=== PATIENT | female | born 1950 | race Caucasian/White ===

== ENCOUNTER 2018-07-05 04:50 | Observation (INO) | payer BC ==
--- NOTE | 2018-07-05 05:12 | ERPHSYRPT ---
- History of Present Illness Time Seen by Provider: 07/05/18 05:05 Source: patient Exam Limitations: no limitations Physician History: 67-year-old white female with history of CVA, cataracts, hypercholesterolemia, COPD, high blood pressure, myocardial infarction, diabetes type 2. Arrives with complaint of irregular heartbeat and feeling of weakness associated with shortness of breath which began approximately one hour ago woke patient up from sleep Patient states that the pain lasted undetermined amount of time, it went away shortly after she contacted her son she did not take any aspirin. She is on Effient. Currently she does not have any pain she does state that she feels weak. Past medical history includes CVA, cataracts, hypercholesterolemia, COPD, high blood pressure, myocardial infarction, diabetes type 2, ulcers. Past surgical history includes cardiac catheter cardiac stents cholecystectomy, hysterectomy. Social history patient is a former smoker. Timing/Duration: today (one hour prior to arrival) Severity: moderate Modifying Factors: Improves With: nothing Associated Symptoms: shortness of breath, malaise, weakness (patient states she feels generally weak), No nausea, No vomiting, No abdominal pain, No heartburn, No diaphoresis, No cough, No chills, No chest pain, No fever, No headaches, No loss of appetite, No rash, No syncope, No seizure Allergies/Adverse Reactions: Penicillins Allergy (Severe, Verified 07/05/18 05:08) Vomiting iodine Adverse Reaction (Verified 07/05/18 05:08) Rash Home Medications: Amlodipine Besylate 10 mg [Norvasc 10 MG] 5 mg PO DAILY 06/02/16 [History] Atorvastatin Calcium 40 mg PO DAILY 06/02/16 [History] Gemfibrozil 600 mg [Lopid 600 mg] 600 mg PO BID 06/02/16 [History] Metoprolol Tartrate 75 mg PO BID 06/02/16 [History] Oxybutynin Chloride 10 mg Xl [Ditropan Xl 10 MG] 10 mg PO DAILY 06/02/16 [ History] Lisinopril 20 mg [Zestril 20 MG] 20 mg PO BID 07/30/16 [History] Valsartan [Diovan] 160 mg PO DAILY 07/30/16 [History] Allopurinol 100 mg [Zyloprim 100 mg] 100 mg PO BID 07/05/18 [History] Bumetanide [Bumex] 2 mg PO DAILY 07/05/18 [History] Potassium Chloride 10 Meq Tab* [Klor Con 10 MEQ] 10 meq PO DAILY 07/05/18 [ History] Prasugrel HCL 10 MG [Effient 10 MG TABLET] 10 mg PO DAILY 07/05/18 [ History] Sitagliptin Phos/Metformin HCl [Janumet 50-1,000 mg Tablet] 1 each PO BID [History] glipiZIDE [Glipizide] 10 mg PO BID 07/05/18 [History] Hx Tetanus, Diphtheria Vaccination/Date Given: Yes Hx Influenza Vaccination/Date Given: (fall 2015) Hx Pneumococcal Vaccination/Date Given: Yes (fall 2014) - Review of Systems Constitutional: Weakness (Patient feels generally weak), No Fever, No Chills Eyes: No Symptoms Ears, Nose, & Throat: No Symptoms Respiratory: Dyspnea, No Cough Cardiac: Palpitations, Other (Patient felt like her heart was racing) Abdominal/Gastrointestinal: No Abdominal Pain, No Nausea, No Vomiting, No Diarrhea Genitourinary Symptoms: No Dysuria Musculoskeletal: No Back Pain, No Neck Pain Skin: No Rash Neurological: Dizziness, Other (light headed), No Focal Weakness, No Sensory Changes Psychological: No Symptoms Endocrine: No Symptoms All Other Systems: Reviewed and Negative - Past Medical History Pertinent Past Medical History: Yes Neurological History: Migraines, TIA ENT History: No Pertinent History Cardiac History: Coronary Artery Disease, High Cholesterol, Hypertension, Myocardial Infarction ([place]) Respiratory History: No Pertinent History Endocrine Medical History: Diabetes Type II Musculoskeletal History: No Pertinent History GI Medical History: Gallbladder Disease, Ulcer History: Other Psycho-Social History: No Pertinent History Female Reproductive Disorders: Other Other Medical History: hx of migraines that causea TIA's 15yrs ago, had prolapsed uterus and had uterus removed, had [place] in May, has high cholesterol , has HTN - Past Surgical History Past Surgical History: Yes Neuro Surgical History: No Pertinent History Cardiac: Cardiac Catheterization, Cardiac Stent Respiratory: No Pertinent History Gastrointestinal: Cholecystectomy Genitourinary: No Pertinent History Musculoskeletal: No Pertinent History Female Surgical History: Hysterectomy Other Surgical History: had 5 heart stents 5 or 6 yrs ago, had partial hysterectomy (uterus removed) years ago, had cholecystectomy in , - Social History Smoking Status: Never smoker Exposure to second hand smoke: Yes Drug Use: none Patient Lives Alone: No - Nursing Vital Signs Nursing Vital Signs: Initial Vital Signs Temperature 97.1 F 07/05/18 04:51 Pulse Rate 60 07/05/18 04:51 Respiratory Rate 22 07/05/18 04:51 Blood Pressure 159/75 07/05/18 04:51 O2 Sat by Pulse Oximetry 100 07/05/18 04:51 Pain Scale Pain Intensity 0 - Physical Exam General Appearance: no apparent distress, alert Eye Exam: PERRL/EOMI, eyes nml inspection Ears, Nose, Throat Exam: normal ENT inspection, TMs normal, pharynx normal, moist mucous membranes Neck Exam: normal inspection, non-tender, supple, full range of motion Respiratory Exam: normal breath sounds, lungs clear, No respiratory distress Cardiovascular Exam: regular rate/rhythm, normal heart sounds, normal peripheral pulses, capillary refill <2 sec Gastrointestinal/Abdomen Exam: soft, normal bowel sounds, No tenderness, No mass Back Exam: normal inspection, normal range of motion, No CVA tenderness, No vertebral tenderness Extremity Exam: normal inspection, normal range of motion, pelvis stable Neurologic Exam: alert, oriented x 3, cooperative, business liaison manager II-XII nml as tested, normal mood/affect, nml cerebellar function, nml station & gait, sensation nml, No motor deficits Skin Exam: normal color, warm, dry, No rash Lymphatic Exam: No adenopathy SpO2 Interpretation: normal (100%) Oxygen Delivery: Room Air - Course Nursing assessment & vital signs reviewed: Yes EKG Interpreted by Me: RATE (55 bpm), Sinus Be, NORMAL AXIS, Other (EKG: Sinus Bradycardia, 55 bpm, normal axis, nonspecific T wave changes) - Radiology Exams Chest X-ray Interpretation: Interpreted by me (no acute disease process) Ordered Tests: Active Orders 24 hr Category Date Time Status Accucheck STAT Care 07/05/18 05:12 Active Cycle Manager STAT Care 07/05/18 04:59 Active EKG-ER Only STAT Care 07/05/18 04:59 Active IV Insertion STAT Care 07/05/18 04:59 Active Pulse Oximetry (ED) STAT Care 07/05/18 04:59 Active CHEST 1 VIEW (PORTABLE) Stat Exams 07/05/18 04:59 Ordered AMYLASE Stat Lab 07/05/18 05:00 Completed CBC W DIFF Stat Lab 07/05/18 05:00 Completed CMP Stat Lab 07/05/18 05:00 Completed D-DIMER QUANTITATION Stat Lab 07/05/18 05:00 Completed LIPASE Stat Lab 07/05/18 05:00 Completed PROTIME WITH INR Stat Lab 07/05/18 05:00 Completed PTT Stat Lab 07/05/18 05:00 Completed TROPONIN Q3H Lab 07/05/18 05:00 Completed TROPONIN Q3H Lab 07/05/18 08:00 Ordered TROPONIN Q3H Lab 07/05/18 11:00 Ordered TROPONIN Q3H Lab 07/05/18 14:00 Ordered TROPONIN Q3H Lab 07/05/18 17:00 Ordered Medication Summary Discontinued Medications Generic Name Dose Route Start Last Admin Trade Name Freq PRN Reason Stop Dose Admin Aspirin 81 mg 07/05/18 05:18 07/05/18 05:22 Baby Aspirin 81 Mg Chew PO 07/05/18 05:19 81 mg STAT ONE Administration Lab/Rad Data: Laboratory Result Diagrams 07/05/18 05:00 07/05/18 05:00 Laboratory Results 07/05/18 07/05/18 07/05/18 Range/Units 05:00 05:00 05:00 WBC (4.0-10.5) K/mm3 RBC (4.1-5.4) M/mm3 Hgb (12.0-16.0) gm/dl Hct (35-47) % MCV (78-100) fl MCH (26-32) pg MCHC (32-36) g/dl RDW (11.5-14.0) % Plt Count (150-450) K/mm3 MPV (6-9.5) fl Gran % (36.0-66.0) % Eos # (Auto) (0-0.5) Absolute Lymphs (auto) (1.0-4.6) Absolute Monos (auto) (0.0-1.3) Lymphocytes % (24.0-44.0) % Monocytes % (0.0-12.0) % Eosinophils % (0.00-5.0) % Basophils % (0.0-0.4) % Absolute Granulocytes (1.4-6.9) Basophils # (0-0.4) PT 10.6 (9.95-12.35) SECONDS INR 0.91 (0.8-3.0) APTT 30.8 (25.3-37.0) SECONDS D-Dimer 483 (215-500) ng/mL Sodium 141 (137-145) mmol/L Potassium 3.8 (3.5-5.1) mmol/L Chloride 98 (98-107) mmol/L Carbon Dioxide 29 (22-30) mmol/L Anion Gap 16.9 H (5-15) MEQ/L BUN 54 H (7-17) mg/dL Creatinine 1.50 H (0.52-1.04) mg/dL Estimated GFR 36.8 ML/MIN Glucose 187 H (74-106) mg/dL Calcium 10.0 (8.4-10.2) mg/dL Total Bilirubin 0.40 (0.2-1.3) mg/dL AST 27 (14-36) U/L ALT 24 (0-35) U/L Alkaline Phosphatase 168 H (38-126) U/L Troponin I < 0.012 (0.000-0.034) ng/mL Serum Total Protein 8.1 (6.3-8.2) g/dL Albumin 4.7 (3.5-5.0) g/dL Amylase 77 (30-110) U/L Lipase 161 (23-300) U/L 07/05/18 Range/Units 05:00 WBC 6.6 (4.0-10.5) K/mm3 RBC 3.68 L (4.1-5.4) M/mm3 Hgb 11.3 L (12.0-16.0) gm/dl Hct 33.9 L (35-47) % MCV 92.1 (78-100) fl MCH 30.7 (26-32) pg MCHC 33.3 (32-36) g/dl RDW 14.1 H (11.5-14.0) % Plt Count 295 (150-450) K/mm3 MPV 10.4 H (6-9.5) fl Gran % 46.0 (36.0-66.0) % Eos # (Auto) 0.23 (0-0.5) Absolute Lymphs (auto) 2.66 (1.0-4.6) Absolute Monos (auto) 0.65 (0.0-1.3) Lymphocytes % 40.2 (24.0-44.0) % Monocytes % 9.8 (0.0-12.0) % Eosinophils % 3.5 (0.00-5.0) % Basophils % 0.5 (0.0-0.4) % Absolute Granulocytes 3.05 (1.4-6.9) Basophils # 0.03 (0-0.4) PT (9.95-12.35) SECONDS INR (0.8-3.0) APTT (25.3-37.0) SECONDS D-Dimer (215-500) ng/mL Sodium (137-145) mmol/L Potassium (3.5-5.1) mmol/L Chloride (98-107) mmol/L Carbon Dioxide (22-30) mmol/L Anion Gap (5-15) MEQ/L BUN (7-17) mg/dL Creatinine (0.52-1.04) mg/dL Estimated GFR ML/MIN Glucose (74-106) mg/dL Calcium (8.4-10.2) mg/dL Total Bilirubin (0.2-1.3) mg/dL AST (14-36) U/L ALT (0-35) U/L Alkaline Phosphatase (38-126) U/L Troponin I (0.000-0.034) ng/mL Serum Total Protein (6.3-8.2) g/dL Albumin (3.5-5.0) g/dL Amylase (30-110) U/L Lipase (23-300) U/L - Progress Progress: improved Progress Note: 07/05/18 05:10 67-year-old white female who is registered with complaint of chest pain however patient states she did not have pain she states that approximately one hour ago she began to feel like her heart was racing she felt generally weak she had some shortness of breath she has no nausea no vomiting. She states that her symptoms lasted an unknown period time but have resolved now she does state that she feels generally weak. Patient does have a history of cardiac problems she apparently has a history of diabetes high blood pressure hypercholesterolemia myocardial infarction she does have cardiac stents. Patient is on Effient, she did not take any aspirin at home Currently the patient appears to be stable she does have a rather forced deep breath when I ask her to take a deep breath lungs however sound clear. Heart is regular at this time EKG no acute changes are noted there are some nonspecific changes. Will obtain chest x-ray EKG CBC CMP troponin. 07/05/18 06:04 Patient without complaints at this time. Patient has been stable on the monitor with regular sinus bradycardia EKG nonspecific changes. D-dimer is normal at 483. Troponin is less than 0.012. CBC white blood cell 6.6 hemoglobin 11.3 hematocrit 33.9 Chemistry sodium 141 potassium 3.8 chloride 98 bicarbonate 29 BUN 54 creatinine 1.50 glucose 187 Chest x-ray no acute disease process noted. I've contacted Dr. Morteza Larkin who is paraprofessional education assistant for Dr. Sebastian patient's family physician. Will place patient on observation continue serial cardiac enzymes. - Departure Time of Disposition: 06:05 Departure Disposition: Observation Clinical Impression: Palpitations, Shortness of breath, Weakness Condition: Fair Critical Care Time: No Referrals: EVE GONZALEZ [Primary Care Provider] -
[2018-07-05 05:15] LABS: BASOPHIL % 0.5 % (0.0-0.4); Basophil (Absolute #) 0.03 (0-0.4); Eosinophil % 3.5 % (0.00-5.0); Eosinophil (Absolute #) 0.23 (0-0.5); Granulocyte Absolute (ANC) 3.05 (1.4-6.9); Hematocrit 33.9 % (35-47); Hemoglobin 11.3 gm/dl (12.0-16.0); Lymphocyte (Absolute #) 2.66 (1.0-4.6); Lymphocytes % 40.2 % (24.0-44.0); Mean Cell Volume 92.1 fl (78-100); Mean Corpuscular Hemoglobin 30.7 pg (26-32); Mean Corpuscular Hgb Concent. 33.3 g/dl (32-36); Mean Platelet Volume 10.4 fl (6-9.5); Monocyte (Absolute #) 0.65 (0.0-1.3); Monocytes % 9.8 % (0.0-12.0); Platelet Count 295 K/mm3 (150-450); Red Blood Count 3.68 M/mm3 (4.1-5.4); Red Cell Distribution Width 14.1 % (11.5-14.0); White Blood Count 6.6 K/mm3 (4.0-10.5)
[2018-07-05] MEDS ORDERED: BABY ASPIRIN 81 MG CHEW PO ONE (05:18)
[2018-07-05 05:33] LABS: INR 0.91 (0.8-3.0)
[2018-07-05 05:35] LABS: PTT 30.8 SECONDS (25.3-37.0)
[2018-07-05 05:37] LABS: ALBUMIN 4.7 g/dL (3.5-5.0); ANION GAP 16.9 MEQ/L (5-15); BILIRUBIN,TOTAL 0.4 mg/dL (0.2-1.3); Creatinine 1 1.5 mg/dL (0.52-1.04); Potassium 3.8 mmol/L (3.5-5.1); Total Protein 8.1 g/dL (6.3-8.2)
[2018-07-05] MEDS ORDERED: DUONEB 0.5-3 MG/3 ml Neb IH PRN (06:23)
[2018-07-05] MEDS ORDERED: Sodium Chloride 0.9% 1000 ML 1,000 ML IV SCH (06:23)
[2018-07-05] MEDS ORDERED: NovoLOG Insulin SQ PRN (06:23)
--- NOTE | 2018-07-05 08:49 | XRAY ---
Indication: Chest pain. Comparison: June 02, 2016. Portable chest again demonstrates normal heart and lungs. Bony thorax intact again with mild osteopenia and degenerative changes. No new/acute findings.
[2018-07-05 08:50] LABS: Cholesterol 254 mg/dL (50-200); HDL CHOLESTEROL 33 mg/dL (40-60); LDL, DIRECT 131 mg/dL (30-100); Risk Ratio 7.7; TRIGLYCERIDE 260 mg/dL (30-150)
[2018-07-05 08:51] LABS: TROPONIN < 0.012 ng/mL (0.000-0.034)
--- NOTE | 2018-07-05 08:59 | PCM.HP ---
History of Present Illness - Chief Complaint Chief Complaint: PALPITATIONS, WEAKNESS, SHORTNESS OF BREATH History of Present Illness: is a 67 year old female pt of mine from [facility] with COPD, CAD, chronic renal failure, HTN, DM, and gout who woke in the night wiht heart pounding. She denies CP but did have SOB. No nausea. no arm/back/neck pain. The palpitations lasted a few minutes; by the time her son, next door, got to her they were resolving. She came to the ER due to her heart history. She had a little SOB this morning but is not having any now. She was admitted for palpitations and r/o HI. Troponins neg x 2. EKG sinus bradycardia, no ST changes. - Review of Systems Constitutional: Weakness Ears, Nose, & Throat: Nose Congestion, Sinus Drainage, Throat Pain (mild - all x 2 weeks) Respiratory: Cough, Short Of Breath Abdominal/Gastrointestinal: Nausea Psychological: No Anxiety, No Depression, No Suicidal Ideations Endocrine: Polyuria (x 6 mo) All Other Systems: Reviewed and Negative Medications & Allergies Home Medications: Home Medication List Amlodipine Besylate 10 mg [Norvasc 10 MG] 5 mg PO DAILY 06/02/16 [History Confirmed 07/05/18] Atorvastatin Calcium 40 mg PO DAILY 06/02/16 [History Confirmed 07/05/18] Gemfibrozil 600 mg [Lopid 600 mg] 600 mg PO BID 06/02/16 [History Confirmed 07/05/18] Metoprolol Tartrate 0 mg PO BID 06/02/16 [History Confirmed 07/05/18] Oxybutynin Chloride 10 mg Xl [Ditropan Xl 10 MG] 10 mg PO DAILY 06/02/16 [ History Confirmed 07/05/18] Lisinopril 20 mg [Zestril 20 MG] 20 mg PO BID 07/30/16 [History Confirmed 07/05/18] Valsartan [Diovan] 160 mg PO DAILY 07/30/16 [History Confirmed 07/05/18] Allopurinol 100 mg [Zyloprim 100 mg] 100 mg PO BID 07/05/18 [History Confirmed 07/05/18] Bumetanide [Bumex] 2 mg PO DAILY 07/05/18 [History Confirmed 07/05/18] Ipratropium/Albuterol Sulfate [Combivent Inhaler] 2 puff IH QID 07/05/18 [ History Confirmed 07/05/18] Potassium Chloride 10 Meq Tab* [Klor Con 10 MEQ] 10 meq PO DAILY 07/05/18 [ History Confirmed 07/05/18] Prasugrel HCL 10 MG [Effient 10 MG TABLET] 10 mg PO DAILY 07/05/18 [ History Confirmed 07/05/18] Sitagliptin Phos/Metformin HCl [Janumet 50-1,000 mg Tablet] 1 each PO BID [History Confirmed 07/05/18] glipiZIDE [Glipizide] 10 mg PO BID 07/05/18 [History Confirmed 07/05/18] Allergies/Adverse Reactions: Allergies Allergy/AdvReac Type Severity Reaction Status Date / Time Penicillins Allergy Severe Vomiting Verified 07/05/18 05:08 iodine AdvReac Rash Verified 07/05/18 05:08 - Past Medical History Past Medical History: Yes Neurological History: Migraines, TIA ENT History: No Pertinent History Cardiac History: Coronary Artery Disease, High Cholesterol, Hypertension, Myocardial Infarction ([place]) Respiratory History: COPD Endocrine Medical History: Diabetes Type II Musculoskelatal History: No Pertinent History GI Medical History: Gallbladder Disease, Ulcer History: Other Pyscho-Social History: No Pertinent History Reproductive Disorders: Other Comment: hx of migraines that causea TIA's 15yrs ago, had prolapsed uterus and had uterus removed, had [place] in May, has high cholesterol, has HTN - Past Surgical History Past Surgical History: Yes Neuro Surgical History: No Pertinent History Cardiac History: Cardiac Catheterization, Cardiac Stent Respiratory Surgery: No Pertinent History GI Surgical History: Cholecystectomy Genitourinary Surgical Hx: No Pertinent History Musculskeletal Surgical Hx: No Pertinent History Female Surgical History: Hysterectomy Other Surgical History: 7 HEART STENTS TOTAL - Social History Smoking Status: Never smoker Exposure to second hand smoke: No Alcohol: None Drug Use: none - Physical Exam Vital Signs: Vital Signs - 24 hr Temp Pulse Pulse Resp BP Pulse Ox 07/05/18 08:00 98.4 F 54 L 18 142/67 99 07/05/18 06:50 98.4 F 54 L 18 142/67 99 07/05/18 06:23 98.4 F 54 L 18 142/67 99 07/05/18 05:50 55 L 16 99 07/05/18 05:40 58 L 16 149/71 100 07/05/18 04:59 100 07/05/18 04:51 97.1 F 60 60 22 159/75 100 Oxygen-Last 24 hours O2 Percentage 2 Liters = 28% O2 Percentage 2 Liters = 28% O2 Percentage 2 Liters = 28% O2 Percentage 2 Liters = 28% O2 Percentage 2 Liters = 28% General Appearance: no apparent distress, alert, obese Neurologic Exam: oriented x 3, cooperative Eye Exam: eyes nml inspection Ears, Nose, Throat Exam: moist mucous membranes Neck Exam: normal inspection, non-tender, No lymphadenopathy Respiratory Exam: lungs clear, diminished breath sounds (good air exchange), prolonged expirations, No crackles/rales, No rhonchi, No wheezing Cardiovascular Exam: regular rate/rhythm, normal heart sounds, No murmur Gastrointestinal/Abdomen Exam: soft, normal bowel sounds, No tenderness, No distention, No mass, No guarding, No rebound Back Exam: normal inspection, No rash Extremity Exam: No pedal edema, No swelling Skin Exam: normal color, warm, dry, No rash Results - Labs Lab/Micro Results: Accuchecks Accucheck Value: 174 Lab Results-Last 24 Hours 07/05/18 07/05/18 07/05/18 Range/Units 05:00 05:00 05:00 WBC 6.6 (4.0-10.5) K/mm3 RBC 3.68 L (4.1-5.4) M/mm3 Hgb 11.3 L (12.0-16.0) gm/dl Hct 33.9 L (35-47) % MCV 92.1 (78-100) fl MCH 30.7 (26-32) pg MCHC 33.3 (32-36) g/dl RDW 14.1 H (11.5-14.0) % Plt Count 295 (150-450) K/mm3 MPV 10.4 H (6-9.5) fl Gran % 46.0 (36.0-66.0) % Eos # (Auto) 0.23 (0-0.5) Absolute Lymphs (auto) 2.66 (1.0-4.6) Absolute Monos (auto) 0.65 (0.0-1.3) Lymphocytes % 40.2 (24.0-44.0) % Monocytes % 9.8 (0.0-12.0) % Eosinophils % 3.5 (0.00-5.0) % Basophils % 0.5 (0.0-0.4) % Absolute Granulocytes 3.05 (1.4-6.9) Basophils # 0.03 (0-0.4) PT 10.6 (9.95-12.35) SECONDS INR 0.91 (0.8-3.0) APTT 30.8 (25.3-37.0) SECONDS D-Dimer 483 (215-500) ng/mL Sodium 141 (137-145) mmol/L Potassium 3.8 (3.5-5.1) mmol/L Chloride 98 (98-107) mmol/L Carbon Dioxide 29 (22-30) mmol/L Anion Gap 16.9 H (5-15) MEQ/L BUN 54 H (7-17) mg/dL Creatinine 1.50 H (0.52-1.04) mg/dL Estimated GFR 36.8 ML/MIN Glucose 187 H (74-106) mg/dL Calcium 10.0 (8.4-10.2) mg/dL Total Bilirubin 0.40 (0.2-1.3) mg/dL AST 27 (14-36) U/L ALT 24 (0-35) U/L Alkaline Phosphatase 168 H (38-126) U/L Troponin I (0.000-0.034) ng/mL Serum Total Protein 8.1 (6.3-8.2) g/dL Albumin 4.7 (3.5-5.0) g/dL Triglycerides (30-150) mg/dL Cholesterol (50-200) mg/dL LDL Cholesterol (30-100) mg/dL HDL Cholesterol (40-60) mg/dL Heart Disease Risk Ratio Amylase 77 (30-110) U/L Lipase 161 (23-300) U/L 07/05/18 07/05/18 Range/Units 05:00 08:00 WBC (4.0-10.5) K/mm3 RBC (4.1-5.4) M/mm3 Hgb (12.0-16.0) gm/dl Hct (35-47) % MCV (78-100) fl MCH (26-32) pg MCHC (32-36) g/dl RDW (11.5-14.0) % Plt Count (150-450) K/mm3 MPV (6-9.5) fl Gran % (36.0-66.0) % Eos # (Auto) (0-0.5) Absolute Lymphs (auto) (1.0-4.6) Absolute Monos (auto) (0.0-1.3) Lymphocytes % (24.0-44.0) % Monocytes % (0.0-12.0) % Eosinophils % (0.00-5.0) % Basophils % (0.0-0.4) % Absolute Granulocytes (1.4-6.9) Basophils # (0-0.4) PT (9.95-12.35) SECONDS INR (0.8-3.0) APTT (25.3-37.0) SECONDS D-Dimer (215-500) ng/mL Sodium (137-145) mmol/L Potassium (3.5-5.1) mmol/L Chloride (98-107) mmol/L Carbon Dioxide (22-30) mmol/L Anion Gap (5-15) MEQ/L BUN (7-17) mg/dL Creatinine (0.52-1.04) mg/dL Estimated GFR ML/MIN Glucose (74-106) mg/dL Calcium (8.4-10.2) mg/dL Total Bilirubin (0.2-1.3) mg/dL AST (14-36) U/L ALT (0-35) U/L Alkaline Phosphatase (38-126) U/L Troponin I < 0.012 < 0.012 (0.000-0.034) ng/mL Serum Total Protein (6.3-8.2) g/dL Albumin (3.5-5.0) g/dL Triglycerides 260 H (30-150) mg/dL Cholesterol 254 H (50-200) mg/dL LDL Cholesterol 131 H (30-100) mg/dL HDL Cholesterol 33 L (40-60) mg/dL Heart Disease Risk Ratio 7.7 Amylase (30-110) U/L Lipase (23-300) U/L Accuchecks Accucheck Value: 174 - Radiology Impressions Radiology Exams & Impressions: Radiology Procedures Category Date Time Status CHEST 1 VIEW (PORTABLE) Stat Exams 07/05/18 04:59 Completed - Other Procedures and Tests Respiratory Therapy 07/05/18 06:23 Oxygen NASAL CANNULA 2 lpm Respiratory Therapy Consult ROUTINE Assessment/Plan (1) Chest pain, rule out acute myocardial infarction Current Visit: Yes Status: Acute Assessment & Plan: actually SOB, rule out HI Code(s): R07.9 - CHEST PAIN, UNSPECIFIED (2) Palpitations Current Visit: Yes Status: Acute Assessment & Plan: last echo likely 2 yrs ago per pt. repeat today. Code(s): R00.2 - PALPITATIONS (3) COPD (chronic obstructive pulmonary disease) Current Visit: Yes Status: Chronic Qualifiers: Emphysema type: unspecified (4) Chronic renal insufficiency Current Visit: Yes Status: Chronic Qualifiers: Chronic kidney disease stage: unspecified stage Qualified Code(s): N18.9 - Chronic kidney disease, unspecified Code(s): N18.9 - CHRONIC KIDNEY DISEASE, UNSPECIFIED (5) CAD (coronary artery disease) Current Visit: Yes Status: Acute Qualifiers: Coronary Disease-Associated Artery/Lesion type: [place] artery [place] vs. transplanted heart: [place] heart Associated angina: without angina Qualified Code(s): I25.10 - Atherosclerotic heart disease of [place] coronary artery without angina pectoris Assessment & Plan: Last stress test this spring. Sees Dr. Farnaz Massey in Jul or this year. Last heart cath she thinks 2 yrs ago. Code(s): I25.10 - ATHSCL HEART DISEASE OF [place] CORONARY ARTERY W/O ANG PCTRS (6) Shortness of breath Current Visit: Yes Status: Resolved Code(s): R06.02 - SHORTNESS OF BREATH (7) Weakness Current Visit: Yes Status: Acute Code(s): R53.1 - WEAKNESS
[2018-07-05] MEDS ORDERED: AFRIN NASAL SPRAY NS ONE (09:02)
[2018-07-05] MEDS ORDERED: NON-FORMULARY ITEM (Glipizide [Glipizide] 10 MG) PO SCH (10:00)
[2018-07-05] MEDS ORDERED: ALBUTEROL SULFATE IH SCH (10:00)
[2018-07-05] MEDS ORDERED: IPRATROPIUM IH SCH (10:00)
[2018-07-05] MEDS ORDERED: Klor Con 10 MEQ PO SCH (10:00)
[2018-07-05] MEDS ORDERED: Lasix 40 MG PO SCH (10:00)
[2018-07-05] MEDS ORDERED: NORVASC 5 MG PO SCH (10:00)
[2018-07-05] MEDS ORDERED: SITAGLIPTIN PHOS PO SCH (10:00)
[2018-07-05] MEDS ORDERED: ZYLOPRIM 100 MG PO SCH (10:00)
[2018-07-05] MEDS ORDERED: METFORMIN HCL PO SCH (10:00)
[2018-07-05] MEDS ORDERED: Zocor 10MG PO SCH (10:00)
[2018-07-05] MEDS ORDERED: Zestril 20 MG PO SCH (10:00)
[2018-07-05] MEDS ORDERED: BUMEX 1 MG PO SCH (10:00)
[2018-07-05] MEDS ORDERED: Ditropan XL 5 MG PO SCH (10:00)
[2018-07-05] MEDS ORDERED: Effient 10 MG TABLET PO SCH (10:00)
[2018-07-05] MEDS ORDERED: NON-FORMULARY ITEM (Bumetanide [Bumex] 2 MG) PO SCH (10:00)
[2018-07-05] MEDS ORDERED: LOPID 600 MG PO SCH (10:00)
[2018-07-05] MEDS: DUONEB 0.5-3 MG/3 ml Neb IH SCH ×2 (10:51→14:49)
[2018-07-05] MEDS ORDERED: Lopressor 50 MG PO SCH (11:00)
[2018-07-05] MEDS ORDERED: DIOVAN 80 MG PO SCH (11:00)
[2018-07-05] MEDS: Januvia 50 MG PO SCH ×2 (11:04→17:01)
[2018-07-05] MEDS: Glucophage 500 MG PO SCH ×2 (11:04→17:01)
[2018-07-05] MEDS: Glucotrol 5 MG PO SCH ×2 (11:05→17:01)
[2018-07-05 16:40] LABS: Appearance CLEAR (CLEAR)
[2018-07-05 16:41] LABS: Bilirubin NEGATIVE (NEGATIVE); Blood NEGATIVE Ery/ul (0-5); Glucose >=500 mg/dL (NEGATIVE); Ketones NEGATIVE (NEGATIVE); Leukocyte Esterase NEGATIVE (NEGATIVE); Nitrite NEGATIVE (NEGATIVE); Protein,Urine Dip NEGATIVE (Negative); Specific Gravity 1.013 (1.005-1.025); Urobilinogen NORMAL mg/dL (0-1)
[2018-07-05 22:43] VITALS: BP 110/58; PULSE 68; O2SAT 99
--- NOTE | 2018-07-07 11:15 | ECHO ---
Transthoracic echocardiographic examination and color Doppler was done on 07/05/2018. INDICATION: Palpitations, history of myocardial infarction, coronary artery bypass surgery. IMPRESSION: 1) NO REGIONAL WALL MOTION ABNORMALITY. ESTIMATED GLOBAL LEFT VENTRICULAR EJECTION FRACTION OF AROUND 60%. 2) MILD AORTIC REGURGITATION. 3) TRACE MITRAL REGURGITATION. 4) TRACE TRICUSPID REGURGITATION. RIGHT VENTRICULAR SYSTOLIC PRESSURE OF 25 MM OF MERCURY. 5) LEFT VENTRICULAR HYPERTROPHY. 6) LEFT VENTRICULAR DIASTOLIC DYSFUNCTION. The left ventricle is visualized and demonstrated adequate motion of all the segments. Estimated global left ventricular ejection fraction around 60%. There is mild left ventricular hypertrophy. The mitral valve is seen and this opens adequately. There is trace mitral regurgitation. Left atrium is normal. Tissue Doppler study of the lateral mitral annulus suggestive of left ventricular diastolic dysfunction. The aortic valve opens adequately. There is no significant gradient across the left ventricular outflow tract. There is mild aortic regurgitation. The right side chambers are normal. There is trace tricuspid regurgitation. The right ventricular systolic pressure of 25 mm of Mercury.
== END 2018-07-05 19:45 | disposition home or self-care (01) ==
LOC: ED 04:50 → MED SURG 06:21
PROVIDERS: ADMIT Family Medicine; ATTEND Family Medicine
DX: R07.9 Chest pain, unspecified (principal); R00.2 Palpitations; J44.9 Chronic obstructive pulmonary disease, unspecified; I12.9 Hypertensive chronic kidney disease with stage 1 through stage 4 chronic kidney disease, or unspecified chronic kidney disease; N18.9 Chronic kidney disease, unspecified; I25.10 Atherosclerotic heart disease of native coronary artery without angina pectoris; R06.02 Shortness of breath; R53.1 Weakness; Z79.899 Other long term (current) drug therapy; E11.9 Type 2 diabetes mellitus without complications; E78.00 Pure hypercholesterolemia, unspecified; I25.2 Old myocardial infarction
CPT/HCPCS: 36000; 36415; 71045; 80053; 80061; 81001; 82150; 82962; 83036; 83690; 83721; 84484; 85025; 85379; 85610; 85730; 93005; 93041; 93268; 93306; 94150; 94640; 94762; 99285; A9270-GY; G0378

== ENCOUNTER 2019-02-11 05:59 | Day surgery (SDC) | payer BC ==
[2019-02-11] MEDS ORDERED: DIPRIVAN 200 MG/20 ML IV ONE ×2 (06:00)
[2019-02-11] MEDS ORDERED: Ketamine HCl 50 MG/ML IJ ONE (06:00)
[2019-02-11] MEDS ORDERED: Lactated Ringers 1,000 ML IV SCH (06:30)
[2019-02-11] MEDS ORDERED: Lactated Ringers 1,000 ML IV ONE (07:36)
--- NOTE | 2019-02-11 08:46 | OP ---
SURGERY DATE: 02/11/2019 SURGERY TIME: 729 PREOPERATIVE DIAGNOSIS: 1. ANEMIA. 2. HISTORY OF COLON POLYPS. POSTOPERATIVE DIAGNOSIS: 1. NONSTEROIDAL ANTI-INFLAMMATORY DRUG TYPE GASTROPATHY. 2. ASCENDING COLON POLYP. PROCEDURE: 1. Esophagogastroduodenoscopy. 2. Colonoscopy with cold forceps biopsy. SURGEON: Dr. Brooks. ANESTHESIA: MAC, given by the Anesthesia Department. BRIEF HISTORY: The patient is a 68 y/o WF presenting now for endoscopic evaluation. She has anemia and previous colon polyps. She was felt to need to have endoscopic evaluation. She was appraised of the risks of the procedure including the risk of perforation, phlebitis, untoward reaction to medication, bleeding, and missed lesions. The patient verbalized her understanding and desired to have the procedure performed. DESCRIPTION OF PROCEDURE: The patient was given the medications by the Anesthesia Department. She had continuous pulse oximetry, ECG monitoring, intermittent BP monitoring, and end tidal CO2 monitoring during the examination. She was placed in the left lateral decubitus position. A bite block was placed and the flexible Olympus gastroscope was used to intubate the oropharynx. The esophagus appeared to be normal throughout its length. The stomach was entered. The gastric serrato was suctioned dry of bilious material. The gastric rugal folds distended nicely with the insufflation of air. The scope was passed along the greater curvature of the stomach to the antrum to the pylorus which was then intubated. The duodenum was inspected and found to be normal. The scope was withdrawn towards the stomach. Again, retroflex view was obtained of the lesser curvature, fundus, and cardia regions of the stomach. There appeared to be a generalized erythema and punctate areas of bleeding consistent with nonsteroidal anti-inflammatory drug type gastropathy. The scope was then removed from the patient. Next, a digital rectal examination was performed and revealed external hemorrhoids. No bleeding. No masses. The flexible Olympus pediatric colonoscope was used to intubate the rectum. A view of the colon was developed sequentially to the cecum. Upon insertion and withdrawal, was noted a small polyp in the ascending colon. This was biopsied using cold biopsy technique to rule out adenomatous change. With careful withdrawal and inspection and no other mucosal lesions being encountered, the scope was removed from the patient who tolerated the procedure well and was sent back to OP recovery in good condition. The prep was noted to be fair to poor.
[2019-02-11 08:54] VITALS: O2SAT 98
[2019-02-11 10:12] VITALS: BP 118/68; PULSE 72
== END 2019-02-11 09:25 | disposition home or self-care (01) ==
LOC: SDC 05:59
PROVIDERS: ATTEND Family Medicine
DX: K31.9 Disease of stomach and duodenum, unspecified (principal); K63.5 Polyp of colon; D64.9 Anemia, unspecified; Z86.010 Personal history of colon polyps; E11.9 Type 2 diabetes mellitus without complications
CPT/HCPCS: 82962; 88305; J2704

== ENCOUNTER 2019-07-04 15:35 | Emergency (ER) | payer BC, OTHER ==
--- NOTE | 2019-07-04 16:49 | ERPHSYRPT ---
- History of Present Illness Source: patient, EMS Exam Limitations: no limitations Patient Subjective Stated Complaint: "Was walking outside and didn't step up high enough on curb and fell. I caught myself with my hands but hit face on concrete causing injury to my nose. I am on blood thinners, not sure what the name is". Triage Nursing Assessment: Pt presents to ER from short fall, states fell from standing on concrete. Catching self with hands but hitting face on concrete. Chin and nose are swollen, nose is bleeding. Rosalio wrist abrasions and swelling. States right wrist hurts more than left. Right wrist limited ROM. Resp easy and unlabored at this time. Lungs clear. Pt denies LOC. Pt is alert and oriented x 3. Communicates regularly. Ambulates with unsteady weak gait with assistance of nursing staff. Occurred: just prior to arrival Reason for Fall: fell from standing pos (did not step high enough to clear the curb) Injuries/Pain Location: head, face, upper extremity (right hand) Loss of Consciousness: no loss of consciousness Quality: aching Severity of Pain-Max: mild Severity of Pain-Current: mild Associated Symptoms (Fall): extremity injury, headache Hx Tetanus, Diphtheria Vaccination/Date Given: Yes Hx Influenza Vaccination/Date Given: No Hx Pneumococcal Vaccination/Date Given: No Immunizations Up to Date: Yes <XIN HUTTON - Last Filed: 07/04/19 16:52> <ABDULLAHI ROBERT - Last Filed: 07/04/19 17:53> - History of Present Illness Time Seen by Provider: 07/04/19 15:40 Physician History: 68 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 no loc. pt denies neck pain. pt brouht into ed by ems. (XIN HUTTON) Allergies/Adverse Reactions: Penicillins Allergy (Severe, Verified 07/04/19 15:49) Vomiting iodine Adverse Reaction (Verified 07/04/19 15:49) Rash Home Medications: Amlodipine Besylate 10 mg [Norvasc 10 MG] 5 mg PO DAILY 06/02/16 [History] Atorvastatin Calcium 40 mg PO DAILY 06/02/16 [History] Gemfibrozil 600 mg [Lopid 600 mg] 600 mg PO BID 06/02/16 [History] Metoprolol Tartrate 50 mg PO BID 06/02/16 [History] Oxybutynin Chloride 10 mg Xl [Ditropan Xl 10 MG] 10 mg PO DAILY 06/02/16 [ History] Lisinopril 20 mg [Zestril 20 MG] 20 mg PO BID 07/30/16 [History] Valsartan [Diovan] 160 mg PO DAILY 07/30/16 [History] Allopurinol 100 mg [Zyloprim 100 mg] 100 mg PO BID 07/05/18 [History] Bumetanide [Bumex] 2 mg PO DAILY 07/05/18 [History] Furosemide 40 mg [Lasix 40 MG] 40 mg PO DAILY 07/05/18 [History] Ipratropium/Albuterol Sulfate [Combivent Inhaler] 2 puff IH QID 07/05/18 [ History] Potassium Chloride 10 Meq Tab* [Klor Con 10 MEQ] 10 meq PO DAILY 07/05/18 [ History] Prasugrel HCL 10 MG [Effient 10 MG TABLET] 10 mg PO DAILY 07/05/18 [ History] Sitagliptin Phos/Metformin HCl [Janumet 50-1,000 mg Tablet] 1 each PO BID [History] glipiZIDE [Glipizide] 10 mg PO BID 07/05/18 [History] raNITIdine HCl [Zantac] 150 mg PO BID 02/01/19 [History] - Review of Systems Constitutional: No Symptoms Eyes: No Symptoms Ears, Nose, & Throat: Other (abrasion chin and nasal bridge) Respiratory: No Symptoms Cardiac: No Symptoms Abdominal/Gastrointestinal: No Symptoms Genitourinary Symptoms: No Symptoms Musculoskeletal: Injury (right hand with abrasion) Skin: Other (abrasion as above) Neurological: Dizziness, Headache Psychological: No Symptoms Endocrine: No Symptoms Hematologic/Lymphatic: No Symptoms Immunological/Allergic: No Symptoms All Other Systems: Reviewed and Negative <XIN HUTTON - Last Filed: 07/04/19 16:52> - Past Medical History Pertinent Past Medical History: Yes Neurological History: Migraines, TIA ENT History: No Pertinent History Cardiac History: Coronary Artery Disease, High Cholesterol, Hypertension, Myocardial Infarction (CT) Respiratory History: COPD Endocrine Medical History: Diabetes Type II Musculoskeletal History: No Pertinent History GI Medical History: Gallbladder Disease, Polyps, Ulcer History: Other Psycho-Social History: No Pertinent History Female Reproductive Disorders: Other Other Medical History: hx of migraines that cause TIA's 15yrs ago, had prolapsed uterus and had uterus removed, had CT , has high cholesterol, has HTN , possible parkinson's (had workup awaiting results), possible renal disease.anemia - Past Surgical History Past Surgical History: Yes Neuro Surgical History: No Pertinent History Cardiac: Cardiac Catheterization, Cardiac Stent Respiratory: No Pertinent History Gastrointestinal: Cholecystectomy Genitourinary: No Pertinent History Musculoskeletal: No Pertinent History Female Surgical History: Hysterectomy Other Surgical History: 7 HEART STENTS TOTAL ,colonoscopy and egd in past - Social History Smoking Status: Never smoker Exposure to second hand smoke: No Drug Use: none Patient Lives Alone: Yes <XIN HUTTON - Last Filed: 07/04/19 16:52> - [place] Coma Score Best Eye Response ([place]): (4) open spontaneously Best Verbal Response ([place]): (5) oriented Best Motor Response ([place]): (6) obeys commands [place] Total: 15 - Physical Exam General Appearance: mild distress, alert, anxiety Head Injury: contusions (and abrasion chin and nasal bridge) Eye Exam: PERRL/EOMI, eyes nml inspection ENT Exam: airway nml Neck Exam: supple, trachea midline, full range of motion, normal alignment, normal inspection Respiratory/Chest Exam: normal breath sounds, No chest tenderness, No respiratory distress, No ecchymosis, No crepitus, No wheezing Cardiovascular Exam: normal heart sounds, regular rate/rhythm Gastrointestinal Exam: soft, normal bowel sounds, No tenderness Back Exam: normal inspection, normal range of motion, No CVA tenderness, No vertebral tenderness Extremity Exam: normal range of motion, tenderness (right hand abrasion) Neurologic Exam: alert, oriented x 3, cooperative, economic development director II-XII nml as tested Skin Exam: abrasion (as above) SpO2 Interpretation: normal SpO2: 99 O2 Delivery: Room Air <XIN HUTTON - Last Filed: 07/04/19 16:52> - Nursing Vital Signs Nursing Vital Signs: Initial Vital Signs Temperature 97 F 07/04/19 15:36 Pulse Rate 76 07/04/19 15:36 Respiratory Rate 20 07/04/19 15:36 Blood Pressure 171/97 07/04/19 15:36 O2 Sat by Pulse Oximetry 99 07/04/19 15:36 Pain Scale Pain Intensity 6 - Radiology Exams Right Hand X-ray Interpretation: Other (pper radiologist interpretation: 3 views of the right hand demonstrates a mild osteopenia, minimal third/fourth MCP degenerative changes, minimal second DIP joint changes, mild/moderate first metacarpal not multangular scaphoid degenerative changes, old fifth metacarpal shaft fracture, radial carpal joint space narrowing, and faint distal forearm as a consultations. No other bony, articular, or soft tissue abnormalities. Overall impression: None acute right hand with chronic features.) - CT Exams Head CT Interpretation: Negative (per radiologist interpretation: Mild periventricular degenerative migraines ischemia bilaterally. No acute intracranial hemorrhage, abnormal extra-axial fluid question, or mass effect. Fourth ventricle is midline without hydrocephalus. White matter differentiation preserved. The bony calvarium intact. Visualized paranasal sinuses and mastoid air cells are clear. Impression: Nonacute senile brain.) Maxillofacial Bones CT Interpretation: Negative, Other (per radiologist interpretation: Demonstrates mild soft tissue swelling. No acute fracture, suspicious bony lesions, or radiopaque foreign body. Concluding roof, ordonez, and floors are intact. For the left and right maxilla signs temperature is minimal mucosal thickening. Remaining paranasal sinuses and nasal passageways are clear. Minimal nasal septal deviation to the left. Visualized cervical spine intact with mild multilevel degenerative changes. Moderate scattered carotid calcifications bilaterally. Remaining visualized noncontrast is soft tissues are unremarkable. Overall impression: Chin soft tissue swelling. Negative for acute fracture. Incidental minimal paranasal sinus disease, minimal nasal septal deviation, and scattered carotid calcifications.) <ABDULLAHI ROBERT DAVID - Last Filed: 07/04/19 17:53> Ordered Tests: Active Orders 24 hr Category Date Time Status FACIAL BONES WO CONTRAST [CT] Stat Exams 07/04/19 15:59 Completed HAND (MINIMUM 3 VIEWS) Stat Exams 07/04/19 15:59 Completed HEAD WITHOUT CONTRAST [CT] Stat Exams 07/04/19 15:59 Completed <XIN HUTTON - Last Filed: 07/04/19 16:52> - Progress Progress: improved Counseled pt/family regarding: diagnosis, need for follow-up, rad results <MARLOABDULLAHI WADDELL - Last Filed: 07/04/19 17:53> - Progress Progress Note: 07/04/19 16:57 transfer of care to dr. robert. i have reviewed pending tests. he accepts pt in transfer in ed (XIN HUTTON) 07/04/19 17:42 GCS: 15. Patient is neurovascularly intact without any focal neurologic deficits, CTA throughout all lung alonzo, and no tenderness to the cervical, thoracic or lumbar spines on repeat evaluation. patient has mild epistaxis to the right anterior nares, stopped easily with direct pressure. Patient has gauze placed to that right nares to prevent any further bleeding. Patient is up to date on tetanus status. (HUMBERTOMAXIMILIANOZHANE DAVID) - Departure Departure Disposition: Home <XIN HUTTON - Last Filed: 07/04/19 16:52> - Departure Departure Disposition: Home Critical Care Time: No <MAXIMILIANO ROBERTDIPIKAWILBERTO DAVID - Last Filed: 07/04/19 17:53> - Departure Clinical Impression: Abrasions of multiple sites, Anterior epistaxis, Essential hypertension, Hand arthritis, Arthritis of right wrist Fall Qualifiers: Encounter type: initial encounter Qualified Code(s): W19.XXXA - Unspecified fall, initial encounter Chin contusion Qualifiers: Encounter type: initial encounter Qualified Code(s): S00.83XA - Contusion of other part of head, initial encounter Condition: Good Referrals: BRANDON GROSSMAN [Primary Care Provider] - 07/05/19 Instructions: Contusion (DC), Preventing Falls, Skin Abrasions (DC), Nosebleeds (DC), Osteoarthritis (DC) Additional Instructions: Your CT scan of your head and CT scan of your face were negative for any acute findings. Your x-rays are read and did not show any fractures or dislocations but has arthritis in multiple areas of the hand and wrist. Follow-up with your physician to continue evaluation of your pain. Return immediately back to the emergency Department if you have any new change in mental status, overwhelming headache, new pain in your neck her back, new vomiting, new chest pain, new shortness of breath, or any other concerning signs or symptoms that were not present at today's emergency room visit for immediate reevaluation in the emergency department.
--- NOTE | 2019-07-04 17:05 | XRAY ---
Indication: Nose/villatoro contusion following fall. Dizziness. History of Parkinson's. Multiple contiguous axial images obtained through the head without contrast. Comparison: September 13, 2009. There is again age-appropriate global atrophy with now mild periventricular degenerative micro-ischemia bilaterally. No acute intracranial hemorrhage, abnormal extra-axial fluid collection, or mass effect. Fourth ventricle is midline without hydrocephalus. Lopez-white matter differentiation preserved. Bony calvarium intact. Visualized paranasal sinuses and mastoid air cells are clear. Impression: Nonacute senile brain. CTDI 44.06
--- NOTE | 2019-07-04 17:09 | XRAY ---
Indication: Nose/villatoro contusion following fall. Dizziness. History of Parkinson's. Multiple contiguous axial images obtained through the facial bones. Sagittal and coronal reformatted images obtained. Comparison: None. Patient is edentulous. Chin demonstrates mild soft tissue swelling. No acute fracture, suspicious bony lesions, or radiopaque foreign body. Orbits including roof, ordonez, and floors are intact. Floor of the left and right maxillary sinus demonstrates minimal mucosal thickening. Remaining paranasal sinuses and nasal passages are clear. Minimal nasal septal deviation to the left. Visualized cervical spine intact with mild multilevel degenerative changes. Moderate scattered carotid calcifications bilaterally. Remaining visualized noncontrasted soft tissues unremarkable. CT head reported separately. Impression: 1. Chin soft tissue swelling. Negative acute fracture. 2. Incidental minimal paranasal sinus disease, minimal nasal septal deviation, and scattered carotid calcifications. CTDI 43.14
--- NOTE | 2019-07-04 17:11 | XRAY ---
Pain following fall. Comparison: None 3 views of the right hand demonstrates mild osteopenia, minimal 3rd/4th MCP degenerative changes, minimal 2nd DIP degenerative changes, mild/moderate 1st metacarpal multangular scaphoid degenerative changes, old 5th metacarpal shaft fracture, radial carpal joint space narrowing, and faint distal forearm vascular calcifications. No other bony, articular, or soft tissue abnormalities. Impression: Nonacute right hand with chronic features.
[2019-07-04 18:03] VITALS: BP 170/90; PULSE 70; O2SAT 98
== END 2019-07-04 18:42 | disposition home or self-care (01) ==
LOC: ED 15:35
DX: S60.812A Abrasion of left wrist, initial encounter (principal); S60.811A Abrasion of right wrist, initial encounter; S00.81XA Abrasion of other part of head, initial encounter; S00.31XA Abrasion of nose, initial encounter; S00.83XA Contusion of other part of head, initial encounter; R51 Headache; W01.198A Fall on same level from slipping, tripping and stumbling with subsequent striking against other object, initial encounter; Y93.01 Activity, walking, marching and hiking; Y92.89 Other specified places as the place of occurrence of the external cause; Z79.899 Other long term (current) drug therapy; E78.00 Pure hypercholesterolemia, unspecified; I10 Essential (primary) hypertension; I25.2 Old myocardial infarction; J44.9 Chronic obstructive pulmonary disease, unspecified; E11.9 Type 2 diabetes mellitus without complications; R04.0 Epistaxis
CPT/HCPCS: 30901; 70450; 70486; 73130; 99284

== ENCOUNTER 2019-07-08 11:17 | Emergency (ER) | payer BC, OTHER ==
--- NOTE | 2019-07-08 11:32 | ERPHSYRPT ---
- History of Present Illness Time Seen by Provider: 07/08/19 11:21 Source: patient Exam Limitations: no limitations Physician History: 66-year-old female history of COPD/CAD presents for shortness of breath. patient states she called 911 yesterday for shortness of breath, she got a breathing treatment at her home and had normal vital signs and was told she did not need to come to the emergency department. Today she went to urgent care feeling short of breath or up-to-date today, worse with exertion, and he sent her here for evaluation. She states she has had shortness of breath constantly today that is worse with walking or using the restroom. She has had no syncope. No focal numbness or weakness. She denies any chest pain recently or today. No recent leg swelling. No PND orthopnea. Patient denies cough or fevers today. She endorses intermittent nausea but she states she has chronic nausea and vomiting and follows with gastroenterology so this is not new. PMH: Patient worse a history of CAD, SC, COPD Social:patient denies tobacco Allergies/Adverse Reactions: Penicillins Allergy (Severe, Verified 07/08/19 11:45) Vomiting iodine Adverse Reaction (Verified 07/08/19 11:45) Rash Home Medications: Amlodipine Besylate 10 mg [Norvasc 10 MG] 5 mg PO DAILY 06/02/16 [History] Atorvastatin Calcium 40 mg PO DAILY 06/02/16 [History] Gemfibrozil 600 mg [Lopid 600 mg] 600 mg PO BID 06/02/16 [History] Metoprolol Tartrate 50 mg PO BID 06/02/16 [History] Oxybutynin Chloride 10 mg Xl [Ditropan Xl 10 MG] 10 mg PO DAILY 06/02/16 [ History] Lisinopril 20 mg [Zestril 20 MG] 20 mg PO BID 07/30/16 [History] Valsartan [Diovan] 160 mg PO DAILY 07/30/16 [History] Allopurinol 100 mg [Zyloprim 100 mg] 100 mg PO BID 07/05/18 [History] Bumetanide [Bumex] 2 mg PO DAILY 07/05/18 [History] Furosemide 40 mg [Lasix 40 MG] 40 mg PO DAILY 07/05/18 [History] Ipratropium/Albuterol Sulfate [Combivent Inhaler] 2 puff IH QID 07/05/18 [ History] Potassium Chloride 10 Meq Tab* [Klor Con 10 MEQ] 10 meq PO DAILY 07/05/18 [ History] Prasugrel HCL 10 MG [Effient 10 MG TABLET] 10 mg PO DAILY 07/05/18 [ History] Sitagliptin Phos/Metformin HCl [Janumet 50-1,000 mg Tablet] 1 each PO BID [History] glipiZIDE [Glipizide] 10 mg PO BID 07/05/18 [History] raNITIdine HCl [Zantac] 150 mg PO BID 02/01/19 [History] Hx Tetanus, Diphtheria Vaccination/Date Given: Yes Hx Influenza Vaccination/Date Given: No Hx Pneumococcal Vaccination/Date Given: No - Review of Systems Constitutional: No Fever, No Chills Eyes: No Symptoms Ears, Nose, & Throat: No Symptoms Respiratory: Dyspnea, Dyspnea on Exertion ([place]), No Cough Cardiac: No Chest Pain, No Edema, No Syncope Abdominal/Gastrointestinal: No Abdominal Pain, No Nausea, No Vomiting, No Diarrhea Genitourinary Symptoms: No Dysuria Musculoskeletal: No Back Pain, No Neck Pain Skin: No Rash Neurological: No Dizziness, No Focal Weakness, No Sensory Changes Psychological: No Symptoms Endocrine: No Symptoms All Other Systems: Reviewed and Negative - Past Medical History Pertinent Past Medical History: Yes Neurological History: Migraines, TIA ENT History: No Pertinent History Cardiac History: Coronary Artery Disease, High Cholesterol, Hypertension, Myocardial Infarction (SC) Respiratory History: COPD Endocrine Medical History: Diabetes Type II Musculoskeletal History: No Pertinent History GI Medical History: Gallbladder Disease, Polyps, Ulcer History: Other Psycho-Social History: No Pertinent History Female Reproductive Disorders: Other Other Medical History: hx of migraines that cause TIA's 15yrs ago, had prolapsed uterus and had uterus removed, had SC , has high cholesterol, has HTN , possible parkinson's (had workup awaiting results), possible renal disease.anemia - Past Surgical History Past Surgical History: Yes Neuro Surgical History: No Pertinent History Cardiac: Cardiac Catheterization, Cardiac Stent Respiratory: No Pertinent History Gastrointestinal: Cholecystectomy Genitourinary: No Pertinent History Musculoskeletal: No Pertinent History Female Surgical History: Hysterectomy Other Surgical History: 7 HEART STENTS TOTAL ,colonoscopy and egd in past - Social History Smoking Status: Never smoker Exposure to second hand smoke: No Drug Use: none Patient Lives Alone: Yes - Nursing Vital Signs Nursing Vital Signs: Initial Vital Signs Temperature 97.9 F 07/08/19 11:24 Pulse Rate 77 07/08/19 11:24 Respiratory Rate 16 07/08/19 11:24 O2 Sat by Pulse Oximetry 100 07/08/19 11:24 Pain Scale Pain Intensity 0 - Physical Exam General Appearance: no apparent distress, alert Eye Exam: PERRL/EOMI Neck Exam: normal inspection, supple Respiratory Exam: normal breath sounds, lungs clear, No respiratory distress, No prolonged expirations, No crackles/rales, No wheezing Cardiovascular/Chest Exam: normal heart sounds, regular rate/rhythm Abdominal/Gastrointestinal Exam: soft, No tenderness, No distention, No mass Extremity Exam: non-tender, normal range of motion, normal inspection, no calf tenderness, no pedal edema Neurologic Exam: alert, oriented x 3, cooperative, strategic debriefing specialist II-XII nml as tested, sensation nml, No motor deficits Skin Exam: normal color, warm, No dry SpO2 Interpretation: normal O2 Delivery: Room Air - Course EKG Interpreted by Me: RATE (77), Sinus Rhythm, NORMAL AXIS, NORMAL INTERVALS, prolonged QT interval (slightly prolonged QTC 457), NORMAL QRS, Other (no ST-T wave changes consistent with acute ischemia) Ordered Tests: Active Orders 24 hr Category Date Time Status EKG-ER Only STAT Care 07/08/19 11:33 Active CHEST 2 VIEWS (PA AND LAT) Stat Exams 07/08/19 11:34 Completed BMP Stat Lab 07/08/19 11:35 Completed CBC W DIFF Stat Lab 07/08/19 11:33 Completed TROPONIN Q3H Lab 07/08/19 11:45 Completed TROPONIN Q3H Lab 07/08/19 14:45 Ordered TROPONIN Q3H Lab 07/08/19 17:45 Ordered TROPONIN Q3H Lab 07/08/19 20:45 Ordered TROPONIN Q3H Lab 07/08/19 23:45 Ordered Medication Summary Discontinued Medications Generic Name Dose Route Start Last Admin Trade Name Freq PRN Reason Stop Dose Admin Albuterol/Ipratropium 3 ml 07/08/19 11:34 07/08/19 12:13 Duoneb 0.5-3 Mg/3 Ml Neb IH 07/08/19 11:35 3 ml STAT ONE Administration Albuterol/Ipratropium Confirm 07/08/19 12:07 Duoneb 0.5-3 Mg/3 Ml Neb Administered 07/08/19 12:08 Dose 3 ml IH .STK-MED ONE Sodium Chloride 1,000 mls @ 999 mls/hr 07/08/19 12:06 07/08/19 12:14 Sodium Chloride 0.9% 1000 Ml IV 07/08/19 13:06 999 mls/hr .Q1H1M STA Administration Sodium Chloride Confirm 07/08/19 12:13 Sodium Chloride 0.9% 1000 Ml Administered 07/08/19 12:14 Dose 1,000 mls @ ud .ROUTE .STK-MED ONE Ondansetron HCl 4 mg 07/08/19 11:51 07/08/19 12:00 Zofran 4 Mg/2 Ml Vial IV 07/08/19 11:52 4 mg STAT ONE Administration Ondansetron HCl Confirm 07/08/19 11:58 Zofran 4 Mg/2 Ml Vial Administered 07/08/19 11:59 Dose 4 mg .ROUTE .STK-MED ONE Lab/Rad Data: Laboratory Result Diagrams 07/08/19 11:33 07/08/19 11:35 Laboratory Results 07/08/19 07/08/19 07/08/19 Range/Units 11:45 11:35 11:33 WBC 9.7 (4.0-10.5) K/mm3 RBC 2.88 L (4.1-5.4) M/mm3 Hgb 9.1 L (12.0-16.0) gm/dl Hct 27.7 L (35-47) % MCV 96.2 (78-100) fl MCH 31.5 (26-32) pg MCHC 32.9 (32-36) g/dl RDW 14.3 H (11.5-14.0) % Plt Count 299 (150-450) K/mm3 MPV 10.9 H (6-9.5) fl Gran % 76.2 H (36.0-66.0) % Eos # (Auto) 0.16 (0-0.5) Absolute Lymphs (auto) 1.46 (1.0-4.6) Absolute Monos (auto) 0.65 (0.0-1.3) Lymphocytes % 15.1 L (24.0-44.0) % Monocytes % 6.7 (0.0-12.0) % Eosinophils % 1.7 (0.00-5.0) % Basophils % 0.3 (0.0-0.4) % Absolute Granulocytes 7.38 H (1.4-6.9) Basophils # 0.03 (0-0.4) Sodium 144 (137-145) mmol/L Potassium 4.3 (3.5-5.1) mmol/L Chloride 103 (98-107) mmol/L Carbon Dioxide 23 (22-30) mmol/L Anion Gap 21.9 H (5-15) MEQ/L BUN 82 H (7-17) mg/dL Creatinine 1.67 H (0.52-1.04) mg/dL Estimated GFR 32.4 ML/MIN Glucose 220 H (74-106) mg/dL Calcium 10.6 H (8.4-10.2) mg/dL Troponin I < 0.012 (0.000-0.034) ng/mL - Progress Progress: improved Air Movement: good Progress Note: patient states she feels better after the nebulizer treatment which was administered for symptomatic relief. She still has normal vital signs and has oxygen saturations of 100%. This does not seem to be cardiac in nature as her troponin is negative and her EKG is nonischemic. She is afebrile and not tachypneic, there's no evidence of pneumonia or imaging. It is unclear why she feels this way and I have recommended her to use her home nebulizer treatments every 4 hours for the next 24 hours for somatic relief which she states she will do. Furthermore I had mentioned her hemoglobin level of 9.1 and she states she has been worked up in the past for anemia of unclear etiology. At this point there is nothing new has been discovered and she is stable and appropriate for discharge with return precautions discussed in voice back. Primary care followup recommended. 07/08/19 12:46 Blood Culture(s) Obtained: No Antibiotics given: No Counseled pt/family regarding: rad results - Departure Departure Disposition: Home Clinical Impression: Shortness of breath Condition: Good Critical Care Time: No Referrals: BRANDON GROSSMAN [Primary Care Provider] - Instructions: Shortness of Breath (Dyspnea) (DC) Prescriptions: Ondansetron ODT 4 MG [Zofran Odt 4 mg] 4 mg PO Q6H PRN PRN #10 tab.rapdis PRN Reason: Nausea Albuterol 2.5 mg/3 ml Neb [Proventil 2.5 mg/3 ml Neb] 2.5 mg IH Q4-6HPRN PRN #10 neb PRN Reason: Shortness Of Breath/Wheezing
[2019-07-08] MEDS ORDERED: DUONEB 0.5-3 MG/3 ml Neb IH ONE ×2 (11:34→12:07)
[2019-07-08 11:44] LABS: Absolute Neutrophil Ct (ANC) 7.38 (1.4-6.9); BASOPHIL % 0.3 % (0.0-0.4); Basophil (Absolute #) 0.03 (0-0.4); Eosinophil % 1.7 % (0.00-5.0); Eosinophil (Absolute #) 0.16 (0-0.5); Hematocrit 27.7 % (35-47); Hemoglobin 9.1 gm/dl (12.0-16.0); Lymphocyte (Absolute #) 1.46 (1.0-4.6); Lymphocytes % 15.1 % (24.0-44.0); Mean Cell Volume 96.2 fl (78-100); Mean Corpuscular Hgb Concent. 32.9 g/dl (32-36); Mean Platelet Volume 10.9 fl (6-9.5); Monocyte (Absolute #) 0.65 (0.0-1.3); Monocytes % 6.7 % (0.0-12.0); Neutrophil % 76.2 % (36.0-66.0); Platelet Count 299 K/mm3 (150-450); Red Blood Count 2.88 M/mm3 (4.1-5.4); Red Cell Distribution Width 14.3 % (11.5-14.0); White Blood Count 9.7 K/mm3 (4.0-10.5)
[2019-07-08 11:45] LABS: Mean Corpuscular Hemoglobin 31.5 pg (26-32)
[2019-07-08] MEDS ORDERED: Zofran 4 MG/2 ML VIAL IV ONE (11:51)
[2019-07-08] MEDS ORDERED: Zofran 4 MG/2 ML VIAL ONE (11:58)
[2019-07-08 12:03] LABS: ANION GAP 21.9 MEQ/L (5-15); Calcium 10.6 mg/dL (8.4-10.2); Creatinine 1 1.67 mg/dL (0.52-1.04); Potassium 4.3 mmol/L (3.5-5.1)
[2019-07-08] MEDS ORDERED: Sodium Chloride 0.9% 1000 ML 1,000 ML IV STA (12:06)
[2019-07-08] MEDS ORDERED: Sodium Chloride 0.9% 1000 ML 1,000 ML ONE (12:13)
--- NOTE | 2019-07-08 12:28 | XRAY ---
Indication: Short of breath and dizziness. Comparison: July 05, 2018. PA/lateral chest remains clear. Heart is not enlarged again with coronary stent. Bony thorax intact again with mild degenerative changes. Impression: Stable nonacute chest with chronic features.
[2019-07-08 13:28] VITALS: BP 132/78; PULSE 70; O2SAT 98
== END 2019-07-08 13:25 | disposition home or self-care (01) ==
LOC: ED 11:17
DX: R06.02 Shortness of breath (principal); J44.9 Chronic obstructive pulmonary disease, unspecified; I25.10 Atherosclerotic heart disease of native coronary artery without angina pectoris; I10 Essential (primary) hypertension; E11.9 Type 2 diabetes mellitus without complications; E78.00 Pure hypercholesterolemia, unspecified; I25.2 Old myocardial infarction; Z79.899 Other long term (current) drug therapy; Z86.73 Personal history of transient ischemic attack (TIA), and cerebral infarction without residual deficits
CPT/HCPCS: 36415; 71046; 80048; 84484; 85025; 93005; 94640; 96360; 96374; 99284; J2405; A9270-GY

== ENCOUNTER 2019-11-08 08:55 | Inpatient (IN) | payer BC ==
[2019-11-08] MEDS ORDERED: Sodium Chloride 0.9% 1000 ML 1,000 ML IV STA (18:00)
[2019-11-08 19:12] LABS: Absolute Neutrophil Ct (ANC) 10.05 (1.4-6.9); BASOPHIL % 0.2 % (0.0-0.4); Basophil (Absolute #) 0.03 (0-0.4); Eosinophil % 0.4 % (0.00-5.0); Eosinophil (Absolute #) 0.05 (0-0.5); Hematocrit 30.9 % (35-47); Hemoglobin 9.7 gm/dl (12.0-16.0); Lymphocyte (Absolute #) 2.38 (1.0-4.6); Mean Cell Volume 92.5 fl (78-100); Mean Corpuscular Hgb Concent. 31.4 g/dl (32-36); Mean Platelet Volume 9.6 fl (7.5-11.0); Monocyte (Absolute #) 0.74 (0.0-1.3); Monocytes % 5.6 % (0.0-12.0); Neutrophil % 75.8 % (36.0-66.0); Platelet Count 461 K/mm3 (150-450); Red Blood Count 3.34 M/mm3 (4.1-5.4); Red Cell Distribution Width 15.1 % (11.5-14.0); White Blood Count 13.3 K/mm3 (4.0-10.5)
[2019-11-08 19:43] LABS: ALBUMIN 4.5 g/dL (3.5-5.0); ANION GAP 21.5 MEQ/L (5-15); BILIRUBIN,TOTAL 1.2 mg/dL (0.2-1.3); Calcium 10.5 mg/dL (8.4-10.2); Creatinine 1 3.91 mg/dL (0.52-1.04); FREE TRIODOTHYRONINE 2.65 pg/mL (2.77-5.27); Potassium 4.3 mmol/L (3.5-5.1); Total Protein 9.1 g/dL (6.3-8.2)
[2019-11-08 19:51] LABS: Erythrocyte Sedimentation Rate 82 mm/hr (0-20)
--- NOTE | 2019-11-08 20:43 | PCM.HP ---
History of Present Illness - Chief Complaint Chief Complaint: RENAL FAILURE,UTI,WEAKNESS History of Present Illness: is a 68 year old female of mine from [facility] with chronic renal failure, DM, Parkinson's dz, HTN, gout, CAD, and COPD who was admitted directly for acute on chronic renal failure, UTI, and weakness. She came to the office on 11/04/19 c/o several weeks of worsening fatigue and 20 lb weight loss over 1 mo. She had to sit down while staff went to get a hat for her to urinate in (due to fatigue). She says it's hard to swallow food and she has no appetite. Labs were done; pt was found to have UTI (10-20,000 CFU, e. coli) and she was started presumtively on Keflex, but she never got to go pick it up. I also stopped her bydureon as I thought it may be causing appetite changes and weight loss. I was out yesterday and see her results today; her renal function is somewhat worse than baseline (eGFR was in the 30s, then was 26 last week) and she had a mild anemia (which she states is chronic). I asked her to come to the hospital and she said she was too weak to drive, so her son brought her. - Review of Systems Constitutional: Weakness, Weight Loss Ears, Nose, & Throat: Other (trouble swallowing) Abdominal/Gastrointestinal: Appetite Changes Neurological: Dizziness All Other Systems: Reviewed and Negative Medications & Allergies Home Medications: Home Medication List Amlodipine Besylate 10 mg [Norvasc 10 MG] 5 mg PO DAILY 06/02/16 [History Confirmed 07/08/19] Atorvastatin Calcium 40 mg PO DAILY 06/02/16 [History Confirmed 07/08/19] Gemfibrozil 600 mg [Lopid 600 mg] 600 mg PO BID 06/02/16 [History Confirmed 07/08/19] Metoprolol Tartrate 50 mg PO BID 06/02/16 [History Confirmed 07/08/19] Oxybutynin Chloride 10 mg Xl [Ditropan Xl 10 MG] 10 mg PO DAILY 06/02/16 [ History Confirmed 07/08/19] Lisinopril 20 mg [Zestril 20 MG] 20 mg PO BID 07/30/16 [History Confirmed 07/08/19] Valsartan [Diovan] 160 mg PO DAILY 07/30/16 [History Confirmed 07/08/19] Allopurinol 100 mg [Zyloprim 100 mg] 100 mg PO BID 07/05/18 [History Confirmed 07/08/19] Bumetanide [Bumex] 2 mg PO DAILY 07/05/18 [History Confirmed 07/08/19] Furosemide 40 mg [Lasix 40 MG] 40 mg PO DAILY 07/05/18 [History Confirmed 07/08/19] Ipratropium/Albuterol Sulfate [Combivent Inhaler] 2 puff IH QID 07/05/18 [ History Confirmed 07/08/19] Potassium Chloride 10 Meq Tab* [Klor Con 10 MEQ] 10 meq PO DAILY 07/05/18 [ History Confirmed 07/08/19] Prasugrel HCL 10 MG [Effient 10 MG TABLET] 10 mg PO DAILY 07/05/18 [ History Confirmed 07/08/19] Sitagliptin Phos/Metformin HCl [Janumet 50-1,000 mg Tablet] 1 each PO BID [History Confirmed 07/08/19] glipiZIDE [Glipizide] 10 mg PO BID 07/05/18 [History Confirmed 07/08/19] raNITIdine HCl [Zantac] 150 mg PO BID 02/01/19 [History Confirmed 07/08/19] Ciprofloxacin HCl [Cipro] 250 mg PO BID 3 Days #6 tablet 07/04/19 [Rx Confirmed 07/08/19] Albuterol 2.5 mg/3 ml Neb [Proventil 2.5 mg/3 ml Neb] 2.5 mg IH Q4-6HPRN PRN #10 neb 07/08/19 [Rx] Ondansetron ODT 4 MG [Zofran Odt 4 mg] 4 mg PO Q6H PRN PRN #10 tab.rapdis 07/08/19 [Rx] Allergies/Adverse Reactions: Allergies Allergy/AdvReac Type Severity Reaction Status Date / Time Penicillins Allergy Severe Vomiting Verified 11/08/19 18:48 iodine AdvReac Rash Verified 03/10/20 18:48 - Past Medical History Past Medical History: Yes Neurological History: Migraines, TIA ENT History: No Pertinent History Cardiac History: Coronary Artery Disease, High Cholesterol, Hypertension, Myocardial Infarction ([place]) Respiratory History: COPD Endocrine Medical History: Diabetes Type II Musculoskelatal History: No Pertinent History GI Medical History: Gallbladder Disease, Polyps, Ulcer History: Renal Disease, Other Pyscho-Social History: No Pertinent History Reproductive Disorders: Other Comment: had prolapsed uterus, parkinson's, possible renal disease.anemia - Past Surgical History Past Surgical History: Yes Neuro Surgical History: No Pertinent History Cardiac History: Cardiac Catheterization, Cardiac Stent Respiratory Surgery: No Pertinent History GI Surgical History: Cholecystectomy Genitourinary Surgical Hx: No Pertinent History Musculskeletal Surgical Hx: No Pertinent History Female Surgical History: Hysterectomy Other Surgical History: 7 HEART STENTS TOTAL ,colonoscopy and egd in past - Social History Smoking Status: Never smoker Exposure to second hand smoke: No Alcohol: None Drug Use: none - Physical Exam General Appearance: no apparent distress, alert Neurologic Exam: oriented x 3, cooperative Eye Exam: eyes nml inspection Ears, Nose, Throat Exam: moist mucous membranes Neck Exam: normal inspection, non-tender, No lymphadenopathy Respiratory Exam: lungs clear, diminished breath sounds, No crackles/rales, No rhonchi, No wheezing Cardiovascular Exam: regular rate/rhythm, normal heart sounds, No murmur Gastrointestinal/Abdomen Exam: soft, normal bowel sounds, tenderness (mild, suprapubic), No distention, No mass, No guarding, No rebound Extremity Exam: normal inspection, No pedal edema, No swelling Skin Exam: normal color, warm, dry, No rash Results - Labs Lab/Micro Results: Lab Results-Last 24 Hours 11/08/19 11/08/19 11/08/19 Range/Units 19:09 19:09 19:09 WBC 13.3 H (4.0-10.5) K/mm3 RBC 3.34 L (4.1-5.4) M/mm3 Hgb 9.7 L (12.0-16.0) gm/dl Hct 30.9 L (35-47) % MCV 92.5 (78-100) fl MCH 29.0 (26-32) pg MCHC 31.4 L (32-36) g/dl RDW 15.1 H (11.5-14.0) % Plt Count 461 H (150-450) K/mm3 MPV 9.6 (7.5-11.0) fl Gran % 75.8 H (36.0-66.0) % Eos # (Auto) 0.05 (0-0.5) Absolute Lymphs (auto) 2.38 (1.0-4.6) Absolute Monos (auto) 0.74 (0.0-1.3) Lymphocytes % 18.0 L (24.0-44.0) % Monocytes % 5.6 (0.0-12.0) % Eosinophils % 0.4 (0.00-5.0) % Basophils % 0.2 (0.0-0.4) % Absolute Granulocytes 10.05 H (1.4-6.9) Basophils # 0.03 (0-0.4) ESR 82 H (0-20) mm/hr Sodium 141 (137-145) mmol/L Potassium 4.3 (3.5-5.1) mmol/L Chloride 94 L (98-107) mmol/L Carbon Dioxide 29 (22-30) mmol/L Anion Gap 21.5 H (5-15) MEQ/L BUN 83 H (7-17) mg/dL Creatinine 3.91 H (0.52-1.04) mg/dL Estimated GFR 12.1 ML/MIN Glucose 169 H (74-106) mg/dL Calcium 10.5 H (8.4-10.2) mg/dL Total Bilirubin 1.20 (0.2-1.3) mg/dL AST 16 (14-36) U/L ALT 6 (0-35) U/L Alkaline Phosphatase 193 H (38-126) U/L Serum Total Protein 9.1 H (6.3-8.2) g/dL Albumin 4.5 (3.5-5.0) g/dL Free T4 1.49 H (0.76-1.46) ng/dL Free T3 pg/mL 2.65 L (2.77-5.27) pg/mL Assessment/Plan (1) Acute on chronic renal failure Current Visit: Yes Status: Acute Qualifiers: Chronic kidney disease stage: stage 4 (severe) Assessment & Plan: IV fluids, recheck in a.m. Code(s): N17.9 - ACUTE KIDNEY FAILURE, UNSPECIFIED; N18.9 - CHRONIC KIDNEY DISEASE, UNSPECIFIED (2) Weakness Current Visit: No Status: Acute Code(s): R53.1 - WEAKNESS (3) Weight loss Current Visit: Yes Status: Acute (4) Dysphagia Current Visit: Yes Status: Acute Qualifiers: Dysphagia type: unspecified Qualified Code(s): R13.10 - Dysphagia, unspecified Assessment & Plan: Plan to do EGD as soon as possible. Code(s): R13.10 - DYSPHAGIA, UNSPECIFIED (5) UTI (urinary tract infection) Current Visit: Yes Status: Acute Qualifiers: Urinary tract infection type: acute cystitis Hematuria presence: with hematuria Qualified Code(s): N30.01 - Acute cystitis with hematuria Assessment & Plan: on rocephin IV 1g daily, day #1. Code(s): N39.0 - URINARY TRACT INFECTION, SITE NOT SPECIFIED (6) CAD (coronary artery disease) Current Visit: No Status: Acute Qualifiers: Coronary Disease-Associated Artery/Lesion type: [place] artery [place] vs. transplanted heart: [place] heart Associated angina: without angina Qualified Code(s): I25.10 - Atherosclerotic heart disease of [place] coronary artery without angina pectoris Assessment & Plan: Will check echo to check EF. Code(s): I25.10 - ATHSCL HEART DISEASE OF [place] CORONARY ARTERY W/O ANG PCTRS (7) Essential hypertension Current Visit: No Status: Chronic Code(s): I10 - ESSENTIAL (PRIMARY) HYPERTENSION (8) COPD (chronic obstructive pulmonary disease) Current Visit: No Status: Chronic Qualifiers: Emphysema type: unspecified
[2019-11-08] MEDS: ROCEPHIN 1 Gm-D5w 50 ml Bag** 1 G/50 ML IVPB IV SCH (20:59)
[2019-11-08] MEDS: Lopressor 50 MG PO SCH (22:40)
[2019-11-08] MEDS: Pepcid 20 MG PO SCH (22:41)
[2019-11-08] MEDS: ZYLOPRIM 100 MG PO SCH (22:41)
[2019-11-09] MEDS: Sodium Chloride 0.9% 1000 ML 1,000 ML IV SCH (00:36)
[2019-11-09] MEDS ORDERED: MEDICATION INTERVENTION MC SCH (07:45)
[2019-11-09] MEDS ORDERED: DIPRIVAN 200 MG/20 ML IV ONE (07:48)
[2019-11-09] MEDS ORDERED: Lactated Ringers 1,000 ML IV SCH ×2 (08:00→11:00)
[2019-11-09] MEDS ORDERED: Sodium Chloride 0.9% 1000 ML 1,000 ML ONE (08:31)
[2019-11-09 09:08] LABS: Hematocrit 29.7 % (35-47); Hemoglobin 9.3 gm/dl (12.0-16.0); Mean Cell Volume 92.8 fl (78-100); Mean Corpuscular Hemoglobin 29.1 pg (26-32); Mean Corpuscular Hgb Concent. 31.3 g/dl (32-36); Mean Platelet Volume 9.9 fl (7.5-11.0); Platelet Count 407 K/mm3 (150-450); White Blood Count 12.5 K/mm3 (4.0-10.5)
--- NOTE | 2019-11-09 09:25 | PCM.NOTE ---
Date and Time: 11/09/19921 Subjective Assessment: Pt just had her EGD, which found gastritis but no mass, no reason for swallowing difficulty. Labs are pending. Pt has no complaints currently. - Review of Systems Constitutional: No Fever Abdominal/Gastrointestinal: No Vomiting Objective Exam General Appearance: no apparent distress, alert (somewhat sleepy from EGD) Neurologic Exam: oriented x 3, cooperative Skin Exam: normal color, warm, dry, No rash Ears, Nose, Throat Exam: moist mucous membranes Neck Exam: normal inspection Respiratory Exam: normal breath sounds, lungs clear, No crackles/rales, No rhonchi, No wheezing Cardiovascular Exam: regular rate/rhythm, normal heart sounds, No murmur Gastrointestinal/Abdomen Exam: soft, normal bowel sounds, No tenderness, No distention, No mass, No guarding, No rebound Extremity Exam: normal inspection, No pedal edema, No swelling Back Exam: normal inspection, No rash OBJECTIVE DATA Vital Signs: Vital Signs - 24 hr Temp Pulse Resp BP Pulse Ox 11/09/19 07:51 98.3 F 83 18 175/79 94 L 11/09/19 04:00 97.6 F 85 20 143/70 95 11/09/19 02:59 97.7 F 66 17 153/72 97 11/09/19 00:00 97.7 F 66 17 153/72 97 11/08/19 20:29 97.9 F 80 16 114/65 100 11/08/19 20:00 97.9 F 80 16 114/65 100 Pain Assessment - Last Documented Pain Scale Used 0-10 Pain Scale Intake and Output: Intake & Output 11/06/19 11/07/19 11/08/19 11/09/19 11:59 11:59 11:59 11:59 Intake Total 1559 Output Total 350 Balance 1209 Weight 60.3 kg Lab Results: Accuchecks Date 11/09/19 Time 07:00 Accucheck Value: 75 Accucheck Value: 183 Lab Results-Last 24 Hours 11/08/19 11/08/19 11/08/19 Range/Units 19:09 19:09 19:09 WBC 13.3 H (4.0-10.5) K/mm3 RBC 3.34 L (4.1-5.4) M/mm3 Hgb 9.7 L (12.0-16.0) gm/dl Hct 30.9 L (35-47) % MCV 92.5 (78-100) fl MCH 29.0 (26-32) pg MCHC 31.4 L (32-36) g/dl RDW 15.1 H (11.5-14.0) % Plt Count 461 H (150-450) K/mm3 MPV 9.6 (7.5-11.0) fl Gran % 75.8 H (36.0-66.0) % Eos # (Auto) 0.05 (0-0.5) Absolute Lymphs (auto) 2.38 (1.0-4.6) Absolute Monos (auto) 0.74 (0.0-1.3) Lymphocytes % 18.0 L (24.0-44.0) % Monocytes % 5.6 (0.0-12.0) % Eosinophils % 0.4 (0.00-5.0) % Basophils % 0.2 (0.0-0.4) % Absolute Granulocytes 10.05 H (1.4-6.9) Basophils # 0.03 (0-0.4) ESR 82 H (0-20) mm/hr Sodium 141 (137-145) mmol/L Potassium 4.3 (3.5-5.1) mmol/L Chloride 94 L (98-107) mmol/L Carbon Dioxide 29 (22-30) mmol/L Anion Gap 21.5 H (5-15) MEQ/L BUN 83 H (7-17) mg/dL Creatinine 3.91 H (0.52-1.04) mg/dL Estimated GFR 12.1 ML/MIN Glucose 169 H (74-106) mg/dL Calcium 10.5 H (8.4-10.2) mg/dL Total Bilirubin 1.20 (0.2-1.3) mg/dL AST 16 (14-36) U/L ALT 6 (0-35) U/L Alkaline Phosphatase 193 H (38-126) U/L Serum Total Protein 9.1 H (6.3-8.2) g/dL Albumin 4.5 (3.5-5.0) g/dL Free T4 1.49 H (0.76-1.46) ng/dL Free T3 pg/mL 2.65 L (2.77-5.27) pg/mL 11/09/19 Range/Units 08:50 WBC 12.5 H (4.0-10.5) K/mm3 RBC 3.20 L (4.1-5.4) M/mm3 Hgb 9.3 L (12.0-16.0) gm/dl Hct 29.7 L (35-47) % MCV 92.8 (78-100) fl MCH 29.1 (26-32) pg MCHC 31.3 L (32-36) g/dl RDW 15.0 H (11.5-14.0) % Plt Count 407 (150-450) K/mm3 MPV 9.9 (7.5-11.0) fl Gran % (36.0-66.0) % Eos # (Auto) (0-0.5) Absolute Lymphs (auto) (1.0-4.6) Absolute Monos (auto) (0.0-1.3) Lymphocytes % (24.0-44.0) % Monocytes % (0.0-12.0) % Eosinophils % (0.00-5.0) % Basophils % (0.0-0.4) % Absolute Granulocytes (1.4-6.9) Basophils # (0-0.4) ESR (0-20) mm/hr Sodium (137-145) mmol/L Potassium (3.5-5.1) mmol/L Chloride (98-107) mmol/L Carbon Dioxide (22-30) mmol/L Anion Gap (5-15) MEQ/L BUN (7-17) mg/dL Creatinine (0.52-1.04) mg/dL Estimated GFR ML/MIN Glucose (74-106) mg/dL Calcium (8.4-10.2) mg/dL Total Bilirubin (0.2-1.3) mg/dL AST (14-36) U/L ALT (0-35) U/L Alkaline Phosphatase (38-126) U/L Serum Total Protein (6.3-8.2) g/dL Albumin (3.5-5.0) g/dL Free T4 (0.76-1.46) ng/dL Free T3 pg/mL (2.77-5.27) pg/mL Radiology Exams: Radiology Procedures Category Date Time Status ECHO W/2D AND DOPPLER [US] Routine Exams 11/09/19 Ordered Assessment/Plan (1) Acute on chronic renal failure Current Visit: Yes Status: Acute Qualifiers: Chronic kidney disease stage: stage 4 (severe) Assessment & Plan: Lab still pending; if not improved will consult nephrology. Code(s): N17.9 - ACUTE KIDNEY FAILURE, UNSPECIFIED; N18.9 - CHRONIC KIDNEY DISEASE, UNSPECIFIED (2) Weakness Current Visit: No Status: Acute Assessment & Plan: ?due to renal failure, or due to swallowing difficulty/low po intake? Code(s): R53.1 - WEAKNESS (3) Weight loss Current Visit: Yes Status: Acute (4) Dysphagia Current Visit: Yes Status: Acute Qualifiers: Dysphagia type: unspecified Qualified Code(s): R13.10 - Dysphagia, unspecified Assessment & Plan: consult ST Code(s): R13.10 - DYSPHAGIA, UNSPECIFIED (5) UTI (urinary tract infection) Current Visit: Yes Status: Acute Qualifiers: Urinary tract infection type: acute cystitis Hematuria presence: with hematuria Qualified Code(s): N30.01 - Acute cystitis with hematuria Assessment & Plan: on rocephin IV day #2. Code(s): N39.0 - URINARY TRACT INFECTION, SITE NOT SPECIFIED (6) CAD (coronary artery disease) Current Visit: No Status: Acute Qualifiers: Coronary Disease-Associated Artery/Lesion type: [place] artery [place] vs. transplanted heart: [place] heart Associated angina: without angina Qualified Code(s): I25.10 - Atherosclerotic heart disease of [place] coronary artery without angina pectoris Assessment & Plan: echo today. Code(s): I25.10 - ATHSCL HEART DISEASE OF [place] CORONARY ARTERY W/O ANG PCTRS (7) Essential hypertension Current Visit: No Status: Chronic Code(s): I10 - ESSENTIAL (PRIMARY) HYPERTENSION (8) COPD (chronic obstructive pulmonary disease) Current Visit: No Status: Chronic Qualifiers: Emphysema type: unspecified (9) Gastritis Current Visit: Yes Status: Acute Qualifiers: Gastritis type: unspecified gastritis Chronicity: acute Gastritis bleeding: without bleeding Qualified Code(s): K29.00 - Acute gastritis without bleeding Assessment & Plan: PPI Code(s): K29.70 - GASTRITIS, UNSPECIFIED, WITHOUT BLEEDING
[2019-11-09 09:50] LABS: ANION GAP 17.8 MEQ/L (5-15); Calcium 9.8 mg/dL (8.4-10.2); Creatinine 1 2.96 mg/dL (0.52-1.04); Potassium 3.7 mmol/L (3.5-5.1)
[2019-11-09] MEDS ORDERED: Sinemet 25/250 MG PO SCH ×2 (10:00)
[2019-11-09] MEDS ORDERED: Toprol Xl 100 MG PO SCH (10:00)
--- NOTE | 2019-11-09 10:08 | OP ---
SURGERY DATE/TIME: 11/09/2019 0800 PREOPERATIVE DIAGNOSIS: Dysphagia. POSTOPERATIVE DIAGNOSIS: Moderate gastritis. PROCEDURE: EGD. SURGEON: Semaj Arceo M.D. ANESTHESIA: MAC by Joe Arcos CRNA. ESTIMATED BLOOD LOSS: Minimal. SPECIMENS: Two cold forceps biopsies were taken from the gastric antrum and sent for Helicobacter pylori testing. DESCRIPTION OF PROCEDURE: After informed written consent was obtained, the patient was taken to the endoscopy suite. She was placed in left lateral decubitus position and a bite block was inserted. The endoscope was inserted in the posterior oropharynx and under direct visualization the esophagus was traversed. The esophageal mucosa appeared within normal limits. No obvious defects were noted. Upon entering the stomach there was normal rugated gastric mucosa present. The gastric antrum had moderate gastritis-type changes with no active bleeding or significant ulceration. The pylorus was traversed. The duodenum had no obvious ulcerations. Two small cold forceps biopsies were taken from the gastric antrum and sent for Helicobacter pylori testing. The scope was removed and the patient was transferred back to the floor in good condition.
[2019-11-09] MEDS: Protonix 40MG Tablet PO SCH (10:26)
[2019-11-09] MEDS: ZYLOPRIM 100 MG PO SCH ×2 (10:26→21:15)
[2019-11-09] MEDS: Pepcid 20 MG PO SCH ×2 (10:26→21:15)
[2019-11-09] MEDS: Lopressor 50 MG PO SCH ×3 (10:26→21:16)
[2019-11-09] MEDS: ROCEPHIN 1 Gm-D5w 50 ml Bag** 1 G/50 ML IVPB IV SCH (10:26)
[2019-11-09] MEDS: HUMALOG SQ PRN ×2 (16:30→21:18)
[2019-11-09] MEDS: Zestril 20 MG PO SCH (21:15)
[2019-11-10] MEDS: Sodium Chloride 0.9% 1000 ML 1,000 ML IV SCH ×3 (01:19→22:33)
[2019-11-10] MEDS ORDERED: PROVENTIL 2.5 MG/3 ML NEB IH PRN (06:46)
[2019-11-10] MEDS ORDERED: DUONEB 0.5-3 MG/3 ml Neb IH SCH (07:00)
[2019-11-10 08:20] LABS: Hematocrit 29.1 % (35-47); Hemoglobin 9.3 gm/dl (12.0-16.0); Mean Corpuscular Hemoglobin 29.7 pg (26-32); Mean Platelet Volume 9.6 fl (7.5-11.0); Platelet Count 382 K/mm3 (150-450); Red Blood Count 3.13 M/mm3 (4.1-5.4); Red Cell Distribution Width 14.9 % (11.5-14.0); White Blood Count 7.2 K/mm3 (4.0-10.5)
[2019-11-10 08:31] LABS: ANION GAP 14.6 MEQ/L (5-15); Creatinine 1 2.06 mg/dL (0.52-1.04); Potassium 3.1 mmol/L (3.5-5.1)
--- NOTE | 2019-11-10 08:49 | PCM.NOTE ---
Date and Time: 11/10/19 0844 Subjective Assessment: Pt is still feeling weak and sleeping a lot. Chris po. - Review of Systems Constitutional: Weakness, No Fever Abdominal/Gastrointestinal: No Vomiting Objective Exam General Appearance: no apparent distress, alert Neurologic Exam: oriented x 3, cooperative Skin Exam: normal color, warm, dry, No rash Eye Exam: eyes nml inspection Ears, Nose, Throat Exam: moist mucous membranes Respiratory Exam: normal breath sounds, lungs clear, No crackles/rales, No rhonchi, No wheezing Cardiovascular Exam: regular rate/rhythm, normal heart sounds, No murmur Gastrointestinal/Abdomen Exam: soft, normal bowel sounds, tenderness (diffuse, mild), No distention, No mass, No guarding, No rebound Extremity Exam: No pedal edema, No swelling Back Exam: normal inspection, No rash OBJECTIVE DATA Vital Signs: Vital Signs - 24 hr Temp Pulse Resp BP Pulse Ox 11/10/19 07:41 96 11/10/19 07:26 97.6 F 77 18 117/58 96 11/10/19 04:00 97.7 F 67 19 141/67 97 11/09/19 23:36 98.5 F 68 17 112/56 95 11/09/19 21:14 72 127/62 11/09/19 20:00 97.9 F 72 17 98/50 96 11/09/19 15:56 98.0 F 75 18 142/66 97 11/09/19 11:37 97.8 F 75 18 121/58 94 L 11/09/19 08:45 97.9 F 80 16 154/72 95 Pain Assessment - Last Documented Pain Scale Used 0-10 Pain Scale Intake and Output: Intake & Output 11/07/19 11/08/19 11/09/19 11/10/19 11:59 11:59 11:59 11:59 Intake Total 1799 4039 Output Total 750 2200 Balance 1049 1839 Weight 60.3 kg Lab Results: Accuchecks Date 11/10/19 Date 11/09/19 Date 11/09/19 Time 07:30 Time 16:30 Time 11:30 Accucheck Value: 102 Accucheck Value: 245 Accucheck Value: 245 Accucheck Value: 157 Lab Results-Last 24 Hours 11/09/19 11/09/19 11/10/19 Range/Units 08:50 08:50 08:12 WBC 12.5 H 7.2 (4.0-10.5) K/mm3 RBC 3.20 L 3.13 L (4.1-5.4) M/mm3 Hgb 9.3 L 9.3 L (12.0-16.0) gm/dl Hct 29.7 L 29.1 L (35-47) % MCV 92.8 93.0 (78-100) fl MCH 29.1 29.7 (26-32) pg MCHC 31.3 L 32.0 (32-36) g/dl RDW 15.0 H 14.9 H (11.5-14.0) % Plt Count 407 382 (150-450) K/mm3 MPV 9.9 9.6 (7.5-11.0) fl Sodium 141 (137-145) mmol/L Potassium 3.7 (3.5-5.1) mmol/L Chloride 101 (98-107) mmol/L Carbon Dioxide 26 (22-30) mmol/L Anion Gap 17.8 H (5-15) MEQ/L BUN 81 H (7-17) mg/dL Creatinine 2.96 H (0.52-1.04) mg/dL Estimated GFR 16.8 ML/MIN Glucose 70 L (74-106) mg/dL Calcium 9.8 (8.4-10.2) mg/dL 11/10/19 Range/Units 08:12 WBC (4.0-10.5) K/mm3 RBC (4.1-5.4) M/mm3 Hgb (12.0-16.0) gm/dl Hct (35-47) % MCV (78-100) fl MCH (26-32) pg MCHC (32-36) g/dl RDW (11.5-14.0) % Plt Count (150-450) K/mm3 MPV (7.5-11.0) fl Sodium 142 (137-145) mmol/L Potassium 3.1 L (3.5-5.1) mmol/L Chloride 104 (98-107) mmol/L Carbon Dioxide 27 (22-30) mmol/L Anion Gap 14.6 (5-15) MEQ/L BUN 56 H (7-17) mg/dL Creatinine 2.06 H (0.52-1.04) mg/dL Estimated GFR 25.5 ML/MIN Glucose 105 (74-106) mg/dL Calcium 10.0 (8.4-10.2) mg/dL Radiology Exams: Radiology Procedures Category Date Time Status ECHO W/2D AND DOPPLER [US] Routine Exams 11/09/19 10:35 Taken Assessment/Plan (1) Acute on chronic renal failure Current Visit: Yes Status: Acute Qualifiers: Chronic kidney disease stage: stage 4 (severe) Assessment & Plan: Improved again today; eGFR up to 25.5, the BUN is down to 56 from 81, and the Cr is down to 2.06 from 2.96. Will continue to rehydrate and recheck in the morning. Code(s): N17.9 - ACUTE KIDNEY FAILURE, UNSPECIFIED; N18.9 - CHRONIC KIDNEY DISEASE, UNSPECIFIED (2) Weakness Current Visit: No Status: Acute Assessment & Plan: Still unsure if related to cardiac (echo is pending), vs renal, vs Parkinsons, vs. poor po intake, vs acute illness. Code(s): R53.1 - WEAKNESS (3) Weight loss Current Visit: Yes Status: Acute Assessment & Plan: ST evaluated pt yesterday and I await their report. (4) Dysphagia Current Visit: Yes Status: Acute Qualifiers: Dysphagia type: unspecified Qualified Code(s): R13.10 - Dysphagia, unspecified Assessment & Plan: gastritis - now on PPI. Code(s): R13.10 - DYSPHAGIA, UNSPECIFIED (5) UTI (urinary tract infection) Current Visit: Yes Status: Acute Qualifiers: Urinary tract infection type: acute cystitis Hematuria presence: with hematuria Qualified Code(s): N30.01 - Acute cystitis with hematuria Assessment & Plan: on IV rocephin, day #3. Code(s): N39.0 - URINARY TRACT INFECTION, SITE NOT SPECIFIED (6) CAD (coronary artery disease) Current Visit: No Status: Chronic Qualifiers: Coronary Disease-Associated Artery/Lesion type: [place] artery [place] vs. transplanted heart: [place] heart Associated angina: without angina Qualified Code(s): I25.10 - Atherosclerotic heart disease of [place] coronary artery without angina pectoris Code(s): I25.10 - ATHSCL HEART DISEASE OF [place] CORONARY ARTERY W/O ANG PCTRS (7) Essential hypertension Current Visit: No Status: Chronic Code(s): I10 - ESSENTIAL (PRIMARY) HYPERTENSION (8) COPD (chronic obstructive pulmonary disease) Current Visit: No Status: Chronic Qualifiers: Emphysema type: unspecified (9) Gastritis Current Visit: Yes Status: Acute Qualifiers: Gastritis type: unspecified gastritis Chronicity: acute Gastritis bleeding: without bleeding Qualified Code(s): K29.00 - Acute gastritis without bleeding Code(s): K29.70 - GASTRITIS, UNSPECIFIED, WITHOUT BLEEDING
[2019-11-10] MEDS: Lopressor 50 MG PO SCH ×3 (09:37→22:34)
[2019-11-10] MEDS: Pepcid 20 MG PO SCH ×2 (09:37→22:35)
[2019-11-10] MEDS: Ditropan XL 5 MG PO SCH (09:38)
[2019-11-10] MEDS: Effient 10 MG TABLET PO SCH (09:38)
[2019-11-10] MEDS: Zestril 20 MG PO SCH ×2 (09:38→22:35)
[2019-11-10] MEDS: ENOXAPARIN SODIUM SQ SCH (09:38)
[2019-11-10] MEDS: ZYLOPRIM 100 MG PO SCH ×2 (09:38→22:35)
[2019-11-10] MEDS: DIOVAN 80 MG PO SCH (09:38)
[2019-11-10] MEDS: Protonix 40MG Tablet PO SCH (09:38)
[2019-11-10] MEDS: ROCEPHIN 1 Gm-D5w 50 ml Bag** 1 G/50 ML IVPB IV SCH (09:39)
[2019-11-10] MEDS ORDERED: ENOXAPARIN SODIUM SQ SCH (10:00)
[2019-11-10] MEDS ORDERED: IPRATROPIUM IH SCH (10:00)
[2019-11-10] MEDS ORDERED: ALBUTEROL SULFATE IH SCH (10:00)
[2019-11-10] MEDS: Klor Con 10 MEQ PO SCH ×2 (11:51→17:41)
--- NOTE | 2019-11-10 14:02 | ECHO ---
DATE OF PROCEDURE: 11/09/2019 CLINICAL INFORMATION: Weakness. The M-mode 2D, and Doppler echocardiogram including color flow Doppler shows the left ventricle is normal in size at 4.5 cm. There is no thrombus present. The septal wall thickness is normal at 0.9 cm. The left ventricular posterior wall thickness is normal at 1.0 cm. The left ventricular systolic function is at the lower limits of normal with an ejection fraction calculated at 54%. The mitral valve E to A inflow velocity ratio is decreased at 0.67 suggestive of impaired left ventricular relaxation. The right ventricle is grossly normal. The left atrium is normal at 3.2 cm. The interatrial septum is intact. The right atrium is normal. The aortic valve opens well. There is mild aortic regurgitation. There is mild tricuspid regurgitation. The right ventricular systolic pressure is normal at 29 mm of [place]. The pulmonic valve is not well visualized. The aortic root is normal at 2.8 cm. There is no pericardial effusion present. IMPRESSION: 1) MILD AORTIC REGURGITATION. 2) MILD TRICUSPID REGURGITATION. 3) NORMAL RIGHT VENTRICULAR SYSTOLIC PRESSURE. 4) LOW NORMAL LEFT VENTRICULAR SYSTOLIC FUNCTION. 5) POSSIBLE IMPAIRED LEFT VENTRICULAR RELAXATION.
[2019-11-10] MEDS: HUMALOG SQ PRN (17:41)
[2019-11-10] MEDS: Sinemet 10/100 MG PO SCH ×2 (18:29→22:53)
[2019-11-11] MEDS: HUMALOG SQ PRN (00:28)
[2019-11-11 05:15] LABS: Hematocrit 26.4 % (35-47); Hemoglobin 8.3 gm/dl (12.0-16.0); Mean Corpuscular Hemoglobin 29.2 pg (26-32); Mean Corpuscular Hgb Concent. 31.4 g/dl (32-36); Platelet Count 350 K/mm3 (150-450); Red Blood Count 2.84 M/mm3 (4.1-5.4); Red Cell Distribution Width 14.7 % (11.5-14.0)
[2019-11-11 05:48] LABS: ANION GAP 11.6 MEQ/L (5-15); Calcium 9.3 mg/dL (8.4-10.2); Creatinine 1 1.48 mg/dL (0.52-1.04)
[2019-11-11] MEDS: POTASSIUM CHLORIDE 20 mEq IN WATER 100ML 20 MEQ/100 ML BAG IV SCH (06:55)
[2019-11-11] MEDS: Sodium Chloride 0.9% 1000 ML 1,000 ML IV SCH ×2 (08:35→18:30)
--- NOTE | 2019-11-11 08:47 | PCM.NOTE ---
Date and Time: 11/11/19 0843 Subjective Assessment: Pt is feeling better. She still gets very tired if she gets up, even in her room. Chris po. Objective Exam General Appearance: no apparent distress, alert Neurologic Exam: oriented x 3, cooperative Skin Exam: normal color, warm, dry, No rash Eye Exam: eyes nml inspection Respiratory Exam: normal breath sounds, lungs clear, No crackles/rales, No rhonchi, No wheezing Cardiovascular Exam: regular rate/rhythm, normal heart sounds, No murmur Extremity Exam: normal inspection, No pedal edema, No swelling Back Exam: normal inspection, No rash OBJECTIVE DATA Vital Signs: Vital Signs - 24 hr Temp Pulse Resp BP Pulse Ox 11/11/19 07:26 72 14 96 11/11/19 07:25 98 F 72 14 134/71 96 11/11/19 04:00 97.8 F 59 L 17 155/74 95 11/10/19 23:45 97.9 F 70 18 153/91 94 L 11/10/19 20:00 98.5 F 65 19 155/69 97 11/10/19 18:58 99 11/10/19 16:00 97.6 F 75 21 145/68 97 11/10/19 11:30 98 F 78 20 126/62 97 Pain Assessment - Last Documented Pain Intensity 0 Pain Scale Used 0-10 Pain Scale Intake and Output: Intake & Output 11/08/19 11/09/19 11/10/19 11/11/19 11:59 11:59 11:59 11:59 Intake Total 1799 4039 4475 Output Total 750 2800 2600 Balance 1049 1239 1875 Weight 60.3 kg Lab Results: Accuchecks Date 11/10/19 Date 11/10/19 Date 11/10/19 Time 22:00 Time 16:30 Time 11:30 Accucheck Value: 259 Accucheck Value: 293 Accucheck Value: 181 Lab Results-Last 24 Hours 11/11/19 11/11/19 Range/Units 04:35 04:35 WBC 6.0 (4.0-10.5) K/mm3 RBC 2.84 L (4.1-5.4) M/mm3 Hgb 8.3 L (12.0-16.0) gm/dl Hct 26.4 L (35-47) % MCV 93.0 (78-100) fl MCH 29.2 (26-32) pg MCHC 31.4 L (32-36) g/dl RDW 14.7 H (11.5-14.0) % Plt Count 350 (150-450) K/mm3 MPV 10.0 (7.5-11.0) fl Sodium 142 (137-145) mmol/L Potassium 3.0 L (3.5-5.1) mmol/L Chloride 106 (98-107) mmol/L Carbon Dioxide 27 (22-30) mmol/L Anion Gap 11.6 (5-15) MEQ/L BUN 36 H (7-17) mg/dL Creatinine 1.48 H (0.52-1.04) mg/dL Estimated GFR 37.3 ML/MIN Glucose 90 (74-106) mg/dL Calcium 9.3 (8.4-10.2) mg/dL Radiology Exams: Radiology Procedures Category Date Time Status ECHO W/2D AND DOPPLER [US] Routine Exams 11/09/19 10:35 Draft Multi-Disciplinary Progress Notes: Multi-Disciplinary Progress Notes 11/10/19 11:51 Physical Therapy Note by Lilia Castillo PT. REPORTS SHE IS FEELING MORE AWAKE TODAY. BUSINESS PERFORMANCE ADVISOR REPORTED SHE GOT UP FOR BATH AND WALKED TO BATHROOM. PERFORMED LE EX'S IN BED QUAD/GLUT SETS, HEEL SLIDES. PERFORMED SUPINE TO SIT W/ MIN ASSIST. SIT TO STAND CGA. PT. AMBULATED TO BR W / CGA AND PERFORMED COMMODE TRANSFER W/ CGA. ABLE TO PERFORM HYGIENE INDEPENDENTLY. WALKED ~ 70' W/ ROLLER WALKER SHE FELT "DIZZY" AFTER GOING TO BATHROOM. NOTED SHUFFLING GAIT W/ SHORT STRIDE LENGTH. FLAT AFFECT NOTED WELL. PT. HAS REPORTED SHE DID NOT USE AN A.D. REGULARLY AT HOME BUT DOES HAVE A SBQC IN HER ROOM. WILL CONTINUE P.T. DURING STAY. FEEL NEURO CONSULT MAY BE WARRANTED TO ASSESS FOR PARKINSON'S-LIKE SX. LILIA CASTILLO PT Initialized on 11/10/19 11:51 - END OF NOTE 11/10/19 09:49 Case Management Note by Kristina Gaspar S/W PATIENT- NO NEW NEEDS REGARDING DC. WILL CONTINUE TO FOLLOW Initialized on 11/10/19 09:49 - END OF NOTE Assessment/Plan (1) Acute on chronic renal failure Current Visit: Yes Status: Acute Qualifiers: Chronic kidney disease stage: stage 4 (severe) Assessment & Plan: Much improved, eGFR up to 37.3 today. Will need recheck BMP in 1 week. Code(s): N17.9 - ACUTE KIDNEY FAILURE, UNSPECIFIED; N18.9 - CHRONIC KIDNEY DISEASE, UNSPECIFIED (2) Weakness Current Visit: No Status: Acute Assessment & Plan: Pt is definitely not back to baseline but is feeling better. Code(s): R53.1 - WEAKNESS (3) Weight loss Current Visit: Yes Status: Acute Assessment & Plan: I think she is starting to eat better. (4) Dysphagia Current Visit: Yes Status: Acute Qualifiers: Dysphagia type: unspecified Qualified Code(s): R13.10 - Dysphagia, unspecified Code(s): R13.10 - DYSPHAGIA, UNSPECIFIED (5) UTI (urinary tract infection) Current Visit: Yes Status: Acute Qualifiers: Urinary tract infection type: acute cystitis Hematuria presence: with hematuria Qualified Code(s): N30.01 - Acute cystitis with hematuria Assessment & Plan: Culture + E. coli, ESBL neg, susceptible to rocephin. Code(s): N39.0 - URINARY TRACT INFECTION, SITE NOT SPECIFIED (6) CAD (coronary artery disease) Current Visit: No Status: Chronic Qualifiers: Coronary Disease-Associated Artery/Lesion type: [place] artery [place] vs. transplanted heart: [place] heart Associated angina: without angina Qualified Code(s): I25.10 - Atherosclerotic heart disease of [place] coronary artery without angina pectoris Code(s): I25.10 - ATHSCL HEART DISEASE OF [place] CORONARY ARTERY W/O ANG PCTRS (7) Essential hypertension Current Visit: No Status: Chronic Code(s): I10 - ESSENTIAL (PRIMARY) HYPERTENSION (8) COPD (chronic obstructive pulmonary disease) Current Visit: No Status: Chronic Qualifiers: Emphysema type: unspecified (9) Gastritis Current Visit: Yes Status: Acute Qualifiers: Gastritis type: unspecified gastritis Chronicity: acute Gastritis bleeding: without bleeding Qualified Code(s): K29.00 - Acute gastritis without bleeding Code(s): K29.70 - GASTRITIS, UNSPECIFIED, WITHOUT BLEEDING
[2019-11-11] MEDS: Sinemet 10/100 MG PO SCH ×3 (09:01→20:33)
[2019-11-11] MEDS: Lopressor 50 MG PO SCH ×3 (09:01→20:33)
[2019-11-11] MEDS: DIOVAN 80 MG PO SCH (09:02)
[2019-11-11] MEDS: Protonix 40MG Tablet PO SCH (09:03)
[2019-11-11] MEDS: Ditropan XL 5 MG PO SCH (09:03)
[2019-11-11] MEDS: ZYLOPRIM 100 MG PO SCH ×2 (09:04→20:34)
[2019-11-11] MEDS: Zestril 20 MG PO SCH ×2 (09:04→20:33)
[2019-11-11] MEDS: Pepcid 20 MG PO SCH ×2 (09:04→20:33)
[2019-11-11] MEDS: ENOXAPARIN SODIUM SQ SCH (09:05)
[2019-11-11] MEDS: Effient 10 MG TABLET PO SCH (09:05)
[2019-11-11] MEDS: Klor Con 10 MEQ PO SCH (09:05)
[2019-11-11] MEDS: ROCEPHIN 1 Gm-D5w 50 ml Bag** 1 G/50 ML IVPB IV SCH (09:15)
[2019-11-11] MEDS ORDERED: Potassium Chloride 20 MEQ INJECTION 20 MEQ, XYLOCAINE 1% HCL 20 ML MDV*** 2 ML in Sodiu... IV ONE (09:30)
[2019-11-11 16:49] LABS: MAGNESIUM 1.6 mg/dL (1.6-2.3); Potassium 4.4 mmol/L (3.5-5.1)
[2019-11-12] MEDS: Sodium Chloride 0.9% 1000 ML 1,000 ML IV SCH ×2 (03:55→20:41)
[2019-11-12 05:03] LABS: ANION GAP 10.1 MEQ/L (5-15); Calcium 9.3 mg/dL (8.4-10.2); Creatinine 1 1.3 mg/dL (0.52-1.04)
[2019-11-12 05:09] LABS: Hematocrit 26.9 % (35-47); Hemoglobin 8.4 gm/dl (12.0-16.0); Mean Cell Volume 93.1 fl (78-100); Mean Corpuscular Hemoglobin 29.1 pg (26-32); Mean Corpuscular Hgb Concent. 31.2 g/dl (32-36); Mean Platelet Volume 10.4 fl (7.5-11.0); Platelet Count 347 K/mm3 (150-450); Red Blood Count 2.89 M/mm3 (4.1-5.4); Red Cell Distribution Width 14.7 % (11.5-14.0); White Blood Count 5.8 K/mm3 (4.0-10.5)
[2019-11-12 05:17] LABS: Potassium 3.5 mmol/L (3.5-5.1)
--- NOTE | 2019-11-12 07:35 | PCM.NOTE ---
Date and Time: [birth year]/12/1934 Subjective Assessment: doing ok - Review of Systems Constitutional: No Fever, No Chills Eyes: No Symptoms Ears, Nose, & Throat: No Symptoms Respiratory: No Cough, No Short Of Breath Cardiac: No Chest Pain, No Edema, No Syncope Abdominal/Gastrointestinal: No Abdominal Pain, No Nausea, No Vomiting, No Diarrhea Genitourinary Symptoms: No Dysuria Musculoskeletal: No Back Pain, No Neck Pain Skin: No Rash Neurological: No Dizziness, No Focal Weakness, No Sensory Changes Psychological: No Symptoms Endocrine: No Symptoms Hematologic/Lymphatic: No Symptoms Immunological/Allergic: No Symptoms Objective Exam General Appearance: no apparent distress, alert Neurologic Exam: alert, oriented x 3, cooperative, normal mood/affect, nml cerebellar function, sensation nml, No motor deficits Skin Exam: normal color, warm, dry Eye Exam: PERRL, EOMI, eyes nml inspection Ears, Nose, Throat Exam: normal ENT inspection, pharynx normal, moist mucous membranes Neck Exam: normal inspection, non-tender, supple, full range of motion Respiratory Exam: normal breath sounds, lungs clear, No respiratory distress Cardiovascular Exam: regular rate/rhythm, normal heart sounds Gastrointestinal/Abdomen Exam: soft, No tenderness, No mass Extremity Exam: normal inspection, normal range of motion Back Exam: normal inspection, normal range of motion, No CVA tenderness, No vertebral tenderness Pelvic Exam: deferred Rectal Exam: deferred OBJECTIVE DATA Vital Signs: Vital Signs - 24 hr Temp Pulse Resp BP Pulse Ox 11/12/19 06:47 74 18 98 11/12/19 04:05 98.5 F 69 18 193/80 96 11/11/19 23:46 98.7 F 62 18 184/74 97 11/11/19 20:40 94 H 18 96 11/11/19 20:00 98.5 F 59 L 18 180/80 98 11/11/19 16:00 98.1 F 112 H 18 202/90 93 L 11/11/19 12:00 97.6 F 65 16 145/67 99 Pain Assessment - Last Documented Pain Intensity 0 Pain Scale Used 0-10 Pain Scale Intake and Output: Intake & Output 11/09/19 11/10/19 11/11/19 11/12/19 11:59 11:59 11:59 11:59 Intake Total 1799 4039 4835 5606 Output Total 750 2800 2600 2350 Balance 1049 1239 4775 3256 Weight 60.3 kg 60.3 kg Lab Results: Accuchecks Date 11/11/19 Date 11/11/19 Date 11/11/19 Time 22:00 Time 16:30 Time 11:30 Accucheck Value: 184 Accucheck Value: 146 Accucheck Value: 183 Lab Results-Last 24 Hours 11/11/19 11/12/19 11/12/19 Range/Units 16:15 04:45 04:45 WBC 5.8 (4.0-10.5) K/mm3 RBC 2.89 L (4.1-5.4) M/mm3 Hgb 8.4 L (12.0-16.0) gm/dl Hct 26.9 L (35-47) % MCV 93.1 (78-100) fl MCH 29.1 (26-32) pg MCHC 31.2 L (32-36) g/dl RDW 14.7 H (11.5-14.0) % Plt Count 347 (150-450) K/mm3 MPV 10.4 (7.5-11.0) fl Sodium 141 (137-145) mmol/L Potassium 4.4 D 3.5 D (3.5-5.1) mmol/L Chloride 107 (98-107) mmol/L Carbon Dioxide 28 (22-30) mmol/L Anion Gap 10.1 (5-15) MEQ/L BUN 23 H (7-17) mg/dL Creatinine 1.30 H (0.52-1.04) mg/dL Estimated GFR 43.3 ML/MIN Glucose 139 H (74-106) mg/dL Calcium 9.3 (8.4-10.2) mg/dL Magnesium 1.6 (1.6-2.3) mg/dL Multi-Disciplinary Progress Notes: Multi-Disciplinary Progress Notes 11/11/19 10:57 Case Management Note by Kristina Gaspar ENCOURAGED PATIENT TO ACCEPT HOME HEALTHCARE FOR ADDITIONAL ASSISTANCE AND PHYSICAL THERAPY AT HOME. SHE STATED SHE WOULD THINK ABOUT IT, DC PLANNING WILL CHECK BACK LATER TODAY Initialized on 11/11/19 10:57 - END OF NOTE 11/11/19 09:35 Physical Therapy Note by Rachel Riley Pt was seen this AM by PT. She was sitting up in the chair in her room with an IV in her L arm. She denied feeling dizzy, chief complaint is weakness. She was agreeable to do some therapy. She was able to transfer out of chair independently. She ambulated approximately 100 feet with SBA of 1 and with RW. Due to persisting B LE weakness she is safer to use a walker at this time. Pt does have her own quad cane in the room. After walking she completed some leg exercises. She noted she was too weak to do heel lifts in standing, so in sitting she performed marches, kicks, ankle pumps and B UE AROM. She noted fatigue at the end of exercises. Pt notes she lives alone and stated she thought she may be in the hospital until Thursday. Rachel Riley, PT Initialized on 11/11/19 09:35 - END OF NOTE Assessment/Plan (1) Acute on chronic renal failure Current Visit: Yes Status: Acute Qualifiers: Chronic kidney disease stage: stage 4 (severe) Code(s): N17.9 - ACUTE KIDNEY FAILURE, UNSPECIFIED; N18.9 - CHRONIC KIDNEY DISEASE, UNSPECIFIED (2) Weight loss Current Visit: Yes Status: Acute (3) CAD (coronary artery disease) Current Visit: No Status: Chronic Qualifiers: Coronary Disease-Associated Artery/Lesion type: [place] artery [place] vs. transplanted heart: [place] heart Associated angina: without angina Qualified Code(s): I25.10 - Atherosclerotic heart disease of [place] coronary artery without angina pectoris Code(s): I25.10 - ATHSCL HEART DISEASE OF [place] CORONARY ARTERY W/O ANG PCTRS (4) COPD (chronic obstructive pulmonary disease) Current Visit: No Status: Chronic Qualifiers: Emphysema type: unspecified (5) Chronic renal insufficiency Current Visit: No Status: Chronic Qualifiers: Chronic kidney disease stage: unspecified stage Qualified Code(s): N18.9 - Chronic kidney disease, unspecified Code(s): N18.9 - CHRONIC KIDNEY DISEASE, UNSPECIFIED (6) Essential hypertension Current Visit: No Status: Chronic Code(s): I10 - ESSENTIAL (PRIMARY) HYPERTENSION
[2019-11-12] MEDS: DIOVAN 80 MG PO SCH (07:59)
[2019-11-12] MEDS: Zestril 20 MG PO SCH ×2 (07:59→20:42)
[2019-11-12] MEDS: Lopressor 50 MG PO SCH ×3 (07:59→20:42)
[2019-11-12] MEDS: Pepcid 20 MG PO SCH ×2 (09:35→20:42)
[2019-11-12] MEDS: ZYLOPRIM 100 MG PO SCH ×2 (09:35→20:42)
[2019-11-12] MEDS: ENOXAPARIN SODIUM SQ SCH (09:35)
[2019-11-12] MEDS: Protonix 40MG Tablet PO SCH (09:35)
[2019-11-12] MEDS: Klor Con 10 MEQ PO SCH (09:35)
[2019-11-12] MEDS: Ditropan XL 5 MG PO SCH (09:35)
[2019-11-12] MEDS: ROCEPHIN 1 Gm-D5w 50 ml Bag** 1 G/50 ML IVPB IV SCH (09:36)
[2019-11-12] MEDS: Effient 10 MG TABLET PO SCH (09:36)
[2019-11-12] MEDS: Sinemet 10/100 MG PO SCH ×3 (09:37→20:42)
[2019-11-12] MEDS: POTASSIUM CHLORIDE 20 mEq IN WATER 100ML 20 MEQ/100 ML BAG IV SCH (09:37)
[2019-11-12] MEDS: APRESOLINE 20 MG/ML INJ IV PRN (17:47)
[2019-11-13] MEDS: APRESOLINE 20 MG/ML INJ IV PRN (04:44)
--- NOTE | 2019-11-13 08:26 | PCM.NOTE ---
Date and Time: 11/13/19824 Subjective Assessment: doing ok - Review of Systems Constitutional: No Fever, No Chills Eyes: No Symptoms Ears, Nose, & Throat: No Symptoms Respiratory: No Cough, No Short Of Breath Cardiac: No Chest Pain, No Edema, No Syncope Abdominal/Gastrointestinal: No Abdominal Pain, No Nausea, No Vomiting, No Diarrhea Genitourinary Symptoms: No Dysuria Musculoskeletal: No Back Pain, No Neck Pain Skin: No Rash Neurological: No Dizziness, No Focal Weakness, No Sensory Changes Psychological: No Symptoms Endocrine: No Symptoms Hematologic/Lymphatic: No Symptoms Immunological/Allergic: No Symptoms Objective Exam General Appearance: no apparent distress, alert Neurologic Exam: alert, oriented x 3, cooperative, normal mood/affect, nml cerebellar function, sensation nml, No motor deficits Skin Exam: normal color, warm, dry Eye Exam: PERRL, EOMI, eyes nml inspection Ears, Nose, Throat Exam: normal ENT inspection, pharynx normal, moist mucous membranes Neck Exam: normal inspection, non-tender, supple, full range of motion Respiratory Exam: normal breath sounds, lungs clear, No respiratory distress Cardiovascular Exam: regular rate/rhythm, normal heart sounds Gastrointestinal/Abdomen Exam: soft, No tenderness, No mass Extremity Exam: normal inspection, normal range of motion Back Exam: normal inspection, normal range of motion, No CVA tenderness, No vertebral tenderness Pelvic Exam: deferred Rectal Exam: deferred OBJECTIVE DATA Vital Signs: Vital Signs - 24 hr Temp Pulse Resp BP Pulse Ox 11/13/19 07:32 98.4 F 90 17 141/66 96 11/13/19 06:37 74 16 95 11/13/19 04:00 98.5 F 73 16 179/79 96 11/12/19 23:42 97.8 F 74 17 140/69 99 11/12/19 20:10 97.3 F 76 18 126/59 100 11/12/19 19:36 63 18 99 11/12/19 16:00 98.0 F 63 18 187/79 100 11/12/19 12:00 97.5 F 64 17 156/70 99 Pain Assessment - Last Documented Pain Intensity 0 Pain Scale Used 0-10 Pain Scale Intake and Output: Intake & Output 11/10/19 11/11/19 11/12/19 11/13/19 11:59 11:59 11:59 11:59 Intake Total 4039 4835 5846 2555 Output Total 2800 2600 2350 2800 Balance 2557 3547 5081 -285 Weight 60.3 kg Lab Results: Accuchecks Date 11/12/19 Time 22:00 Accucheck Value: 181 Accucheck Value: 184 Accucheck Value: 179 Assessment/Plan (1) Acute on chronic renal failure Current Visit: Yes Status: Acute Qualifiers: Chronic kidney disease stage: stage 4 (severe) Assessment & Plan: Last Vital Signs Temp 98.4 F 11/13/19 07:32 Pulse 90 11/13/19 07:32 Resp 17 11/13/19 07:32 BP 141/66 11/13/19 07:32 Pulse Ox 96 11/13/19 07:32 Allergies Penicillins Allergy (Severe, Verified 11/08/19 18:48) Vomiting iodine Adverse Reaction (Verified 11/08/19 18:48) Rash Active Medications Albuterol Sulfate (Proventil 2.5 Mg/3 Ml Neb) 2.5 mg IH Q4H PRN PRN PRN Reason: SHORTNESS OF BREATH/WHEEZING Stop: 12/10/19 06:45 Allopurinol (Zyloprim 100 Mg) 100 mg PO BID [facility] Stop: 12/09/19 09:59 Last Admin: 11/12/19 20:42 Dose: 100 mg Carbidopa/Levodopa (Sinemet 10/100 Mg) 2.5 udtab PO TID [facility] Stop: 12/10/19 16:29 Last Admin: 11/12/19 20:42 Dose: 2.5 udtab Enoxaparin Sodium (Enoxaparin Sodium) 30 mg SQ DAILY [facility] Stop: 12/10/19 09:59 Last Admin: 11/12/19 09:35 Dose: 30 mg Famotidine (Pepcid 20 Mg) 20 mg PO BID [facility] Stop: 12/09/19 09:59 Last Admin: 11/12/19 20:42 Dose: 20 mg Hydralazine HCl (Apresoline 20 Mg/Ml Inj) 10 mg IV Q6HPRN PRN PRN Reason: HYPERTENSION Stop: 12/12/19 17:43 Last Admin: 11/13/19 04:44 Dose: 10 mg Sodium Chloride (Sodium Chloride 0.9% 1000 Ml) 1,000 mls @ 50 mls/hr IV .Q20H [facility] Stop: 12/08/19 18:59 Last Admin: 11/12/19 20:41 Dose: 100 mls/hr Ceftriaxone Sodium/Dextrose (Rocephin 1 Gm-D5w 50 Ml Bag) 1 g in 50 mls @ 100 mls/hr IV Q24H10 [facility] Stop: 12/08/19 21:59 Last Admin: 11/12/19 09:36 Dose: 100 mls/hr Insulin Human Lispro (Humalog) 0 unit SQ UD PRN PRN Reason: HYPERGLYCEMIA Stop: 12/08/19 18:28 Last Admin: 11/11/19 00:28 Dose: 4 unit Lisinopril (Zestril 20 Mg) 20 mg PO BID [facility] Stop: 12/09/19 21:59 Last Admin: 11/12/19 20:42 Dose: 20 mg Metoprolol Tartrate (Lopressor 50 Mg) 100 mg PO TID [facility] Stop: 12/08/19 22:37 Last Admin: 11/12/19 20:42 Dose: 100 mg Oxybutynin Chloride (Ditropan Xl 5 Mg) 10 mg PO DAILY [facility] Stop: 12/10/19 09:59 Last Admin: 11/12/19 09:35 Dose: 10 mg Pantoprazole Sodium (Protonix 40mg Tablet) 40 mg PO DAILY [facility] Stop: 12/09/19 09:59 Last Admin: 11/12/19 09:35 Dose: 40 mg Potassium Chloride (Klor Con 10 Meq) 20 meq PO DAILY [facility] Stop: 12/11/19 09:59 Last Admin: 11/12/19 09:35 Dose: 20 meq Prasugrel (Effient 10 Mg Tablet) 10 mg PO DAILY [facility] Stop: 12/10/19 09:59 Last Admin: 11/12/19 09:36 Dose: 10 mg Valsartan (Diovan 80 Mg) 160 mg PO DAILY [facility] Stop: 12/10/19 09:59 Last Admin: 11/12/19 07:59 Dose: 160 mg Intake & Output 11/12/19 11/13/19 11:59 11:59 Intake Total 5846 2555 Output Total 2350 2800 Balance 3496 -245 Orders 03/14/20 17:44 HydrALAzine HCL 20 MG INJ [Apresoline 20 mg/ml Inj] 10 mg IV Q6HPRN PRN Code(s): N17.9 - ACUTE KIDNEY FAILURE, UNSPECIFIED; N18.9 - CHRONIC KIDNEY DISEASE, UNSPECIFIED (2) Weight loss Current Visit: Yes Status: Acute (3) CAD (coronary artery disease) Current Visit: No Status: Chronic Qualifiers: Coronary Disease-Associated Artery/Lesion type: [place] artery [place] vs. transplanted heart: [place] heart Associated angina: without angina Qualified Code(s): I25.10 - Atherosclerotic heart disease of [place] coronary artery without angina pectoris Code(s): I25.10 - ATHSCL HEART DISEASE OF [place] CORONARY ARTERY W/O ANG PCTRS (4) COPD (chronic obstructive pulmonary disease) Current Visit: No Status: Chronic Qualifiers: Emphysema type: unspecified (5) Chronic renal insufficiency Current Visit: No Status: Chronic Qualifiers: Chronic kidney disease stage: unspecified stage Qualified Code(s): N18.9 - Chronic kidney disease, unspecified Code(s): N18.9 - CHRONIC KIDNEY DISEASE, UNSPECIFIED (6) Essential hypertension Current Visit: No Status: Chronic Code(s): I10 - ESSENTIAL (PRIMARY) HYPERTENSION
[2019-11-13] MEDS: DIOVAN 80 MG PO SCH (09:06)
[2019-11-13] MEDS: Ditropan XL 5 MG PO SCH (09:07)
[2019-11-13] MEDS: ENOXAPARIN SODIUM SQ SCH (09:07)
[2019-11-13] MEDS: Effient 10 MG TABLET PO SCH (09:07)
[2019-11-13] MEDS: Pepcid 20 MG PO SCH ×2 (09:08→21:51)
[2019-11-13] MEDS: Protonix 40MG Tablet PO SCH (09:08)
[2019-11-13] MEDS: Klor Con 10 MEQ PO SCH (09:08)
[2019-11-13] MEDS: Lopressor 50 MG PO SCH ×3 (09:08→21:51)
[2019-11-13] MEDS: ZYLOPRIM 100 MG PO SCH ×2 (09:09→21:51)
[2019-11-13] MEDS: ROCEPHIN 1 Gm-D5w 50 ml Bag** 1 G/50 ML IVPB IV SCH (09:09)
[2019-11-13] MEDS: Sinemet 10/100 MG PO SCH ×3 (09:09→21:51)
[2019-11-13] MEDS: Zestril 20 MG PO SCH ×2 (09:09→21:51)
[2019-11-13] MEDS: HUMALOG SQ PRN (12:11)
[2019-11-13] MEDS: Sodium Chloride 0.9% 1000 ML 1,000 ML IV SCH (18:18)
[2019-11-14 08:41] LABS: Hematocrit 29.6 % (35-47); Hemoglobin 9.4 gm/dl (12.0-16.0); Mean Cell Volume 92.5 fl (78-100); Mean Corpuscular Hemoglobin 29.4 pg (26-32); Mean Corpuscular Hgb Concent. 31.8 g/dl (32-36); Mean Platelet Volume 9.9 fl (7.5-11.0); Platelet Count 325 K/mm3 (150-450); Red Cell Distribution Width 14.8 % (11.5-14.0); White Blood Count 5.7 K/mm3 (4.0-10.5)
[2019-11-14 09:05] LABS: ANION GAP 10.9 MEQ/L (5-15); Calcium 9.7 mg/dL (8.4-10.2); Creatinine 1 1.2 mg/dL (0.52-1.04); Potassium 3.6 mmol/L (3.5-5.1)
--- NOTE | 2019-11-14 09:20 | PCM.NOTE ---
Date and Time: 11/14/19915 Subjective Assessment: Pt is feeling better, however still very exhausted with any activity. Chris po. - Review of Systems Constitutional: No Fever Abdominal/Gastrointestinal: No Vomiting Objective Exam General Appearance: no apparent distress, alert Neurologic Exam: oriented x 3, cooperative Skin Exam: normal color, warm, dry, No rash Eye Exam: eyes nml inspection Ears, Nose, Throat Exam: moist mucous membranes Neck Exam: normal inspection Respiratory Exam: normal breath sounds, lungs clear, No crackles/rales, No rhonchi, No wheezing Cardiovascular Exam: regular rate/rhythm, normal heart sounds, No murmur Gastrointestinal/Abdomen Exam: soft, normal bowel sounds, No tenderness Extremity Exam: No pedal edema, No swelling OBJECTIVE DATA Vital Signs: Vital Signs - 24 hr Temp Pulse Resp BP Pulse Ox 11/14/19 07:52 98.7 F 77 17 145/67 96 11/14/19 06:56 96 11/14/19 04:13 98.6 F 73 18 165/71 96 11/13/19 23:18 98.2 F 68 20 162/75 97 11/13/19 20:00 97.6 F 66 18 156/69 98 11/13/19 19:35 63 18 97 11/13/19 16:00 97.5 F 85 18 129/63 98 11/13/19 11:55 98.4 F 86 18 136/64 97 Pain Assessment - Last Documented Pain Intensity 0 Pain Scale Used [facility] Intake and Output: Intake & Output 11/11/19 11/12/19 11/13/19 11/14/19 11:59 11:59 11:59 11:59 Intake Total 4835 5846 2915 1976 Output Total 2600 2350 2800 2400 Balance 2235 3496 115 -424 Weight 60.3 kg Lab Results: Accuchecks Accucheck Value: 183 Accucheck Value: 164 Accucheck Value: 225 Lab Results-Last 24 Hours 11/14/19 11/14/19 Range/Units 08:20 08:20 WBC 5.7 (4.0-10.5) K/mm3 RBC 3.20 L (4.1-5.4) M/mm3 Hgb 9.4 L (12.0-16.0) gm/dl Hct 29.6 L (35-47) % MCV 92.5 (78-100) fl MCH 29.4 (26-32) pg MCHC 31.8 L (32-36) g/dl RDW 14.8 H (11.5-14.0) % Plt Count 325 (150-450) K/mm3 MPV 9.9 (7.5-11.0) fl Sodium 141 (137-145) mmol/L Potassium 3.6 (3.5-5.1) mmol/L Chloride 106 (98-107) mmol/L Carbon Dioxide 28 (22-30) mmol/L Anion Gap 10.9 (5-15) MEQ/L BUN 19 H (7-17) mg/dL Creatinine 1.20 H (0.52-1.04) mg/dL Estimated GFR 47.5 ML/MIN Glucose 139 H (74-106) mg/dL Calcium 9.7 (8.4-10.2) mg/dL Assessment/Plan (1) Acute on chronic renal failure Current Visit: Yes Status: Acute Qualifiers: Chronic kidney disease stage: stage 4 (severe) Assessment & Plan: much improved Code(s): N17.9 - ACUTE KIDNEY FAILURE, UNSPECIFIED; N18.9 - CHRONIC KIDNEY DISEASE, UNSPECIFIED (2) Weakness Current Visit: No Status: Acute Assessment & Plan: improved. WIll discuss with PT when they think pt can go home. Code(s): R53.1 - WEAKNESS (3) Weight loss Current Visit: Yes Status: Acute (4) Dysphagia Current Visit: Yes Status: Acute Qualifiers: Dysphagia type: unspecified Qualified Code(s): R13.10 - Dysphagia, unspecified Code(s): R13.10 - DYSPHAGIA, UNSPECIFIED (5) UTI (urinary tract infection) Current Visit: Yes Status: Acute Qualifiers: Urinary tract infection type: acute cystitis Hematuria presence: with hematuria Qualified Code(s): N30.01 - Acute cystitis with hematuria Assessment & Plan: on day #7 IV rocephin, so will stop after today. Code(s): N39.0 - URINARY TRACT INFECTION, SITE NOT SPECIFIED (6) CAD (coronary artery disease) Current Visit: No Status: Chronic Qualifiers: Coronary Disease-Associated Artery/Lesion type: [place] artery [place] vs. transplanted heart: [place] heart Associated angina: without angina Qualified Code(s): I25.10 - Atherosclerotic heart disease of [place] coronary artery without angina pectoris Code(s): I25.10 - ATHSCL HEART DISEASE OF [place] CORONARY ARTERY W/O ANG PCTRS (7) Essential hypertension Current Visit: No Status: Chronic Code(s): I10 - ESSENTIAL (PRIMARY) HYPERTENSION (8) COPD (chronic obstructive pulmonary disease) Current Visit: No Status: Chronic Qualifiers: Emphysema type: unspecified (9) Gastritis Current Visit: Yes Status: Acute Qualifiers: Gastritis type: unspecified gastritis Chronicity: acute Gastritis bleeding: without bleeding Qualified Code(s): K29.00 - Acute gastritis without bleeding Code(s): K29.70 - GASTRITIS, UNSPECIFIED, WITHOUT BLEEDING
[2019-11-14] MEDS: Sodium Chloride 0.9% 1000 ML 1,000 ML IV SCH ×2 (09:27→18:50)
[2019-11-14] MEDS: ROCEPHIN 1 Gm-D5w 50 ml Bag** 1 G/50 ML IVPB IV SCH (12:07)
[2019-11-14] MEDS: ENOXAPARIN SODIUM SQ SCH (12:09)
[2019-11-14] MEDS: DIOVAN 80 MG PO SCH (12:10)
[2019-11-14] MEDS: Lopressor 50 MG PO SCH ×3 (12:11→21:19)
[2019-11-14] MEDS: Ditropan XL 5 MG PO SCH (12:12)
[2019-11-14] MEDS: Klor Con 10 MEQ PO SCH (12:13)
[2019-11-14] MEDS: Pepcid 20 MG PO SCH ×2 (12:14→21:20)
[2019-11-14] MEDS: Zestril 20 MG PO SCH ×2 (12:14→21:19)
[2019-11-14] MEDS: Protonix 40MG Tablet PO SCH (12:14)
[2019-11-14] MEDS: ZYLOPRIM 100 MG PO SCH ×2 (12:15→21:19)
[2019-11-14] MEDS: Sinemet 10/100 MG PO SCH ×3 (12:15→21:20)
[2019-11-14] MEDS: Effient 10 MG TABLET PO SCH (12:17)
[2019-11-14] MEDS: HUMALOG SQ PRN (21:19)
--- NOTE | 2019-11-15 08:38 | PCM.DS ---
Discharge Summary Date of Admission: 11/09/19 08:55 Admitting Physician: BRANDON GROSSMAN Primary Care Provider: BRANDON GROSSMAN Allergies Allergies Penicillins Allergy (Severe, Verified 11/08/19 18:48) Vomiting iodine Adverse Reaction (Verified 11/08/19 18:48) Rash Hospital Summary - Hospital Course Hospital Course: is a 68 year old female of mine from [facility] with chronic renal failure, DM, Parkinson's dz, HTN, gout, CAD, and COPD who was admitted directly for acute on chronic renal failure, UTI, and weakness. She came to the office on 11/04/19 c/o several weeks of worsening fatigue and 20 lb weight loss over 1 mo. Pt was started on IV rocephin for her UTI (had been dx outpatient but she had never picked up her medication). Her renal function improved from an initial eGFR of 16 to 47. She is feeling better and has been doing physical therapy; when PT feels she is safe for d/c she will be sent home. She had an EGD for some subjective trouble swallowing; revealed gastritis, no mass. She also had a speech therapy consult without any new orders. Her BP has been elevated intermittently; she had hydralazine for prn BP > 180 systolic. Today I noted that she is on an ACEi and an ARB so I have discontinued her lisinopril and added amlodipine 10mg instead. - Vitals & Intake/Output Vital Signs: Vital Signs Temperature 98.1 F 11/15/19 07:43 Pulse Rate 76 11/15/19 07:43 Respiratory Rate 18 11/15/19 07:43 Blood Pressure 162/77 11/15/19 07:43 O2 Sat by Pulse Oximetry 96 11/15/19 08:31 Intake & Output: Intake & Output 11/12/19 11/13/19 11/14/19 11/15/19 11:59 11:59 11:59 11:59 Intake Total 5846 2915 2216 1832 Output Total 2350 2800 2400 700 Balance 3496 115 -184 1132 - Lab Result Diagrams: 11/14/19 08:20 11/14/19 08:20 Lab Results-Last 24 Hrs: Accuchecks Accucheck Value: 151 Accucheck Value: 212 Accucheck Value: 227 Accucheck Value: 264 Lab Results-Last 24 Hours 11/09/19 11/14/19 11/14/19 Range/Units 08:07 08:20 08:20 WBC 5.7 (4.0-10.5) K/mm3 RBC 3.20 L (4.1-5.4) M/mm3 Hgb 9.4 L (12.0-16.0) gm/dl Hct 29.6 L (35-47) % MCV 92.5 (78-100) fl MCH 29.4 (26-32) pg MCHC 31.8 L (32-36) g/dl RDW 14.8 H (11.5-14.0) % Plt Count 325 (150-450) K/mm3 MPV 9.9 (7.5-11.0) fl Sodium 141 (137-145) mmol/L Potassium 3.6 (3.5-5.1) mmol/L Chloride 106 (98-107) mmol/L Carbon Dioxide 28 (22-30) mmol/L Anion Gap 10.9 (5-15) MEQ/L BUN 19 H (7-17) mg/dL Creatinine 1.20 H (0.52-1.04) mg/dL Estimated GFR 47.5 ML/MIN Glucose 139 H (74-106) mg/dL Calcium 9.7 (8.4-10.2) mg/dL Surg PTH Diagnosis See Note H Micro Results-Entire Visit: Microbiology 11/08/19 21:45 Urine Culture - Final Urine, Void Escherichia Coli Accuchecks Accucheck Value: 151 Accucheck Value: 212 Accucheck Value: 227 Accucheck Value: 264 - Procedures and Test Procedures and Tests throughout Hospitalization: Therapy Orders & Screens 11/08/19 18:25 PT Eval & Treat ( Order) Reason for Eval:: WEAKNESS, CAN DO IN AM Diagnosis: RENAL FAILURE,UTI,WEAKNESS 11/09/19 09:25 Speech Therapy Eval & Treat [[facility] ( Order)] .as ordered Comment: Physician Instructions: Reason For Exam: Evaluate: trouble eating Treat: Yes Reason for Eval: pt vague about trouble swallowing; nothing on EGD Diagnosis: RENAL FAILURE,UTI,WEAKNESS 11/10/19 07:41 Respiratory Therapy Assessment DAILY Comment: Diagnosis: RENAL FAILURE,UTI,WEAKNESS 11/11/19 08:48 PT Eval & Treat (MD Order) ROUTINE Reason for Eval:: weakness Diagnosis: RENAL FAILURE,UTI,WEAKNESS Discharge Exam General Appearance: no apparent distress, alert Neurologic Exam: oriented x 3, cooperative Eye Exam: eyes nml inspection Ears, Nose, Throat Exam: moist mucous membranes Neck Exam: normal inspection Respiratory Exam: normal breath sounds, lungs clear, No crackles/rales, No rhonchi, No wheezing Cardiovascular Exam: regular rate/rhythm, normal heart sounds, No murmur Back Exam: normal inspection, No rash Extremity Exam: normal inspection, No pedal edema, No swelling Skin Exam: normal color, warm, dry, No rash Final Diagnosis/Problem List - Final Discharge Diagnosis/Problem (1) Acute on chronic renal failure Current Visit: Yes Status: Acute Assessment & Plan: Much improved. Would like her to see nephrology outpatient. Code(s): N17.9 - ACUTE KIDNEY FAILURE, UNSPECIFIED; N18.9 - CHRONIC KIDNEY DISEASE, UNSPECIFIED (2) Weakness Current Visit: No Status: Acute Assessment & Plan: much improved. Will discharge the pt to home today or tomorrow if ok with PT. Code(s): R53.1 - WEAKNESS (3) Weight loss Current Visit: Yes Status: Acute (4) Dysphagia Current Visit: Yes Status: Acute Code(s): R13.10 - DYSPHAGIA, UNSPECIFIED (5) UTI (urinary tract infection) Current Visit: Yes Status: Resolved Assessment & Plan: stopped rocephin after 7d. Code(s): N39.0 - URINARY TRACT INFECTION, SITE NOT SPECIFIED (6) CAD (coronary artery disease) Current Visit: No Status: Chronic Code(s): I25.10 - ATHSCL HEART DISEASE OF [place] CORONARY ARTERY W/O ANG PCTRS (7) Essential hypertension Current Visit: No Status: Chronic Assessment & Plan: stopped lisinopril 20mg po BID and added amlodipine 10mg daily today. Code(s): I10 - ESSENTIAL (PRIMARY) HYPERTENSION (8) COPD (chronic obstructive pulmonary disease) Current Visit: No Status: Chronic (9) Gastritis Current Visit: Yes Status: Chronic Assessment & Plan: on PPI. Code(s): K29.70 - GASTRITIS, UNSPECIFIED, WITHOUT BLEEDING - Discharge Disposition: Home, Self-Care Condition: Stable Prescriptions: New Amlodipine Besylate 5 mg [Norvasc 5 mg] 10 mg PO QAM #30 tablet Continue Gemfibrozil 600 mg [Lopid 600 mg] 600 mg PO BID Oxybutynin Chloride 10 mg Xl [Ditropan Xl 10 MG] 10 mg PO DAILY Metoprolol Tartrate 100 mg PO TID Valsartan [Diovan] 160 mg PO DAILY glipiZIDE [Glipizide] 10 mg PO BID Allopurinol 100 mg [Zyloprim 100 mg] 100 mg PO BID Prasugrel HCL 10 MG [Effient 10 MG TABLET] 10 mg PO DAILY Ipratropium/Albuterol Sulfate [Combivent Inhaler] 2 puff IH QID raNITIdine HCl [Zantac] 150 mg PO BID Albuterol 2.5 mg/3 ml Neb [Proventil 2.5 mg/3 ml Neb] 2.5 mg IH Q4- 6HPRN PRN #10 neb PRN Reason: Shortness Of Breath/Wheezing Carbidopa/Levodopa [Carbidopa-Levodopa 25-250 Tab] 1 tablet PO TID Famotidine 20 mg [Pepcid 20 MG] 20 mg PO DAILY Discontinued Lisinopril 20 mg [Zestril 20 MG] 20 mg PO BID Furosemide 40 mg [Lasix 40 MG] 40 mg PO DAILY Follow up with: BRANDON GROSSMAN [Primary Care Provider] - 1 Week
[2019-11-15] MEDS: DIOVAN 80 MG PO SCH (09:31)
[2019-11-15] MEDS: Effient 10 MG TABLET PO SCH (09:32)
[2019-11-15] MEDS: Ditropan XL 5 MG PO SCH (09:32)
[2019-11-15] MEDS: Klor Con 10 MEQ PO SCH (09:32)
[2019-11-15] MEDS: Pepcid 20 MG PO SCH (09:33)
[2019-11-15] MEDS: Protonix 40MG Tablet PO SCH (09:33)
[2019-11-15] MEDS: Sinemet 10/100 MG PO SCH ×2 (09:33→15:42)
[2019-11-15] MEDS: Lopressor 50 MG PO SCH ×2 (09:33→15:42)
[2019-11-15] MEDS: ZYLOPRIM 100 MG PO SCH (09:34)
[2019-11-15] MEDS ORDERED: NORVASC 5 MG PO SCH (10:00)
[2019-11-15] MEDS: ENOXAPARIN SODIUM SQ SCH (10:46)
[2019-11-15] MEDS: HUMALOG SQ PRN (12:20)
[2019-11-15 15:03] VITALS: BP 128/63; PULSE 76; O2SAT 98
--- NOTE | 2019-11-15 15:10 | PCM.DCORD ---
- Discharge Disposition: Home, Self-Care Condition: Stable Prescriptions: New Amlodipine Besylate 5 mg [Norvasc 5 mg] 10 mg PO QAM #30 tablet Continue Gemfibrozil 600 mg [Lopid 600 mg] 600 mg PO BID Oxybutynin Chloride 10 mg Xl [Ditropan Xl 10 MG] 10 mg PO DAILY Metoprolol Tartrate 100 mg PO TID Valsartan [Diovan] 160 mg PO DAILY glipiZIDE [Glipizide] 10 mg PO BID Allopurinol 100 mg [Zyloprim 100 mg] 100 mg PO BID Prasugrel HCL 10 MG [Effient 10 MG TABLET] 10 mg PO DAILY Ipratropium/Albuterol Sulfate [Combivent Inhaler] 2 puff IH QID raNITIdine HCl [Zantac] 150 mg PO BID Albuterol 2.5 mg/3 ml Neb [Proventil 2.5 mg/3 ml Neb] 2.5 mg IH Q4- 6HPRN PRN #10 neb PRN Reason: Shortness Of Breath/Wheezing Carbidopa/Levodopa [Carbidopa-Levodopa 25-250 Tab] 1 tablet PO TID Famotidine 20 mg [Pepcid 20 MG] 20 mg PO DAILY Discontinued Lisinopril 20 mg [Zestril 20 MG] 20 mg PO BID Furosemide 40 mg [Lasix 40 MG] 40 mg PO DAILY Additional Instructions: MONITOR YOUR BLOOD PRESSURE AT HOME Follow up with: BRANDON GROSSMAN [Primary Care Provider] - 11/22/19 10:00 am
== END 2019-11-15 17:00 | disposition home or self-care (01) | DRG 683 ==
LOC: MED SURG 08:55 → OBSVTOIN 11-09 08:55
PROVIDERS: ADMIT Family Medicine; ATTEND Family Medicine
PROC: 0DD68ZX Extraction of Stomach, Via Natural or Artificial Opening Endoscopic, Diagnostic (ICD-10-PCS; principal; 2019-11-09)
DX: N17.9 Acute kidney failure, unspecified (principal); N39.0 Urinary tract infection, site not specified; E11.22 Type 2 diabetes mellitus with diabetic chronic kidney disease; I12.9 Hypertensive chronic kidney disease with stage 1 through stage 4 chronic kidney disease, or unspecified chronic kidney disease; N18.9 Chronic kidney disease, unspecified; R53.1 Weakness; R63.4 Abnormal weight loss; R13.10 Dysphagia, unspecified; I25.10 Atherosclerotic heart disease of native coronary artery without angina pectoris; J44.9 Chronic obstructive pulmonary disease, unspecified; K29.70 Gastritis, unspecified, without bleeding; Z79.899 Other long term (current) drug therapy; G20 Parkinson's disease; M10.9 Gout, unspecified; R42 Dizziness and giddiness
CPT/HCPCS: 36415; 80048; 80053; 82962; 83735; 84132; 84439; 84481; 85025; 85027; 85652; 87077; 87086; 87186; 88305; 88312; 93268; 93306; 94250; 94760; J0360; J0696; J1650; J1817; J2704; J3480; 97110-GP; A9270-GY; G0378

== ENCOUNTER 2020-05-14 22:24 | Observation (INO) | payer BC ==
[2020-05-14 22:42] LABS: Absolute Neutrophil Ct (ANC) 3.06 (1.4-6.9); BASOPHIL % 0.4 % (0.0-0.4); Basophil (Absolute #) 0.03 (0-0.4); Eosinophil % 8.3 % (0.00-5.0); Eosinophil (Absolute #) 0.59 (0-0.5); Hematocrit 33.1 % (35-47); Hemoglobin 10.9 gm/dl (12.0-16.0); Lymphocyte (Absolute #) 2.87 (1.0-4.6); Lymphocytes % 40.2 % (24.0-44.0); Mean Cell Volume 93.2 fl (78-100); Mean Corpuscular Hemoglobin 30.7 pg (26-32); Mean Corpuscular Hgb Concent. 32.9 g/dl (32-36); Mean Platelet Volume 10.8 fl (7.5-11.0); Monocyte (Absolute #) 0.59 (0.0-1.3); Monocytes % 8.3 % (0.0-12.0); Neutrophil % 42.8 % (36.0-66.0); Platelet Count 309 K/mm3 (150-450); Red Blood Count 3.55 M/mm3 (4.1-5.4); Red Cell Distribution Width 14.7 % (11.5-14.0); White Blood Count 7.1 K/mm3 (4.0-10.5)
[2020-05-14 22:54] LABS: ALBUMIN 4.4 g/dL (3.5-5.0); ANION GAP 17.4 MEQ/L (5-15); BILIRUBIN,TOTAL 0.5 mg/dL (0.2-1.3); Calcium 9.6 mg/dL (8.4-10.2); Creatinine 1 1.28 mg/dL (0.52-1.04); EST GLOMERULAR FILTRATION RATE 43.9 ML/MIN; Potassium 3.4 mmol/L (3.5-5.1)
--- NOTE | 2020-05-14 23:22 | ERPHSYRPT ---
- History of Present Illness Source: patient, EMS Exam Limitations: no limitations Patient Subjective Stated Complaint: The patient states that she has having dizziness and feeling weak off and on for about a week now, but it goes away after a couple minutes. Tonight, around 1999, the patient states that she got up to let the dogs out, had a dizzy spell that didn't get better, started feeling faint and fell into a large flower pot. The patient states that she was able to scoot over to her phone to call her son for help. The son called EMS, and patient was brought to [facility] ER. Triage Nursing Assessment: The patient is alert and oriented, able to stand and ambulate with assistance; is feeling dizzy and weak. Hand rn pain management are equal, lower extremities are equal in strength, no facial drooping, no noticable speech impediment; heart sounds regular and lungs are clear and diminished. Physician History: 69 yo wf w dizziness and near syncopal episode after getting up to let her dogs out. Pt states that she has been getting dizzy x1 month and is currently being worked up by her PCP. Pt denies focal weakness/chest pain/dyspnea/fever/PRECIADO/N /V/D/melena/hematochezia/injury. Timing/Duration: other (Before arrival) Severity: moderate Character of Deficits: none Deficits: no difficulties Baseline/Normal Cognition: alert oriented x 3 Current Cognition: alert oriented x 3 Baseline Gait: uses cane Associated Symptoms: weakness (General), trouble walking, No confusion, No fatigue, No fever, No chills, No loss of consciousness, No nausea, No vomiting, No muscle spasms, No numbness/tingling in legs/feet, No paresthesia, No ringing in ears, No seizures, No slurred speech, No vision changes, No chest pain, No headache Allergies/Adverse Reactions: Penicillins Allergy (Severe, Verified 05/14/20 22:55) Vomiting iodine Adverse Reaction (Verified 05/14/20 22:55) Rash Home Medications: Gemfibrozil 600 mg [Lopid 600 mg] 600 mg PO BID 06/02/16 [History] Oxybutynin Chloride 10 mg Xl [Ditropan Xl 10 MG] 10 mg PO DAILY 06/02/16 [History] Valsartan [Diovan] 160 mg PO DAILY 07/30/16 [History] Allopurinol 100 mg [Zyloprim 100 mg] 100 mg PO BID 07/05/18 [History] Prasugrel HCL 10 MG [Effient 10 MG TABLET] 10 mg PO DAILY 07/05/18 [History] glipiZIDE [Glipizide] 10 mg PO BID 07/05/18 [History] raNITIdine HCl [Zantac] 150 mg PO BID 02/01/19 [History] Carbidopa/Levodopa [Carbidopa-Levodopa 25-250 Tab] 1 tablet PO BID 11/08/19 [History] Famotidine 20 mg [Pepcid 20 MG] 20 mg PO DAILY 11/08/19 [History] Amlodipine Besylate 1 tab PO DAILY 05/14/20 [History] Cyclobenzaprine HCl 1 tab PO HS PRN PRN 05/14/20 [History] Ergocalciferol (Vitamin D2) [Vitamin D] 1 cap PO WEEKLY 05/14/20 [History] Furosemide 1 tab PO CLARIFY 05/14/20 [History] Glipizide [Glipizide Xl] 2 tab PO DAILY 05/14/20 [History] Metoprolol Tartrate 50 mg [Lopressor 50 MG] 1 tab PO BID 05/14/20 [History] Ondansetron ODT 4 MG [Zofran Odt 4 mg] 1 tab SL Q6HPRN PRN 05/14/20 [History] Hx Tetanus, Diphtheria Vaccination/Date Given: No Hx Influenza Vaccination/Date Given: Yes (fall 2018) Hx Pneumococcal Vaccination/Date Given: Yes (unknown) Immunizations Up to Date: Yes Travel Risk - International Travel Have you traveled outside of the country in past 3 weeks: No - Coronavirus Screening Are you exhibiting any of the following symptoms?: No Close contact with a COVID-19 positive Pt in past 14-21 Days: No - Review of Systems Constitutional: No Symptoms Eyes: No Symptoms Ears, Nose, & Throat: No Symptoms Respiratory: No Symptoms Cardiac: No Symptoms Abdominal/Gastrointestinal: No Symptoms Genitourinary Symptoms: No Symptoms Musculoskeletal: No Symptoms Skin: No Symptoms Neurological: Dizziness, No Focal Weakness, No Gait Changes, No Headache, No Irritability, No Lethargy, No Paralysis, No Parasthesia, No Seizure, No Sensory Changes, No Speech Changes, No Tics, No Tremors, No Vertigo Psychological: No Symptoms Endocrine: No Symptoms Hematologic/Lymphatic: No Symptoms Immunological/Allergic: No Symptoms - Past Medical History Pertinent Past Medical History: Yes Neurological History: Migraines, TIA ENT History: No Pertinent History Cardiac History: Coronary Artery Disease, High Cholesterol, Hypertension, Myocardial Infarction (MT) Respiratory History: COPD Endocrine Medical History: Diabetes Type II Musculoskeletal History: No Pertinent History GI Medical History: Gallbladder Disease, Polyps, Ulcer History: Renal Disease, Other Psycho-Social History: No Pertinent History Female Reproductive Disorders: Other Other Medical History: had prolapsed uterus, parkinson's, possible renal disease, anemia - Past Surgical History Past Surgical History: Yes Neuro Surgical History: No Pertinent History Cardiac: Cardiac Catheterization, Cardiac Stent Respiratory: No Pertinent History Gastrointestinal: Cholecystectomy Genitourinary: No Pertinent History Musculoskeletal: No Pertinent History Female Surgical History: Hysterectomy Other Surgical History: 7 HEART STENTS TOTAL ,colonoscopy and egd in past - Social History Smoking Status: Never smoker Exposure to second hand smoke: No Drug Use: none Patient Lives Alone: Yes Significant Family History: no pertinent family hx - Nursing Vital Signs Nursing Vital Signs: Initial Vital Signs Temperature 96.7 F 05/14/20 22:53 Pulse Rate 67 05/14/20 22:53 Respiratory Rate 17 05/14/20 22:53 Blood Pressure 175/94 05/14/20 22:53 O2 Sat by Pulse Oximetry 99 05/14/20 22:53 Pain Scale Pain Intensity 0 - Logan Coma Scale Best Eye Response (Logan): (4) open spontaneously Best Verbal Response (Logan): (5) oriented Best Motor Response (Logan): (6) obeys commands [place] Total: 15 - Physical Exam General Appearance: no apparent distress Eye Exam: bilateral eye: normal inspection, PERRL, EOMI Ears, Nose, Throat Exam: normal ENT inspection, TMs normal, pharynx normal, moist mucous membranes Neck Exam: normal inspection, non-tender, supple, full range of motion, No meningismus, No mass, No Brudzinski, No Kernig's, No carotid bruit Respiratory: normal breath sounds (Faint rales at bases B) Cardiovascular: regular rate/rhythm (2/6 ALBINO) Gastrointestinal: soft, normal bowel sounds, No tenderness Pelvic Exam: not done Extremity Exam: normal inspection, normal range of motion, pelvis stable, No paralysis Peripheral Pulses: carotid (R): 2+, carotid (L): 2+ Mental Status: alert, oriented x 3, cooperative, No agitated, No uncooperative, 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 Exam: normal hearing, normal speech, PERRL, No abnormal eye position, No abnormal gag reflex, No facial asymmetry, No facial droop Motor/Sensory: no motor deficit, no sensory deficit, no pronator drift, negative Babinski's sign DTR: bicep (R): 2+, bicep (L): 2+, knee (R): 2+, knee (L): 2+ Skin Exam: normal color, warm, dry, No rash SpO2 Interpretation: normal SpO2: 99 O2 Delivery: Room Air - Course Nursing assessment & vital signs reviewed: Yes EKG Interpreted by Me: RATE (NSR/Rate 69/Prolonged QT-QTc/Anterior T wave abnormality) Ordered Tests: Active Orders 24 hr Category Date Time Status Bedrest ROUTINE Activity 05/15/20 00:43 Active Code Status Order ROUTINE Care 05/15/20 00:41 Active Code Status Order ROUTINE Care 05/15/20 00:43 Active EKG-ER Only STAT Care 05/14/20 22:36 Active IV Care Q6H Care 05/15/20 00:41 Active IV Care Q6H Care 05/15/20 00:43 Active Neuro Checks Q4H Care 05/15/20 00:[address] in Observation ROUTINE Care 05/15/20 00:41 Active Vital Signs Q4H Care 05/15/20 00:42 Active Consistent Carbohydrate Diet 1800 Calorie Diet 05/15/20 Breakfast Active CHEST 1 VIEW (PORTABLE) Stat Exams 05/14/20 22:30 Taken HEAD WITHOUT CONTRAST [CT] Stat Exams 05/14/20 22:30 Taken MRA BRAIN WITHOUT CONTRAST [MRI] Stat Exams 05/15/20 00:46 Ordered MRI BRAIN W/O CONTRAST [MRI] Stat Exams 05/15/20 00:46 Ordered CBC W DIFF AM.LAB Lab 05/15/20 04:00 Ordered CBC W DIFF Stat Lab 05/14/20 22:41 Completed CMP AM.LAB Lab 05/15/20 04:00 Ordered CMP Stat Lab 05/14/20 22:41 Completed TROPONIN Q3H Lab 05/14/20 22:41 Completed TROPONIN Q3H Lab 05/15/20 01:30 Ordered TROPONIN Q3H Lab 05/15/20 04:30 Ordered TROPONIN Q3H Lab 05/15/20 07:30 Ordered TROPONIN Q3H Lab 05/15/20 10:30 Ordered UA W/RFX UR CULTURE Stat Lab 05/14/20 23:40 Completed Transfer Order Routine Transfer 05/15/20 Ordered Medication Summary Generic Name Dose Route Start Last Admin Trade Name Freq PRN Reason Stop Dose Admin Albuterol/Ipratropium 3 ml 05/15/20 00:42 Duoneb 0.5-3 Mg/3 Ml Neb IH 06/14/20 00:41 Q4HPRN PRN SHORTNESS OF BREATH/WHEEZING Sodium Chloride 1,000 mls @ 70 mls/hr 05/15/20 00:45 Sodium Chloride 0.9% 1000 Ml IV 06/14/20 00:44 .[id number] NAZARIO Insulin Human Lispro 0 unit 05/15/20 00:42 Humalog SQ 06/14/20 00:41 UD PRN HYPERGLYCEMIA Ondansetron HCl 4 mg 05/15/20 00:42 Zofran 4 Mg/2 Ml Vial IV 06/14/20 00:41 Q6H PRN PRN NAUSEA/VOMITING Lab/Rad Data: Laboratory Result Diagrams 05/14/20 22:41 05/14/20 22:41 Laboratory Results 05/14/20 05/14/20 05/14/20 Range/Units 23:40 22:41 22:41 WBC (4.0-10.5) K/mm3 RBC (4.1-5.4) M/mm3 Hgb (12.0-16.0) gm/dl Hct (35-47) % MCV (78-100) fl MCH (26-32) pg MCHC (32-36) g/dl RDW (11.5-14.0) % Plt Count (150-450) K/mm3 MPV (7.5-11.0) fl Gran % (36.0-66.0) % Eos # (Auto) (0-0.5) Absolute Lymphs (auto) (1.0-4.6) Absolute Monos (auto) (0.0-1.3) Lymphocytes % (24.0-44.0) % Monocytes % (0.0-12.0) % Eosinophils % (0.00-5.0) % Basophils % (0.0-0.4) % Absolute Granulocytes (1.4-6.9) Basophils # (0-0.4) Sodium 136 L (137-145) mmol/L Potassium 3.4 L (3.5-5.1) mmol/L Chloride 97 L (98-107) mmol/L Carbon Dioxide 25 (22-30) mmol/L Anion Gap 17.4 H (5-15) MEQ/L BUN 38 H (7-17) mg/dL Creatinine 1.28 H (0.52-1.04) mg/dL Estimated GFR 43.9 ML/MIN Glucose 331 H (74-106) mg/dL Calcium 9.6 (8.4-10.2) mg/dL Total Bilirubin 0.50 (0.2-1.3) mg/dL AST 30 (14-36) U/L ALT 13 (0-35) U/L Alkaline Phosphatase 144 H (38-126) U/L Troponin I < 0.012 (0.000-0.034) ng/mL Serum Total Protein 8.0 (6.3-8.2) g/dL Albumin 4.4 (3.5-5.0) g/dL Urine Color STRAW (YELLOW) Urine Appearance CLEAR (CLEAR) Urine pH 5.0 (5-6) Ur Specific [place] 1.008 (1.005-1.025) Urine Protein NEGATIVE (Negative) Urine Ketones NEGATIVE (NEGATIVE) Urine Blood SMALL (0-5) [place]/ul Urine Nitrite NEGATIVE (NEGATIVE) Urine Bilirubin NEGATIVE (NEGATIVE) Urine Urobilinogen NEGATIVE (0-1) mg/dL Ur Leukocyte Esterase TRACE (NEGATIVE) Urine WBC (Auto) 3-5 (0-5) /HPF Urine RBC (Auto) NONE (0-2) /HPF U Epithel Cells (Auto) RARE (FEW) /HPF Urine Bacteria (Auto) NONE (NEGATIVE) /HPF Urine Mucus (Auto) SLIGHT (NEGATIVE) /HPF Urine Culture Reflexed NO (NO) Urine Glucose 150 (NEGATIVE) mg/dL 05/14/20 Range/Units 22:41 WBC 7.1 (4.0-10.5) K/mm3 RBC 3.55 L (4.1-5.4) M/mm3 Hgb 10.9 L (12.0-16.0) gm/dl Hct 33.1 L (35-47) % MCV 93.2 (78-100) fl MCH 30.7 (26-32) pg MCHC 32.9 (32-36) g/dl RDW 14.7 H (11.5-14.0) % Plt Count 309 (150-450) K/mm3 MPV 10.8 (7.5-11.0) fl Gran % 42.8 (36.0-66.0) % Eos # (Auto) 0.59 H (0-0.5) Absolute Lymphs (auto) 2.87 (1.0-4.6) Absolute Monos (auto) 0.59 (0.0-1.3) Lymphocytes % 40.2 (24.0-44.0) % Monocytes % 8.3 (0.0-12.0) % Eosinophils % 8.3 H (0.00-5.0) % Basophils % 0.4 (0.0-0.4) % Absolute Granulocytes 3.06 (1.4-6.9) Basophils # 0.03 (0-0.4) Sodium (137-145) mmol/L Potassium (3.5-5.1) mmol/L Chloride (98-107) mmol/L Carbon Dioxide (22-30) mmol/L Anion Gap (5-15) MEQ/L BUN (7-17) mg/dL Creatinine (0.52-1.04) mg/dL Estimated GFR ML/MIN Glucose (74-106) mg/dL Calcium (8.4-10.2) mg/dL Total Bilirubin (0.2-1.3) mg/dL AST (14-36) U/L ALT (0-35) U/L Alkaline Phosphatase (38-126) U/L Troponin I (0.000-0.034) ng/mL Serum Total Protein (6.3-8.2) g/dL Albumin (3.5-5.0) g/dL Urine Color (YELLOW) Urine Appearance (CLEAR) Urine pH (5-6) Ur Specific [place] (1.005-1.025) Urine Protein (Negative) Urine Ketones (NEGATIVE) Urine Blood (0-5) [place]/ul Urine Nitrite (NEGATIVE) Urine Bilirubin (NEGATIVE) Urine Urobilinogen (0-1) mg/dL Ur Leukocyte Esterase (NEGATIVE) Urine WBC (Auto) (0-5) /HPF Urine RBC (Auto) (0-2) /HPF U Epithel Cells (Auto) (FEW) /HPF Urine Bacteria (Auto) (NEGATIVE) /HPF Urine Mucus (Auto) (NEGATIVE) /HPF Urine Culture Reflexed (NO) Urine Glucose (NEGATIVE) mg/dL - Progress Progress: unchanged Progress Note: 05/15/20 00:22 When talking to pt about admit, she refuses to be transferred to larger facility due to Covid risks. 05/15/20 00:[address] Rashid x3, so Dr. Arceo called. OK to admit Pt. - Departure Departure Disposition: Observation Clinical Impression: Dizziness, Near syncope Condition: Stable Critical Care Time: No Referrals: BRANDON RASHID [Primary Care Provider] -
[2020-05-14 23:51] LABS: Appearance CLEAR (CLEAR); Bilirubin NEGATIVE (NEGATIVE); Blood SMALL Ery/ul (0-5); Epithelial Cells RARE /HPF (FEW); Glucose 150 mg/dL (NEGATIVE); Ketones NEGATIVE (NEGATIVE); Leukocyte Esterase TRACE (NEGATIVE); Mucus SLIGHT /HPF (NEGATIVE); Nitrite NEGATIVE (NEGATIVE); Protein,Urine Dip NEGATIVE (Negative); Specific Gravity 1.008 (1.005-1.025); Urobilinogen NEGATIVE mg/dL (0-1)
[2020-05-15] MEDS ORDERED: Zofran 4 MG/2 ML VIAL IV PRN (00:42)
[2020-05-15] MEDS ORDERED: DUONEB 0.5-3 MG/3 ml Neb IH PRN (00:42)
[2020-05-15] MEDS: Sodium Chloride 0.9% 1000 ML 1,000 ML IV SCH ×2 (02:49→20:14)
[2020-05-15 05:12] LABS: Absolute Neutrophil Ct (ANC) 2.85 (1.4-6.9); BASOPHIL % 0.3 % (0.0-0.4); Basophil (Absolute #) 0.02 (0-0.4); Eosinophil % 8.3 % (0.00-5.0); Eosinophil (Absolute #) 0.54 (0-0.5); Hematocrit 31.2 % (35-47); Lymphocyte (Absolute #) 2.48 (1.0-4.6); Lymphocytes % 38.3 % (24.0-44.0); Mean Cell Volume 93.4 fl (78-100); Mean Corpuscular Hemoglobin 29.9 pg (26-32); Mean Corpuscular Hgb Concent. 32.1 g/dl (32-36); Mean Platelet Volume 10.2 fl (7.5-11.0); Monocyte (Absolute #) 0.58 (0.0-1.3); Neutrophil % 44.1 % (36.0-66.0); Platelet Count 278 K/mm3 (150-450); Red Blood Count 3.34 M/mm3 (4.1-5.4); Red Cell Distribution Width 14.5 % (11.5-14.0); White Blood Count 6.5 K/mm3 (4.0-10.5)
[2020-05-15 05:26] LABS: ANION GAP 12.9 MEQ/L (5-15); BILIRUBIN,TOTAL 0.3 mg/dL (0.2-1.3); Creatinine 1 1.19 mg/dL (0.52-1.04); EST GLOMERULAR FILTRATION RATE 47.8 ML/MIN; PREALBUMIN 21.04 mg/dL (17.6-36.0); Potassium 3.1 mmol/L (3.5-5.1); Total Protein 7.2 g/dL (6.3-8.2)
[2020-05-15] MEDS: PATIENT OWN MEDICATION IH SCH ×5 (07:00→18:59)
[2020-05-15] MEDS ORDERED: ZOFRAN ODT 4 MG PO PRN (08:12)
--- NOTE | 2020-05-15 08:47 | PCM.SSS ---
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 tab PO DAILY Cyclobenzaprine HCl 1 tab PO HS PRN PRN PRN Reason: Muscle Spasms Ergocalciferol (Vitamin D2) [Vitamin D] 1 cap PO WEEKLY Amlodipine Besylate 1 tab PO DAILY Insulin Glargine,Hum.rec.anlog [Lantus] 15 units SQ DAILY Ipratropium/Albuterol Sulfate [Combivent Inhaler] 1 puff IH QID Follow up with: BRANDON CASH [Primary Care Provider] - 1 Week
[2020-05-15] MEDS: Klor Con 10 MEQ PO SCH (09:44)
[2020-05-15] MEDS: NORVASC 5 MG PO SCH (09:44)
[2020-05-15] MEDS: Lopressor 50 MG PO SCH ×2 (09:44→21:22)
[2020-05-15] MEDS: ZYLOPRIM 100 MG PO SCH ×2 (09:44→21:22)
[2020-05-15] MEDS: Pepcid 20 MG PO SCH (09:44)
[2020-05-15] MEDS: LOPID 600 MG PO SCH ×2 (09:45→21:22)
[2020-05-15] MEDS: Effient 10 MG TABLET PO SCH (09:45)
[2020-05-15] MEDS: Sinemet 25/250 MG PO SCH ×2 (09:45→21:22)
[2020-05-15] MEDS: Lantus Insulin SQ SCH (09:47)
[2020-05-15] MEDS ORDERED: AMLODIPINE BESYLATE PO SCH (10:00)
[2020-05-15] MEDS ORDERED: Lantus Insulin SQ SCH (10:00)
[2020-05-15] MEDS: DIOVAN 80 MG PO SCH (11:14)
--- NOTE | 2020-05-15 11:19 | XRAY ---
Exam: Bilateral duplex Doppler carotid ultrasound from 05/15/2020. Comparison: Bilateral duplex Doppler carotid ultrasound from 09/14/2009. Indication: 69-year-old female with syncope. Findings: Lopez scale images, color blood flow images, and Doppler tracings were obtained of both carotid arteries. Peak systolic flow velocities were measured in centimeters per second. On the right side, there is a mild fibrous plaque along the anterior medial aspect of the common carotid artery. At least moderate fibrocalcific plaque is seen along both the anterior and posterior margins of the carotid bulb extending into the proximal portion of both the internal and external carotid arteries. Peak systolic flow velocities in centimeters per second measure 45 within the common carotid artery, 87 and 78 within the proximal and distal internal carotid artery, and 226 within the external carotid artery. Peak systolic flow velocity ratio between the ICA and CCA is mildly elevated at 1.9, previously 1.4. Sagittal color blood flow image of the right external carotid artery suggest greater than 50% diameter reduction within the proximal to mid aspect of the external carotid artery.. The right vertebral artery reveals antegrade flow with a peak systolic flow velocity of 49 cm/s. On the left side, minimal intimal thickening is seen along both the anterior and posterior margins of a mildly tortuous common carotid artery. Moderate to marked fibrocalcific plaque is seen along both the anterior and posterior aspects of the carotid bulb. There is also moderate sized focal calcified plaque within the posterior aspect of the proximal left external carotid artery. Less pronounced calcified plaque extends into the origin of the internal carotid artery. Peak systolic flow velocities in centimeters per second measure 65 within the common carotid artery, 58 and 54 within the proximal and distal internal carotid artery, and 142 within the external carotid artery. Peak systolic flow velocity ratio between the ICA and CCA is 0.9, previously 1.2. This is not elevated. The left vertebral artery reveals antegrade flow with a peak systolic flow velocity of 40 cm/s. Impression: 1. There is prominent fibrocalcific plaque within both carotid bulbs with a lesser amount extending into the proximal internal and external carotid arteries. Peak systolic flow velocity ratio between the ICA and CCA on the right is mildly elevated at 1.9, previously 1.4. However, the peak systolic flow velocities within the common carotid arteries and internal carotid arteries do not suggest a hemodynamically significant stenosis of 50% or greater diameter reduction. 2. Both vertebral arteries reveal antegrade flow.
[2020-05-15] MEDS ORDERED: FLUZONE HIGH-DOSE QUAD 2020-21 IM ONE ×2 (13:00→16:30)
--- NOTE | 2020-05-15 13:34 | XRAY ---
Exam: AP upright portable chest film from 05/14/2020. Comparison: Two-view chest films series from 07/08/2019. Indication: 69-year-old female with cough and weakness. Findings: The patient is slightly rotated toward the left. The transverse heart size appears within normal limits for this AP portable technique. The ann[place] and mediastinal structures appear unremarkable. A tiny calcified granuloma is again seen at the right lung base. Inflation of the lungs is within normal limits. No air space infiltrates, vascular congestion, pneumothorax, or pleural fluid is seen. There is a questionable small calcified granuloma near the superior margin of the left lung apex as well. Minimal convexity of the mid thoracic spine toward the right is seen. Mild degenerative changes are seen within the thoracic spine and both shoulders. Impression: 1. No acute cardiopulmonary disease is seen.
--- NOTE | 2020-05-15 14:01 | XRAY ---
Exam: CT of the head without IV contrast from 05/14/2020. CTDI: 53.92 mGy Comparison: CT of the head without IV contrast from 07/04/2019. Indication: 69-year-old female with dizziness and weakness, history of migraines, TIAs, hypertension, coronary artery disease, and Parkinson's disease. Technique: Non-IV contrast axial images were obtained through the brain. Reconstructed coronal and sagittal images were created and reviewed. Findings: The ventricles appear of normal size. No focal mass effect or midline shift is seen. No acute intracranial bleed or abnormal extra-axial fluid collection is seen. Mild to moderate chronic bilateral periventricular and subcortical white matter changes are seen within the upper cerebral convexities bilaterally, likely revealing chronic small vessel ischemic disease. I also again see a couple small lacunar infarcts within the right lentiform nucleus representing no change. A definite new cortical infarct is not seen. The cortical sulci are age-appropriate. The fourth ventricle is of normal size without hydrocephalus. There is mild prominence of the cerebellar cisterns suggesting some atrophy and representing no change. Moderate vascular calcification is seen within the distal vertebral arteries bilaterally. I also see moderate vascular calcification within the carotid siphons. The calvarium of the skull appears intact. The visualized paranasal sinuses appear clear. The mastoid air cells are clear without effusion. The middle ear cavities appear grossly unremarkable. The orbits reveal no gross abnormality. Impression: 1. No acute intracranial bleed or new cortical infarct within a major cerebral or cerebellar artery distribution is seen. The findings appear unchanged from 07/04/2019. 2. I again see mild generalized atrophy, moderate chronic small vessel white matter ischemic changes, and a couple old lacunar infarcts within the right basal ganglia. There is also significant arteriosclerosis noted.
--- NOTE | 2020-05-15 16:00 | XRAY ---
Exam: MRI of the brain without IV contrast from 05/15/2020. Comparison: CT of the head without IV contrast from 05/14/2020. Indication: 69-year-old female with dizziness, near syncope. History of Parkinson's disease. Technique: Multiplanar, multisequence MR imaging of the brain without IV contrast was performed, per protocol. The ventricles appear of unremarkable size and configuration. The T2-weighted FLAIR images reveal fairly extensive bilateral periventricular and subcortical increased signal intensities which are consistent with the previously suspected chronic small vessel ischemic white matter disease seen on the earlier CT study. The diffusion weighted images reveal no focal areas of restricted diffusion to suggest an acute or subacute infarct. I see no evidence of acute intracranial bleed or abnormal extra-axial fluid collection. The sella and craniocervical junction appears unremarkable on the sagittal T2 FLAIR images. Some prominence of the cerebellar cisterns is again seen. In addition to the 2 previously noted remote lacunar infarcts within the lateral right basal ganglia, there appear to be some other tiny low signal intensities within both basal ganglia on the axial T1 FLAIR images which may reflect prominent perivascular spaces or other tiny remote lacunar infarcts. Mild prominence of the cortical sulci is seen. The visualized paranasal sinuses are essentially clear without air-fluid levels. The orbits appear grossly unremarkable. The seventh/eighth cranial nerve complexes appear unremarkable. Flow-voids about the [place] appear essentially unremarkable. Impression: 1. I see no focal areas of restricted diffusion on the diffusion weighted images to suggest an acute or subacute infarct. 2. The remainder of the findings are unchanged consisting of mild global atrophy, fairly extensive chronic bilateral periventricular and subcortical chronic small vessel ischemic white matter changes, and a couple remote lacunar infarcts within the lateral right basal ganglia. In fact, there may be other tiny remote lacunar infarcts versus prominent perivascular spaces within both basal ganglia.
--- NOTE | 2020-05-15 16:24 | XRAY ---
Exam: MRA of the brain without IV contrast from 05/15/2020. Comparison: MRI of the brain without IV contrast from 05/15/2020 and bilateral duplex Doppler carotid ultrasound exam from 05/15/2020. Indication: Dizziness, near syncope, history of Parkinson's disease. Technique: 3-D [id number] MRA images were obtained of the distal vertebrobasilar system, distal internal carotid arteries, and [place], per routine. Findings: The distal vertebral arteries appear grossly unremarkable. I believe there is mild atherosclerotic narrowing of the proximal basilar artery. The distal basilar artery appears unremarkable. Both posterior cerebral arteries appear unremarkable. The distal right internal carotid artery appears unremarkable. I see a moderate atherosclerotic stenosis of the right middle cerebral artery on image #3 of series 301. Distal branches of the right middle cerebral artery fill appropriately. The A1 segment of the anterior cerebral artery on the right appears unremarkable. There appears to be cross filling through the anterior communicating artery which fills both anterior cerebral arteries (A2 segments). Within the cavernous portion of the distal left internal carotid artery, there appears to be a focal marked narrowing of the artery. This is well seen on image #10 of series 3, as well as images #4 and #5 of series 301. The A1 segment of the left anterior cerebral artery does not fill. In addition, there is mild atherosclerotic irregularity seen within the left middle cerebral artery. The distal branches of the middle cervical artery appear unremarkable. Impression: 1. Within the distal cavernous portion of the left internal carotid artery, there appears to be a significant focal stenosis, as described above. This appears be a greater than 50% diameter reduction. Atherosclerotic irregularity of the left middle cerebral artery and nonfilling of the A1 left anterior cerebral artery segment are seen. 2. The left anterior cerebral artery appears to fill through the anterior communicating artery from the right side. The cavernous portion of the distal right internal carotid artery appears unremarkable. There is a focal moderate stenosis within the right middle cerebral artery, as discussed above. 3. I also note mild focal narrowing/stenosis within the proximal portion of the basilar artery.
[2020-05-16 05:21] LABS: Hematocrit 31.9 % (35-47); Hemoglobin 10.3 gm/dl (12.0-16.0); Mean Cell Volume 94.1 fl (78-100); Mean Corpuscular Hemoglobin 30.4 pg (26-32); Mean Corpuscular Hgb Concent. 32.3 g/dl (32-36); Mean Platelet Volume 10.4 fl (7.5-11.0); Platelet Count 302 K/mm3 (150-450); Red Blood Count 3.39 M/mm3 (4.1-5.4); Red Cell Distribution Width 14.6 % (11.5-14.0); White Blood Count 8.4 K/mm3 (4.0-10.5)
[2020-05-16 05:38] LABS: ANION GAP 10.5 MEQ/L (5-15); Calcium 9.5 mg/dL (8.4-10.2); Creatinine 1 1.21 mg/dL (0.52-1.04); EST GLOMERULAR FILTRATION RATE 46.9 ML/MIN; Potassium 4.1 mmol/L (3.5-5.1)
[2020-05-16] MEDS: PATIENT OWN MEDICATION IH SCH ×4 (07:08→20:08)
[2020-05-16] MEDS ORDERED: ANTIVERT 25 MG PO PRN (09:17)
--- NOTE | 2020-05-16 09:19 | PCM.NOTE ---
Date and Time: 05/16/20916 Subjective Assessment: patient admitted with dizziness, stroke workup negative. no slurred speech, no numbness/tingling weakness in extremities acutely, has chronic numbness in her feet. she has true vertigo, worse with quick movement. Objective Exam General Appearance: no apparent distress, alert Skin Exam: normal color, warm, dry Wound Assessment: Skin/Wound Assessment Wound/Incision Assessment Start: 05/15/20 02:10 Text: Status: Active Freq: Q6H Protocol: Document 05/16/20 03:00 EG (Rec: 05/16/20 03:20 EG [id number]) Wound/Incision Assessment Right Buttock Wound Assessment Shift Assessment Wound Type nearly healed. wound bed even with surrounding tissue. remains true Drainage Amount None General Appearance Open to air Wound Bed Greatest Portion Pale [place] Wound Bed Lesser Portion Pale [place] Surrounding Tissue [place] Primary Dressing open to air Left Buttock Wound Assessment Shift Assessment Wound Type healing ulcer, nearly healed. wound bed white and even with surrounding tis Drainage Amount None Wound Bed Greatest Portion Pale [place] Wound Bed Lesser Portion Pale [place] Surrounding Tissue [place] Primary Dressing open to air Wound Photo Photo Taken No Respiratory Exam: normal breath sounds, lungs clear, No respiratory distress Cardiovascular Exam: regular rate/rhythm, normal heart sounds Gastrointestinal/Abdomen Exam: soft, No tenderness, No mass OBJECTIVE DATA Vital Signs: Vital Signs - 24 hr Temp Pulse Resp BP Pulse Ox 05/16/20 08:00 98.2 F 63 12 161/63 96 05/16/20 07:10 61 16 94 L 05/16/20 04:00 98.2 F 63 17 135/60 95 05/15/20 23:55 18 05/15/20 23:29 98.3 F 56 L 18 127/58 99 05/15/20 19:55 98.4 F 71 16 100/55 98 05/15/20 19:52 18 05/15/20 19:30 66 18 94 L 05/15/20 16:00 97.8 F 69 18 128/60 97 05/15/20 12:00 98.0 F 69 19 160/72 94 L 05/15/20 11:23 76 18 94 L Pain Assessment - Last Documented Pain Intensity 0 Pain Scale Used 0-10 Pain Scale Intake and Output: Intake & Output 05/13/20 05/14/20 05/15/20 05/16/20 11:59 11:59 11:59 11:59 Intake Total 360 2865 Output Total 600 1550 Balance -240 1315 Weight 66.7 kg Lab Results: Lab Results-Last 24 Hours 05/15/20 05/15/20 05/15/20 Range/Units 11:00 12:05 16:42 WBC (4.0-10.5) K/mm3 RBC (4.1-5.4) M/mm3 Hgb (12.0-16.0) gm/dl Hct (35-47) % MCV (78-100) fl MCH (26-32) pg MCHC (32-36) g/dl RDW (11.5-14.0) % Plt Count (150-450) K/mm3 MPV (7.5-11.0) fl Sodium (137-145) mmol/L Potassium (3.5-5.1) mmol/L Chloride (98-107) mmol/L Carbon Dioxide (22-30) mmol/L Anion Gap (5-15) MEQ/L BUN (7-17) mg/dL Creatinine (0.52-1.04) mg/dL Estimated GFR ML/MIN Glucose (74-106) mg/dL POC Glucometer 171 H 153 H (74 to 106) mg/dL Calcium (8.4-10.2) mg/dL Magnesium (1.6-2.3) mg/dL Troponin I < 0.012 (0.000-0.034) ng/mL 05/15/20 05/16/20 05/16/20 Range/Units 20:57 04:43 04:43 WBC 8.4 (4.0-10.5) K/mm3 RBC 3.39 L (4.1-5.4) M/mm3 Hgb 10.3 L (12.0-16.0) gm/dl Hct 31.9 L (35-47) % MCV 94.1 (78-100) fl MCH 30.4 (26-32) pg MCHC 32.3 (32-36) g/dl RDW 14.6 H (11.5-14.0) % Plt Count 302 (150-450) K/mm3 MPV 10.4 (7.5-11.0) fl Sodium 138 (137-145) mmol/L Potassium 4.1 D (3.5-5.1) mmol/L Chloride 106 (98-107) mmol/L Carbon Dioxide 26 (22-30) mmol/L Anion Gap 10.5 (5-15) MEQ/L BUN 30 H (7-17) mg/dL Creatinine 1.21 H (0.52-1.04) mg/dL Estimated GFR 46.9 ML/MIN Glucose 114 H (74-106) mg/dL POC Glucometer 240 H (74 to 106) mg/dL Calcium 9.5 (8.4-10.2) mg/dL Magnesium (1.6-2.3) mg/dL Troponin I (0.000-0.034) ng/mL 05/16/20 05/16/20 Range/Units 04:43 07:27 WBC (4.0-10.5) K/mm3 RBC (4.1-5.4) M/mm3 Hgb (12.0-16.0) gm/dl Hct (35-47) % MCV (78-100) fl MCH (26-32) pg MCHC (32-36) g/dl RDW (11.5-14.0) % Plt Count (150-450) K/mm3 MPV (7.5-11.0) fl Sodium (137-145) mmol/L Potassium (3.5-5.1) mmol/L Chloride (98-107) mmol/L Carbon Dioxide (22-30) mmol/L Anion Gap (5-15) MEQ/L BUN (7-17) mg/dL Creatinine (0.52-1.04) mg/dL Estimated GFR ML/MIN Glucose (74-106) mg/dL POC Glucometer 116 H (74 to 106) mg/dL Calcium (8.4-10.2) mg/dL Magnesium 1.8 (1.6-2.3) mg/dL Troponin I (0.000-0.034) ng/mL Radiology Exams: Radiology Procedures Category Date Time Status CAROTID BILATERAL [US] Routine Exams 05/15/20 10:40 Completed CHEST 1 VIEW (PORTABLE) Stat Exams 05/14/20 22:30 Completed HEAD WITHOUT CONTRAST [CT] Stat Exams 05/14/20 22:30 Completed MRA BRAIN WITHOUT CONTRAST [MRI] Stat Exams 05/15/20 01:29 Completed MRI BRAIN W/O CONTRAST [MRI] Stat Exams 05/15/20 01:29 Completed Assessment/Plan (1) Dizziness Current Visit: Yes Status: Acute Assessment & Plan: add antivert, lives alone. PT to see today Code(s): R42 - DIZZINESS AND GIDDINESS (2) Parkinson disease Current Visit: Yes Status: Chronic Code(s): G20 - PARKINSON'S DISEASE (3) COPD (chronic obstructive pulmonary disease) Current Visit: No Status: Chronic Qualifiers: Emphysema type: unspecified (4) Chronic renal insufficiency Current Visit: No Status: Chronic Qualifiers: Chronic kidney disease stage: unspecified stage Qualified Code(s): N18.9 - Chronic kidney disease, unspecified Code(s): N18.9 - CHRONIC KIDNEY DISEASE, UNSPECIFIED
[2020-05-16] MEDS: Sodium Chloride 0.9% 1000 ML 1,000 ML IV SCH (09:56)
[2020-05-16] MEDS: ZYLOPRIM 100 MG PO SCH ×2 (09:57→21:36)
[2020-05-16] MEDS: Klor Con 10 MEQ PO SCH (09:57)
[2020-05-16] MEDS: LOPID 600 MG PO SCH ×2 (09:57→21:36)
[2020-05-16] MEDS: Lopressor 50 MG PO SCH ×2 (09:57→21:36)
[2020-05-16] MEDS: Pepcid 20 MG PO SCH (09:57)
[2020-05-16] MEDS: DIOVAN 80 MG PO SCH (09:57)
[2020-05-16] MEDS: Effient 10 MG TABLET PO SCH (09:57)
[2020-05-16] MEDS: NORVASC 5 MG PO SCH (09:57)
[2020-05-16] MEDS: Lantus Insulin SQ SCH (09:58)
[2020-05-16] MEDS: Sinemet 25/250 MG PO SCH ×2 (09:58→21:37)
[2020-05-16] MEDS: HUMALOG SQ PRN ×3 (12:37→21:45)
[2020-05-17] MEDS: Sodium Chloride 0.9% 1000 ML 1,000 ML IV SCH (00:37)
[2020-05-17 05:28] LABS: Absolute Neutrophil Ct (ANC) 2.88 (1.4-6.9); BASOPHIL % 0.5 % (0.0-0.4); Basophil (Absolute #) 0.03 (0-0.4); Eosinophil % 14.3 % (0.00-5.0); Eosinophil (Absolute #) 0.91 (0-0.5); Hematocrit 30.2 % (35-47); Hemoglobin 9.7 gm/dl (12.0-16.0); Lymphocyte (Absolute #) 2.01 (1.0-4.6); Lymphocytes % 31.5 % (24.0-44.0); Mean Cell Volume 94.1 fl (78-100); Mean Corpuscular Hemoglobin 30.2 pg (26-32); Mean Corpuscular Hgb Concent. 32.1 g/dl (32-36); Mean Platelet Volume 10.5 fl (7.5-11.0); Monocyte (Absolute #) 0.55 (0.0-1.3); Monocytes % 8.6 % (0.0-12.0); Neutrophil % 45.1 % (36.0-66.0); Platelet Count 282 K/mm3 (150-450); Red Blood Count 3.21 M/mm3 (4.1-5.4); Red Cell Distribution Width 14.6 % (11.5-14.0); White Blood Count 6.4 K/mm3 (4.0-10.5)
[2020-05-17 05:48] LABS: Calcium 9.2 mg/dL (8.4-10.2); Creatinine 1 1.03 mg/dL (0.52-1.04); EST GLOMERULAR FILTRATION RATE 56.5 ML/MIN; Potassium 4.2 mmol/L (3.5-5.1)
[2020-05-17] MEDS: PATIENT OWN MEDICATION IH SCH ×3 (07:04→14:30)
--- NOTE | 2020-05-17 08:56 | PCM.DS ---
Discharge Summary Date of Admission: 05/15/20 01:27 Admitting Physician: BRANDON CASH Primary Care Provider: BRANDON CASH Allergies Allergies Penicillins Allergy (Severe, Verified 05/15/20 02:13) Vomiting iodine Adverse Reaction (Verified 05/15/20 02:13) Rash Hospital Summary - Hospital Course Hospital Course: Pt is 69 yo female with Parkinson's, DM, COPD, HTN, and chronic renal insufficiency who was admitted with dizziness, possible syncope, and fall. Stroke workup neg. Had MRA brain with some stenosis, nothing critical, will f/u outpatient with neurology. She is feeling much better today and in fact didn't have any dizziness yesterday. Doesn't think she's taken any meclizine. If PT clears the pt, she will return home today. - Vitals & Intake/Output Vital Signs: Vital Signs Temperature 97.8 F 05/17/20 07:02 Pulse Rate 64 05/17/20 07:05 Respiratory Rate 18 05/17/20 08:00 Blood Pressure 145/66 05/17/20 07:02 O2 Sat by Pulse Oximetry 96 05/17/20 07:05 Intake & Output: Intake & Output 05/14/20 05/15/20 05/16/20 05/17/20 11:59 11:59 11:59 11:59 Intake Total 360 2865 2205 Output Total 600 1750 3000 Balance -240 1115 -795 Weight 66.7 kg - Lab Result Diagrams: 05/17/20 04:53 05/17/20 04:00 Lab Results-Last 24 Hrs: Lab Results-Last 24 Hours 05/16/20 05/16/20 05/16/20 Range/Units 11:22 16:15 16:19 WBC (4.0-10.5) K/mm3 RBC (4.1-5.4) M/mm3 Hgb (12.0-16.0) gm/dl Hct (35-47) % MCV (78-100) fl MCH (26-32) pg MCHC (32-36) g/dl RDW (11.5-14.0) % Plt Count (150-450) K/mm3 MPV (7.5-11.0) fl Gran % (36.0-66.0) % Eos # (Auto) (0-0.5) Absolute Lymphs (auto) (1.0-4.6) Absolute Monos (auto) (0.0-1.3) Lymphocytes % (24.0-44.0) % Monocytes % (0.0-12.0) % Eosinophils % (0.00-5.0) % Basophils % (0.0-0.4) % Absolute Granulocytes (1.4-6.9) Basophils # (0-0.4) Sodium (137-145) mmol/L Potassium (3.5-5.1) mmol/L Chloride (98-107) mmol/L Carbon Dioxide (22-30) mmol/L Anion Gap (5-15) MEQ/L BUN (7-17) mg/dL Creatinine (0.52-1.04) mg/dL Estimated GFR ML/MIN Glucose (74-106) mg/dL POC Glucometer 245 H 312 H (74 to 106) mg/dL Hemoglobin A1c 8.50 H (4.5-6.0) % Calcium (8.4-10.2) mg/dL 05/16/20 05/17/20 05/17/20 Range/Units 21:40 04:00 04:53 WBC 6.4 (4.0-10.5) K/mm3 RBC 3.21 L (4.1-5.4) M/mm3 Hgb 9.7 L (12.0-16.0) gm/dl Hct 30.2 L (35-47) % MCV 94.1 (78-100) fl MCH 30.2 (26-32) pg MCHC 32.1 (32-36) g/dl RDW 14.6 H (11.5-14.0) % Plt Count 282 (150-450) K/mm3 MPV 10.5 (7.5-11.0) fl Gran % 45.1 (36.0-66.0) % Eos # (Auto) 0.91 H (0-0.5) Absolute Lymphs (auto) 2.01 (1.0-4.6) Absolute Monos (auto) 0.55 (0.0-1.3) Lymphocytes % 31.5 (24.0-44.0) % Monocytes % 8.6 (0.0-12.0) % Eosinophils % 14.3 H (0.00-5.0) % Basophils % 0.5 (0.0-0.4) % Absolute Granulocytes 2.88 (1.4-6.9) Basophils # 0.03 (0-0.4) Sodium 137 (137-145) mmol/L Potassium 4.2 (3.5-5.1) mmol/L Chloride 106 (98-107) mmol/L Carbon Dioxide 25 (22-30) mmol/L Anion Gap 10.0 (5-15) MEQ/L BUN 22 H (7-17) mg/dL Creatinine 1.03 (0.52-1.04) mg/dL Estimated GFR 56.5 ML/MIN Glucose 212 H (74-106) mg/dL POC Glucometer 204 H (74 to 106) mg/dL Hemoglobin A1c (4.5-6.0) % Calcium 9.2 (8.4-10.2) mg/dL 05/17/20 Range/Units 06:54 WBC (4.0-10.5) K/mm3 RBC (4.1-5.4) M/mm3 Hgb (12.0-16.0) gm/dl Hct (35-47) % MCV (78-100) fl MCH (26-32) pg MCHC (32-36) g/dl RDW (11.5-14.0) % Plt Count (150-450) K/mm3 MPV (7.5-11.0) fl Gran % (36.0-66.0) % Eos # (Auto) (0-0.5) Absolute Lymphs (auto) (1.0-4.6) Absolute Monos (auto) (0.0-1.3) Lymphocytes % (24.0-44.0) % Monocytes % (0.0-12.0) % Eosinophils % (0.00-5.0) % Basophils % (0.0-0.4) % Absolute Granulocytes (1.4-6.9) Basophils # (0-0.4) Sodium (137-145) mmol/L Potassium (3.5-5.1) mmol/L Chloride (98-107) mmol/L Carbon Dioxide (22-30) mmol/L Anion Gap (5-15) MEQ/L BUN (7-17) mg/dL Creatinine (0.52-1.04) mg/dL Estimated GFR ML/MIN Glucose (74-106) mg/dL POC Glucometer 160 H (74 to 106) mg/dL Hemoglobin A1c (4.5-6.0) % Calcium (8.4-10.2) mg/dL Micro Results-Entire Visit: Accuchecks Date 05/17/20 Date 05/16/20 Time 07:02 - Radiology Exams Ordered Rad Exams-Entire Visit: Radiology Procedures Category Date Time Status CAROTID BILATERAL [US] Routine Exams 05/15/20 10:40 Completed - Procedures and Test Procedures and Tests throughout Hospitalization: Therapy Orders & Screens 05/15/20 02:21 Respiratory Therapy Assessment DAILY Comment: Diagnosis: dizziness, near syncope, rule out CVA 05/15/20 06:14 Respiratory MDI QID Comment: Diagnosis: dizziness, near syncope, rule out CVA 05/15/20 08:42 PT Eval & Treat (MD Order) ROUTINE Reason for Eval:: dizziness, parkinsons Diagnosis: dizziness, near syncope, rule out CVA 05/15/20 18:08 PT Eval & Treat (MD Order) ONCE Reason for Eval:: dizziness, near syncope, rule out CVA Diagnosis: dizziness, near syncope, rule out CVA Discharge Exam General Appearance: no apparent distress, alert, other (sitting up in chair, finishing breakfast) Neurologic Exam: oriented x 3, cooperative Eye Exam: eyes nml inspection Ears, Nose, Throat Exam: moist mucous membranes Neck Exam: normal inspection Respiratory Exam: normal breath sounds, lungs clear, No crackles/rales, No rhonchi, No wheezing Cardiovascular Exam: regular rate/rhythm, normal heart sounds, No murmur Back Exam: normal inspection, No rash Extremity Exam: normal inspection, No pedal edema, No swelling Skin Exam: normal color, warm, dry, No rash Wound Assessment: Skin/Wound Assessment Wound/Incision Assessment Start: 05/15/20 02:10 Text: Status: Active Freq: Q6H Protocol: Document 05/17/20 03:00 EG (Rec: 05/17/20 03:24 EG [id number]) Wound/Incision Assessment Right Buttock Wound Assessment Shift Assessment Wound Type nearly healed. wound bed even with surrounding tissue. remains true Drainage Amount None General Appearance Open to air Wound Bed Greatest Portion Pale [place] Wound Bed Lesser Portion Pale [place] Surrounding Tissue [place] Primary Dressing open to air Left Buttock Wound Assessment Shift Assessment Wound Type healing ulcer, nearly healed. wound bed white and even with surrounding tis Drainage Amount None Wound Bed Greatest Portion Pale [place] Wound Bed Lesser Portion Pale [place] Surrounding Tissue [place] Primary Dressing open to air Wound Photo Photo Taken No Final Diagnosis/Problem List - Final Discharge Diagnosis/Problem (1) Syncope Current Visit: Yes Status: Acute Assessment & Plan: Workup basically neg; some findings on MRA head to be followed up with neurology. She is on anti-platelet medication. Code(s): R55 - SYNCOPE AND COLLAPSE (2) Dizziness Current Visit: Yes Status: Resolved Assessment & Plan: Send pt home on prn meclizine. Code(s): R42 - DIZZINESS AND GIDDINESS (3) Parkinson disease Current Visit: Yes Status: Chronic Code(s): G20 - PARKINSON'S DISEASE (4) Fall Current Visit: No Status: Resolved Code(s): W19.XXXA - UNSPECIFIED FALL, INITIAL ENCOUNTER (5) COPD (chronic obstructive pulmonary disease) Current Visit: No Status: Chronic (6) Chronic renal insufficiency Current Visit: No Status: Chronic Assessment & Plan: Doing great currently. Code(s): N18.9 - CHRONIC KIDNEY DISEASE, UNSPECIFIED (7) Essential hypertension Current Visit: No Status: Chronic Assessment & Plan: Stable here. Code(s): I10 - ESSENTIAL (PRIMARY) HYPERTENSION - Discharge Disposition: Home, Self-Care Condition: Good Prescriptions: New Meclizine HCl 25 mg [Antivert 25 mg] 12.5 mg PO QID PRN PRN #30 tablet PRN Reason: Dizziness Potassium Chloride 10 Meq Tab* [Klor Con 10 MEQ] 20 meq PO DAILY #30 tab Continue Gemfibrozil 600 mg [Lopid 600 mg] 600 mg PO BID Oxybutynin Chloride 10 mg Xl [Ditropan Xl 10 MG] 10 mg PO DAILY Valsartan [Diovan] 160 mg PO DAILY Allopurinol 100 mg [Zyloprim 100 mg] 100 mg PO BID Prasugrel HCL 10 MG [Effient 10 MG TABLET] 10 mg PO DAILY Carbidopa/Levodopa [Carbidopa-Levodopa 25-250 Tab] 1 tablet PO BID Famotidine 20 mg [Pepcid 20 MG] 20 mg PO DAILY Metoprolol Tartrate 50 mg [Lopressor 50 MG] 1 tab PO BID Ondansetron ODT 4 MG [Zofran Odt 4 mg] 1 tab SL Q6HPRN PRN PRN Reason: Nausea Furosemide 1 tab PO CLARIFY Glipizide [Glipizide Xl] 2 tab PO DAILY Cyclobenzaprine HCl 1 tab PO HS PRN PRN PRN Reason: Muscle Spasms Ergocalciferol (Vitamin D2) [Vitamin D] 1 cap PO WEEKLY Amlodipine Besylate 1 tab PO DAILY Insulin Glargine,Hum.rec.anlog [Lantus] 15 units SQ DAILY Ipratropium/Albuterol Sulfate [Combivent Inhaler] 1 puff IH QID Discontinued glipiZIDE [Glipizide] 10 mg PO BID Follow up with: BRANDON CASH [Primary Care Provider] - 1 Week PRATIBHA LONDON [NON-STAFF PHY W/O PRIVILEGES] - 05/25/20 2:45 pm
[2020-05-17] MEDS: ZYLOPRIM 100 MG PO SCH (09:25)
[2020-05-17] MEDS: NORVASC 5 MG PO SCH (09:26)
[2020-05-17] MEDS: DIOVAN 80 MG PO SCH (09:26)
[2020-05-17] MEDS: Lopressor 50 MG PO SCH (09:26)
[2020-05-17] MEDS: Klor Con 10 MEQ PO SCH (09:26)
[2020-05-17] MEDS: Pepcid 20 MG PO SCH (09:26)
[2020-05-17] MEDS: Effient 10 MG TABLET PO SCH (09:27)
[2020-05-17] MEDS: Sinemet 25/250 MG PO SCH (09:27)
[2020-05-17] MEDS: LOPID 600 MG PO SCH (09:27)
[2020-05-17] MEDS: Lantus Insulin SQ SCH (09:28)
[2020-05-17 11:02] VITALS: BP 149/67
[2020-05-17] MEDS: HUMALOG SQ PRN (12:15)
[2020-05-17 14:36] VITALS: PULSE 58; O2SAT 97
--- NOTE | 2020-05-17 15:41 | PCM.DCORD ---
- Discharge Disposition: Home, Self-Care Condition: Good Prescriptions: New Meclizine HCl 25 mg [Antivert 25 mg] 12.5 mg PO QID PRN PRN #30 tablet PRN Reason: Dizziness Potassium Chloride 10 Meq Tab* [Klor Con 10 MEQ] 20 meq PO DAILY #30 tab Continue Gemfibrozil 600 mg [Lopid 600 mg] 600 mg PO BID Oxybutynin Chloride 10 mg Xl [Ditropan Xl 10 MG] 10 mg PO DAILY Valsartan [Diovan] 160 mg PO DAILY Allopurinol 100 mg [Zyloprim 100 mg] 100 mg PO BID Prasugrel HCL 10 MG [Effient 10 MG TABLET] 10 mg PO DAILY Carbidopa/Levodopa [Carbidopa-Levodopa 25-250 Tab] 1 tablet PO BID Famotidine 20 mg [Pepcid 20 MG] 20 mg PO DAILY Metoprolol Tartrate 50 mg [Lopressor 50 MG] 1 tab PO BID Ondansetron ODT 4 MG [Zofran Odt 4 mg] 1 tab SL Q6HPRN PRN PRN Reason: Nausea Furosemide 1 tab PO CLARIFY Glipizide [Glipizide Xl] 2 tab PO DAILY Cyclobenzaprine HCl 1 tab PO HS PRN PRN PRN Reason: Muscle Spasms Ergocalciferol (Vitamin D2) [Vitamin D] 1 cap PO WEEKLY Amlodipine Besylate 1 tab PO DAILY Insulin Glargine,Hum.rec.anlog [Lantus] 15 units SQ DAILY Ipratropium/Albuterol Sulfate [Combivent Inhaler] 1 puff IH QID Discontinued glipiZIDE [Glipizide] 10 mg PO BID Instructions: Insulin Injection, Vertigo (a Type of Dizziness) (DC) Additional Instructions: YOU HAVE AN APPOINTMENT WITH PHYSICAL THERAPY WED 05/23/20 AT 1:30 PM Follow up with: BRANDON CASH [Primary Care Provider] - 05/22/20 9:00 am PRATIBHA LONDON [NON-STAFF PHY W/O PRIVILEGES] - 05/25/20 2:45 pm
== END 2020-05-17 16:20 | disposition home or self-care (01) ==
LOC: ED 22:24 → MED SURG 05-15 01:27
PROVIDERS: ADMIT Family Medicine; ATTEND Family Medicine
DX: R55 Syncope and collapse (principal); R42 Dizziness and giddiness; J44.9 Chronic obstructive pulmonary disease, unspecified; E11.22 Type 2 diabetes mellitus with diabetic chronic kidney disease; I12.9 Hypertensive chronic kidney disease with stage 1 through stage 4 chronic kidney disease, or unspecified chronic kidney disease; N18.9 Chronic kidney disease, unspecified; G20 Parkinson's disease; Z79.899 Other long term (current) drug therapy
CPT/HCPCS: 36000; 36415; 70450; 70544; 70551; 71045; 80048; 80053; 81001; 82962; 83036; 83735; 84134; 84484; 85025; 85027; 93005; 93268; 93880; 94640; 94760; 97110; 97161; 97530; 99284; G0008; G0378; 90662; J1817; A9270-GY

== ENCOUNTER 2020-06-19 06:05 | Emergency (ER) | payer MEDICARE ==
[2020-06-19] MEDS ORDERED: BABY ASPIRIN 81 MG CHEW PO ONE (06:33)
--- NOTE | 2020-06-19 06:33 | ERPHSYRPT ---
- History of Present Illness Source: patient Exam Limitations: no limitations Hx Tetanus, Diphtheria Vaccination/Date Given: No Hx Influenza Vaccination/Date Given: Yes (fall 2018) Hx Pneumococcal Vaccination/Date Given: Yes (unknown) <FENG SOW - Last Filed: 06/19/20 07:12> - History of Present Illness Aspirin Treatment Today: 81 mg x 4 <FAVIOADRIANOJAYSON - Last Filed: 06/19/20 08:48> - History of Present Illness Time Seen by Provider: 06/19/20 06:27 Physician History: Pt states about 90 minutes ago she awoke with a fast heart rate, chest pain, epigastric pain, tingling in hands, shortness of air and nausea. Last BM was yesterday & wnl. Pt also reports a stuffy nose since yesterday. Currently pt has no chest pain. (FENG SOW) Allergies/Adverse Reactions: Penicillins Allergy (Severe, Verified 05/15/20 02:13) Vomiting iodine Adverse Reaction (Verified 05/15/20 02:13) Rash Home Medications: Gemfibrozil 600 mg [Lopid 600 mg] 600 mg PO BID 06/02/16 [History] Oxybutynin Chloride 10 mg Xl [Ditropan Xl 10 MG] 10 mg PO DAILY 06/02/16 [History] Valsartan [Diovan] 160 mg PO DAILY 07/30/16 [History] Allopurinol 100 mg [Zyloprim 100 mg] 100 mg PO BID 07/05/18 [History] Prasugrel HCL 10 MG [Effient 10 MG TABLET] 10 mg PO DAILY 07/05/18 [History] Carbidopa/Levodopa [Carbidopa-Levodopa 25-250 Tab] 1 tablet PO BID 11/08/19 [History] Famotidine 20 mg [Pepcid 20 MG] 20 mg PO DAILY 11/08/19 [History] Amlodipine Besylate 1 tab PO DAILY 05/14/20 [History] Cyclobenzaprine HCl 1 tab PO HS PRN PRN 05/14/20 [History] Ergocalciferol (Vitamin D2) [Vitamin D] 1 cap PO WEEKLY 05/14/20 [History] Furosemide 1 tab PO CLARIFY 05/14/20 [History] Glipizide [Glipizide Xl] 2 tab PO DAILY 05/14/20 [History] Ondansetron ODT 4 MG [Zofran Odt 4 mg] 1 tab SL Q6HPRN PRN 05/14/20 [History] Insulin Glargine,Hum.rec.anlog [Lantus] 15 units SQ DAILY 05/15/20 [History] Ipratropium/Albuterol Sulfate [Combivent Inhaler] 1 puff IH QID 05/15/20 [History] Rasagiline Mesylate 0.5 mg PO DAILY 06/19/20 [History] - Review of Systems Constitutional: No Fever, No Chills Ears, Nose, & Throat: Nose Congestion Respiratory: Dyspnea, No Cough Cardiac: Chest Pain, Other (tachycardia) Abdominal/Gastrointestinal: Abdominal Pain, Nausea, No Vomiting, No Diarrhea Skin: No Rash Neurological: Sensory Changes (tingling in hands) All Other Systems: Reviewed and Negative <FENG SOW - Last Filed: 06/19/20 07:12> - Past Medical History Pertinent Past Medical History: Yes Neurological History: Migraines, Stroke, TIA ENT History: No Pertinent History Cardiac History: Coronary Artery Disease, High Cholesterol, Hypertension, Myocardial Infarction ([place]) Respiratory History: COPD, Sleep Apnea Endocrine Medical History: Diabetes Type II Musculoskeletal History: No Pertinent History GI Medical History: Gallbladder Disease, Polyps, Ulcer History: Renal Disease, Other Psycho-Social History: No Pertinent History Female Reproductive Disorders: Other Other Medical History: Parkinson's Disease - Past Surgical History Past Surgical History: Yes Neuro Surgical History: No Pertinent History Cardiac: Cardiac Catheterization, Cardiac Stent Respiratory: No Pertinent History Gastrointestinal: Cholecystectomy Genitourinary: No Pertinent History Musculoskeletal: No Pertinent History Female Surgical History: Hysterectomy Other Surgical History: 7 HEART STENTS TOTAL ,colonoscopy and egd in past - Social History Smoking Status: Never smoker Exposure to second hand smoke: No Drug Use: none Patient Lives Alone: Yes Significant Family History: no pertinent family hx <FENG SOW - Last Filed: 06/19/20 07:12> - Physical Exam General Appearance: alert Eye Exam: eyes nml inspection Ears, Nose, Throat Exam: pharynx normal Neck Exam: normal inspection Respiratory Exam: normal breath sounds Cardiovascular Exam: normal heart sounds Gastrointestinal/Abdomen Exam: soft, normal bowel sounds Back Exam: normal inspection Extremity Exam: No pedal edema Neurologic Exam: alert, cooperative SpO2 Interpretation: normal SpO2: 100 O2 Delivery: Room Air <FENG SOW - Last Filed: 06/19/20 07:12> - Nursing Vital Signs Nursing Vital Signs: Initial Vital Signs Temperature 98.4 F 06/19/20 06:14 Pulse Rate 83 06/19/20 06:14 Respiratory Rate 17 06/19/20 06:14 Blood Pressure 146/74 06/19/20 06:14 O2 Sat by Pulse Oximetry 100 06/19/20 06:14 Pain Scale Pain Intensity 0 - Course Nursing assessment & vital signs reviewed: Yes EKG Interpreted by Me: RATE (83), Sinus Rhythm, Left Celestine Deviation, NORMAL INTERVALS <FENG SOW - Last Filed: 06/19/20 07:12> - Course Nursing assessment & vital signs reviewed: Yes - Radiology Exams Chest X-ray Interpretation: Interpreted by me (No infiltrate no consolidation no pleural effusion no pneumothorax normal cardiac silhouette. Normal bony thorax. Nonacute chest x-ray.) <FAVIOJAYSON - Last Filed: 06/19/20 08:48> Ordered Tests: Active Orders 24 hr Category Date Time Status Projector Booth Operator STAT Care 06/19/20 06:35 Active EKG-ER Only STAT Care 06/19/20 06:33 Active IV Insertion STAT Care 06/19/20 06:33 Active Pulse Oximetry (ED) STAT Care 06/19/20 06:33 Active CHEST 1 VIEW (PORTABLE) Stat Exams 06/19/20 06:34 Taken AMYLASE Stat Lab 06/19/20 06:57 Completed CBC W DIFF Stat Lab 06/19/20 06:57 Completed CMP Stat Lab 06/19/20 06:57 Completed D-DIMER QUANTITATIVE Stat Lab 06/19/20 06:57 Completed LIPASE Stat Lab 06/19/20 06:57 Completed MAGNESIUM Stat Lab 06/19/20 06:57 Completed NT PRO BNP Stat Lab 06/19/20 06:57 Completed PROTIME WITH INR Stat Lab 06/19/20 06:57 Completed PTT Stat Lab 06/19/20 06:57 Completed TROPONIN Q3H Lab 06/19/20 06:57 Completed TROPONIN Q3H Lab 06/19/20 09:45 Ordered TROPONIN Q3H Lab 06/19/20 12:45 Ordered TROPONIN Q3H Lab 06/19/20 15:45 Ordered TROPONIN Q3H Lab 06/19/20 18:45 Ordered Medication Summary Generic Name Dose Route Start Last Admin Trade Name Mitchel PRN Reason Stop Dose Admin Sodium Chloride 1,000 mls @ 100 mls/hr 06/19/20 06:45 06/19/20 06:40 Sodium Chloride 0.9% 1000 Ml IV 07/19/20 06:44 100 mls/hr .Q10H NAZARIO Administration Discontinued Medications Generic Name Dose Route Start Last Admin Trade Name Mitchel PRN Reason Stop Dose Admin Aspirin 324 mg 06/19/20 06:33 06/19/20 06:41 Baby Aspirin 81 Mg Chew PO 06/19/20 06:34 324 mg STAT ONE Administration Aspirin Confirm 06/19/20 06:39 Baby Aspirin 81 Mg Chew Administered 06/19/20 06:40 Dose 324 mg .ROUTE .STLingvist-MED ONE Lab/Rad Data: Laboratory Result Diagrams 06/19/20 06:57 06/19/20 06:57 Laboratory Results 06/19/20 06/19/20 06/19/20 Range/Units 06:57 06:57 06:57 WBC (4.0-10.5) K/mm3 RBC (4.1-5.4) M/mm3 Hgb (12.0-16.0) gm/dl Hct (35-47) % MCV (78-100) fl MCH (26-32) pg MCHC (32-36) g/dl RDW (11.5-14.0) % Plt Count (150-450) K/mm3 MPV (7.5-11.0) fl Gran % (36.0-66.0) % Eos # (Auto) (0-0.5) Absolute Lymphs (auto) (1.0-4.6) Absolute Monos (auto) (0.0-1.3) Lymphocytes % (24.0-44.0) % Monocytes % (0.0-12.0) % Eosinophils % (0.00-5.0) % Basophils % (0.0-0.4) % Absolute Granulocytes (1.4-6.9) Basophils # (0-0.4) PT 11.5 (9.95-12.35) SECONDS INR 1.02 (0.8-3.0) APTT 35.1 (25.3-37.0) SECONDS D-Dimer 1206 H* (215-500) ng/mL Sodium 139 (137-145) mmol/L Potassium 4.1 (3.5-5.1) mmol/L Chloride 99 (98-107) mmol/L Carbon Dioxide 31 H (22-30) mmol/L Anion Gap 13.0 (5-15) MEQ/L BUN 41 H (7-17) mg/dL Creatinine 1.21 H (0.52-1.04) mg/dL Estimated GFR 46.9 ML/MIN Glucose 237 H (74-106) mg/dL Calcium 10.2 (8.4-10.2) mg/dL Magnesium 2.0 (1.6-2.3) mg/dL Total Bilirubin 0.60 (0.2-1.3) mg/dL AST 27 (14-36) U/L ALT 15 (0-35) U/L Alkaline Phosphatase 140 H (38-126) U/L Troponin I < 0.012 (0.000-0.034) ng/mL NT-Pro-B Natriuret Pep 231 (0-900) pg/mL Serum Total Protein 7.9 (6.3-8.2) g/dL Albumin 4.5 (3.5-5.0) g/dL Amylase 78 (30-110) U/L Lipase 75 (23-300) U/L 10/20/20 Range/Units 06:57 WBC 7.3 (4.0-10.5) K/mm3 RBC 3.32 L (4.1-5.4) M/mm3 Hgb 10.3 L (12.0-16.0) gm/dl Hct 31.9 L (35-47) % MCV 96.1 (78-100) fl MCH 31.0 (26-32) pg MCHC 32.3 (32-36) g/dl RDW 13.8 (11.5-14.0) % Plt Count 309 (150-450) K/mm3 MPV 11.0 (7.5-11.0) fl Gran % 52.3 (36.0-66.0) % Eos # (Auto) 0.39 (0-0.5) Absolute Lymphs (auto) 2.54 (1.0-4.6) Absolute Monos (auto) 0.52 (0.0-1.3) Lymphocytes % 34.9 (24.0-44.0) % Monocytes % 7.1 (0.0-12.0) % Eosinophils % 5.4 H (0.00-5.0) % Basophils % 0.3 (0.0-0.4) % Absolute Granulocytes 3.81 (1.4-6.9) Basophils # 0.02 (0-0.4) PT (9.95-12.35) SECONDS INR (0.8-3.0) APTT (25.3-37.0) SECONDS D-Dimer (215-500) ng/mL Sodium (137-145) mmol/L Potassium (3.5-5.1) mmol/L Chloride (98-107) mmol/L Carbon Dioxide (22-30) mmol/L Anion Gap (5-15) MEQ/L BUN (7-17) mg/dL Creatinine (0.52-1.04) mg/dL Estimated GFR ML/MIN Glucose (74-106) mg/dL Calcium (8.4-10.2) mg/dL Magnesium (1.6-2.3) mg/dL Total Bilirubin (0.2-1.3) mg/dL AST (14-36) U/L ALT (0-35) U/L Alkaline Phosphatase (38-126) U/L Troponin I (0.000-0.034) ng/mL NT-Pro-B Natriuret Pep (0-900) pg/mL Serum Total Protein (6.3-8.2) g/dL Albumin (3.5-5.0) g/dL Amylase (30-110) U/L Lipase (23-300) U/L - Progress Progress: improved Air Movement: good Blood Culture(s) Obtained: No Antibiotics given: No Counseled pt/family regarding: lab results, diagnosis, rad results <JAYSON MCCULLOUGH - Last Filed: 06/19/20 08:48> - Progress Progress Note: 06/19/20 07:[address] Mccullough at approximately 7 AM. Patient is a 69-year-old female history of diabetes [place] about 10 years ago has 7 cardiac stents presents to our ED with acute onset chest pain shortness of breath and nausea. Symptoms improved after arriving to our ED. D-dimer was ordered. D-dimer elevated. Patient is not a candidate for CTA chest due to to depressed renal function. P atient will require a VQ scan. We do not offer V/Q scans in our ED until 2 days from now. Patient's cash register repairer is Dr. Ureña who practices at [facility]. Findings discussed with patient. Plan of care discussed. Patient agrees to transfer to [facility] for cardiac rule out as well as a VQ scan. Initial troponin negative. Chest x-ray negative acute pathology. Patient voices no other complaints at this time. We will transfer to [facility] for further evaluation and treatment. Dr. Monique ED physician at [facility] accepts transfer. He advised against Lovenox at this time. They will do a VQ scan upon arrival. 06/19/20 07:47 (JAYSON MCCULLOUGH) <FENG SOW - Last Filed: 06/19/20 07:12> - Departure Departure Disposition: Transfer Critical Care Time: No <JAYSON MCCULLOUGH - Last Filed: 06/19/20 08:48> - Departure Clinical Impression: ACS (acute coronary syndrome), Abnormal electrocardiogram [ECG] [EKG], Normocytic anemia, Renal insufficiency Condition: Stable Referrals: BRANDON CASH [Primary Care Provider] -
[2020-06-19] MEDS ORDERED: BABY ASPIRIN 81 MG CHEW ONE (06:39)
[2020-06-19] MEDS ORDERED: Sodium Chloride 0.9% 1000 ML 1,000 ML ONE (06:39)
[2020-06-19] MEDS ORDERED: Sodium Chloride 0.9% 1000 ML 1,000 ML IV SCH (06:45)
[2020-06-19 06:46] VITALS: O2SAT 100
[2020-06-19 06:58] LABS: Absolute Neutrophil Ct (ANC) 3.81 (1.4-6.9); BASOPHIL % 0.3 % (0.0-0.4); Basophil (Absolute #) 0.02 (0-0.4); Eosinophil % 5.4 % (0.00-5.0); Eosinophil (Absolute #) 0.39 (0-0.5); Hematocrit 31.9 % (35-47); Hemoglobin 10.3 gm/dl (12.0-16.0); Lymphocyte (Absolute #) 2.54 (1.0-4.6); Lymphocytes % 34.9 % (24.0-44.0); Mean Cell Volume 96.1 fl (78-100); Mean Corpuscular Hgb Concent. 32.3 g/dl (32-36); Monocyte (Absolute #) 0.52 (0.0-1.3); Monocytes % 7.1 % (0.0-12.0); Neutrophil % 52.3 % (36.0-66.0); Platelet Count 309 K/mm3 (150-450); Red Blood Count 3.32 M/mm3 (4.1-5.4); Red Cell Distribution Width 13.8 % (11.5-14.0); White Blood Count 7.3 K/mm3 (4.0-10.5)
[2020-06-19 07:05] LABS: INR 1.02 (0.8-3.0); PROTIME 11.5 SECONDS (9.95-12.35)
[2020-06-19 07:08] LABS: PTT 35.1 SECONDS (25.3-37.0)
[2020-06-19 07:20] LABS: ALBUMIN 4.5 g/dL (3.5-5.0); BILIRUBIN,TOTAL 0.6 mg/dL (0.2-1.3); Calcium 10.2 mg/dL (8.4-10.2); Creatinine 1 1.21 mg/dL (0.52-1.04); EST GLOMERULAR FILTRATION RATE 46.9 ML/MIN; Potassium 4.1 mmol/L (3.5-5.1); Total Protein 7.9 g/dL (6.3-8.2)
[2020-06-19 07:23] VITALS: BP 155/70; PULSE 79
--- NOTE | 2020-06-19 08:57 | XRAY ---
Indication: Chest pain. Comparison: May 14, 2020. Portable chest again demonstrates normal heart and lungs with a few incidental calcified granulomas. Bony thorax intact again with mild degenerative changes. No new/acute findings.
== END 2020-06-19 08:00 | disposition short-term general hospital (02) ==
LOC: ED 06:05
DX: I24.9 Acute ischemic heart disease, unspecified (principal); R94.31 Abnormal electrocardiogram [ECG] [EKG]; D64.9 Anemia, unspecified; N28.9 Disorder of kidney and ureter, unspecified; Z79.899 Other long term (current) drug therapy; I25.10 Atherosclerotic heart disease of native coronary artery without angina pectoris; I10 Essential (primary) hypertension; I25.2 Old myocardial infarction; J44.9 Chronic obstructive pulmonary disease, unspecified; G47.30 Sleep apnea, unspecified; G20 Parkinson's disease; R07.9 Chest pain, unspecified
CPT/HCPCS: 36000; 36415; 71045; 80053; 82150; 83690; 83735; 83880; 84484; 85025; 85379; 85610; 85730; 93005; 93041; 94760; 96360; 99285; A9270-GY

== ENCOUNTER 2020-11-11 08:13 | Observation (INO) | payer MEDICARE, OTHER ==
[2020-11-11] MEDS ORDERED: DUONEB 0.5-3 MG/3 ml Neb IH ONE ×3 (08:16→18:39)
[2020-11-11 08:36] LABS: Absolute Neutrophil Ct (ANC) 3.29 (1.4-6.9); BASOPHIL % 0.5 % (0.0-0.4); Basophil (Absolute #) 0.03 (0-0.4); Eosinophil % 6.5 % (0.00-5.0); Eosinophil (Absolute #) 0.37 (0-0.5); Hematocrit 33.6 % (35-47); Hemoglobin 10.8 gm/dl (12.0-16.0); Lymphocyte (Absolute #) 1.61 (1.0-4.6); Lymphocytes % 28.1 % (24.0-44.0); Mean Cell Volume 93.3 fl (78-100); Mean Corpuscular Hgb Concent. 32.1 g/dl (32-36); Mean Platelet Volume 10.2 fl (7.5-11.0); Monocyte (Absolute #) 0.42 (0.0-1.3); Monocytes % 7.3 % (0.0-12.0); Neutrophil % 57.6 % (36.0-66.0); Platelet Count 234 K/mm3 (150-450); Red Cell Distribution Width 13.3 % (11.5-14.0); White Blood Count 5.7 K/mm3 (4.0-10.5)
[2020-11-11 09:03] LABS: ALBUMIN 4.1 g/dL (3.5-5.0); ANION GAP 10.9 MEQ/L (5-15); BILIRUBIN,TOTAL 0.2 mg/dL (0.2-1.3); Calcium 9.5 mg/dL (8.4-10.2); Creatinine 1 1.22 mg/dL (0.52-1.04); EST GLOMERULAR FILTRATION RATE 46.4 ML/MIN; MAGNESIUM 1.8 mg/dL (1.6-2.3); Potassium 3.8 mmol/L (3.5-5.1); Total Protein 7.4 g/dL (6.3-8.2)
--- NOTE | 2020-11-11 09:10 | ERPHSYRPT ---
- History of Present Illness Time Seen by Provider: 11/11/20 08:17 Historian: patient, EMS Exam Limitations: no limitations Patient Subjective Stated Complaint: no complaints at this time Triage Nursing Assessment: Pt. states that she had cereal 5ish am becaus she doesn't sleep well during the night. At 6am she started to have chest pain in the center of her chest, heavy in pain and radiated outward. Did have shortness of breath. pt. took 5 baby aspirin and one of her puffs from inhaler. Pt. has copd and wasn't sure if it was from chest pain or COPD. Pt. waited an hour before calling her son, due to him not being able to leave his kids at home pt. called for an ambulance. Upon EMS arrival chest pressure had subsided but was still slightly short of breath. While en route to hospital shortness of breath went away. IV established by EMS en route. Physician History: 69 years old female with history of hypertension, hyperlipidemia, diabetes mellitus, Parkinson's disease, COPD presented in the ER with sudden onset central chest pain almost an hour prior to arrival without any significant aggravating factors and took 5 baby aspirin and started to improve after an hour. She also had some shortness of breath and had inhaler which helped and on presentation in the ER her chest pain and shortness of breath is completely resolved. Patient denies any orthopnea or PND. No lower extremity swellings. No fever or chills reported. Reports poorly controlled diabetes mellitus and her blood sugar was in 400s on Accu-Chek. Timing/Duration: hour(s) (2), resolved prior to arrival, sudden, improved Activities at Onset: rest Quality: aching, dullness Location: central Chest Pain Radiation: no radiation Severity of Pain-Max: moderate Severity of Pain-Current: none Modifying Factors: Improves With: aspirin Associated Symptoms: shortness of breath Nitro Today/Relief: no nitro taken today Aspirin Treatment Today: 81 mg x 1, 81 mg x 4 Allergies/Adverse Reactions: Penicillins Allergy (Severe, Verified 11/11/20 08:45) Vomiting iodine Adverse Reaction (Verified 11/11/20 08:45) Rash Home Medications: Oxybutynin Chloride 10 mg Xl [Ditropan Xl 10 MG] 10 mg PO DAILY 06/02/16 [Histo ry] Valsartan [Diovan] 160 mg PO DAILY 07/30/16 [History] Allopurinol 100 mg [Zyloprim 100 mg] 100 mg PO BID 07/05/18 [History] Carbidopa/Levodopa [Carbidopa-Levodopa 25-250 Tab] 1 tablet PO BID 11/08/19 [History] Amlodipine Besylate 1 tab PO DAILY 05/14/20 [History] Ergocalciferol (Vitamin D2) [Vitamin D] 1.25 mg PO UD 05/14/20 [History] Furosemide 1 tab PO UD 05/14/20 [History] Ipratropium/Albuterol Sulfate [Combivent Inhaler] 2 puff IH BID 05/15/20 [History] Acarbose [Precose] 25 mg PO TID 11/11/20 [History] Clopidogrel Bisulfate 75 mg [PLAVIX 75 MG Tablet] 75 mg PO DAILY 11/11/20 [History] Glimepiride 4 mg [Amaryl 4 mg] 4 mg PO BID 11/11/20 [History] Metoprolol Tartrate [Lopressor] 50 mg PO BID 11/11/20 [History] Potassium Chloride 10 Meq Tab* [Klor Con 10 MEQ] 10 meq PO DAILY 11/11/20 [History] Pravastatin Sodium [Pravachol] 40 mg PO DAILY 11/11/20 [History] Hx Tetanus, Diphtheria Vaccination/Date Given: No Hx Influenza Vaccination/Date Given: No Hx Pneumococcal Vaccination/Date Given: No Travel Risk - International Travel Have you traveled outside of the country in past 3 weeks: No - Coronavirus Screening Are you exhibiting any of the following symptoms?: No Close contact with a COVID-19 positive Pt in past 14-21 Days: No - Review of Systems Constitutional: No Symptoms Eyes: No Symptoms Ears, Nose, & Throat: No Symptoms Respiratory: Dyspnea, Wheezing Cardiac: Chest Pain Abdominal/Gastrointestinal: No Symptoms Genitourinary Symptoms: No Symptoms Musculoskeletal: No Symptoms Skin: No Symptoms Neurological: No Symptoms Psychological: No Symptoms Endocrine: No Symptoms Hematologic/Lymphatic: No Symptoms Immunological/Allergic: No Symptoms - Past Medical History Pertinent Past Medical History: Yes Neurological History: Migraines, Stroke, TIA ENT History: No Pertinent History Cardiac History: Coronary Artery Disease, High Cholesterol, Hypertension, Myocardial Infarction (ND) Respiratory History: COPD, Sleep Apnea Endocrine Medical History: Diabetes Type II Musculoskeletal History: No Pertinent History GI Medical History: Gallbladder Disease, Polyps, Ulcer History: Renal Disease, Other Psycho-Social History: No Pertinent History Female Reproductive Disorders: Other Other Medical History: Parkinson's Disease - Past Surgical History Past Surgical History: Yes Neuro Surgical History: No Pertinent History Cardiac: Cardiac Catheterization, Cardiac Stent Respiratory: No Pertinent History Gastrointestinal: Cholecystectomy Genitourinary: No Pertinent History Musculoskeletal: No Pertinent History Female Surgical History: Hysterectomy Other Surgical History: 7 HEART STENTS TOTAL ,colonoscopy and egd in past - Social History Smoking Status: Never smoker Exposure to second hand smoke: No Drug Use: none Patient Lives Alone: Yes Significant Family History: no pertinent family hx - Nursing Vital Signs Nursing Vital Signs: Initial Vital Signs Pulse Rate 75 11/11/20 08:15 Respiratory Rate 25 H 11/11/20 08:15 Blood Pressure 149/60 11/11/20 08:15 O2 Sat by Pulse Oximetry 99 11/11/20 08:15 Pain Scale Pain Intensity 0 - Physical Exam General Appearance: no apparent distress Eye Exam: PERRL/EOMI, eyes nml inspection Ears, Nose, Throat Exam: normal ENT inspection, pharynx normal Neck Exam: normal inspection, supple, full range of motion Respiratory Exam: normal breath sounds, wheezing Cardiovascular Exam: regular rate/rhythm, normal heart sounds Gastrointestinal/Abdomen Exam: soft, normal bowel sounds, No tenderness Back Exam: normal inspection, normal range of motion Extremity Exam: normal inspection, normal range of motion, pelvis stable Neurologic Exam: alert, oriented x 3, cooperative Skin Exam: normal color SpO2 Interpretation: normal SpO2: 98 O2 Delivery: Room Air - Course Nursing assessment & vital signs reviewed: Yes EKG Interpreted by Me: RATE (77), Sinus Rhythm, Left Sawyer Deviation, NORMAL INT ERVALS, NORMAL QRS, Other (Nonspecific T wave changes) Ordered Tests: Active Orders 24 hr Category Date Time Status Up With Assistance ROUTINE Activity 11/11/20 13:29 Active Blacksmith Apprentice STAT Care 11/11/20 08:16 Completed Code Status Order ROUTINE Care 11/11/20 13:29 Active EKG-ER Only STAT Care 11/11/20 08:16 Completed Fall Protocol ROUTINE Care 11/11/20 13:29 Active IV Care Q6H Care 11/11/20 13:29 Active IV Insertion STAT Care 11/11/20 08:16 Completed POCT Glucose Check ACHS Care 11/11/20 13:[address] in Observation ROUTINE Care 11/11/20 13:29 Active Idris RitujuanaFabiano ROUTINE Care 11/11/20 13:29 Active Weight,Daily 0600 Care 11/11/20 13:29 Active Consistent Carbohydrate Diet 1800 Calorie Diet 11/11/20 Lunch Active CHEST 1 VIEW (PORTABLE) Stat Exams 11/11/20 08:16 Completed CBC W DIFF AM.LAB Lab 11/12/20 04:00 Ordered CBC W DIFF Stat Lab 11/11/20 08:28 Completed CMP AM.LAB Lab 11/12/20 04:00 Ordered CMP Stat Lab 11/11/20 08:28 Completed MAGNESIUM Stat Lab 11/11/20 08:28 Completed NT PRO BNP Stat Lab 11/11/20 08:28 Completed TROPONIN Q3H Lab 11/11/20 08:28 Completed TROPONIN Q3H Lab 11/11/20 11:40 Completed TROPONIN Q3H Lab 11/11/20 14:45 Completed TROPONIN Q3H Lab 11/11/20 17:25 Received TROPONIN Q3H Lab 11/11/20 20:30 Ordered Respiratory Therapy Assessment DAILY RT 11/11/20 09:03 Completed Transfer Order Routine Transfer 11/11/20 Completed Medication Summary Generic Name Dose Route Start Last Admin Trade Name Freq PRN Reason Stop Dose Admin Acetaminophen 650 mg 11/11/20 13:29 Tylenol 325 Mg PO 12/11/20 13:28 Q4H PRN PRN PAIN AND/OR FEVER Allopurinol 100 mg 11/11/20 22:00 Zyloprim 100 Mg PO 12/11/20 21:59 BID [facility] Amlodipine Besylate 2.5 mg 11/12/20 10:00 Norvasc 5 Mg PO 12/12/20 09:59 DAILY [facility] Clopidogrel Bisulfate 75 mg 11/12/20 10:00 Plavix 75 Mg Tablet PO 12/12/20 09:59 DAILY [facility] Insulin Human Lispro 0 unit 11/11/20 13:29 Humalog SQ 12/11/20 13:28 UD PRN HYPERGLYCEMIA Metoprolol Tartrate 50 mg 11/11/20 22:00 Lopressor 50 Mg PO 12/11/20 21:59 BID [facility] Miscellaneous Information 0 each 11/11/20 16:30 Medication Intervention 12/11/20 16:29 .RN TO CHECK WITH PT [facility] Ondansetron HCl 4 mg 11/11/20 13:29 Zofran 4 Mg/2 Ml Vial IV 12/11/20 13:28 Q6H PRN PRN NAUSEA/VOMITING Oxybutynin Chloride 10 mg 11/12/20 10:00 Ditropan 5 Mg PO 12/12/20 09:59 DAILY [facility] Pantoprazole Sodium 40 mg 11/11/20 13:29 11/11/20 17:31 Protonix 40 Mg Iv IV 12/11/20 13:28 40 mg Q24H10 [facility] Administration Patient Own ( 0 each 11/11/20 19:00 Combivent) 12/11/20 18:59 BIDRT [facility] Potassium Chloride 10 meq 11/12/20 10:00 Klor Con 10 Meq PO 12/12/20 09:59 DAILY [facility] Simvastatin 40 mg 11/12/20 22:00 Zocor 20mg PO 12/12/20 21:59 HS [facility] Valsartan 160 mg 11/12/20 10:00 Diovan 80 Mg PO 12/12/20 09:59 DAILY [facility] Discontinued Medications Generic Name Dose Route Start Last Admin Trade Name Freq PRN Reason Stop Dose Admin Albuterol/Ipratropium 3 ml 11/11/20 08:16 11/11/20 08:48 Duoneb 0.5-3 Mg/3 Ml Neb IH 11/11/20 08:17 3 ml STAT ONE Administration Albuterol/Ipratropium Confirm 11/11/20 08:50 Duoneb 0.5-3 Mg/3 Ml Neb Administered 11/11/20 08:51 Dose 3 ml IH .STK-MED ONE Albuterol/Ipratropium 3 ml 11/11/20 13:29 Duoneb 0.5-3 Mg/3 Ml Neb 12/11/20 13:28 Q6HRT [facility] Carbidopa/Levodopa 1 tab 11/12/20 10:00 Sinemet 25/250 Mg PO 12/12/20 09:59 1000,1500 [facility] Nitroglycerin 1 gm 11/11/20 09:41 11/11/20 09:43 Nitro-Bid 2% Ud Packets TOP 11/11/20 09:42 1 gm STAT ONE Administration Nitroglycerin Confirm 11/11/20 09:41 Nitro-Bid 2% Ud Packets Administered 11/11/20 09:42 Dose 1 gm .ROUTE .STK-MED ONE Lab/Rad Data: Laboratory Result Diagrams 11/11/20 08:28 11/11/20 08:28 Laboratory Results 11/11/20 11/11/20 11/11/20 Range/Units 11:40 10:30 08:28 WBC (4.0-10.5) K/mm3 RBC (4.1-5.4) M/mm3 Hgb (12.0-16.0) gm/dl Hct (35-47) % MCV (78-100) fl MCH (26-32) pg MCHC (32-36) g/dl RDW (11.5-14.0) % Plt Count (150-450) K/mm3 MPV (7.5-11.0) fl Gran % (36.0-66.0) % Eos # (Auto) (0-0.5) Absolute Lymphs (auto) (1.0-4.6) Absolute Monos (auto) (0.0-1.3) Lymphocytes % (24.0-44.0) % Monocytes % (0.0-12.0) % Eosinophils % (0.00-5.0) % Basophils % (0.0-0.4) % Absolute Granulocytes (1.4-6.9) Basophils # (0-0.4) Sodium (137-145) mmol/L Potassium (3.5-5.1) mmol/L Chloride (98-107) mmol/L Carbon Dioxide (22-30) mmol/L Anion Gap (5-15) MEQ/L BUN (7-17) mg/dL Creatinine (0.52-1.04) mg/dL Estimated GFR ML/MIN Glucose (74-106) mg/dL Calcium (8.4-10.2) mg/dL Magnesium (1.6-2.3) mg/dL Total Bilirubin (0.2-1.3) mg/dL AST (14-36) U/L ALT (0-35) U/L Alkaline Phosphatase (38-126) U/L Troponin I < 0.012 < 0.012 (0.000-0.034) ng/mL NT-Pro-B Natriuret Pep (0-900) pg/mL Serum Total Protein (6.3-8.2) g/dL Albumin (3.5-5.0) g/dL Influenza Type A Ag NEGATIVE (NEGATIVE) Influenza Type B Ag NEGATIVE (NEGATIVE) RSV (PCR) NEGATIVE (Negative) SARS-CoV-2 (PCR) NEGATIVE (NEGATIVE) 11/11/20 11/11/20 Range/Units 08:28 08:28 WBC 5.7 (4.0-10.5) K/mm3 RBC 3.60 L (4.1-5.4) M/mm3 Hgb 10.8 L (12.0-16.0) gm/dl Hct 33.6 L (35-47) % MCV 93.3 (78-100) fl MCH 30.0 (26-32) pg MCHC 32.1 (32-36) g/dl RDW 13.3 (11.5-14.0) % Plt Count 234 (150-450) K/mm3 MPV 10.2 (7.5-11.0) fl Gran % 57.6 (36.0-66.0) % Eos # (Auto) 0.37 (0-0.5) Absolute Lymphs (auto) 1.61 (1.0-4.6) Absolute Monos (auto) 0.42 (0.0-1.3) Lymphocytes % 28.1 (24.0-44.0) % Monocytes % 7.3 (0.0-12.0) % Eosinophils % 6.5 H (0.00-5.0) % Basophils % 0.5 (0.0-0.4) % Absolute Granulocytes 3.29 (1.4-6.9) Basophils # 0.03 (0-0.4) Sodium 136 L (137-145) mmol/L Potassium 3.8 (3.5-5.1) mmol/L Chloride 103 (98-107) mmol/L Carbon Dioxide 26 (22-30) mmol/L Anion Gap 10.9 (5-15) MEQ/L BUN 30 H (7-17) mg/dL Creatinine 1.22 H (0.52-1.04) mg/dL Estimated GFR 46.4 ML/MIN Glucose 391 H (74-106) mg/dL Calcium 9.5 (8.4-10.2) mg/dL Magnesium 1.8 (1.6-2.3) mg/dL Total Bilirubin 0.20 (0.2-1.3) mg/dL AST 21 (14-36) U/L ALT 19 (0-35) U/L Alkaline Phosphatase 136 H (38-126) U/L Troponin I (0.000-0.034) ng/mL NT-Pro-B Natriuret Pep 594 (0-900) pg/mL Serum Total Protein 7.4 (6.3-8.2) g/dL Albumin 4.1 (3.5-5.0) g/dL Influenza Type A Ag (NEGATIVE) Influenza Type B Ag (NEGATIVE) RSV (PCR) (Negative) SARS-CoV-2 (PCR) (NEGATIVE) - Progress Progress: improved, re-examined Air Movement: good Progress Note: 11/11/20 09:48 64 years old female with history of CAD with multiple stenting, diabetic is evaluated for chest pain which is intermittent as it was resolved on presentation and has a recurrence again while in the ER. EKG did not show any acute ischemic changes, she has full dose aspirin prior to arrival, placed on Nitropaste, offered pain medication which she refused. She is also given breathing treatment. I did not appreciate any obvious airspace disease x-rays reviewed by me, official report is pending. Patient has multiple risk factor for CAD and with her pain onset less than 3 hours ago and intermittent I believe it would benefit with serial troponin and monitoring in the hospital. I have discussed with Dr. Arceo and patient is accepted for admission. Blood Culture(s) Obtained: No Antibiotics given: No Discussed with : Adolph Will see patient in: hospital (observation) Counseled pt/family regarding: lab results, diagnosis, rad results - Departure Departure Disposition: Observation Clinical Impression: Chest pain, rule out acute myocardial infarction, Hyperglycemia Condition: Stable Critical Care Time: No
[2020-11-11] MEDS ORDERED: NITRO-BID 2% UD PACKETS TOP ONE ×2 (09:41→21:00)
[2020-11-11] MEDS ORDERED: NITRO-BID 2% UD PACKETS ONE (09:41)
[2020-11-11 11:11] LABS: INFLUENZA A NEGATIVE (NEGATIVE); INFLUENZA B NEGATIVE (NEGATIVE); RESPIRATORY SYNCTIAL VIRUS NEGATIVE (Negative)
--- NOTE | 2020-11-11 11:23 | XRAY ---
Indication: Chest pain. Comparison: June 19, 2020. Portable chest remains clear. Heart is not enlarged. Bony thorax intact again with mild degenerative changes. No new/acute findings.
[2020-11-11] MEDS ORDERED: Zofran 4 MG/2 ML VIAL IV PRN (13:29)
[2020-11-11] MEDS ORDERED: HUMALOG SQ PRN (13:29)
[2020-11-11] MEDS ORDERED: TYLENOL 325 MG PO PRN (13:29)
[2020-11-11] MEDS ORDERED: DUONEB 0.5-3 MG/3 ml Neb IH SCH (13:29)
--- NOTE | 2020-11-11 13:51 | PCM.HP ---
History of Present Illness - Chief Complaint Chief Complaint: chest pain rule out DC History of Present Illness: is a 69 year old female patient of Dr Rashid and Dr Ballard, she states she was unable to sleep all night last night then developed heaviness in her chest at around 0600 this am, started at rest with no radiation, she was short of breath. no diaphoresis or nausea/vomiting. She has known CAD with previous stents, states she recently had a stress test and was told it was normal around 2 weeks ago, last heart cath was at least 4-5 years ago. Pain has resolved since admission, she has no complaints currently on med/surg unit. - Review of Systems Constitutional: No Fever, No Chills Respiratory: No Cough, No Short Of Breath Cardiac: Chest Pain (resolved since admission), No Edema, No Syncope Abdominal/Gastrointestinal: No Abdominal Pain, No Nausea, No Vomiting, No Diarrhea Genitourinary Symptoms: No Dysuria Skin: No Rash All Other Systems: Reviewed and Negative Medications & Allergies Home Medications: Home Medication List Gemfibrozil 600 mg [Lopid 600 mg] 600 mg PO BID 06/02/16 [History Confirmed 11/11/20] Oxybutynin Chloride 10 mg Xl [Ditropan Xl 10 MG] 10 mg PO DAILY 06/02/16 [History Confirmed 11/11/20] Valsartan [Diovan] 160 mg PO DAILY 07/30/16 [History Confirmed 11/11/20] Allopurinol 100 mg [Zyloprim 100 mg] 100 mg PO BID 07/05/18 [History Confirmed 11/11/20] Carbidopa/Levodopa [Carbidopa-Levodopa 25-250 Tab] 1 tablet PO BID 11/08/19 [History Confirmed 11/11/20] Amlodipine Besylate 1 tab PO DAILY 05/14/20 [History Confirmed 11/11/20] Cyclobenzaprine HCl 1 tab PO HS PRN PRN 05/14/20 [History Confirmed 11/11/20] Ergocalciferol (Vitamin D2) [Vitamin D] 1 cap PO WEEKLY 05/14/20 [History Confirmed 11/11/20] Furosemide 1 tab PO CLARIFY 05/14/20 [History Confirmed 11/11/20] Glipizide [Glipizide Xl] 2 tab PO DAILY 05/14/20 [History Confirmed 11/11/20] Ondansetron ODT 4 MG [Zofran Odt 4 mg] 1 tab SL Q6HPRN PRN 05/14/20 [History Confirmed 11/11/20] Ipratropium/Albuterol Sulfate [Combivent Inhaler] 1 puff IH QID 05/15/20 [History Confirmed 11/11/20] Meclizine HCl 25 mg [Antivert 25 mg] 12.5 mg PO QID PRN PRN #30 tablet 05/17/20 [Rx Confirmed 11/11/20] Clopidogrel Bisulfate 75 mg [PLAVIX 75 MG Tablet] 75 mg PO DAILY 11/11/20 [History Confirmed 11/11/20] Metoprolol Tartrate [Lopressor] 50 mg PO BID 11/11/20 [History Confirmed 11/11/20] Potassium Chloride 10 Meq Tab* [Klor Con 10 MEQ] 10 meq PO BID 11/11/20 [History Confirmed 11/11/20] Pravastatin Sodium [Pravachol] 40 mg PO DAILY 11/11/20 [History Confirmed 11/11/20] Allergies/Adverse Reactions: Allergies Allergy/AdvReac Type Severity Reaction Status Date / Time Penicillins Allergy Severe Vomiting Verified 11/11/20 08:45 iodine AdvReac Rash Verified 11/11/20 08:45 - Past Medical History Past Medical History: Yes Neurological History: Migraines, Stroke, TIA ENT History: No Pertinent History Cardiac History: Coronary Artery Disease, High Cholesterol, Hypertension, Myocardial Infarction (DC) Respiratory History: COPD, Sleep Apnea Endocrine Medical History: Diabetes Type II Musculoskelatal History: No Pertinent History GI Medical History: Gallbladder Disease, Polyps, Ulcer History: Renal Disease, Other Pyscho-Social History: No Pertinent History Reproductive Disorders: Other Comment: Parkinson's Disease - Past Surgical History Past Surgical History: Yes Neuro Surgical History: No Pertinent History Cardiac History: Cardiac Catheterization, Cardiac Stent Respiratory Surgery: No Pertinent History GI Surgical History: Cholecystectomy Genitourinary Surgical Hx: No Pertinent History Musculskeletal Surgical Hx: No Pertinent History Female Surgical History: Hysterectomy Other Surgical History: 7 HEART STENTS TOTAL ,colonoscopy and egd in past - Social History Smoking Status: Never smoker Exposure to second hand smoke: No Alcohol: None Drug Use: none Significant Family History: no pertinent family hx - Physical Exam Vital Signs: Vital Signs - 24 hr Pulse Pulse Resp BP Pulse Ox 11/11/20 13:01 66 16 164/55 96 11/11/20 12:34 74 18 164/55 98 11/11/20 11:59 72 16 134/65 96 11/11/20 11:00 74 16 147/63 98 11/11/20 10:23 80 21 146/96 98 11/11/20 09:48 98 11/11/20 09:25 89 18 121/75 100 11/11/20 09:03 68 16 98 11/11/20 08:43 77 11/11/20 08:15 75 25 H 149/60 99 General Appearance: no apparent distress, alert Neurologic Exam: alert, oriented x 3, cooperative Respiratory Exam: normal breath sounds, lungs clear, No respiratory distress Cardiovascular Exam: regular rate/rhythm, normal heart sounds, normal peripheral pulses Gastrointestinal/Abdomen Exam: soft, normal bowel sounds, No tenderness, No mass Extremity Exam: normal inspection, normal range of motion, pelvis stable Skin Exam: normal color, warm, dry, No rash Results - Labs Lab/Micro Results: Lab Results-Last 24 Hours 11/11/20 11/11/20 11/11/20 Range/Units 08:28 08:28 08:28 WBC 5.7 (4.0-10.5) K/mm3 RBC 3.60 L (4.1-5.4) M/mm3 Hgb 10.8 L (12.0-16.0) gm/dl Hct 33.6 L (35-47) % MCV 93.3 (78-100) fl MCH 30.0 (26-32) pg MCHC 32.1 (32-36) g/dl RDW 13.3 (11.5-14.0) % Plt Count 234 (150-450) K/mm3 MPV 10.2 (7.5-11.0) fl Gran % 57.6 (36.0-66.0) % Eos # (Auto) 0.37 (0-0.5) Absolute Lymphs (auto) 1.61 (1.0-4.6) Absolute Monos (auto) 0.42 (0.0-1.3) Lymphocytes % 28.1 (24.0-44.0) % Monocytes % 7.3 (0.0-12.0) % Eosinophils % 6.5 H (0.00-5.0) % Basophils % 0.5 (0.0-0.4) % Absolute Granulocytes 3.29 (1.4-6.9) Basophils # 0.03 (0-0.4) Sodium 136 L (137-145) mmol/L Potassium 3.8 (3.5-5.1) mmol/L Chloride 103 (98-107) mmol/L Carbon Dioxide 26 (22-30) mmol/L Anion Gap 10.9 (5-15) MEQ/L BUN 30 H (7-17) mg/dL Creatinine 1.22 H (0.52-1.04) mg/dL Estimated GFR 46.4 ML/MIN Glucose 391 H (74-106) mg/dL Calcium 9.5 (8.4-10.2) mg/dL Magnesium 1.8 (1.6-2.3) mg/dL Total Bilirubin 0.20 (0.2-1.3) mg/dL AST 21 (14-36) U/L ALT 19 (0-35) U/L Alkaline Phosphatase 136 H (38-126) U/L Troponin I < 0.012 (0.000-0.034) ng/mL NT-Pro-B Natriuret Pep 594 (0-900) pg/mL Serum Total Protein 7.4 (6.3-8.2) g/dL Albumin 4.1 (3.5-5.0) g/dL Influenza Type A Ag (NEGATIVE) Influenza Type B Ag (NEGATIVE) RSV (PCR) (Negative) SARS-CoV-2 (PCR) (NEGATIVE) 11/11/20 11/11/20 Range/Units 10:30 11:40 WBC (4.0-10.5) K/mm3 RBC (4.1-5.4) M/mm3 Hgb (12.0-16.0) gm/dl Hct (35-47) % MCV (78-100) fl MCH (26-32) pg MCHC (32-36) g/dl RDW (11.5-14.0) % Plt Count (150-450) K/mm3 MPV (7.5-11.0) fl Gran % (36.0-66.0) % Eos # (Auto) (0-0.5) Absolute Lymphs (auto) (1.0-4.6) Absolute Monos (auto) (0.0-1.3) Lymphocytes % (24.0-44.0) % Monocytes % (0.0-12.0) % Eosinophils % (0.00-5.0) % Basophils % (0.0-0.4) % Absolute Granulocytes (1.4-6.9) Basophils # (0-0.4) Sodium (137-145) mmol/L Potassium (3.5-5.1) mmol/L Chloride (98-107) mmol/L Carbon Dioxide (22-30) mmol/L Anion Gap (5-15) MEQ/L BUN (7-17) mg/dL Creatinine (0.52-1.04) mg/dL Estimated GFR ML/MIN Glucose (74-106) mg/dL Calcium (8.4-10.2) mg/dL Magnesium (1.6-2.3) mg/dL Total Bilirubin (0.2-1.3) mg/dL AST (14-36) U/L ALT (0-35) U/L Alkaline Phosphatase (38-126) U/L Troponin I < 0.012 (0.000-0.034) ng/mL NT-Pro-B Natriuret Pep (0-900) pg/mL Serum Total Protein (6.3-8.2) g/dL Albumin (3.5-5.0) g/dL Influenza Type A Ag NEGATIVE (NEGATIVE) Influenza Type B Ag NEGATIVE (NEGATIVE) RSV (PCR) NEGATIVE (Negative) SARS-CoV-2 (PCR) NEGATIVE (NEGATIVE) - Radiology Impressions Radiology Exams & Impressions: Radiology Procedures Category Date Time Status CHEST 1 VIEW (PORTABLE) Stat Exams 11/11/20 08:16 Completed Assessment/Plan (1) Chest pain, rule out acute myocardial infarction Current Visit: Yes Status: Acute Assessment & Plan: known hx of CAD with stents, r/o DC. resume current meds. Code(s): R07.9 - CHEST PAIN, UNSPECIFIED (2) Diabetes Current Visit: Yes Status: Acute Code(s): E11.9 - TYPE 2 DIABETES MELLITUS WITHOUT COMPLICATIONS
[2020-11-11] MEDS ORDERED: MEDICATION INTERVENTION MC SCH (16:30)
[2020-11-11] MEDS: PROTONIX 40 MG IV IV SCH (17:31)
[2020-11-11] MEDS: DUONEB 0.5-3 MG/3 ml Neb IH SCH (18:46)
[2020-11-11] MEDS ORDERED: PATIENT OWN MEDICATION IH SCH (19:00)
[2020-11-11] MEDS ORDERED: Lopressor 50 MG ONE (19:13)
[2020-11-11] MEDS: Lopressor 50 MG PO SCH (19:22)
[2020-11-11] MEDS: ZYLOPRIM 100 MG PO SCH (21:21)
[2020-11-11] MEDS ORDERED: Combivent Inhaler COMMON CANISTER IH SCH (22:00)
[2020-11-12 02:24] LABS: Absolute Neutrophil Ct (ANC) 4.59 (1.4-6.9); BASOPHIL % 0.3 % (0.0-0.4); Basophil (Absolute #) 0.02 (0-0.4); Eosinophil % 3.7 % (0.00-5.0); Eosinophil (Absolute #) 0.27 (0-0.5); Hematocrit 29.1 % (35-47); Hemoglobin 9.5 gm/dl (12.0-16.0); Lymphocyte (Absolute #) 1.96 (1.0-4.6); Lymphocytes % 26.6 % (24.0-44.0); Mean Cell Volume 92.7 fl (78-100); Mean Corpuscular Hemoglobin 30.3 pg (26-32); Mean Corpuscular Hgb Concent. 32.6 g/dl (32-36); Mean Platelet Volume 9.9 fl (7.5-11.0); Monocyte (Absolute #) 0.54 (0.0-1.3); Monocytes % 7.3 % (0.0-12.0); Neutrophil % 62.1 % (36.0-66.0); Platelet Count 225 K/mm3 (150-450); Red Blood Count 3.14 M/mm3 (4.1-5.4); Red Cell Distribution Width 13.4 % (11.5-14.0); White Blood Count 7.4 K/mm3 (4.0-10.5)
[2020-11-12 02:52] LABS: ALBUMIN 3.4 g/dL (3.5-5.0); ANION GAP 8.9 MEQ/L (5-15); BILIRUBIN,TOTAL 0.2 mg/dL (0.2-1.3); Calcium 9.1 mg/dL (8.4-10.2); Creatinine 1 1.01 mg/dL (0.52-1.04); EST GLOMERULAR FILTRATION RATE 57.8 ML/MIN; Potassium 4.2 mmol/L (3.5-5.1); Total Protein 6.2 g/dL (6.3-8.2)
[2020-11-12] MEDS ORDERED: DUONEB 0.5-3 MG/3 ml Neb IH ONE (06:41)
[2020-11-12] MEDS: DUONEB 0.5-3 MG/3 ml Neb IH SCH (07:20)
--- NOTE | 2020-11-12 09:02 | PCM.DS ---
Discharge Summary Date of Admission: 11/11/20 13:18 Admitting Physician: ANDREI MCCALL Primary Care Provider: BRANDON CASH Allergies Allergies Penicillins Allergy (Severe, Verified 11/11/20 08:45) Vomiting iodine Adverse Reaction (Verified 11/11/20 08:45) Rash Hospital Summary - Hospital Course Hospital Course: Pt is 69 yo female pt of mine from [facility] with DM,YANY, HTN, hyperlipidemia, CAD and chronic renal failure who was admitted through ER with chest pain to rule out MA . Her troponins have all been negative. CXR non acute. Last night she started having CP again and had BP to 180-200 systolic. Troponins were neg x 2 after that, although there was a slight increase from the initial troponins. Currently pt is feeling great - slept better last night than she has in months, she thinks possibly due to the oxygen. She missed her last YANY appt because she sat down, fell asleep, and slept through it. Will check one more troponin. Will observe bps through suppertime tonight, as she missed all her BP meds yesterday. Overnight pulse ox at home. F/u with me in 1 week. - Vitals & Intake/Output Vital Signs: Vital Signs Temperature 96.7 F 11/12/20 08:00 Pulse Rate 70 11/12/20 08:00 Respiratory Rate 19 11/12/20 08:00 Blood Pressure 142/63 11/12/20 08:00 O2 Sat by Pulse Oximetry 96 11/12/20 08:00 Intake & Output: Intake & Output 11/09/20 11/10/20 11/11/20 11/12/20 10:59 10:59 11:59 11:59 Intake Total 660 Output Total 950 Balance -290 Weight 145 kg - Lab Result Diagrams: 11/12/20 02:15 11/12/20 02:15 Lab Results-Last 24 Hrs: Lab Results-Last 24 Hours 11/11/20 11/11/20 11/11/20 Range/Units 08:28 08:28 10:30 WBC (4.0-10.5) K/mm3 RBC (4.1-5.4) M/mm3 Hgb (12.0-16.0) gm/dl Hct (35-47) % MCV (78-100) fl MCH (26-32) pg MCHC (32-36) g/dl RDW (11.5-14.0) % Plt Count (150-450) K/mm3 MPV (7.5-11.0) fl Gran % (36.0-66.0) % Eos # (Auto) (0-0.5) Absolute Lymphs (auto) (1.0-4.6) Absolute Monos (auto) (0.0-1.3) Lymphocytes % (24.0-44.0) % Monocytes % (0.0-12.0) % Eosinophils % (0.00-5.0) % Basophils % (0.0-0.4) % Absolute Granulocytes (1.4-6.9) Basophils # (0-0.4) Sodium 136 L (137-145) mmol/L Potassium 3.8 (3.5-5.1) mmol/L Chloride 103 (98-107) mmol/L Carbon Dioxide 26 (22-30) mmol/L Anion Gap 10.9 (5-15) MEQ/L BUN 30 H (7-17) mg/dL Creatinine 1.22 H (0.52-1.04) mg/dL Estimated GFR 46.4 ML/MIN Glucose 391 H (74-106) mg/dL POC Glucometer (74 to 106) mg/dL Calcium 9.5 (8.4-10.2) mg/dL Magnesium 1.8 (1.6-2.3) mg/dL Total Bilirubin 0.20 (0.2-1.3) mg/dL AST 21 (14-36) U/L ALT 19 (0-35) U/L Alkaline Phosphatase 136 H (38-126) U/L Troponin I < 0.012 (0.000-0.034) ng/mL NT-Pro-B Natriuret Pep 594 (0-900) pg/mL Serum Total Protein 7.4 (6.3-8.2) g/dL Albumin 4.1 (3.5-5.0) g/dL Influenza Type A Ag NEGATIVE (NEGATIVE) Influenza Type B Ag NEGATIVE (NEGATIVE) RSV (PCR) NEGATIVE (Negative) SARS-CoV-2 (PCR) NEGATIVE (NEGATIVE) 11/11/20 11/11/20 11/11/20 Range/Units 11:40 14:45 16:17 WBC (4.0-10.5) K/mm3 RBC (4.1-5.4) M/mm3 Hgb (12.0-16.0) gm/dl Hct (35-47) % MCV (78-100) fl MCH (26-32) pg MCHC (32-36) g/dl RDW (11.5-14.0) % Plt Count (150-450) K/mm3 MPV (7.5-11.0) fl Gran % (36.0-66.0) % Eos # (Auto) (0-0.5) Absolute Lymphs (auto) (1.0-4.6) Absolute Monos (auto) (0.0-1.3) Lymphocytes % (24.0-44.0) % Monocytes % (0.0-12.0) % Eosinophils % (0.00-5.0) % Basophils % (0.0-0.4) % Absolute Granulocytes (1.4-6.9) Basophils # (0-0.4) Sodium (137-145) mmol/L Potassium (3.5-5.1) mmol/L Chloride (98-107) mmol/L Carbon Dioxide (22-30) mmol/L Anion Gap (5-15) MEQ/L BUN (7-17) mg/dL Creatinine (0.52-1.04) mg/dL Estimated GFR ML/MIN Glucose (74-106) mg/dL POC Glucometer 163 H (74 to 106) mg/dL Calcium (8.4-10.2) mg/dL Magnesium (1.6-2.3) mg/dL Total Bilirubin (0.2-1.3) mg/dL AST (14-36) U/L ALT (0-35) U/L Alkaline Phosphatase (38-126) U/L Troponin I < 0.012 < 0.012 (0.000-0.034) ng/mL NT-Pro-B Natriuret Pep (0-900) pg/mL Serum Total Protein (6.3-8.2) g/dL Albumin (3.5-5.0) g/dL Influenza Type A Ag (NEGATIVE) Influenza Type B Ag (NEGATIVE) RSV (PCR) (Negative) SARS-CoV-2 (PCR) (NEGATIVE) 11/11/20 11/11/20 11/11/20 Range/Units 17:25 19:50 21:48 WBC (4.0-10.5) K/mm3 RBC (4.1-5.4) M/mm3 Hgb (12.0-16.0) gm/dl Hct (35-47) % MCV (78-100) fl MCH (26-32) pg MCHC (32-36) g/dl RDW (11.5-14.0) % Plt Count (150-450) K/mm3 MPV (7.5-11.0) fl Gran % (36.0-66.0) % Eos # (Auto) (0-0.5) Absolute Lymphs (auto) (1.0-4.6) Absolute Monos (auto) (0.0-1.3) Lymphocytes % (24.0-44.0) % Monocytes % (0.0-12.0) % Eosinophils % (0.00-5.0) % Basophils % (0.0-0.4) % Absolute Granulocytes (1.4-6.9) Basophils # (0-0.4) Sodium (137-145) mmol/L Potassium (3.5-5.1) mmol/L Chloride (98-107) mmol/L Carbon Dioxide (22-30) mmol/L Anion Gap (5-15) MEQ/L BUN (7-17) mg/dL Creatinine (0.52-1.04) mg/dL Estimated GFR ML/MIN Glucose (74-106) mg/dL POC Glucometer 130 H (74 to 106) mg/dL Calcium (8.4-10.2) mg/dL Magnesium (1.6-2.3) mg/dL Total Bilirubin (0.2-1.3) mg/dL AST (14-36) U/L ALT (0-35) U/L Alkaline Phosphatase (38-126) U/L Troponin I < 0.012 < 0.012 (0.000-0.034) ng/mL NT-Pro-B Natriuret Pep (0-900) pg/mL Serum Total Protein (6.3-8.2) g/dL Albumin (3.5-5.0) g/dL Influenza Type A Ag (NEGATIVE) Influenza Type B Ag (NEGATIVE) RSV (PCR) (Negative) SARS-CoV-2 (PCR) (NEGATIVE) 11/11/20 11/12/20 11/12/20 Range/Units 23:10 02:15 02:15 WBC 7.4 (4.0-10.5) K/mm3 RBC 3.14 L (4.1-5.4) M/mm3 Hgb 9.5 L (12.0-16.0) gm/dl Hct 29.1 L (35-47) % MCV 92.7 (78-100) fl MCH 30.3 (26-32) pg MCHC 32.6 (32-36) g/dl RDW 13.4 (11.5-14.0) % Plt Count 225 (150-450) K/mm3 MPV 9.9 (7.5-11.0) fl Gran % 62.1 (36.0-66.0) % Eos # (Auto) 0.27 (0-0.5) Absolute Lymphs (auto) 1.96 (1.0-4.6) Absolute Monos (auto) 0.54 (0.0-1.3) Lymphocytes % 26.6 (24.0-44.0) % Monocytes % 7.3 (0.0-12.0) % Eosinophils % 3.7 (0.00-5.0) % Basophils % 0.3 (0.0-0.4) % Absolute Granulocytes 4.59 (1.4-6.9) Basophils # 0.02 (0-0.4) Sodium 137 (137-145) mmol/L Potassium 4.2 (3.5-5.1) mmol/L Chloride 107 (98-107) mmol/L Carbon Dioxide 26 (22-30) mmol/L Anion Gap 8.9 (5-15) MEQ/L BUN 26 H (7-17) mg/dL Creatinine 1.01 (0.52-1.04) mg/dL Estimated GFR 57.8 ML/MIN Glucose 99 (74-106) mg/dL POC Glucometer (74 to 106) mg/dL Calcium 9.1 (8.4-10.2) mg/dL Magnesium (1.6-2.3) mg/dL Total Bilirubin 0.20 (0.2-1.3) mg/dL AST 20 (14-36) U/L ALT 18 (0-35) U/L Alkaline Phosphatase 103 (38-126) U/L Troponin I 0.016 (0.000-0.034) ng/mL NT-Pro-B Natriuret Pep (0-900) pg/mL Serum Total Protein 6.2 L (6.3-8.2) g/dL Albumin 3.4 L (3.5-5.0) g/dL Influenza Type A Ag (NEGATIVE) Influenza Type B Ag (NEGATIVE) RSV (PCR) (Negative) SARS-CoV-2 (PCR) (NEGATIVE) 11/12/20 11/12/20 Range/Units 02:15 07:41 WBC (4.0-10.5) K/mm3 RBC (4.1-5.4) M/mm3 Hgb (12.0-16.0) gm/dl Hct (35-47) % MCV (78-100) fl MCH (26-32) pg MCHC (32-36) g/dl RDW (11.5-14.0) % Plt Count (150-450) K/mm3 MPV (7.5-11.0) fl Gran % (36.0-66.0) % Eos # (Auto) (0-0.5) Absolute Lymphs (auto) (1.0-4.6) Absolute Monos (auto) (0.0-1.3) Lymphocytes % (24.0-44.0) % Monocytes % (0.0-12.0) % Eosinophils % (0.00-5.0) % Basophils % (0.0-0.4) % Absolute Granulocytes (1.4-6.9) Basophils # (0-0.4) Sodium (137-145) mmol/L Potassium (3.5-5.1) mmol/L Chloride (98-107) mmol/L Carbon Dioxide (22-30) mmol/L Anion Gap (5-15) MEQ/L BUN (7-17) mg/dL Creatinine (0.52-1.04) mg/dL Estimated GFR ML/MIN Glucose (74-106) mg/dL POC Glucometer 90 (74 to 106) mg/dL Calcium (8.4-10.2) mg/dL Magnesium (1.6-2.3) mg/dL Total Bilirubin (0.2-1.3) mg/dL AST (14-36) U/L ALT (0-35) U/L Alkaline Phosphatase (38-126) U/L Troponin I 0.021 (0.000-0.034) ng/mL NT-Pro-B Natriuret Pep (0-900) pg/mL Serum Total Protein (6.3-8.2) g/dL Albumin (3.5-5.0) g/dL Influenza Type A Ag (NEGATIVE) Influenza Type B Ag (NEGATIVE) RSV (PCR) (Negative) SARS-CoV-2 (PCR) (NEGATIVE) Micro Results-Entire Visit: Accuchecks Date 11/11/20 - Radiology Exams Ordered Rad Exams-Entire Visit: Radiology Procedures Category Date Time Status CHEST 1 VIEW (PORTABLE) Stat Exams 11/11/20 08:16 Completed - Procedures and Test Procedures and Tests throughout Hospitalization: Therapy Orders & Screens 11/11/20 09:03 Respiratory Therapy Assessment DAILY Comment: 11/11/20 14:00 BiPap/CPAP ROUTINE Comment: Diagnosis: chest pain rule out MA Respiratory Therapy Assessment DAILY Comment: Diagnosis: chest pain rule out MA 11/11/20 14:01 Respiratory MDI BID Comment: Diagnosis: chest pain rule out MA 11/11/20 14:37 RT Screen per Nursing Assess ONCE Comment: Protocol Order Physician Instructions: Greater than 3 points order RT Admission Screen Reason For Exam: Triggered on Admission Diagnosis: chest pain rule out MA Diagnosis: chest pain rule out MA Pneumonia: No Home O2: No Asthma: No CHF: No Home CPAP/BIPAP: Yes Home Nebs/MDI: Yes Total Points: 10 11/11/20 19:06 EKG STAT Comment: Diagnosis: chest pain rule out MA 11/11/20 19:42 Oxygen NASAL CANNULA 2 lpm Comment: Diagnosis: chest pain rule out MA Discharge Exam General Appearance: no apparent distress, alert Neurologic Exam: oriented x 3, cooperative Eye Exam: eyes nml inspection Ears, Nose, Throat Exam: moist mucous membranes Respiratory Exam: normal breath sounds, lungs clear, No crackles/rales, No rhonchi, No wheezing Cardiovascular Exam: regular rate/rhythm, normal heart sounds, No murmur Extremity Exam: normal inspection Skin Exam: normal color, warm, dry, No rash Final Diagnosis/Problem List - Final Discharge Diagnosis/Problem (1) Hypertension Current Visit: Yes Status: Chronic Assessment & Plan: If not increased, remain on home meds and home at suppertime. Code(s): I10 - ESSENTIAL (PRIMARY) HYPERTENSION (2) YANY (obstructive sleep apnea) Current Visit: Yes Status: Chronic Code(s): G47.33 - OBSTRUCTIVE SLEEP APNEA (ADULT) (PEDIATRIC) (3) Chest pain, rule out acute myocardial infarction Current Visit: Yes Status: Chronic Code(s): R07.9 - CHEST PAIN, UNSPECIFIED (4) Diabetes Current Visit: Yes Status: Chronic Code(s): E11.9 - TYPE 2 DIABETES MELLITUS WITHOUT COMPLICATIONS (5) Chronic renal insufficiency Current Visit: No Status: Chronic Code(s): N18.9 - CHRONIC KIDNEY DISEASE, UNSPECIFIED - Discharge Disposition: Home, Self-Care Condition: Good Prescriptions: Continue Oxybutynin Chloride 10 mg Xl [Ditropan Xl 10 MG] 10 mg PO DAILY Valsartan [Diovan] 160 mg PO DAILY Allopurinol 100 mg [Zyloprim 100 mg] 100 mg PO BID Carbidopa/Levodopa [Carbidopa-Levodopa 25-250 Tab] 1 tablet PO BID Furosemide 1 tab PO UD Ergocalciferol (Vitamin D2) [Vitamin D] 1.25 mg PO UD Amlodipine Besylate 1 tab PO DAILY Ipratropium/Albuterol Sulfate [Combivent Inhaler] 2 puff IH BID Pravastatin Sodium [Pravachol] 40 mg PO DAILY Metoprolol Tartrate [Lopressor] 50 mg PO BID Potassium Chloride 10 Meq Tab* [Klor Con 10 MEQ] 10 meq PO DAILY Clopidogrel Bisulfate 75 mg [PLAVIX 75 MG Tablet] 75 mg PO DAILY Glimepiride 4 mg [Amaryl 4 mg] 4 mg PO BID Acarbose [Precose] 25 mg PO TID Follow up with: BRANDON CASH [Primary Care Provider] -
[2020-11-12] MEDS: Sinemet 10/100 MG PO SCH ×2 (09:16→15:23)
[2020-11-12] MEDS: Lopressor 50 MG PO SCH (09:18)
[2020-11-12] MEDS: ZYLOPRIM 100 MG PO SCH (09:18)
[2020-11-12] MEDS: PROTONIX 40 MG IV IV SCH (09:18)
[2020-11-12] MEDS ORDERED: NON-FORMULARY ITEM (Pravastatin Sodium [Pravachol] 40 MG) PO SCH (10:00)
[2020-11-12] MEDS ORDERED: Ditropan 5 MG PO SCH (10:00)
[2020-11-12] MEDS ORDERED: DIOVAN 80 MG PO SCH (10:00)
[2020-11-12] MEDS ORDERED: PLAVIX 75 MG Tablet PO SCH (10:00)
[2020-11-12] MEDS ORDERED: AMLODIPINE BESYLATE PO SCH (10:00)
[2020-11-12] MEDS ORDERED: Klor Con 10 MEQ PO SCH (10:00)
[2020-11-12] MEDS ORDERED: Sinemet 25/250 MG PO SCH (10:00)
[2020-11-12] MEDS ORDERED: NORVASC 5 MG PO SCH (10:00)
[2020-11-12 16:22] VITALS: BP 131/64; PULSE 99; O2SAT 94
[2020-11-12] MEDS ORDERED: ZOCOR 20MG PO SCH (22:00)
== END 2020-11-12 18:20 | disposition home or self-care (01) ==
LOC: ED 08:13 → MED SURG 13:18
PROVIDERS: ADMIT Family Medicine; ATTEND Family Medicine
DX: R07.9 Chest pain, unspecified (principal); E11.65 Type 2 diabetes mellitus with hyperglycemia; R06.02 Shortness of breath; J44.9 Chronic obstructive pulmonary disease, unspecified; N18.9 Chronic kidney disease, unspecified; I10 Essential (primary) hypertension; E78.5 Hyperlipidemia, unspecified; I25.2 Old myocardial infarction; I25.10 Atherosclerotic heart disease of native coronary artery without angina pectoris; G20 Parkinson's disease; G47.33 Obstructive sleep apnea (adult) (pediatric); Z79.899 Other long term (current) drug therapy; Z20.828 Contact with and (suspected) exposure to other viral communicable diseases
CPT/HCPCS: 0241U; 36000; 36415; 71045; 80053; 82947; 83735; 83880; 84484; 85025; 93005; 93041; 93268; 94640; 94760; 94762; 99285; G0378; A9270-GY

== ENCOUNTER 2021-03-11 20:41 | Inpatient (IN) | payer MEDICARE, OTHER ==
[2021-03-11 21:47] LABS: Absolute Neutrophil Ct (ANC) 3.95 (1.4-6.9); BASOPHIL % 0.6 % (0.0-0.4); Basophil (Absolute #) 0.04 (0-0.4); Eosinophil % 2.7 % (0.00-5.0); Eosinophil (Absolute #) 0.19 (0-0.5); Hematocrit 31.5 % (35-47); Hemoglobin 10.4 gm/dl (12.0-16.0); Lymphocyte (Absolute #) 2.34 (1.0-4.6); Lymphocytes % 32.9 % (24.0-44.0); Mean Cell Volume 93.2 fl (78-100); Mean Corpuscular Hemoglobin 30.8 pg (26-32); Mean Platelet Volume 10.5 fl (7.5-11.0); Monocytes % 8.4 % (0.0-12.0); Neutrophil % 55.4 % (36.0-66.0); Platelet Count 250 K/mm3 (150-450); Red Blood Count 3.38 M/mm3 (4.1-5.4); White Blood Count 7.1 K/mm3 (4.0-10.5)
[2021-03-11 21:52] LABS: Appearance SLIGHTLY CLOUDY (CLEAR); Bacteria RARE /HPF (NEGATIVE); Bilirubin NEGATIVE (NEGATIVE); Blood SMALL Ery/ul (0-5); Epithelial Cells FEW /HPF (FEW); Glucose >=500 mg/dL (NEGATIVE); Ketones NEGATIVE (NEGATIVE); Leukocyte Esterase SMALL (NEGATIVE); Nitrite NEGATIVE (NEGATIVE); Protein,Urine Dip 30 (Negative); Urobilinogen NEGATIVE mg/dL (0-1)
[2021-03-11 21:58] LABS: ALBUMIN 4.3 g/dL (3.5-5.0); BILIRUBIN,TOTAL 0.2 mg/dL (0.2-1.3); Calcium 9.8 mg/dL (8.4-10.2); Creatinine 1 1.47 mg/dL (0.52-1.04); EST GLOMERULAR FILTRATION RATE 37.3 ML/MIN; MAGNESIUM 2.1 mg/dL (1.6-2.3); Potassium 4.1 mmol/L (3.5-5.1); Total Protein 7.6 g/dL (6.3-8.2)
--- NOTE | 2021-03-11 22:39 | ERPHSYRPT ---
- History of Present Illness Time Seen by Provider: 03/11/21 20:55 Source: patient Exam Limitations: no limitations Patient Subjective Stated Complaint: Patient " I was feeding my dogs and I lost my balance yesterday morning and I fell and since then I feel like my left side is weaker than my left and I have been having trouble talking." Triage Nursing Assessment: Patient arrived to ED and was assisted to room in W/C by Medic. Patient A/O times 4. Patient able to follow directions without difficulty. Patient pleasant and cooperative. Patient states she has been having increase in weakness since yesterday after I fell feeding the dogs. Patient stated she didn't fall hard and she had just lost her balance. She stated her son had to help get her back up that she couldn't get up by herself. Patient noted with Multiple Medical DX'S. HX Stroke with left sided weakness. Patient able to move all extremities without difficulty. One assist to bathroom where urine collected and urine dark in color with slight odor present. It does take patient time to come up with her sentences in which patient stated is normal since her stroke about 10 years ago. Patient denies any SOB. Patient denies any chest pain. Respiratory regular and easy and non-labored. Cap refill < 3 seconds. No acute respiratory distress noted. + BS times 4 quads. ABD soft, r ound, non-distended. Patient denies any pain or discomfort upon palpitation to ABD. Patient denies any pain or burning upon urination. No dependent edema noted. + Radial and pedal pulses noted. Patient able to feel sensation to all extremities without difficulty. Patient able to follow directions without difficulty. 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 bilateral pupils strong and equal, brisk and reactive. Patient denies any N/V. Patient denies any dizziness or headaches. Patient denies any loose stools. Patient states appetite and fluid intake has been normal. Patient does have left sided facial droop which according to son is her normal and that it is a residual of her last stroke. Patient denies any pain or discomfort. Skin assessment complete with no bruising or redness or areas of trauma noted from recent fall. ROM WNL. Physician History: Patient is a 70-year-old female with a history of Parkinson's disease and an old stroke approximately 10 years ago with residual left-sided weakness presents to our ED with complaints of weakness of the left upper and lower extremity. Patient states she was feeding her dog yesterday and lost her balance and fell. After her fall she felt as though her left upper and lower extremity were more weak than normal. However she did not seek medical attention at that time. Patient is out of the therapeutic window for TPA at this time. Patient voices no other complaints. There is no trauma patient denies injury. No neck pain. Cervical spine cleared clinically. No chest pain. No nausea vomiting or diaphoresis. Patient voices no other complaints concerns at this time. Timing/Duration: yesterday Severity: mild Modifying Factors: Improves With: nothing Associated Symptoms: No nausea, No vomiting, No abdominal pain, No shortness of breath, No heartburn, No chest pain, No fever, No headaches, No loss of a ppetite, No malaise, No rash, No syncope, No seizure, No weakness Allergies/Adverse Reactions: Penicillins Allergy (Severe, Verified 03/11/21 21:45) Vomiting iodine Adverse Reaction (Verified 03/11/21 21:45) Rash Home Medications: Oxybutynin Chloride 10 mg Xl [Ditropan Xl 10 MG] 10 mg PO DAILY 06/02/16 [History] Valsartan [Diovan] 160 mg PO DAILY 07/30/16 [History] Allopurinol 100 mg [Zyloprim 100 mg] 100 mg PO BID 07/05/18 [History] Carbidopa/Levodopa [Carbidopa-Levodopa 25-250 Tab] 1 tablet PO BID 11/08/19 [History] Ergocalciferol (Vitamin D2) [Vitamin D] 1.25 mg PO UD 05/14/20 [History] Acarbose [Precose] 25 mg PO TID 11/11/20 [History] Clopidogrel Bisulfate 75 mg [PLAVIX 75 MG Tablet] 75 mg PO DAILY 11/11/20 [History] Metoprolol Tartrate [Lopressor] 50 mg PO BID 11/11/20 [History] Potassium Chloride 10 Meq Tab* [Klor Con 10 MEQ] 10 meq PO DAILY 11/11/20 [History] Pravastatin Sodium [Pravachol] 40 mg PO DAILY 11/11/20 [History] Dapagliflozin Propanediol [Farxiga] 5 mg PO BID 03/12/21 [History] Gemfibrozil 600 mg [Lopid 600 mg] 600 mg PO DAILY 03/12/21 [History] Glipizide 20 mg PO DAILY 03/12/21 [History] Hx Tetanus, Diphtheria Vaccination/Date Given: Yes Hx Influenza Vaccination/Date Given: Yes Hx Pneumococcal Vaccination/Date Given: Yes Immunizations Up to Date: Yes Travel Risk - International Travel Have you traveled outside of the country in past 3 weeks: No - Coronavirus Screening Are you exhibiting any of the following symptoms?: No Close contact with a COVID-19 positive Pt in past 14-21 Days: No - Vaccine Status Have you 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 - Vaccination Dates Date of 2cond Vaccination (if applicable): 10/30/20 - Review of Systems Constitutional: No Symptoms, No Fever, No Chills Eyes: No Symptoms Ears, Nose, & Throat: No Symptoms Respiratory: No Symptoms, No Cough, No Dyspnea Cardiac: No Symptoms, No Chest Pain, No Edema, No Syncope Abdominal/Gastrointestinal: No Symptoms, No Abdominal Pain, No Nausea, No Vomiting, No Diarrhea Genitourinary Symptoms: No Symptoms, No Dysuria Musculoskeletal: No Symptoms, No Back Pain, No Neck Pain Skin: No Symptoms, No Rash Neurological: No Symptoms, No Dizziness, No Focal Weakness, No Sensory Changes Psychological: No Symptoms Endocrine: No Symptoms Hematologic/Lymphatic: No Symptoms Immunological/Allergic: No Symptoms All Other Systems: Reviewed and Negative - Past Medical History Pertinent Past Medical History: Yes Neurological History: Migraines, Stroke, TIA ENT History: No Pertinent History Cardiac History: Coronary Artery Disease, High Cholesterol, Hypertension, Myocardial Infarction ([place]) Respiratory History: COPD, Sleep Apnea Endocrine Medical History: Diabetes Type II Musculoskeletal History: No Pertinent History GI Medical History: Gallbladder Disease, Polyps, Ulcer History: Renal Disease, Other Psycho-Social History: No Pertinent History Female Reproductive Disorders: Other Other Medical History: Parkinson's Disease - Past Surgical History Past Surgical History: Yes Neuro Surgical History: No Pertinent History Cardiac: Cardiac Catheterization, Cardiac Stent Respiratory: No Pertinent History Gastrointestinal: Cholecystectomy Genitourinary: No Pertinent History Musculoskeletal: No Pertinent History Female Surgical History: Hysterectomy Other Surgical History: 7 HEART STENTS TOTAL ,colonoscopy and egd in past - Social History Smoking Status: Never smoker Exposure to second hand smoke: Yes Drug Use: none Patient Lives Alone: No Significant Family History: no pertinent family hx - Female History Hx Last Menstrual Period: POST Hx Now: No - Nursing Vital Signs Nursing Vital Signs: Initial Vital Signs Temperature 98.3 F 03/11/21 20:42 Pulse Rate 54 L 03/11/21 20:42 Respiratory Rate 18 03/11/21 20:42 Blood Pressure 196/74 03/11/21 20:42 O2 Sat by Pulse Oximetry 100 03/11/21 20:42 Pain Scale Pain Intensity 0 - Physical Exam General Appearance: no apparent distress, alert Eye Exam: PERRL/EOMI, eyes nml inspection Ears, Nose, Throat Exam: normal ENT inspection, TMs normal, pharynx normal, moist mucous membranes Neck Exam: normal inspection, non-tender, supple, full range of motion Respiratory Exam: normal breath sounds, lungs clear, No respiratory distress Cardiovascular Exam: regular rate/rhythm, normal heart sounds, normal peripheral pulses Gastrointestinal/Abdomen Exam: soft, normal bowel sounds, No tenderness, No mass Back Exam: normal inspection, normal range of motion, No CVA tenderness, No vertebral tenderness Extremity Exam: normal inspection, normal range of motion, pelvis stable, other (Residual facial droop. Residual left upper and lower extremity weakness. Patient's decreased strength is subjective. NIH score was completed. Score reflects chronic deficits.) Neurologic Exam: alert, oriented x 3, cooperative, normal mood/affect, sensation nml, other (Visual weakness of the left upper and lower extremity. Patient also has residual weakness of left face due to a stroke 10 years ago.), No motor deficits Skin Exam: normal color, warm, dry, No rash Lymphatic Exam: No adenopathy SpO2 Interpretation: normal SpO2: 99 O2 Delivery: Room Air - Course Nursing assessment & vital signs reviewed: Yes EKG Interpreted by Me: RATE (54), Sinus Rhythm, Left [place] Deviation (Short OK interval) - CT Exams Head CT Interpretation: Tele-radiologist Report (Any nonacute senile brain with old bilateral lacunar infarct compared to 05/14/2020. No new findings.) Ordered Tests: Active Orders 24 hr Category Date Time Status EKG-ER Only STAT Care 03/11/21 21:31 Active IV Insertion STAT Care 03/11/21 21:31 Active Pulse Oximetry (ED) STAT Care 03/11/21 21:31 Active HEAD WITHOUT CONTRAST [CT] Stat Exams 03/11/21 21:22 Taken CBC W DIFF Stat Lab 03/11/21 21:31 Completed CMP Stat Lab 03/11/21 21:31 Completed CULTURE,URINE Stat Lab 03/11/21 21:44 Received MAGNESIUM Stat Lab 03/11/21 21:31 Completed TROPONIN Q3H Lab 03/11/21 21:45 Completed TROPONIN Q3H Lab 03/12/21 00:50 Received TROPONIN Q3H Lab 03/12/21 03:45 Ordered TROPONIN Q3H Lab 03/12/21 06:45 Ordered TROPONIN Q3H Lab 03/12/21 09:45 Ordered UA W/RFX UR CULTURE Stat Lab 03/11/21 21:44 Completed Transfer Order Routine Transfer 03/12/21 Ordered Medication Summary Generic Name Dose Route Start Last Admin Trade Name Freq PRN Reason Stop Dose Admin Sodium Chloride 1,000 mls @ 50 mls/hr 03/11/21 21:45 03/11/21 22:48 Sodium Chloride 0.9% 1000 Ml IV 04/10/21 21:44 50 mls/hr .Q20H NAZARIO Administration Discontinued Medications Generic Name Dose Route Start Last Admin Trade Name Freq PRN Reason Stop Dose Admin Aspirin 324 mg 03/11/21 23:06 03/12/21 00:00 Baby Aspirin 81 Mg Chew PO 03/11/21 23:07 324 mg STAT ONE Administration Nitrofurantoin Macrocrystals 100 mg 03/12/21 01:20 Macrobid 100mg Capsule PO 03/12/21 01:21 STAT ONE Lab/Rad Data: Laboratory Result Diagrams 03/11/21 21:31 03/11/21 21:31 Laboratory Results 03/11/21 03/11/21 03/11/21 Range/Units 23:44 21:45 21:44 WBC (4.0-10.5) K/mm3 RBC (4.1-5.4) M/mm3 Hgb (12.0-16.0) gm/dl Hct (35-47) % MCV (78-100) fl MCH (26-32) pg MCHC (32-36) g/dl RDW (11.5-14.0) % Plt Count (150-450) K/mm3 MPV (7.5-11.0) fl Gran % (36.0-66.0) % Eos # (Auto) (0-0.5) Absolute Lymphs (auto) (1.0-4.6) Absolute Monos (auto) (0.0-1.3) Lymphocytes % (24.0-44.0) % Monocytes % (0.0-12.0) % Eosinophils % (0.00-5.0) % Basophils % (0.0-0.4) % Absolute Granulocytes (1.4-6.9) Basophils # (0-0.4) Sodium (137-145) mmol/L Potassium (3.5-5.1) mmol/L Chloride (98-107) mmol/L Carbon Dioxide (22-30) mmol/L Anion Gap (5-15) MEQ/L BUN (7-17) mg/dL Creatinine (0.52-1.04) mg/dL Estimated GFR ML/MIN Glucose (74-106) mg/dL Calcium (8.4-10.2) mg/dL Magnesium (1.6-2.3) mg/dL Total Bilirubin (0.2-1.3) mg/dL AST (14-36) U/L ALT (0-35) U/L Alkaline Phosphatase (38-126) U/L Troponin I < 0.012 (0.000-0.034) ng/mL Serum Total Protein (6.3-8.2) g/dL Albumin (3.5-5.0) g/dL Urine Color YELLOW (YELLOW) Urine Appearance SLIGHTLY CLOUDY (CLEAR) Urine pH 5.0 (5-6) Ur Specific [place] 1.020 (1.005-1.025) Urine Protein 30 (Negative) Urine Ketones NEGATIVE (NEGATIVE) Urine Blood SMALL (0-5) [place]/ul Urine Nitrite NEGATIVE (NEGATIVE) Urine Bilirubin NEGATIVE (NEGATIVE) Urine Urobilinogen NEGATIVE (0-1) mg/dL Ur Leukocyte Esterase SMALL (NEGATIVE) Urine WBC (Auto) 16-25 (0-5) /HPF Urine RBC (Auto) 3-5 (0-2) /HPF U Epithel Cells (Auto) FEW (FEW) /HPF Urine Bacteria (Auto) RARE (NEGATIVE) /HPF Urine Culture Reflexed YES (NO) Urine Glucose >=500 (NEGATIVE) mg/dL SARS-CoV-2 (PCR) NEGATIVE (NEGATIVE) 03/11/21 03/11/21 Range/Units 21:31 21:31 WBC 7.1 (4.0-10.5) K/mm3 RBC 3.38 L (4.1-5.4) M/mm3 Hgb 10.4 L (12.0-16.0) gm/dl Hct 31.5 L (35-47) % MCV 93.2 (78-100) fl MCH 30.8 (26-32) pg MCHC 33.0 (32-36) g/dl RDW 16.0 H (11.5-14.0) % Plt Count 250 (150-450) K/mm3 MPV 10.5 (7.5-11.0) fl Gran % 55.4 (36.0-66.0) % Eos # (Auto) 0.19 (0-0.5) Absolute Lymphs (auto) 2.34 (1.0-4.6) Absolute Monos (auto) 0.60 (0.0-1.3) Lymphocytes % 32.9 (24.0-44.0) % Monocytes % 8.4 (0.0-12.0) % Eosinophils % 2.7 (0.00-5.0) % Basophils % 0.6 (0.0-0.4) % Absolute Granulocytes 3.95 (1.4-6.9) Basophils # 0.04 (0-0.4) Sodium 143 (137-145) mmol/L Potassium 4.1 (3.5-5.1) mmol/L Chloride 107 (98-107) mmol/L Carbon Dioxide 25 (22-30) mmol/L Anion Gap 15.0 (5-15) MEQ/L BUN 26 H (7-17) mg/dL Creatinine 1.47 H (0.52-1.04) mg/dL Estimated GFR 37.3 ML/MIN Glucose 173 H (74-106) mg/dL Calcium 9.8 (8.4-10.2) mg/dL Magnesium 2.1 (1.6-2.3) mg/dL Total Bilirubin 0.20 (0.2-1.3) mg/dL AST 27 (14-36) U/L ALT 5 (0-35) U/L Alkaline Phosphatase 125 (38-126) U/L Troponin I (0.000-0.034) ng/mL Serum Total Protein 7.6 (6.3-8.2) g/dL Albumin 4.3 (3.5-5.0) g/dL Urine Color (YELLOW) Urine Appearance (CLEAR) Urine pH (5-6) Ur Specific [place] (1.005-1.025) Urine Protein (Negative) Urine Ketones (NEGATIVE) Urine Blood (0-5) [place]/ul Urine Nitrite (NEGATIVE) Urine Bilirubin (NEGATIVE) Urine Urobilinogen (0-1) mg/dL Ur Leukocyte Esterase (NEGATIVE) Urine WBC (Auto) (0-5) /HPF Urine RBC (Auto) (0-2) /HPF U Epithel Cells (Auto) (FEW) /HPF Urine Bacteria (Auto) (NEGATIVE) /HPF Urine Culture Reflexed (NO) Urine Glucose (NEGATIVE) mg/dL SARS-CoV-2 (PCR) (NEGATIVE) - Progress Progress: improved Progress Note: Taylor with Dr. Brooks who accepts admission to observation. No indication for telemetry neuro consult at this time. Patient is outside of therapeutic window for TPA. Plan of care discussed with patient. She agrees to admission [facility] for further evaluation and treatment. 03/12/21 01:23 Discussed with : Indra Will see patient in: hospital (observation) Counseled pt/family regarding: lab results, diagnosis, rad results - Departure Departure Disposition: Observation Clinical Impression: Fall, Weakness, Bradycardia, Normocytic anemia, Acute renal injury, UTI (urinary tract infection) Condition: Stable Critical Care Time: No
[2021-03-11] MEDS: Sodium Chloride 0.9% 1000 ML 1,000 ML IV SCH (22:48)
[2021-03-11] MEDS ORDERED: BABY ASPIRIN 81 MG CHEW PO ONE (23:06)
[2021-03-12] MEDS ORDERED: Macrobid 100MG Capsule PO ONE (01:20)
[2021-03-12] MEDS ORDERED: Macrobid 100MG Capsule ONE (01:26)
[2021-03-12] MEDS ORDERED: Zofran 4 MG/2 ML VIAL IV PRN (01:28)
[2021-03-12] MEDS ORDERED: MAALOX ES 30 ML UNIT DOSE PO PRN (01:28)
[2021-03-12] MEDS ORDERED: Senokot-S Tablet PO PRN (01:28)
[2021-03-12] MEDS ORDERED: MILK OF MAGNESIA 30 ML PO PRN (01:28)
[2021-03-12 05:09] LABS: Risk Ratio 4.4
[2021-03-12] MEDS: ROCEPHIN 1 Gm-D5w 50 ml Bag** 1 G/50 ML IVPB IV SCH ×2 (08:25→10:37)
--- NOTE | 2021-03-12 08:42 | XRAY ---
Exam: CT of the head without IV contrast from 03/11/2021. CTDI: 53.[address] of the head without IV contrast from 07/04/2019. Indication: 70-year-old female with left side body weakness; history history of Parkinson's disease. Stroke protocol. Technique: Non-IV contrast axial images were obtained through the brain without IV contrast material. Reconstructed coronal and sagittal images were created and reviewed. Findings: The ventricles appear of normal size. No acute intracranial bleed or abnormal extra-axial fluid collection is seen. No focal mass effect or midline shift is seen. There appear to be several old bilateral lacunar infarcts. 2 are within the lateral basal ganglia on the right on axial image #32 and #33. There is another apparent tiny lacunar infarct at the posterior margin of the lateral right basal ganglia on image #31. On the left side, I note subtle lacunar infarcts within the posterior limb of the internal capsule on axial image #32 and #33. There appears to be a tiny lacunar infarct within the inferior aspect of the lateral left basal ganglia on axial image #29. I believe these findings are not significantly changed from 07/04/2019. In addition, there is moderate patchy bilateral periventricular and subcortical white matter changes, likely due to chronic small vessel ischemic disease. No new low attenuation infarct is seen within a major cerebral or cerebellar artery distribution. The cortical sulci and basilar cisterns appear unremarkable. The calvarium of the skull appears intact. The visualized paranasal sinuses reveal scant mucosal thickening at the inferior margin of the left maxillary sinus. No air-fluid levels are seen. The mastoid air cells are clear without effusion. The orbits appear grossly unremarkable. Impression: 1. No acute intracranial bleed, focal mass effect, or midline shift is seen. 2. Moderate bilateral periventricular and subcortical white matter changes suggestive of chronic small vessel ischemic disease, no change. I also note several small lacunar infarcts bilaterally, as discussed above. I don't believe this represents a significant interval change from 07/04/2019. A low attenuation infarct within any major cerebral or cerebellar artery distribution is not seen.
[2021-03-12] MEDS ORDERED: Ditropan 5 MG PO SCH (10:00)
[2021-03-12] MEDS ORDERED: DIOVAN 80 MG PO SCH (10:00)
[2021-03-12] MEDS ORDERED: ACARBOSE 25 MG PO SCH (10:00)
[2021-03-12] MEDS ORDERED: NON-FORMULARY ITEM (Pravastatin Sodium [Pravachol] 40 MG) PO SCH (10:00)
[2021-03-12] MEDS ORDERED: MEDICATION INTERVENTION PO SCH (10:15)
[2021-03-12] MEDS: ZYLOPRIM 100 MG PO SCH ×2 (10:26→20:47)
[2021-03-12] MEDS: Ecotrin 325 MG PO SCH (10:26)
[2021-03-12] MEDS: Lopressor 50 MG PO SCH ×2 (10:27→20:47)
[2021-03-12] MEDS: Ditropan XL 5 MG PO SCH (10:28)
[2021-03-12] MEDS: PLAVIX 75 MG Tablet PO SCH (10:28)
[2021-03-12] MEDS: Klor Con 10 MEQ PO SCH (10:28)
[2021-03-12] MEDS: LOPID 600 MG PO SCH (10:29)
[2021-03-12] MEDS: Sinemet 25/250 MG PO SCH ×2 (10:29→16:35)
[2021-03-12] MEDS: HUMALOG SQ PRN (17:29)
--- NOTE | 2021-03-12 19:13 | PCM.HP ---
History of Present Illness - Chief Complaint Chief Complaint: weakness Date: 03/12/21 (Late entry from 03/12/21 at 0830) History of Present Illness: is a 70 year old female pt of mine from [facility] with Parkinson's dz and DM II, hx CVA > 10 yrs prior, and CAD, who was admitted through ER with CVA. CT of the head was nonacute. No teleneurology consult was needed. Two days ago pt had been feeding her dogs (at 10 am) and she lost her balance and fell over - she denies syncope or head injury. She noticed increased facial droop, difficulty speaking, numbness of the dorsal L foot, and difficulty walking d/t L sided weakness since that time. The next day at 7 pm she presented to ER due to worsening symptoms. Her troponins have been neg so far (x3). Pt still notes weakness on the L and increased difficulty speaking. - Review of Systems Ears, Nose, & Throat: Nose Congestion Genitourinary Symptoms: Dysuria All Other Systems: Reviewed and Negative Medications & Allergies Home Medications: Home Medication List Oxybutynin Chloride 10 mg Xl [Ditropan Xl 10 MG] 10 mg PO DAILY 06/02/16 [History Confirmed 03/12/21] Valsartan [Diovan] 160 mg PO DAILY 07/30/16 [History Confirmed 03/12/21] Allopurinol 100 mg [Zyloprim 100 mg] 100 mg PO BID 07/05/18 [History Confirmed 03/12/21] Carbidopa/Levodopa [Carbidopa-Levodopa 25-250 Tab] 1 tablet PO BID 11/08/19 [History Confirmed 03/12/21] Ergocalciferol (Vitamin D2) [Vitamin D] 1.25 mg PO UD 05/14/20 [History Confirmed 03/12/21] Acarbose [Precose] 25 mg PO TID 11/11/20 [History Confirmed 03/12/21] Clopidogrel Bisulfate 75 mg [PLAVIX 75 MG Tablet] 75 mg PO DAILY 11/11/20 [History Confirmed 03/12/21] Metoprolol Tartrate [Lopressor] 50 mg PO BID 11/11/20 [History Confirmed 03/12/21] Potassium Chloride 10 Meq Tab* [Klor Con 10 MEQ] 10 meq PO DAILY 11/11/20 [History Confirmed 03/12/21] Pravastatin Sodium [Pravachol] 40 mg PO DAILY 11/11/20 [History Confirmed ] Dapagliflozin Propanediol [Farxiga] 5 mg PO BID 03/12/21 [History Confirmed 03/12/21] Gemfibrozil 600 mg [Lopid 600 mg] 600 mg PO DAILY 03/12/21 [History Confirmed 03/12/21] Glipizide 20 mg PO DAILY 03/12/21 [History Confirmed 03/12/21] Allergies/Adverse Reactions: Allergies Allergy/AdvReac Type Severity Reaction Status Date / Time Penicillins Allergy Severe Vomiting Verified 03/11/21 21:45 iodine AdvReac Rash Verified 03/11/21 21:45 - Past Medical History Past Medical History: Yes Neurological History: Migraines, Stroke, TIA ENT History: No Pertinent History Cardiac History: Coronary Artery Disease, High Cholesterol, Hypertension, Myocardial Infarction ([place]) Respiratory History: COPD, Sleep Apnea Endocrine Medical History: Diabetes Type II Musculoskelatal History: No Pertinent History GI Medical History: Gallbladder Disease, Polyps, Ulcer History: Renal Disease, Other Pyscho-Social History: No Pertinent History Reproductive Disorders: Other Comment: Parkinson's Disease - Female History Hx Last Menstrual Period: POST Are you now?: No - Past Surgical History Past Surgical History: Yes Neuro Surgical History: No Pertinent History Cardiac History: Cardiac Catheterization, Cardiac Stent Respiratory Surgery: No Pertinent History GI Surgical History: Cholecystectomy Genitourinary Surgical Hx: No Pertinent History Musculskeletal Surgical Hx: No Pertinent History Female Surgical History: Hysterectomy Other Surgical History: 7 HEART STENTS TOTAL ,colonoscopy and egd in past - Social History Smoking Status: Never smoker Exposure to second hand smoke: No Alcohol: None Drug Use: none Significant Family History: no pertinent family hx - Physical Exam Vital Signs: Vital Signs - 24 hr Temp Pulse Resp BP Pulse Ox 03/12/21 16:00 97.6 F 63 16 153/64 95 03/12/21 15:00 96 03/12/21 11:49 98.1 F 53 L 16 132/63 98 03/12/21 11:36 96 03/12/21 08:00 98.5 F 54 L 16 141/70 96 03/12/21 04:00 97.2 F 54 L 18 169/73 96 03/12/21 01:48 97.3 F 53 L 18 187/74 98 03/12/21 01:47 97.3 F 53 L 187/74 98 03/12/21 01:46 97.3 F 53 L 187/74 98 03/12/21 01:42 97.3 F 53 L 18 187/74 98 03/12/21 01:25 99 03/12/21 00:00 56 L 18 193/66 100 03/11/21 23:00 53 L 18 188/99 96 03/11/21 22:00 55 L 16 180/71 99 03/11/21 21:42 51 L 16 198/74 99 03/11/21 21:31 100 03/11/21 20:42 98.3 F 54 L 18 196/74 100 General Appearance: no apparent distress, alert Neurologic Exam: oriented x 3, cooperative, normal mood/affect, facial droop (on L), abnormal lipcoat sprayer II-XII (CN VII decreased on L.), 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 Dorsiflexion and plantar flexion 4/5 on L, 5/5 on R. Decreased sensation to light touch on LLE.) Results - Labs Lab/Micro Results: Lab Results-Last 24 Hours 03/11/21 03/11/21 03/11/21 Range/Units 21:31 21:31 21:44 WBC 7.1 (4.0-10.5) K/mm3 RBC 3.38 L (4.1-5.4) M/mm3 Hgb 10.4 L (12.0-16.0) gm/dl Hct 31.5 L (35-47) % MCV 93.2 (78-100) fl MCH 30.8 (26-32) pg MCHC 33.0 (32-36) g/dl RDW 16.0 H (11.5-14.0) % Plt Count 250 (150-450) K/mm3 MPV 10.5 (7.5-11.0) fl Gran % 55.4 (36.0-66.0) % Eos # (Auto) 0.19 (0-0.5) Absolute Lymphs (auto) 2.34 (1.0-4.6) Absolute Monos (auto) 0.60 (0.0-1.3) Lymphocytes % 32.9 (24.0-44.0) % Monocytes % 8.4 (0.0-12.0) % Eosinophils % 2.7 (0.00-5.0) % Basophils % 0.6 (0.0-0.4) % Absolute Granulocytes 3.95 (1.4-6.9) Basophils # 0.04 (0-0.4) Sodium 143 (137-145) mmol/L Potassium 4.1 (3.5-5.1) mmol/L Chloride 107 (98-107) mmol/L Carbon Dioxide 25 (22-30) mmol/L Anion Gap 15.0 (5-15) MEQ/L BUN 26 H (7-17) mg/dL Creatinine 1.47 H (0.52-1.04) mg/dL Estimated GFR 37.3 ML/MIN Glucose 173 H (74-106) mg/dL POC Glucometer (74 to 106) mg/dL Hemoglobin A1c (4.5-6.0) % Calcium 9.8 (8.4-10.2) mg/dL Magnesium 2.1 (1.6-2.3) mg/dL Total Bilirubin 0.20 (0.2-1.3) mg/dL AST 27 (14-36) U/L ALT 5 (0-35) U/L Alkaline Phosphatase 125 (38-126) U/L Troponin I (0.000-0.034) ng/mL Serum Total Protein 7.6 (6.3-8.2) g/dL Albumin 4.3 (3.5-5.0) g/dL Triglycerides (30-150) mg/dL Cholesterol (50-200) mg/dL LDL Cholesterol (30-100) mg/dL HDL Cholesterol (40-60) mg/dL Heart Disease Risk Ratio Urine Color YELLOW (YELLOW) Urine Appearance SLIGHTLY CLOUDY (CLEAR) Urine pH 5.0 (5-6) Ur Specific [place] 1.020 (1.005-1.025) Urine Protein 30 (Negative) Urine Ketones NEGATIVE (NEGATIVE) Urine Blood SMALL (0-5) [place]/ul Urine Nitrite NEGATIVE (NEGATIVE) Urine Bilirubin NEGATIVE (NEGATIVE) Urine Urobilinogen NEGATIVE (0-1) mg/dL Ur Leukocyte Esterase SMALL (NEGATIVE) Urine WBC (Auto) 16-25 (0-5) /HPF Urine RBC (Auto) 3-5 (0-2) /HPF U Epithel Cells (Auto) FEW (FEW) /HPF Urine Bacteria (Auto) RARE (NEGATIVE) /HPF Urine Culture Reflexed YES (NO) Urine Glucose >=500 (NEGATIVE) mg/dL SARS-CoV-2 (PCR) (NEGATIVE) 03/11/21 03/11/21 03/12/21 Range/Units 21:45 23:44 00:50 WBC (4.0-10.5) K/mm3 RBC (4.1-5.4) M/mm3 Hgb (12.0-16.0) gm/dl Hct (35-47) % MCV (78-100) fl MCH (26-32) pg MCHC (32-36) g/dl RDW (11.5-14.0) % Plt Count (150-450) K/mm3 MPV (7.5-11.0) fl Gran % (36.0-66.0) % Eos # (Auto) (0-0.5) Absolute Lymphs (auto) (1.0-4.6) Absolute Monos (auto) (0.0-1.3) Lymphocytes % (24.0-44.0) % Monocytes % (0.0-12.0) % Eosinophils % (0.00-5.0) % Basophils % (0.0-0.4) % Absolute Granulocytes (1.4-6.9) Basophils # (0-0.4) Sodium (137-145) mmol/L Potassium (3.5-5.1) mmol/L Chloride (98-107) mmol/L Carbon Dioxide (22-30) mmol/L Anion Gap (5-15) MEQ/L BUN (7-17) mg/dL Creatinine (0.52-1.04) mg/dL Estimated GFR ML/MIN Glucose (74-106) mg/dL POC Glucometer (74 to 106) mg/dL Hemoglobin A1c (4.5-6.0) % Calcium (8.4-10.2) mg/dL Magnesium (1.6-2.3) mg/dL Total Bilirubin (0.2-1.3) mg/dL AST (14-36) U/L ALT (0-35) U/L Alkaline Phosphatase (38-126) U/L Troponin I < 0.012 < 0.012 (0.000-0.034) ng/mL Serum Total Protein (6.3-8.2) g/dL Albumin (3.5-5.0) g/dL Triglycerides (30-150) mg/dL Cholesterol (50-200) mg/dL LDL Cholesterol (30-100) mg/dL HDL Cholesterol (40-60) mg/dL Heart Disease Risk Ratio Urine Color (YELLOW) Urine Appearance (CLEAR) Urine pH (5-6) Ur Specific [place] (1.005-1.025) Urine Protein (Negative) Urine Ketones (NEGATIVE) Urine Blood (0-5) [place]/ul Urine Nitrite (NEGATIVE) Urine Bilirubin (NEGATIVE) Urine Urobilinogen (0-1) mg/dL Ur Leukocyte Esterase (NEGATIVE) Urine WBC (Auto) (0-5) /HPF Urine RBC (Auto) (0-2) /HPF U Epithel Cells (Auto) (FEW) /HPF Urine Bacteria (Auto) (NEGATIVE) /HPF Urine Culture Reflexed (NO) Urine Glucose (NEGATIVE) mg/dL SARS-CoV-2 (PCR) NEGATIVE (NEGATIVE) 03/12/21 03/12/21 03/12/21 Range/Units 04:40 04:40 04:40 WBC (4.0-10.5) K/mm3 RBC (4.1-5.4) M/mm3 Hgb (12.0-16.0) gm/dl Hct (35-47) % MCV (78-100) fl MCH (26-32) pg MCHC (32-36) g/dl RDW (11.5-14.0) % Plt Count (150-450) K/mm3 MPV (7.5-11.0) fl Gran % (36.0-66.0) % Eos # (Auto) (0-0.5) Absolute Lymphs (auto) (1.0-4.6) Absolute Monos (auto) (0.0-1.3) Lymphocytes % (24.0-44.0) % Monocytes % (0.0-12.0) % Eosinophils % (0.00-5.0) % Basophils % (0.0-0.4) % Absolute Granulocytes (1.4-6.9) Basophils # (0-0.4) Sodium (137-145) mmol/L Potassium (3.5-5.1) mmol/L Chloride (98-107) mmol/L Carbon Dioxide (22-30) mmol/L Anion Gap (5-15) MEQ/L BUN (7-17) mg/dL Creatinine (0.52-1.04) mg/dL Estimated GFR ML/MIN Glucose (74-106) mg/dL POC Glucometer (74 to 106) mg/dL Hemoglobin A1c 7.63 H (4.5-6.0) % Calcium (8.4-10.2) mg/dL Magnesium (1.6-2.3) mg/dL Total Bilirubin (0.2-1.3) mg/dL AST (14-36) U/L ALT (0-35) U/L Alkaline Phosphatase (38-126) U/L Troponin I < 0.012 (0.000-0.034) ng/mL Serum Total Protein (6.3-8.2) g/dL Albumin (3.5-5.0) g/dL Triglycerides 143 (30-150) mg/dL Cholesterol 175 (50-200) mg/dL LDL Cholesterol 93 (30-100) mg/dL HDL Cholesterol 40 (40-60) mg/dL Heart Disease Risk Ratio 4.4 Urine Color (YELLOW) Urine Appearance (CLEAR) Urine pH (5-6) Ur Specific [place] (1.005-1.025) Urine Protein (Negative) Urine Ketones (NEGATIVE) Urine Blood (0-5) [place]/ul Urine Nitrite (NEGATIVE) Urine Bilirubin (NEGATIVE) Urine Urobilinogen (0-1) mg/dL Ur Leukocyte Esterase (NEGATIVE) Urine WBC (Auto) (0-5) /HPF Urine RBC (Auto) (0-2) /HPF U Epithel Cells (Auto) (FEW) /HPF Urine Bacteria (Auto) (NEGATIVE) /HPF Urine Culture Reflexed (NO) Urine Glucose (NEGATIVE) mg/dL SARS-CoV-2 (PCR) (NEGATIVE) 03/12/21 03/12/21 03/12/21 Range/Units 06:55 07:48 10:35 WBC (4.0-10.5) K/mm3 RBC (4.1-5.4) M/mm3 Hgb (12.0-16.0) gm/dl Hct (35-47) % MCV (78-100) fl MCH (26-32) pg MCHC (32-36) g/dl RDW (11.5-14.0) % Plt Count (150-450) K/mm3 MPV (7.5-11.0) fl Gran % (36.0-66.0) % Eos # (Auto) (0-0.5) Absolute Lymphs (auto) (1.0-4.6) Absolute Monos (auto) (0.0-1.3) Lymphocytes % (24.0-44.0) % Monocytes % (0.0-12.0) % Eosinophils % (0.00-5.0) % Basophils % (0.0-0.4) % Absolute Granulocytes (1.4-6.9) Basophils # (0-0.4) Sodium (137-145) mmol/L Potassium (3.5-5.1) mmol/L Chloride (98-107) mmol/L Carbon Dioxide (22-30) mmol/L Anion Gap (5-15) MEQ/L BUN (7-17) mg/dL Creatinine (0.52-1.04) mg/dL Estimated GFR ML/MIN Glucose (74-106) mg/dL POC Glucometer 62 L (74 to 106) mg/dL Hemoglobin A1c (4.5-6.0) % Calcium (8.4-10.2) mg/dL Magnesium (1.6-2.3) mg/dL Total Bilirubin (0.2-1.3) mg/dL AST (14-36) U/L ALT (0-35) U/L Alkaline Phosphatase (38-126) U/L Troponin I < 0.012 < 0.012 (0.000-0.034) ng/mL Serum Total Protein (6.3-8.2) g/dL Albumin (3.5-5.0) g/dL Triglycerides (30-150) mg/dL Cholesterol (50-200) mg/dL LDL Cholesterol (30-100) mg/dL HDL Cholesterol (40-60) mg/dL Heart Disease Risk Ratio Urine Color (YELLOW) Urine Appearance (CLEAR) Urine pH (5-6) Ur Specific [place] (1.005-1.025) Urine Protein (Negative) Urine Ketones (NEGATIVE) Urine Blood (0-5) [place]/ul Urine Nitrite (NEGATIVE) Urine Bilirubin (NEGATIVE) Urine Urobilinogen (0-1) mg/dL Ur Leukocyte Esterase (NEGATIVE) Urine WBC (Auto) (0-5) /HPF Urine RBC (Auto) (0-2) /HPF U Epithel Cells (Auto) (FEW) /HPF Urine Bacteria (Auto) (NEGATIVE) /HPF Urine Culture Reflexed (NO) Urine Glucose (NEGATIVE) mg/dL SARS-CoV-2 (PCR) (NEGATIVE) 03/12/21 03/12/21 Range/Units 11:26 16:37 WBC (4.0-10.5) K/mm3 RBC (4.1-5.4) M/mm3 Hgb (12.0-16.0) gm/dl Hct (35-47) % MCV (78-100) fl MCH (26-32) pg MCHC (32-36) g/dl RDW (11.5-14.0) % Plt Count (150-450) K/mm3 MPV (7.5-11.0) fl Gran % (36.0-66.0) % Eos # (Auto) (0-0.5) Absolute Lymphs (auto) (1.0-4.6) Absolute Monos (auto) (0.0-1.3) Lymphocytes % (24.0-44.0) % Monocytes % (0.0-12.0) % Eosinophils % (0.00-5.0) % Basophils % (0.0-0.4) % Absolute Granulocytes (1.4-6.9) Basophils # (0-0.4) Sodium (137-145) mmol/L Potassium (3.5-5.1) mmol/L Chloride (98-107) mmol/L Carbon Dioxide (22-30) mmol/L Anion Gap (5-15) MEQ/L BUN (7-17) mg/dL Creatinine (0.52-1.04) mg/dL Estimated GFR ML/MIN Glucose (74-106) mg/dL POC Glucometer 127 H 230 H (74 to 106) mg/dL Hemoglobin A1c (4.5-6.0) % Calcium (8.4-10.2) mg/dL Magnesium (1.6-2.3) mg/dL Total Bilirubin (0.2-1.3) mg/dL AST (14-36) U/L ALT (0-35) U/L Alkaline Phosphatase (38-126) U/L Troponin I (0.000-0.034) ng/mL Serum Total Protein (6.3-8.2) g/dL Albumin (3.5-5.0) g/dL Triglycerides (30-150) mg/dL Cholesterol (50-200) mg/dL LDL Cholesterol (30-100) mg/dL HDL Cholesterol (40-60) mg/dL Heart Disease Risk Ratio Urine Color (YELLOW) Urine Appearance (CLEAR) Urine pH (5-6) Ur Specific [place] (1.005-1.025) Urine Protein (Negative) Urine Ketones (NEGATIVE) Urine Blood (0-5) [place]/ul Urine Nitrite (NEGATIVE) Urine Bilirubin (NEGATIVE) Urine Urobilinogen (0-1) mg/dL Ur Leukocyte Esterase (NEGATIVE) Urine WBC (Auto) (0-5) /HPF Urine RBC (Auto) (0-2) /HPF U Epithel Cells (Auto) (FEW) /HPF Urine Bacteria (Auto) (NEGATIVE) /HPF Urine Culture Reflexed (NO) Urine Glucose (NEGATIVE) mg/dL SARS-CoV-2 (PCR) (NEGATIVE) Accuchecks Date 03/12/21 Date 03/12/21 Time 11:48 Time 08:08 - Radiology Impressions Radiology Exams & Impressions: Radiology Procedures Category Date Time Status HEAD WITHOUT CONTRAST [CT] Stat Exams 03/11/21 21:22 Completed MRI BRAIN W/O CONTRAST [MRI] Routine Exams 03/12/21 08:54 Taken - Other Procedures and Tests Respiratory Therapy 03/13/21 05:00 EKG ROUTINE 03/14/21 05:00 EKG ROUTINE 03/15/21 05:00 EKG ROUTINE Assessment/Plan (1) CVA (cerebral vascular accident) Current Visit: Yes Status: Acute Qualifiers: CVA mechanism: unspecified Qualified Code(s): I63.9 - Cerebral infarction, unspecified Assessment & Plan: MRI today. Pt presented too late for TPA. Code(s): I63.9 - CEREBRAL INFARCTION, UNSPECIFIED (2) UTI (urinary tract infection) Current Visit: Yes Status: Acute Qualifiers: Urinary tract infection type: acute cystitis Hematuria presence: without hematuria Qualified Code(s): N30.00 - Acute cystitis without hematuria Assessment & Plan: Given 1 dose of macrobid in ER, then I started her on rocephin IV. UCx pending. Code(s): N39.0 - URINARY TRACT INFECTION, SITE NOT SPECIFIED (3) Acute renal injury Current Visit: Yes Status: Acute Assessment & Plan: eGFR 37.3, but is usually mid 40s-mid50s. Pt notes she was drinking less than usually for the past 2d, as she could not carry a glass of water. Code(s): N17.9 - ACUTE KIDNEY FAILURE, UNSPECIFIED (4) Fall Current Visit: Yes Status: Acute Qualifiers: Encounter type: initial encounter Qualified Code(s): W19.XXXA - Unspecified fall, initial encounter Code(s): W19.XXXA - UNSPECIFIED FALL, INITIAL ENCOUNTER (5) Chronic renal insufficiency Current Visit: No Status: Chronic Qualifiers: Chronic kidney disease stage: unspecified stage Qualified Code(s): N18.9 - Chronic kidney disease, unspecified Code(s): N18.9 - CHRONIC KIDNEY DISEASE, UNSPECIFIED (6) Diabetes Current Visit: No Status: Chronic Qualifiers: Diabetes mellitus type: type 2 Diabetes mellitus assisted insulin use: with terminal operations manager use Diabetes mellitus complication status: with kidney complications Diabetes mellitus complication detail: with chronic kidney disease Code(s): E11.9 - TYPE 2 DIABETES MELLITUS WITHOUT COMPLICATIONS (7) Hypertension Current Visit: No Status: Chronic Qualifiers: Hypertension type: primary hypertension Qualified Code(s): I10 - Essential (primary) hypertension Code(s): I10 - ESSENTIAL (PRIMARY) HYPERTENSION (8) Parkinson disease Current Visit: No Status: Chronic Code(s): G20 - PARKINSON'S DISEASE
[2021-03-12] MEDS: TYLENOL 325 MG PO PRN ×2 (19:29→23:52)
[2021-03-12] MEDS: Sodium Chloride 0.9% 1000 ML 1,000 ML IV SCH (20:48)
--- NOTE | 2021-03-12 21:58 | XRAY ---
Exam: MRI of the brain without IV contrast from 03/12/2021. Comparison: CT of the head without IV contrast from 03/11/2021 and MRI of the brain without IV contrast from 05/15/2020. Indication: 70-year-old female with stroke-like symptoms with left-sided body weakness for 3 days. Technique: Multiplanar, multisequence MRI imaging of the brain was obtained without IV contrast, per protocol. Findings: The diffusion weighted images reveal 2 new foci of restricted diffusion. One focus of restricted diffusion is seen within the anterior medial aspect of the brainstem just to the right of midline, probably within the tiny. This is consistent with an acute or subacute brainstem infarct. In addition, there is a second smaller focus of restricted diffusion within the posterior medial aspect of the upper right frontal lobe. This is consistent with a second focus of acute or subacute infarct. Both of these areas of restricted diffusion are new from 05/15/2020. I also note multiple scattered foci of increased signal intensity on the T2 FLAIR images within the periventricular and subcortical white matter of the upper cerebral convexities, likely due to chronic small vessel ischemic disease. I also note some scattered decreased signal intensities within the lateral basal ganglia bilaterally, right greater than left. Some of this may be due to prominent subarachnoid spaces (i.e. Virchow-Michael spaces). The ventricles appear of normal size. No focal mass effect or midline shift is seen. No acute intracranial hemorrhage or abnormal extra-axial fluid collection is seen. There is mild prominence of the cortical sulci. The visualized sinuses, mastoids, and orbits appear unremarkable. The seventh and eighth cranial nerve complexes appear unremarkable. Flow voids about the [place] reveal no significant abnormality. Impression: 1. There are 2 new focal sites of restricted diffusion on the diffusion-weighted images. One is seen at the anterior medial aspect of the brainstem just to the right of midline, probably within the tiny. The other is seen within the upper right frontal lobe posterior medially. These are consistent with acute or subacute infarcts. 2. Fairly extensive bilateral periventricular and subcortical white matter foci of increased signal intensity are seen on the T2 FLAIR images representing no significant change from 05/15/2020. This is believed to do due to chronic small vessel ischemic disease, as well as perhaps some remote lacunar infarcts. I believe there are some prominent perivascular spaces within both lateral basal ganglia. 3. No other acute intracranial process is seen.
[2021-03-12] MEDS: APRESOLINE 20 MG/ML INJ IV PRN (23:31)
[2021-03-13] MEDS: TYLENOL 325 MG PO PRN ×3 (04:46→22:04)
[2021-03-13 05:13] LABS: Hematocrit 33.3 % (35-47); Hemoglobin 10.8 gm/dl (12.0-16.0); Mean Cell Volume 93.8 fl (78-100); Mean Corpuscular Hemoglobin 30.4 pg (26-32); Mean Corpuscular Hgb Concent. 32.4 g/dl (32-36); Mean Platelet Volume 10.8 fl (7.5-11.0); Platelet Count 279 K/mm3 (150-450); Red Blood Count 3.55 M/mm3 (4.1-5.4); White Blood Count 9.1 K/mm3 (4.0-10.5)
[2021-03-13 05:36] LABS: ANION GAP 17.7 MEQ/L (5-15); Calcium 9.6 mg/dL (8.4-10.2); Creatinine 1 1.49 mg/dL (0.52-1.04); EST GLOMERULAR FILTRATION RATE 36.8 ML/MIN; Potassium 3.7 mmol/L (3.5-5.1)
[2021-03-13] MEDS ORDERED: Sodium Chloride 0.9% 500 ML 500 ML IV ONE (08:16)
[2021-03-13] MEDS: Sinemet 25/250 MG PO SCH ×2 (08:30→15:38)
--- NOTE | 2021-03-13 09:03 | PCM.NOTE ---
Date and Time: 03/13/21857 Subjective Assessment: Pt states she is doing worse today. Her speech is harder to understand and she has increased weakness in the L hand. Tolerating po. Says ST evaluated her yesterday (no report seen in EMR). C/o R shoulder pain. 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 Slight increase to L facial droop.) Skin Exam: normal color, warm, dry, No rash Respiratory Exam: normal breath sounds, lungs clear, No crackles/rales, No rhonchi, No wheezing Cardiovascular Exam: regular rate/rhythm, normal heart sounds, No murmur Gastrointestinal/Abdomen Exam: soft, normal bowel sounds, No tenderness, No distention, No mass, No guarding, No rebound Extremity Exam: normal inspection, No pedal edema, No swelling Back Exam: normal inspection, No rash OBJECTIVE DATA Vital Signs: Vital Signs - 24 hr Temp Pulse Resp BP Pulse Ox 03/13/21 08:00 98.3 F 54 L 16 169/65 95 03/13/21 04:00 98.9 F 69 20 130/60 97 03/13/21 00:29 66 147/66 98 03/13/21 00:00 97 03/12/21 23:48 97.8 F 65 18 184/76 97 03/12/21 20:49 65 16 180/72 03/12/21 20:00 97.9 F 69 18 197/76 98 03/12/21 19:00 98 03/12/21 16:00 97.6 F 63 16 153/64 95 03/12/21 15:00 96 03/12/21 11:49 98.1 F 53 L 16 132/63 98 03/12/21 11:36 96 Pain Assessment - Last Documented Pain Intensity 2 Pain Scale Used 0-10 Pain Scale Intake and Output: Intake & Output 03/10/21 03/11/21 03/12/21 03/13/21 11:59 11:59 11:59 11:59 Intake Total 353 1483 Output Total 600 2000 Balance -247 -517 Weight 69.5 kg Lab Results: Lab Results-Last 24 Hours 03/12/21 03/12/21 03/12/21 Range/Units 04:40 10:35 11:26 WBC (4.0-10.5) K/mm3 RBC (4.1-5.4) M/mm3 Hgb (12.0-16.0) gm/dl Hct (35-47) % MCV (78-100) fl MCH (26-32) pg MCHC (32-36) g/dl RDW (11.5-14.0) % Plt Count (150-450) K/mm3 MPV (7.5-11.0) fl Sodium (137-145) mmol/L Potassium (3.5-5.1) mmol/L Chloride (98-107) mmol/L Carbon Dioxide (22-30) mmol/L Anion Gap (5-15) MEQ/L BUN (7-17) mg/dL Creatinine (0.52-1.04) mg/dL Estimated GFR ML/MIN Glucose (74-106) mg/dL POC Glucometer 127 H (74 to 106) mg/dL Hemoglobin A1c 7.63 H (4.5-6.0) % Calcium (8.4-10.2) mg/dL Troponin I < 0.012 (0.000-0.034) ng/mL 03/12/21 03/12/21 03/13/21 Range/Units 16:37 21:07 04:25 WBC 9.1 (4.0-10.5) K/mm3 RBC 3.55 L (4.1-5.4) M/mm3 Hgb 10.8 L (12.0-16.0) gm/dl Hct 33.3 L (35-47) % MCV 93.8 (78-100) fl MCH 30.4 (26-32) pg MCHC 32.4 (32-36) g/dl RDW 16.0 H (11.5-14.0) % Plt Count 279 (150-450) K/mm3 MPV 10.8 (7.5-11.0) fl Sodium (137-145) mmol/L Potassium (3.5-5.1) mmol/L Chloride (98-107) mmol/L Carbon Dioxide (22-30) mmol/L Anion Gap (5-15) MEQ/L BUN (7-17) mg/dL Creatinine (0.52-1.04) mg/dL Estimated GFR ML/MIN Glucose (74-106) mg/dL POC Glucometer 230 H 167 H (74 to 106) mg/dL Hemoglobin A1c (4.5-6.0) % Calcium (8.4-10.2) mg/dL Troponin I (0.000-0.034) ng/mL 03/13/21 03/13/21 Range/Units 04:25 08:01 WBC (4.0-10.5) K/mm3 RBC (4.1-5.4) M/mm3 Hgb (12.0-16.0) gm/dl Hct (35-47) % MCV (78-100) fl MCH (26-32) pg MCHC (32-36) g/dl RDW (11.5-14.0) % Plt Count (150-450) K/mm3 MPV (7.5-11.0) fl Sodium 142 (137-145) mmol/L Potassium 3.7 (3.5-5.1) mmol/L Chloride 107 (98-107) mmol/L Carbon Dioxide 21 L (22-30) mmol/L Anion Gap 17.7 H (5-15) MEQ/L BUN 29 H (7-17) mg/dL Creatinine 1.49 H (0.52-1.04) mg/dL Estimated GFR 36.8 ML/MIN Glucose 182 H (74-106) mg/dL POC Glucometer 138 H (74 to 106) mg/dL Hemoglobin A1c (4.5-6.0) % Calcium 9.6 (8.4-10.2) mg/dL Troponin I (0.000-0.034) ng/mL Radiology Exams: Radiology Procedures Category Date Time Status CAROTID BILATERAL [US] Routine Exams 03/13/21 Ordered HEAD WITHOUT CONTRAST [CT] Stat Exams 03/11/21 21:22 Completed MRI BRAIN W/O CONTRAST [MRI] Routine Exams 03/12/21 08:54 Completed SHOULDER Routine Exams 03/13/21 Ordered Multi-Disciplinary Progress Notes: Multi-Disciplinary Progress Notes 03/12/21 15:58 Physical Therapy Note by Chantal Rocha PATIENT AMBULATED 8FT X2 WITH RW, MIN-ASSIST. 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 AMBULATING WITH STEP TO GAIT.REQUIRED 2 ATTEMPTS TO STAND, ALONG WITH CUING. ABLE TO COMPLETE SITTING EXERCISES, NOTED FATIGUE NEAR END. 02 WAS CONSISTENT AT 98%, AND HR 66 BPM. Initialized on 03/12/21 15:58 - END OF NOTE Assessment/Plan (1) CVA (cerebral vascular accident) Current Visit: Yes Status: Acute Qualifiers: CVA mechanism: unspecified Qualified Code(s): I63.9 - Cerebral infarction, unspecified Assessment & Plan: Pt has worsening LUE weakness and worsened facial droop. MRI results noted. She is on plavix. Consult teleneurology. Code(s): I63.9 - CEREBRAL INFARCTION, UNSPECIFIED (2) UTI (urinary tract infection) Current Visit: Yes Status: Acute Qualifiers: Urinary tract infection type: acute cystitis Hematuria presence: without hematuria Qualified Code(s): N30.00 - Acute cystitis without hematuria Assessment & Plan: on rocephin 1g IV daily. Code(s): N39.0 - URINARY TRACT INFECTION, SITE NOT SPECIFIED (3) Acute renal injury Current Visit: Yes Status: Acute Assessment & Plan: worse today - increase fluids and recheck in a.m. Code(s): N17.9 - ACUTE KIDNEY FAILURE, UNSPECIFIED (4) Fall Current Visit: Yes Status: Acute Qualifiers: Encounter type: initial encounter Qualified Code(s): W19.XXXA - Unspecified fall, initial encounter Assessment & Plan: PT thinks she will need rehab. 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 Code(s): I10 - ESSENTIAL (PRIMARY) HYPERTENSION (8) Parkinson disease Current Visit: No Status: Chronic Code(s): G20 - PARKINSON'S DISEASE
[2021-03-13] MEDS: ROCEPHIN 1 Gm-D5w 50 ml Bag** 1 G/50 ML IVPB IV SCH (09:47)
[2021-03-13] MEDS: Ecotrin 325 MG PO SCH (09:49)
[2021-03-13] MEDS: PLAVIX 75 MG Tablet PO SCH (09:49)
[2021-03-13] MEDS: Ditropan XL 5 MG PO SCH (09:49)
[2021-03-13] MEDS: DIOVAN 80 MG PO SCH (09:51)
[2021-03-13] MEDS: ZYLOPRIM 100 MG PO SCH ×2 (09:52→21:11)
[2021-03-13] MEDS: Klor Con 10 MEQ PO SCH (09:52)
[2021-03-13] MEDS: Lopressor 50 MG PO SCH ×2 (09:53→21:11)
[2021-03-13] MEDS: LOPID 600 MG PO SCH (09:53)
[2021-03-13] MEDS ORDERED: ZOCOR 20MG PO SCH (10:00)
--- NOTE | 2021-03-13 11:07 | XRAY ---
Exam: Bilateral duplex Doppler carotid ultrasound from 03/13/2021. Comparison: Bilateral duplex Doppler carotid ultrasound from 05/15/2020. Indication: CVA. Technique: Grayscale images, color blood flow images, and Doppler tracings with velocity measurements were obtained bilaterally. Findings: On the right side, I again see at least moderate calcified plaque along both anterior and posterior margins of the right carotid bulb extending into the proximal internal and external carotid arteries. This appears similar to the prior study from 05/15/2020. Peak systolic flow velocities in centimeters per second measure 63 within the common carotid artery, 267 within the external carotid artery (previously 226 cm/s), and 106 and 137 within the proximal and distal internal carotid arteries, respectively. The proximal and distal ICA peak systolic velocities previously measured 87 cm/s and 78 cm/s, respectively, on the exam from 05/15/2020. Some spectral broadening of the Doppler waveform is seen within both the proximal and distal right internal carotid artery indicating turbulence. The peak systolic flow velocity ratio between the ICA and CCA is 2.2, previously 1.9, which is elevated. The right vertebral artery reveals antegrade flow with a peak systolic flow velocity of 46.1 cm/s. On the left side, I again see at least moderate anterior and posterior calcific plaque at the carotid bulb causing some posterior shadowing. This appears to extend into the origin of both the external and internal carotid arteries. This appears similar to the prior study. Peak systolic flow velocities in centimeters per second measure 56 within the common carotid artery, 192 within the external carotid artery (previously 142 cm/s), and 66 and 98 within the proximal and distal internal carotid artery, respectively. This previously measured 58 cm/s and 54 cm/s within the proximal and distal left internal carotid artery, respectively, on the exam from 05/15/2020. Again, I note some mild spectral broadening of the Doppler waveforms indicating some turbulence. The peak systolic flow velocity ratio between the left ICA and CCA is 1.7, previously 0.9. The left vertebral artery reveals antegrade flow with a peak systolic flow velocity of 44 cm/s. Impression: 1. I again see at least moderate bilateral chunky calcified plaque within both carotid bulbs (which causes some posterior acoustical shadowing) extending into the proximal internal and external carotid arteries. This appears similar to 05/15/2020. 2. However, peak systolic flow velocity within the distal right internal carotid artery now exceeds 125 cm/s (137 cm/s) indicating that it may be becoming hemodynamically significant. The right ICA to CCA ratio is 2.2 which is also increased. The velocities on the right suggest a narrowing of between 50% and 69% diameter reduction. 3. No hemodynamically significant stenosis is seen within the visualized left common carotid artery or internal carotid artery. 4. Peak systolic flow velocities within both external carotid arteries are significantly elevated bilaterally, right greater than left. See above. 5. Both vertebral arteries reveal antegrade flow representing no change.
[2021-03-13 11:08] LABS: Folate (Folic Acid) 8.84 ng/mL (2.76 - >20)
[2021-03-13] MEDS: Sodium Chloride 0.9% 1000 ML 1,000 ML IV SCH ×2 (12:22→17:44)
[2021-03-13] MEDS: HUMALOG SQ PRN ×3 (12:22→21:49)
[2021-03-13] MEDS: APRESOLINE 20 MG/ML INJ IV PRN ×2 (21:02→21:52)
--- NOTE | 2021-03-14 06:55 | XRAY ---
Exam: 3 views of the right shoulder from 03/13/2021. Comparison: None. Indication: Right shoulder pain. Findings: I see no acute fracture or dislocation of the right shoulder. I cannot assess the glenohumeral joint well, as a Grashey view or axillary view was not obtained. Mild osteoarthritic change of the right acromioclavicular joint is seen. There is also minimal spurring at the superolateral edge of the acromion. No abnormal soft tissue calcifications are noted about the right humeral head. Impression: 1. No acute fracture or dislocation of the right shoulder is seen. 2. Mild degenerative changes of the right shoulder and acromioclavicular joint.
[2021-03-14] MEDS: Sinemet 25/250 MG PO SCH ×2 (08:03→14:51)
[2021-03-14] MEDS: DIOVAN 80 MG PO SCH (09:22)
[2021-03-14] MEDS: ZOCOR 20MG PO SCH (09:22)
[2021-03-14] MEDS: Ditropan XL 5 MG PO SCH (09:22)
[2021-03-14] MEDS: Klor Con 10 MEQ PO SCH (09:23)
[2021-03-14] MEDS: Lopressor 50 MG PO SCH ×2 (09:23→21:29)
[2021-03-14] MEDS: Ecotrin 325 MG PO SCH (09:23)
[2021-03-14] MEDS: PLAVIX 75 MG Tablet PO SCH (09:23)
[2021-03-14] MEDS: ZYLOPRIM 100 MG PO SCH ×2 (09:23→21:29)
[2021-03-14] MEDS: LOPID 600 MG PO SCH (09:24)
--- NOTE | 2021-03-14 09:27 | PCM.NOTE ---
Date and Time: 03/14/21924 Subjective Assessment: patient has no complaints, speech and left arm weakness are unchanged. she has no complaints today Objective Exam General Appearance: no apparent distress, alert Neurologic Exam: alert, oriented x 3, motor weakness, facial droop, slurred spe ech Skin Exam: normal color, warm, dry Respiratory Exam: normal breath sounds, lungs clear, No respiratory distress Cardiovascular Exam: regular rate/rhythm, normal heart sounds Gastrointestinal/Abdomen Exam: soft, No tenderness, No mass Extremity Exam: normal inspection, normal range of motion OBJECTIVE DATA Vital Signs: Vital Signs - 24 hr Temp Pulse Resp BP BP Pulse Ox 03/14/21 08:00 96 03/14/21 07:42 97.7 F 63 19 146/71 96 03/14/21 04:00 97.8 F 63 18 122/55 96 03/14/21 00:23 80 18 169/70 97 03/14/21 00:00 97.6 F 76 20 168/69 97 03/13/21 20:00 98.6 F 62 20 188/77 97 03/13/21 19:50 97 03/13/21 16:00 98.2 F 72 16 175/75 98 03/13/21 12:00 98 03/13/21 11:59 98.3 F 69 18 175/74 98 Pain Assessment - Last Documented Pain Intensity 0 Pain Scale Used 0-10 Pain Scale Intake and Output: Intake & Output 03/11/21 03/12/21 03/13/21 03/14/21 11:59 11:59 11:59 11:59 Intake Total 353 1483 2273 Output Total 600 2000 550 Balance -247 -517 1723 Weight 69.5 kg 71.3 kg Lab Results: Lab Results-Last 24 Hours 03/13/21 03/13/21 03/13/21 Range/Units 04:20 04:20 11:41 POC Glucometer 223 H (74 to 106) mg/dL Troponin I (0.000-0.034) ng/mL Vitamin B12 246 (239-931) pg/mL Folic Acid 8.84 (2.76 - >20) ng/mL TSH 3rd Generation 0.727 (0.47-4.68) mIU/L 03/13/21 03/13/21 03/13/21 Range/Units 16:38 20:56 21:20 POC Glucometer 227 H 225 H (74 to 106) mg/dL Troponin I < 0.012 (0.000-0.034) ng/mL Vitamin B12 (239-931) pg/mL Folic Acid (2.76 - >20) ng/mL TSH 3rd Generation (0.47-4.68) mIU/L 03/14/21 Range/Units 07:08 POC Glucometer 223 H (74 to 106) mg/dL Troponin I (0.000-0.034) ng/mL Vitamin B12 (239-931) pg/mL Folic Acid (2.76 - >20) ng/mL TSH 3rd Generation (0.47-4.68) mIU/L Radiology Exams: Radiology Procedures Category Date Time Status CAROTID BILATERAL [US] Routine Exams 03/13/21 10:29 Completed MRI BRAIN W/O CONTRAST [MRI] Routine Exams 03/12/21 08:54 Completed SHOULDER Routine Exams 03/13/21 10:59 Completed Multi-Disciplinary Progress Notes: Multi-Disciplinary Progress Notes 03/13/21 20:38 Physical Therapy Note by Lilia Castillo PT. SEEN BY PNivia THIS PM. HAD [facility]ENE[facility]O CONSULT THIS A.M. AND BRAIN MRI 03/12. PT. REPORTS HER L UE AND LE ACTIVE MOVEMENT IS MUCH DECREASED TODAY COMPARED TO YESTERDAY. ALSO NOTED SOME INCREASED DYSARTHRIA AND DIFFICULTY CHEWING. NOTED DECREASED INTELLIGIBILITY OF SPEECH W/ CONVERSATION. REPORTS SOME R SHOULDER PN WHICH IS CHRONIC. L UE FAIRLY FLACCID TODAY. L LE STRENGTH -GROSSLY HIP 2- 2+/5; KNEE 2/5, ANKLE 1+-2-/5. REPORTS DECREASED SENSATION L UE AND LE. SIT TO STAND MIN-MOD ASSIST X 2. ABLE TO MAINTAIN STANDING W/ MIN-MOD ASSIST X 2 AND SUPPORT TO L KNEE TO PREVENT BUCKLING D/T QUAD WEAKNESS. PT. PERFORMED SIT TO STAND X ~ 5 REPS W/ ABOVE LEVEL OF ASSISTANCE. ALSO PERFORMED QUAD AND GLUT SETS, HEEL SLIDES W/ ASSIST AND SUPINE HIP ABD W/ ASSIST. PT. WILL NEED REHAB STAY TO ADDRESS NEEDS AND MAXIMIZE FUNCTIONAL INDEPENDENCE. WILL CONT. TO PROGRESS PT. STRENGTH AND INDEPENDENCE W/ FUNCTIONAL MOBILITY UNTIL D/C. Initialized on 03/13/21 20:38 - END OF NOTE 03/13/21 14:29 Case Management Note by Kristina Gaspar REFERRAL FAXED TO [facility] AT THIS TIME Initialized on 03/13/21 14:29 - END OF NOTE 03/13/21 14:27 Case Management Note by Kristina Gaspar PAPERWORK COMPLETE- NO LEVEL II REQUIRED. COPIES PLACED ON CHART Initialized on 03/13/21 14:27 - END OF NOTE 03/13/21 14:27 Case Management Note by Kristina Gaspar S/W PATIENT- SHE IS AGREEABLE TO GO TO REHAB AT TIME OF DC, SHE WOULD LIKE TO GO TO [facility]. WILL SEND REFERRAL Initialized on 03/13/21 14:27 - END OF NOTE Assessment/Plan (1) CVA (cerebral vascular accident) Current Visit: Yes Status: Acute Qualifiers: CVA mechanism: unspecified Qualified Code(s): I63.9 - Cerebral infarction, unspecified Assessment & Plan: continue therapy, on plavix. plan to d/c to ecf at [facility] Code(s): I63.9 - CEREBRAL INFARCTION, UNSPECIFIED (2) Normocytic anemia Current Visit: Yes Status: Acute Code(s): D64.9 - ANEMIA, UNSPECIFIED (3) UTI (urinary tract infection) Current Visit: Yes Status: Acute Qualifiers: Urinary tract infection type: acute cystitis Hematuria presence: without hematuria Qualified Code(s): N30.00 - Acute cystitis without hematuria Assessment & Plan: culture negative Code(s): N39.0 - URINARY TRACT INFECTION, SITE NOT SPECIFIED (4) Weakness Current Visit: Yes Status: Acute Code(s): R53.1 - WEAKNESS
[2021-03-14] MEDS: ROCEPHIN 1 Gm-D5w 50 ml Bag** 1 G/50 ML IVPB IV SCH (09:29)
[2021-03-14] MEDS ORDERED: AFRIN NASAL SPRAY NS ONE (13:17)
[2021-03-14] MEDS: HUMALOG SQ PRN (17:19)
[2021-03-14] MEDS: Sodium Chloride 0.9% 1000 ML 1,000 ML IV SCH (17:20)
[2021-03-14] MEDS: TYLENOL 325 MG PO PRN (21:29)
[2021-03-15 05:18] LABS: Absolute Neutrophil Ct (ANC) 3.23 (1.4-6.9); BASOPHIL % 0.6 % (0.0-0.4); Basophil (Absolute #) 0.04 (0-0.4); Eosinophil % 5.5 % (0.00-5.0); Eosinophil (Absolute #) 0.38 (0-0.5); Hematocrit 27.3 % (35-47); Hemoglobin 8.7 gm/dl (12.0-16.0); Lymphocyte (Absolute #) 2.71 (1.0-4.6); Lymphocytes % 39.4 % (24.0-44.0); Mean Cell Volume 95.1 fl (78-100); Mean Corpuscular Hemoglobin 30.3 pg (26-32); Mean Corpuscular Hgb Concent. 31.9 g/dl (32-36); Mean Platelet Volume 10.9 fl (7.5-11.0); Monocyte (Absolute #) 0.52 (0.0-1.3); Monocytes % 7.6 % (0.0-12.0); Neutrophil % 46.9 % (36.0-66.0); Platelet Count 253 K/mm3 (150-450); Red Blood Count 2.87 M/mm3 (4.1-5.4); Red Cell Distribution Width 15.8 % (11.5-14.0); White Blood Count 6.9 K/mm3 (4.0-10.5)
[2021-03-15] MEDS: Sodium Chloride 0.9% 1000 ML 1,000 ML IV SCH (05:20)
[2021-03-15 05:31] LABS: ANION GAP 13.9 MEQ/L (5-15); Calcium 8.8 mg/dL (8.4-10.2); Creatinine 1 1.17 mg/dL (0.52-1.04); EST GLOMERULAR FILTRATION RATE 48.6 ML/MIN; Potassium 3.9 mmol/L (3.5-5.1)
[2021-03-15] MEDS: DIOVAN 80 MG PO SCH (08:16)
[2021-03-15] MEDS: ZOCOR 20MG PO SCH (08:16)
[2021-03-15] MEDS: ZYLOPRIM 100 MG PO SCH ×2 (08:16→20:48)
[2021-03-15] MEDS: Ditropan XL 5 MG PO SCH (08:16)
[2021-03-15] MEDS: Ecotrin 325 MG PO SCH (08:16)
[2021-03-15] MEDS: ROCEPHIN 1 Gm-D5w 50 ml Bag** 1 G/50 ML IVPB IV SCH (08:17)
[2021-03-15] MEDS: Klor Con 10 MEQ PO SCH (08:17)
[2021-03-15] MEDS: Lopressor 50 MG PO SCH ×2 (08:17→20:48)
[2021-03-15] MEDS: PLAVIX 75 MG Tablet PO SCH (08:18)
[2021-03-15] MEDS: Sinemet 25/250 MG PO SCH ×2 (08:19→15:45)
[2021-03-15] MEDS: LOPID 600 MG PO SCH (08:30)
--- NOTE | 2021-03-15 09:04 | PCM.NOTE ---
Date and Time: 03/15/21 0900 Subjective Assessment: Feeling better, but still weak on L side. R shoulder pain has resolved. Tolerating po. BP last 24 hours good aside from one of 180/75. - Review of Systems Constitutional: No Fever Abdominal/Gastrointestinal: No Vomiting Objective Exam General Appearance: no apparent distress, alert Neurologic Exam: other (L facial droop, slurred speech, L arm is weak) Skin Exam: normal color, warm, dry, No rash Eye Exam: eyes nml inspection Ears, Nose, Throat Exam: moist mucous membranes Neck Exam: normal inspection Respiratory Exam: normal breath sounds, lungs clear, No crackles/rales, No rhonchi, No wheezing Cardiovascular Exam: regular rate/rhythm, normal heart sounds, No murmur Extremity Exam: normal inspection, No pedal edema, No swelling Back Exam: normal inspection, No rash OBJECTIVE DATA Vital Signs: Vital Signs - 24 hr Temp Pulse Resp BP BP Pulse Ox 03/15/21 08:00 97.7 F 54 L 18 146/65 96 03/15/21 04:00 97.7 F 64 18 146/63 96 03/15/21 00:00 97.7 F 70 19 168/69 180/75 95 03/14/21 20:00 97.8 F 62 16 155/67 99 03/14/21 16:00 97.2 F 61 18 150/66 97 03/14/21 12:00 97.6 F 58 L 18 144/65 96 Pain Assessment - Last Documented Pain Intensity 0 Pain Scale Used 0-10 Pain Scale Intake and Output: Intake & Output 03/12/21 03/13/21 03/14/21 03/15/21 11:59 11:59 11:59 11:59 Intake Total 353 1483 2393 2970 Output Total 600 2000 750 1100 Balance -430 -105 1643 1870 Weight 69.5 kg 71.3 kg 71.3 kg Lab Results: Lab Results-Last 24 Hours 03/14/21 03/14/21 03/14/21 Range/Units 11:15 16:46 20:37 WBC (4.0-10.5) K/mm3 RBC (4.1-5.4) M/mm3 Hgb (12.0-16.0) gm/dl Hct (35-47) % MCV (78-100) fl MCH (26-32) pg MCHC (32-36) g/dl RDW (11.5-14.0) % Plt Count (150-450) K/mm3 MPV (7.5-11.0) fl Gran % (36.0-66.0) % Eos # (Auto) (0-0.5) Absolute Lymphs (auto) (1.0-4.6) Absolute Monos (auto) (0.0-1.3) Lymphocytes % (24.0-44.0) % Monocytes % (0.0-12.0) % Eosinophils % (0.00-5.0) % Basophils % (0.0-0.4) % Absolute Granulocytes (1.4-6.9) Basophils # (0-0.4) Sodium (137-145) mmol/L Potassium (3.5-5.1) mmol/L Chloride (98-107) mmol/L Carbon Dioxide (22-30) mmol/L Anion Gap (5-15) MEQ/L BUN (7-17) mg/dL Creatinine (0.52-1.04) mg/dL Estimated GFR ML/MIN Glucose (74-106) mg/dL POC Glucometer 197 H 324 H 167 H (74 to 106) mg/dL Calcium (8.4-10.2) mg/dL 03/15/21 03/15/21 03/15/21 Range/Units 05:02 05:02 07:12 WBC 6.9 (4.0-10.5) K/mm3 RBC 2.87 L (4.1-5.4) M/mm3 Hgb 8.7 L (12.0-16.0) gm/dl Hct 27.3 L (35-47) % MCV 95.1 (78-100) fl MCH 30.3 (26-32) pg MCHC 31.9 L (32-36) g/dl RDW 15.8 H (11.5-14.0) % Plt Count 253 (150-450) K/mm3 MPV 10.9 (7.5-11.0) fl Gran % 46.9 (36.0-66.0) % Eos # (Auto) 0.38 (0-0.5) Absolute Lymphs (auto) 2.71 (1.0-4.6) Absolute Monos (auto) 0.52 (0.0-1.3) Lymphocytes % 39.4 (24.0-44.0) % Monocytes % 7.6 (0.0-12.0) % Eosinophils % 5.5 H (0.00-5.0) % Basophils % 0.6 (0.0-0.4) % Absolute Granulocytes 3.23 (1.4-6.9) Basophils # 0.04 (0-0.4) Sodium 139 (137-145) mmol/L Potassium 3.9 (3.5-5.1) mmol/L Chloride 112 H (98-107) mmol/L Carbon Dioxide 17 L (22-30) mmol/L Anion Gap 13.9 (5-15) MEQ/L BUN 32 H (7-17) mg/dL Creatinine 1.17 H (0.52-1.04) mg/dL Estimated GFR 48.6 ML/MIN Glucose 201 H (74-106) mg/dL POC Glucometer 147 H (74 to 106) mg/dL Calcium 8.8 (8.4-10.2) mg/dL Radiology Exams: Radiology Procedures Category Date Time Status CAROTID BILATERAL [US] Routine Exams 03/13/21 10:29 Completed SHOULDER Routine Exams 03/13/21 10:59 Completed Multi-Disciplinary Progress Notes: Multi-Disciplinary Progress Notes 03/14/21 21:47 Physical Therapy Note by Lilia Castillo PT. SEEN BY P.T. THIS PM. REPORTS HER L HAND EXTRUDER TENDER STRENGTH IS IMPROVING. IN CHAIR UPON P.T. ARRIVAL TO ROOM. PT. AGREEABLE TO P.T. PERFORMED LE EX'S IN CHAIR OF QUAD AND GLUT SETS, HEEL SLIDES, SUPINE HIP ABD, AND ANKLE PUMPS. NOTED MIN ACTIVE L HIP ABD; TRACE L ANKLE MM. FUNCTION. PT. ABLE TO DEMO IMPROVED L GROSS EXTRUDER TENDER AND RELEASE. NO ACTIVE L ELBOW OR SHOULDER MOVEMENT. SIT TO STAND W/ MIN-MOD ASSIST X 1. PT. STOOD W/ IVON-WALKER AND MIN ASSIST X 2. WORKED ON LATERAL WEIGHT SHIFTS AND PT.'S REQUIRES MIN TACTILE CUES TO MAINTAIN KNEE CONTROL. AMBULATED ~ 10 STEPS W/ IVON-WALKER AND MIN-MOD ASSIST X 2. REQUIRES MAX. V.C. AND TACTILE CUES TO PLACE IVON-WALKER APPROPRIATELY AND TO COORDINATE GAIT. PT. INSTRUCTED RE: SELF-ROM USING R UE AND TACTILE STIM W/ WASHCLOTH WELL EXTRUDER TENDER EX'S W/ FOAM AND TENNIS BALL. WILL CONT. W/ PT TO PROGRESS STRENGTH AND INDEPENDENCE W/ FUNCTIONAL MOBILITY UNTIL D/C TO SNF. Initialized on 03/14/21 21:47 - END OF NOTE 03/14/21 14:16 Pharmacy Note by Carlos Yuan Patient's urine culture is negative, WBC are within normal limits, and temperature has been steady. Verifying patient is to continue Rocephin therapy. Initialized on 03/14/21 14:16 - END OF NOTE 03/14/21 11:33 Speech Therapy Note by Natasha Faulkner late entry for 03/13/21 SWALLOW THERAPY: [id number]. ST PRN, MS DIONTE, CCC/ADULT SECONDARY EDUCATION INSTRUCTOR, swallow tx with diet modification due to patient's current medical status. nursing reported decline in patient status since MS KEMAL, CCC/ADULT SECONDARY EDUCATION INSTRUCTOR, initially evaluated patient on 03/12/21. Per Dionte, patient demonstrated some issues with food pocketing in left buccal cavity, as well as some loss of food anteriorly. Patient demonstrated tongue sweep and finger sweep to clear bolus residue from left buccal cavity. patient demonstrated decreased ROM on left corner of mouth. ST TO CONTINUE FOR SPEECH AND SWALLOWING. MS KEMAL, CCC/ADULT SECONDARY EDUCATION INSTRUCTOR Initialized on 03/14/21 11:33 - END OF NOTE 03/14/21 11:33 ST Plan of Care Note by Natasha Faulkner Speech Therapy Plan of Care ST Plan of Care Start: 03/14/21 11:13 Freq: Status: Active Protocol: Document 03/13/21 15:20 (Rec: 03/14/21 11:26 [id number]) E-Sign 03/13/21 15:20 Speech Therapy Plan of Care Problem List Dysphagia following CVA Dysarthria following CVA Treatments Speech/Language Treatment, Swallow Treatment Interventions swallow therapy for: diet texture analysis safe swallow compensatory training speech therapy for: dysarthria HEP Precautions aspiration Articulation Moderate Functional Goals of Treatment 1.Patient will maintain adequate nutrition/hydration via the least restrictive diet /liquid consistency wthout complications from aspiration. 2.Patient will increase speech intelligibility for increased communication effectiveness. Goal #1 Patient will demonstrate tolerance & safety for [facility] soft diet and thin liquids without clinical s/s of aspiration, 90% of trials. Status Initial Goal #2 Patient will complete oral motor exercises for lingual and labial strength, endurance , and ROM 90% of trials. Status Initial Goal #3 Patient will produce multisyllabic words/phrases with 100% intelligibility, 90% of trials. Status Initial Frequency of Treatment: 5x/week Duration of Treatment: Hospital Stay Goals & POC discussed with patient/ Yes family Identified Barriers to Goal Achievement none Patient is aware of diagnosis and Yes prognosis Patient is receptive to plan of care Yes Rehabilitation Potential Good Patient Discharge Plan Description Snf Facility Patient Discharge Plan Comment anticipate discharge to rehab/ senior care facility upon discharge from [facility]. Initialized on 03/14/21 11:33 - END OF NOTE 03/14/21 09:50 Case Management Note by Kristina Gaspar S/W MMM- THEY ARE WAITING FOR INSURANCE APPROVAL Initialized on 03/14/21 09:50 - END OF NOTE Assessment/Plan (1) CVA (cerebral vascular accident) Current Visit: Yes Status: Acute Qualifiers: CVA mechanism: unspecified Qualified Code(s): I63.9 - Cerebral infarction, unspecified Assessment & Plan: She will be discharged to [facility] tomorrow. Per neurology consult, will be discharged on Plavix and 325mg ASA daily. Code(s): I63.9 - CEREBRAL INFARCTION, UNSPECIFIED (2) UTI (urinary tract infection) Current Visit: Yes Status: Ruled-out Qualifiers: Urinary tract infection type: acute cystitis Hematuria presence: without hematuria Qualified Code(s): N30.00 - Acute cystitis without hematuria Code(s): N39.0 - URINARY TRACT INFECTION, SITE NOT SPECIFIED (3) Acute renal injury Current Visit: Yes Status: Acute Assessment & Plan: Much improved Code(s): N17.9 - ACUTE KIDNEY FAILURE, UNSPECIFIED (4) Fall Current Visit: Yes Status: Acute Qualifiers: Encounter type: initial encounter Qualified Code(s): W19.XXXA - Unspecified fall, initial encounter Code(s): W19.XXXA - UNSPECIFIED FALL, INITIAL ENCOUNTER (5) Chronic renal insufficiency Current Visit: No Status: Chronic Qualifiers: Chronic kidney disease stage: unspecified stage Qualified Code(s): N18.9 - Chronic kidney disease, unspecified Code(s): N18.9 - CHRONIC KIDNEY DISEASE, UNSPECIFIED (6) Diabetes Current Visit: No Status: Chronic Qualifiers: Diabetes mellitus type: type 2 Diabetes mellitus intermediate insulin use: with maintenance machine repairer use Diabetes mellitus complication status: with kidney complications Diabetes mellitus complication detail: with chronic kidney disease Assessment & Plan: Will need to work on control outpatient Code(s): E11.9 - TYPE 2 DIABETES MELLITUS WITHOUT COMPLICATIONS (7) Hypertension Current Visit: No Status: Chronic Qualifiers: Hypertension type: primary hypertension Qualified Code(s): I10 - Essential (primary) hypertension Assessment & Plan: With one elevated bp in past 24h; I increased her valsartan to 320mg three days ago - may still be taking effect. Will observe BP one more day. Code(s): I10 - ESSENTIAL (PRIMARY) HYPERTENSION (8) Parkinson disease Current Visit: No Status: Chronic Code(s): G20 - PARKINSON'S DISEASE
[2021-03-15] MEDS: HUMALOG SQ PRN (20:48)
[2021-03-16] MEDS: TYLENOL 325 MG PO PRN (04:11)
[2021-03-16 06:09] LABS: Absolute Neutrophil Ct (ANC) 3.47 (1.4-6.9); BASOPHIL % 0.6 % (0.0-0.4); Basophil (Absolute #) 0.04 (0-0.4); Eosinophil % 6.3 % (0.00-5.0); Eosinophil (Absolute #) 0.43 (0-0.5); Hematocrit 28.1 % (35-47); Lymphocyte (Absolute #) 2.33 (1.0-4.6); Lymphocytes % 34.2 % (24.0-44.0); Mean Cell Volume 95.3 fl (78-100); Mean Corpuscular Hemoglobin 30.5 pg (26-32); Mean Platelet Volume 10.8 fl (7.5-11.0); Monocyte (Absolute #) 0.54 (0.0-1.3); Monocytes % 7.9 % (0.0-12.0); Platelet Count 273 K/mm3 (150-450); Red Blood Count 2.95 M/mm3 (4.1-5.4); Red Cell Distribution Width 15.6 % (11.5-14.0); White Blood Count 6.8 K/mm3 (4.0-10.5)
[2021-03-16 06:18] LABS: ALBUMIN 3.6 g/dL (3.5-5.0); ALKALINE PHOSPHATASE 86 U/L (38-126); ANION GAP 16.2 MEQ/L (5-15); BILIRUBIN,TOTAL < 0.10 mg/dL (0.2-1.3); BLOOD UREA NITROGEN 30 mg/dL (7-17); CHLORIDE 111 mmol/L (98-107); Calcium 9.2 mg/dL (8.4-10.2); Carbon Dioxide 19 mmol/L (22-30); Creatinine 1 1.45 mg/dL (0.52-1.04); EST GLOMERULAR FILTRATION RATE 37.9 ML/MIN; Glucose 129 mg/dL (74-106); SGOT/AST 18 U/L (14-36); SGPT/ALT 5 U/L (0-35); SODIUM 142 mmol/L (137-145); Total Protein 6.6 g/dL (6.3-8.2)
[2021-03-16] MEDS: Sinemet 25/250 MG PO SCH ×2 (08:06→16:04)
[2021-03-16] MEDS: DIOVAN 80 MG PO SCH (10:18)
[2021-03-16] MEDS: ZOCOR 20MG PO SCH (10:18)
[2021-03-16] MEDS: ROCEPHIN 1 Gm-D5w 50 ml Bag** 1 G/50 ML IVPB IV SCH (10:18)
[2021-03-16] MEDS: PLAVIX 75 MG Tablet PO SCH (10:19)
[2021-03-16] MEDS: Ditropan XL 5 MG PO SCH (10:19)
[2021-03-16] MEDS: Lopressor 50 MG PO SCH (10:19)
[2021-03-16] MEDS: Ecotrin 325 MG PO SCH (10:19)
[2021-03-16] MEDS: Klor Con 10 MEQ PO SCH (10:19)
[2021-03-16] MEDS: LOPID 600 MG PO SCH (10:19)
[2021-03-16] MEDS: ZYLOPRIM 100 MG PO SCH (10:19)
--- NOTE | 2021-03-16 16:17 | PCM.DCORD ---
- Discharge Disposition: DC TO [facility] Condition: Stable Prescriptions: Continue Oxybutynin Chloride 10 mg Xl [Ditropan Xl 10 MG] 10 mg PO DAILY Valsartan [Diovan] 160 mg PO DAILY Allopurinol 100 mg [Zyloprim 100 mg] 100 mg PO BID Carbidopa/Levodopa [Carbidopa-Levodopa 25-250 Tab] 1 tablet PO BID Ergocalciferol (Vitamin D2) [Vitamin D] 1.25 mg PO UD Pravastatin Sodium [Pravachol] 40 mg PO DAILY Metoprolol Tartrate [Lopressor] 50 mg PO BID Potassium Chloride 10 Meq Tab* [Klor Con 10 MEQ] 10 meq PO DAILY Clopidogrel Bisulfate 75 mg [PLAVIX 75 MG Tablet] 75 mg PO DAILY Acarbose [Precose] 25 mg PO TID Glipizide 20 mg PO DAILY Gemfibrozil 600 mg [Lopid 600 mg] 600 mg PO DAILY Dapagliflozin Propanediol [Farxiga] 5 mg PO BID Follow up with: BRANDON CSAH [Primary Care Provider] - Forms: Patient Portal Information
--- NOTE | 2021-03-16 16:20 | PCM.DS ---
Discharge Summary Date of Admission: 03/13/21 08:52 Admitting Physician: BRANDON CASH Consults: Consults on Case 03/13/21 08:52 Consult Neurology ROUTINE Primary Care Provider: BRANDON CASH Allergies Allergies Penicillins Allergy (Severe, Verified 03/11/21 21:45) Vomiting iodine Adverse Reaction (Verified 03/11/21 21:45) Rash Hospital Summary - Vitals & Intake/Output Vital Signs: Vital Signs Temperature 97.8 F 03/16/21 11:51 Pulse Rate 52 L 03/16/21 11:51 Respiratory Rate 16 03/16/21 11:51 Blood Pressure 164/69 03/16/21 11:51 O2 Sat by Pulse Oximetry 98 03/16/21 11:51 Intake & Output: Intake & Output 03/14/21 03/15/21 03/16/21 03/17/21 11:59 11:59 11:59 11:59 Intake Total 2393 3570 860 Output Total 750 1350 925 Balance 1643 2220 -65 Weight 71.3 kg 71.3 kg - Lab Result Diagrams: 03/16/21 05:35 03/16/21 05:35 Lab Results-Last 24 Hrs: Lab Results-Last 24 Hours 03/15/21 03/16/21 03/16/21 Range/Units 20:39 05:35 05:35 WBC 6.8 (4.0-10.5) K/mm3 RBC 2.95 L (4.1-5.4) M/mm3 Hgb 9.0 L (12.0-16.0) gm/dl Hct 28.1 L (35-47) % MCV 95.3 (78-100) fl MCH 30.5 (26-32) pg MCHC 32.0 (32-36) g/dl RDW 15.6 H (11.5-14.0) % Plt Count 273 (150-450) K/mm3 MPV 10.8 (7.5-11.0) fl Gran % 51.0 (36.0-66.0) % Eos # (Auto) 0.43 (0-0.5) Absolute Lymphs (auto) 2.33 (1.0-4.6) Absolute Monos (auto) 0.54 (0.0-1.3) Lymphocytes % 34.2 (24.0-44.0) % Monocytes % 7.9 (0.0-12.0) % Eosinophils % 6.3 H (0.00-5.0) % Basophils % 0.6 (0.0-0.4) % Absolute Granulocytes 3.47 (1.4-6.9) Basophils # 0.04 (0-0.4) Sodium (137-145) mmol/L Potassium (3.5-5.1) mmol/L Chloride (98-107) mmol/L Carbon Dioxide (22-30) mmol/L Anion Gap (5-15) MEQ/L BUN (7-17) mg/dL Creatinine (0.52-1.04) mg/dL Estimated GFR ML/MIN Glucose (74-106) mg/dL POC Glucometer 202 H (74 to 106) mg/dL Calcium (8.4-10.2) mg/dL Total Bilirubin (0.2-1.3) mg/dL AST (14-36) U/L ALT (0-35) U/L Alkaline Phosphatase (38-126) U/L Troponin I 0.119 H* (0.000-0.034) ng/mL Serum Total Protein (6.3-8.2) g/dL Albumin (3.5-5.0) g/dL 03/16/21 03/16/21 03/16/21 Range/Units 05:35 06:59 11:03 WBC (4.0-10.5) K/mm3 RBC (4.1-5.4) M/mm3 Hgb (12.0-16.0) gm/dl Hct (35-47) % MCV (78-100) fl MCH (26-32) pg MCHC (32-36) g/dl RDW (11.5-14.0) % Plt Count (150-450) K/mm3 MPV (7.5-11.0) fl Gran % (36.0-66.0) % Eos # (Auto) (0-0.5) Absolute Lymphs (auto) (1.0-4.6) Absolute Monos (auto) (0.0-1.3) Lymphocytes % (24.0-44.0) % Monocytes % (0.0-12.0) % Eosinophils % (0.00-5.0) % Basophils % (0.0-0.4) % Absolute Granulocytes (1.4-6.9) Basophils # (0-0.4) Sodium 142 (137-145) mmol/L Potassium 4.0 (3.5-5.1) mmol/L Chloride 111 H (98-107) mmol/L Carbon Dioxide 19 L (22-30) mmol/L Anion Gap 16.2 H (5-15) MEQ/L BUN 30 H (7-17) mg/dL Creatinine 1.45 H (0.52-1.04) mg/dL Estimated GFR 37.9 ML/MIN Glucose 129 H (74-106) mg/dL POC Glucometer 115 H 133 H (74 to 106) mg/dL Calcium 9.2 (8.4-10.2) mg/dL Total Bilirubin < 0.10 L (0.2-1.3) mg/dL AST 18 (14-36) U/L ALT 5 (0-35) U/L Alkaline Phosphatase 86 (38-126) U/L Troponin I (0.000-0.034) ng/mL Serum Total Protein 6.6 (6.3-8.2) g/dL Albumin 3.6 (3.5-5.0) g/dL Micro Results-Entire Visit: Microbiology 03/11/21 21:44 Urine Culture - Final Urine, Void NO GROWTH Accuchecks Date 03/16/21 Date 03/16/21 Date 03/15/21 - Procedures and Test Procedures and Tests throughout Hospitalization: Therapy Orders & Screens 03/12/21 02:11 OT Screen per Nursing Assess ONCE Comment: Protocol Order Physician Instructions: Greater than 3 points order OT Admission Screening Reason For Exam: Triggered on Admission Diagnosis: weakness Open Wound/Cellutlitis/Pressure Ulcers: No Acute Fx/ORIF/Change in wt bearing status: No Severe MUSCULOSKELETAL pain: No ADL Dysfunction: Yes Acute CVA w/Hemiparesis/Hemiplegia: No Decreased Functional Mobility/Strength: Yes Sprain/Strain: No Acute Post-op Mobility Dysfunction: No Total Points: 4 PT Screen per Nursing Assess ONCE Comment: Protocol Order Physician Instructions: Greater than 3 points order PT Admission Screenin Reason For Exam: Triggered on Admission Diagnosis: weakness Open Wound/Cellutlitis/Pressure Ulcers: No Acute Fx/ORIF/Change in wt bearing status: No Severe MUSCULOSKELETAL pain: No ADL Dysfunction: Yes Acute CVA w/Hemiparesis/Hemiplegia: No Decreased Functional Mobility/Strength: Yes Sprain/Strain: No Acute Post-op Mobility Dysfunction: No Total Points: 4 03/12/21 05:31 EKG ROUTINE Comment: Diagnosis: weakness 03/12/21 08:53 Speech Therapy Eval & Treat [ST Eval & Treat ( Order)] .as ordered Comment: Physician Instructions: Reason For Exam: Evaluate: Yes Treat: Yes Reason for Eval: recent CVA with increased difficulty speaking- swallow eval Diagnosis: weakness 03/12/21 09:20 PT Eval & Treat ( Order) ONCE Reason for Eval:: CVA Diagnosis: weakness 03/13/21 05:00 EKG ROUTINE Comment: Diagnosis: weakness 03/13/21 20:57 EKG ROUTINE Comment: Diagnosis: CVA 03/14/21 05:00 EKG ROUTINE Comment: Diagnosis: weakness 03/15/21 05:00 EKG ROUTINE Comment: Diagnosis: weakness 03/15/21 11:53 EKG ROUTINE Comment: Diagnosis: CVA - Discharge Disposition: [place] TO [facility] Condition: Stable Prescriptions: Continue Oxybutynin Chloride 10 mg Xl [Ditropan Xl 10 MG] 10 mg PO DAILY Valsartan [Diovan] 160 mg PO DAILY Allopurinol 100 mg [Zyloprim 100 mg] 100 mg PO BID Carbidopa/Levodopa [Carbidopa-Levodopa 25-250 Tab] 1 tablet PO BID Ergocalciferol (Vitamin D2) [Vitamin D] 1.25 mg PO UD Pravastatin Sodium [Pravachol] 40 mg PO DAILY Metoprolol Tartrate [Lopressor] 50 mg PO BID Potassium Chloride 10 Meq Tab* [Klor Con 10 MEQ] 10 meq PO DAILY Clopidogrel Bisulfate 75 mg [PLAVIX 75 MG Tablet] 75 mg PO DAILY Acarbose [Precose] 25 mg PO TID Glipizide 20 mg PO DAILY Gemfibrozil 600 mg [Lopid 600 mg] 600 mg PO DAILY Dapagliflozin Propanediol [Farxiga] 5 mg PO BID Follow up with: BRANDON CASH [Primary Care Provider] - Forms: Patient Portal Information
[2021-03-16 16:42] VITALS: BP 182/78; PULSE 56; O2SAT 97
== END 2021-03-16 18:05 | DRG 65 ==
LOC: ED 20:41 → MED SURG 03-12 01:14 → OBSVTOIN 03-13 08:52
PROVIDERS: ADMIT Family Medicine; ATTEND Family Medicine
DX: I63.9 Cerebral infarction, unspecified (principal); N39.0 Urinary tract infection, site not specified; N17.9 Acute kidney failure, unspecified; R53.1 Weakness; G20 Parkinson's disease; I12.9 Hypertensive chronic kidney disease with stage 1 through stage 4 chronic kidney disease, or unspecified chronic kidney disease; E11.22 Type 2 diabetes mellitus with diabetic chronic kidney disease; N18.9 Chronic kidney disease, unspecified; D64.9 Anemia, unspecified; Z20.828 Contact with and (suspected) exposure to other viral communicable diseases; Z86.73 Personal history of transient ischemic attack (TIA), and cerebral infarction without residual deficits; W18.39XA Other fall on same level, initial encounter; Y93.K9 Activity, other involving animal care; Z79.899 Other long term (current) drug therapy; Z79.01 Long term (current) use of anticoagulants; E78.00 Pure hypercholesterolemia, unspecified; J44.9 Chronic obstructive pulmonary disease, unspecified; G47.30 Sleep apnea, unspecified; M25.511 Pain in right shoulder
CPT/HCPCS: 36000; 36415; 70450; 70551; 73030; 80048; 80053; 80061; 81001; 82607; 82746; 82947; 83036; 83721; 83735; 84443; 84484; 85025; 85027; 87086; 92526; 92610; 93005; 93268; 93880; 94760; 97110; 97161; 97530; 99285; G0378; Q3014; U0003; J0360; J0696; J1817; A9270-GY

== ENCOUNTER 2021-07-28 15:17 | Inpatient (IN) | payer MEDICARE, OTHER ==
[2021-07-28] MEDS ORDERED: Sodium Chloride 0.9% 1000 ML 1,000 ML IV STA (15:50)
[2021-07-28] MEDS ORDERED: Sodium Chloride 0.9% 1000 ML 1,000 ML ONE (15:57)
[2021-07-28 16:18] LABS: Hematocrit 39.9 % (35-47); Hemoglobin 12.3 gm/dl (12.0-16.0); Mean Cell Volume 94.5 fl (78-100); Mean Corpuscular Hemoglobin 29.1 pg (26-32); Mean Corpuscular Hgb Concent. 30.8 g/dl (32-36); Mean Platelet Volume 10.6 fl (7.5-11.0); Platelet Count 201 K/mm3 (150-450); Red Blood Count 4.22 M/mm3 (4.1-5.4); Red Cell Distribution Width 15.5 % (11.5-14.0); White Blood Count 12.6 K/mm3 (4.0-10.5)
[2021-07-28 16:32] LABS: INR 1.08 (0.8-3.0); PROTIME 12.8 SECONDS (9.4-12.5)
[2021-07-28 16:39] LABS: ALBUMIN 4.3 g/dL (3.5-5.0); ANION GAP 17.1 MEQ/L (5-15); BILIRUBIN,TOTAL 0.9 mg/dL (0.2-1.3); Calcium 9.5 mg/dL (8.4-10.2); Creatinine 1 1.77 mg/dL (0.52-1.04); EST GLOMERULAR FILTRATION RATE 30.1 ML/MIN; MAGNESIUM 2.1 mg/dL (1.6-2.3); Potassium 3.5 mmol/L (3.5-5.1); Total Protein 8.1 g/dL (6.3-8.2)
[2021-07-28 16:50] LABS: TROPONIN 0.029 ng/mL (0.000-0.034)
[2021-07-28 16:56] LABS: Basophil 1 % (0.0-1.0); Eosinophil 1 % (0.00-3.0); Lymphocytes 19 % (24-44); Monocyte 2 % (0.0-12.0); Neutrophils 77 % (36.0-66.0); Platelet Estimate NORMAL (NORMAL); Total Cells Counted 100
[2021-07-28 17:58] LABS: Appearance CLOUDY (CLEAR); Bilirubin NEGATIVE (NEGATIVE); Blood SMALL Ery/ul (0-5); Epithelial Cells RARE /HPF (FEW); Glucose >=500 mg/dL (NEGATIVE); Ketones NEGATIVE (NEGATIVE); Leukocyte Esterase LARGE (NEGATIVE); Nitrite NEGATIVE (NEGATIVE); Protein,Urine Dip 100 (Negative); Specific Gravity 1.018 (1.005-1.025); Urobilinogen NEGATIVE mg/dL (0-1); WBC >100 /HPF (0-5)
[2021-07-28 17:59] LABS: Bacteria NONE SEEN /HPF (NEGATIVE)
--- NOTE | 2021-07-28 18:58 | XRAY ---
Indication: Weakness. Short of breath. COPD. Comparison: November 11, 2020. Portable chest remains clear. Heart not enlarged. Bony thorax intact again with mild osteopenia and degenerative changes. No new/acute abnormalities.
--- NOTE | 2021-07-28 19:09 | ERPHSYRPT ---
- History of Present Illness Time Seen by Provider: 07/28/21 15:30 Source: patient Exam Limitations: no limitations Patient Subjective Stated Complaint: cough, congestion, weakness/dizziness Triage Nursing Assessment: pt to ED c/o cough/congestion for a few days and new weakness/dizziness which onset today. pt states she had become dizzy while dr murry this morning. pt back to ED in personal WC which she has been using since February d/t CVA. pt states she has been home for 1 month, prior she was in [facility] for rehab. defecits to L side. up with 1 asssit and pt states she is at baseline for transfers. pt also reports back pain 5/10 and unable to urinate since yesterday. Physician History: Patient is a 70-year-old female who presents with a complaint of some congestion and cough for a few days and developing profound weakness over the last 3 days. She states that she lost the ability to pull herself up with her right arm from Thursday to Thursday. 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 Timing/Duration: day(s) (3) Severity: moderate Associated Symptoms: cough, weakness Allergies/Adverse Reactions: Penicillins Allergy (Severe, Verified 03/11/21 21:45) Vomiting iodine Adverse Reaction (Verified 03/11/21 21:45) Rash Home Medications: Oxybutynin Chloride 10 mg Xl [Ditropan Xl 10 MG] 10 mg PO DAILY 06/02/16 [History] Valsartan [Diovan] 160 mg PO DAILY 07/30/16 [History] Allopurinol 100 mg [Zyloprim 100 mg] 100 mg PO BID 07/05/18 [History] Carbidopa/Levodopa [Carbidopa-Levodopa 25-250 Tab] 1 tablet PO BID 11/08/19 [History] Ergocalciferol (Vitamin D2) [Vitamin D] 1.25 mg PO UD 05/14/20 [History] Acarbose [Precose] 25 mg PO TID 11/11/20 [History] Clopidogrel Bisulfate 75 mg [PLAVIX 75 MG Tablet] 75 mg PO DAILY 11/11/20 [History] Metoprolol Tartrate [Lopressor] 50 mg PO BID 11/11/20 [History] Potassium Chloride 10 Meq Tab* [Klor Con 10 MEQ] 10 meq PO DAILY 11/11/20 [History] Pravastatin Sodium [Pravachol] 40 mg PO DAILY 11/11/20 [History] Dapagliflozin Propanediol [Farxiga] 5 mg PO BID 03/12/21 [History] Gemfibrozil 600 mg [Lopid 600 mg] 600 mg PO DAILY 03/12/21 [History] Glipizide 20 mg PO DAILY 03/12/21 [History] Hx Tetanus, Diphtheria Vaccination/Date Given: Yes Hx Influenza Vaccination/Date Given: Yes Hx Pneumococcal Vaccination/Date Given: Yes Immunizations Up to Date: Yes Travel Risk - International Travel Have you traveled outside of the country in past 3 weeks: No - Coronavirus Screening Are you exhibiting any of the following symptoms?: No Close contact with a COVID-19 positive Pt in past 14-21 Days: No - Vaccine Status Have you recieved a Covid-19 vaccination: Yes 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: [employer] - Vaccination Dates Date of 2cond Vaccination (if applicable): november - Review of Systems Constitutional: No Fever, No Chills Eyes: No Symptoms Ears, Nose, & Throat: Nose Congestion Respiratory: Cough, No Dyspnea Cardiac: No Chest Pain, No Edema, No Syncope Abdominal/Gastrointestinal: No Abdominal Pain, No Nausea, No Vomiting, No Diarrhea Genitourinary Symptoms: Urinary Retention, No Dysuria Musculoskeletal: No Back Pain, No Neck Pain Skin: No Rash Neurological: No Dizziness, No Focal Weakness, No Sensory Changes Psychological: No Symptoms Endocrine: No Symptoms All Other Systems: Reviewed and Negative - Past Medical History Pertinent Past Medical History: Yes Neurological History: Migraines, Stroke, TIA ENT History: No Pertinent History Cardiac History: Coronary Artery Disease, High Cholesterol, Hypertension, Myocardial Infarction (MT) Respiratory History: COPD, Sleep Apnea Endocrine Medical History: Diabetes Type II Musculoskeletal History: No Pertinent History GI Medical History: Gallbladder Disease, Polyps, Ulcer History: Renal Disease, Other Psycho-Social History: No Pertinent History Female Reproductive Disorders: Other Other Medical History: Parkinson's Disease - Past Surgical History Past Surgical History: Yes Neuro Surgical History: No Pertinent History Cardiac: Cardiac Catheterization, Cardiac Stent Respiratory: No Pertinent History Gastrointestinal: Cholecystectomy Genitourinary: No Pertinent History Musculoskeletal: No Pertinent History Female Surgical History: Hysterectomy Other Surgical History: 7 HEART STENTS TOTAL ,colonoscopy and egd in past - Social History Smoking Status: Never smoker Exposure to second hand smoke: No Drug Use: none Patient Lives Alone: No Significant Family History: no pertinent family hx - Female History Hx Now: No - Nursing Vital Signs Nursing Vital Signs: Initial Vital Signs Temperature 97.0 F 07/28/21 15:29 Pulse Rate 72 07/28/21 15:29 Respiratory Rate 18 07/28/21 15:29 Blood Pressure 153/59 07/28/21 15:29 O2 Sat by Pulse Oximetry 97 07/28/21 15:29 Pain Scale Pain Intensity 5 - Physical Exam General Appearance: mild distress, alert Eye Exam: PERRL/EOMI, eyes nml inspection Ears, Nose, Throat Exam: normal ENT inspection, TMs normal, pharynx normal, dry mucous membranes Neck Exam: normal inspection, non-tender, supple, full range of motion Respiratory Exam: normal breath sounds, lungs clear, No respiratory distress Cardiovascular Exam: regular rate/rhythm, normal heart sounds, normal peripheral pulses Gastrointestinal/Abdomen Exam: soft, normal bowel sounds, No tenderness, No mass Back Exam: normal inspection, normal range of motion, No CVA tenderness, No vertebral tenderness Extremity Exam: normal inspection, normal range of motion, pelvis stable Neurologic Exam: alert, oriented x 3, cooperative, normal mood/affect, nml cerebellar function, nml station & gait, sensation nml, No motor deficits Skin Exam: normal color, warm, dry, No rash Lymphatic Exam: No adenopathy SpO2 Interpretation: normal SpO2: 93 O2 Delivery: Room Air - Course Nursing assessment & vital signs reviewed: Yes EKG Interpreted by Me: RATE (72), Sinus Rhythm, Left [place] Deviation, NORMAL INTERVALS, NORMAL QRS, Non-specific ST Changes - Radiology Exams Chest X-ray Interpretation: Interpreted by me, Negative Ordered Tests: Active Orders 24 hr Category Date Time Status Bee Producer STAT Care 07/28/21 15:53 Active EKG-ER Only STAT Care 07/28/21 15:50 Active CHEST 1 VIEW (PORTABLE) Stat Exams 07/28/21 16:02 Completed BLOOD CULTURE Stat Lab 07/28/21 16:25 Received CBC W DIFF Stat Lab 07/28/21 16:16 Completed CMP Stat Lab 07/28/21 16:16 Completed CULTURE,URINE Stat Lab 07/28/21 17:34 Received D-DIMER QUANTITATIVE Stat Lab 07/28/21 16:16 Completed Lactic Acid Stat Lab 07/28/21 17:10 Completed MAGNESIUM Stat Lab 07/28/21 16:16 Completed Manual Differential NC Stat Lab 07/28/21 16:16 Completed NT PRO BNP Routine Lab 07/28/21 16:16 Completed PROTIME WITH INR Stat Lab 07/28/21 16:16 Completed TROPONIN Q3H Lab 07/28/21 16:16 Completed TROPONIN Q3H Lab 07/28/21 19:02 Received TROPONIN Q3H Lab 07/28/21 22:00 Ordered TROPONIN Q3H Lab 07/29/21 01:00 Ordered TROPONIN Q3H Lab 07/29/21 04:00 Ordered UA W/RFX UR CULTURE Stat Lab 07/28/21 17:34 Completed Medication Summary Discontinued Medications Generic Name Dose Route Start Last Admin Trade Name Mitchel PRN Reason Stop Dose Admin Sodium Chloride 1,000 mls @ 999 mls/hr 07/28/21 15:50 07/28/21 17:35 Sodium Chloride 0.9% 1000 Ml IV 07/28/21 16:50 Infused .Q1H1M STA Infusion Sodium Chloride Confirm 07/28/21 15:57 Sodium Chloride 0.9% 1000 Ml Administered 07/28/21 15:58 Dose 1,000 mls @ ud .ROUTE .STK-MED ONE Lab/Rad Data: Laboratory Result Diagrams 07/28/21 16:16 07/28/21 16:16 Laboratory Results 07/28/21 07/28/21 07/28/21 Range/Units 17:34 17:10 16:16 WBC (4.0-10.5) K/mm3 RBC (4.1-5.4) M/mm3 Hgb (12.0-16.0) gm/dl Hct (35-47) % MCV (78-100) fl MCH (26-32) pg MCHC (32-36) g/dl RDW (11.5-14.0) % Plt Count (150-450) K/mm3 MPV (7.5-11.0) fl Segmented Neutrophils (36.0-66.0) % Lymphocytes (Manual) (24-44) % Monocytes (Manual) (0.0-12.0) % Eosinophils (Manual) (0.00-3.0) % Basophils (Manual) (0.0-1.0) % Platelet Estimate (NORMAL) RBC Morphology PT (9.4-12.5) SECONDS INR (0.8-3.0) D-Dimer (215-500) ng/mL Sodium (137-145) mmol/L Potassium (3.5-5.1) mmol/L Chloride (98-107) mmol/L Carbon Dioxide (22-30) mmol/L Anion Gap (5-15) MEQ/L BUN (7-17) mg/dL Creatinine (0.52-1.04) mg/dL Estimated GFR ML/MIN Glucose (74-106) mg/dL Lactic Acid 1.6 (0.4-2.0) Calcium (8.4-10.2) mg/dL Magnesium (1.6-2.3) mg/dL Total Bilirubin (0.2-1.3) mg/dL AST (14-36) U/L ALT (0-35) U/L Alkaline Phosphatase (38-126) U/L Troponin I 0.029 (0.000-0.034) ng/mL NT-Pro-B Natriuret Pep 1140 H (0-900) pg/mL Serum Total Protein (6.3-8.2) g/dL Albumin (3.5-5.0) g/dL Urine Color YELLOW (YELLOW) Urine Appearance CLOUDY (CLEAR) Urine pH 5.0 (5-6) Ur Specific [place] 1.018 (1.005-1.025) Urine Protein 100 (Negative) Urine Ketones NEGATIVE (NEGATIVE) Urine Blood SMALL (0-5) [place]/ul Urine Nitrite NEGATIVE (NEGATIVE) Urine Bilirubin NEGATIVE (NEGATIVE) Urine Urobilinogen NEGATIVE (0-1) mg/dL Ur Leukocyte Esterase LARGE (NEGATIVE) Urine WBC (Auto) >100 (0-5) /HPF Urine RBC (Auto) 3-5 (0-2) /HPF U Epithel Cells (Auto) RARE (FEW) /HPF Urine Bacteria (Auto) NONE SEEN (NEGATIVE) /HPF Urine Culture Reflexed YES (NO) Urine Glucose >=500 (NEGATIVE) mg/dL 07/28/21 07/28/21 07/28/21 Range/Units 16:16 16:16 16:16 WBC 12.6 H (4.0-10.5) K/mm3 RBC 4.22 (4.1-5.4) M/mm3 Hgb 12.3 (12.0-16.0) gm/dl Hct 39.9 (35-47) % MCV 94.5 (78-100) fl MCH 29.1 (26-32) pg MCHC 30.8 L (32-36) g/dl RDW 15.5 H (11.5-14.0) % Plt Count 201 (150-450) K/mm3 MPV 10.6 (7.5-11.0) fl Segmented Neutrophils 77 H (36.0-66.0) % Lymphocytes (Manual) 19 L (24-44) % Monocytes (Manual) 2 (0.0-12.0) % Eosinophils (Manual) 1 (0.00-3.0) % Basophils (Manual) 1 (0.0-1.0) % Platelet Estimate NORMAL (NORMAL) RBC Morphology NORMAL PT 12.8 H (9.4-12.5) SECONDS INR 1.08 (0.8-3.0) D-Dimer 1029 H* (215-500) ng/mL Sodium 139 (137-145) mmol/L Potassium 3.5 (3.5-5.1) mmol/L Chloride 96 L (98-107) mmol/L Carbon Dioxide 28 (22-30) mmol/L Anion Gap 17.1 H (5-15) MEQ/L BUN 46 H (7-17) mg/dL Creatinine 1.77 H (0.52-1.04) mg/dL Estimated GFR 30.1 ML/MIN Glucose 150 H (74-106) mg/dL Lactic Acid (0.4-2.0) Calcium 9.5 (8.4-10.2) mg/dL Magnesium 2.1 (1.6-2.3) mg/dL Total Bilirubin 0.90 (0.2-1.3) mg/dL AST 34 (14-36) U/L ALT 7 (0-35) U/L Alkaline Phosphatase 118 (38-126) U/L Troponin I (0.000-0.034) ng/mL NT-Pro-B Natriuret Pep (0-900) pg/mL Serum Total Protein 8.1 (6.3-8.2) g/dL Albumin 4.3 (3.5-5.0) g/dL Urine Color (YELLOW) Urine Appearance (CLEAR) Urine pH (5-6) Ur Specific Byron (1.005-1.025) Urine Protein (Negative) Urine Ketones (NEGATIVE) Urine Blood (0-5) Austen/ul Urine Nitrite (NEGATIVE) Urine Bilirubin (NEGATIVE) Urine Urobilinogen (0-1) mg/dL Ur Leukocyte Esterase (NEGATIVE) Urine WBC (Auto) (0-5) /HPF Urine RBC (Auto) (0-2) /HPF U Epithel Cells (Auto) (FEW) /HPF Urine Bacteria (Auto) (NEGATIVE) /HPF Urine Culture Reflexed (NO) Urine Glucose (NEGATIVE) mg/dL - Progress Progress: improved Discussed with : yCnthia Will see patient in: hospital (observation) - Departure Departure Disposition: Observation Clinical Impression: Urinary tract infection, Chronic renal insufficiency Condition: Fair Critical Care Time: No Referrals: ROSELYN HARMON [Primary Care Provider] - Follow up/PCP as directed
[2021-07-28 19:42] LABS: INFLUENZA A NEGATIVE (NEGATIVE); INFLUENZA B NEGATIVE (NEGATIVE); RESPIRATORY SYNCTIAL VIRUS NEGATIVE (Negative); SARS-CoV-2 Xpert Express NEGATIVE (NEGATIVE)
[2021-07-29] MEDS ORDERED: NITRO-DUR 0.1MG/HR TD SCH (00:04)
[2021-07-29] MEDS ORDERED: Levofloxacin 500MG/100ML D5W 500 MG/100 ML BAG IV SCH ×2 (00:34→22:00)
[2021-07-29] MEDS: NITRO-DUR 0.2 MG/HR TD SCH ×2 (00:42→09:47)
[2021-07-29] MEDS: Sodium Chloride 0.9% 1000 ML 1,000 ML IV SCH ×3 (00:42→22:19)
[2021-07-29] MEDS: Lopressor 25MG Tab PO SCH ×3 (00:43→22:18)
[2021-07-29] MEDS: TYLENOL 325 MG PO PRN ×3 (00:44→22:18)
[2021-07-29] MEDS: LIORESAL 10 MG PO SCH ×4 (00:44→22:18)
[2021-07-29] MEDS: ZYLOPRIM 100 MG PO SCH ×3 (00:45→22:18)
[2021-07-29] MEDS: Sinemet CR 50/200 MG PO SCH ×2 (00:56→09:38)
[2021-07-29 05:16] LABS: ANION GAP 9.7 MEQ/L (5-15); BILIRUBIN,TOTAL 0.5 mg/dL (0.2-1.3); Calcium 8.5 mg/dL (8.4-10.2); Creatinine 1 1.59 mg/dL (0.52-1.04); EST GLOMERULAR FILTRATION RATE 34.1 ML/MIN; PREALBUMIN 9.98 mg/dL (17.6-36.0)
[2021-07-29 05:24] LABS: Absolute Neutrophil Ct (ANC) 5.59 (1.4-6.9); BASOPHIL % 0.1 % (0.0-0.4); Basophil (Absolute #) 0.01 (0-0.4); Eosinophil % 1.1 % (0.00-5.0); Hematocrit 34.3 % (35-47); Hemoglobin 10.5 gm/dl (12.0-16.0); Lymphocyte (Absolute #) 2.58 (1.0-4.6); Lymphocytes % 28.6 % (24.0-44.0); Mean Corpuscular Hemoglobin 29.1 pg (26-32); Mean Corpuscular Hgb Concent. 30.6 g/dl (32-36); Mean Platelet Volume 11.4 fl (7.5-11.0); Monocyte (Absolute #) 0.75 (0.0-1.3); Monocytes % 8.3 % (0.0-12.0); Neutrophil % 61.9 % (36.0-66.0); Platelet Count 172 K/mm3 (150-450); Red Blood Count 3.61 M/mm3 (4.1-5.4); Red Cell Distribution Width 15.2 % (11.5-14.0)
[2021-07-29] MEDS ORDERED: K-LYTE 25 MEQ ONE (06:28)
[2021-07-29] MEDS ORDERED: K-LYTE 25 MEQ PO ONE ×2 (06:29→06:31)
[2021-07-29] MEDS ORDERED: BABY ASPIRIN 81 MG CHEW PO ONE (07:04)
[2021-07-29 07:07] LABS: Appearance CLOUDY (CLEAR); Bacteria RARE /HPF (NEGATIVE); Bilirubin NEGATIVE (NEGATIVE); Blood NEGATIVE Ery/ul (0-5); Glucose >=500 mg/dL (NEGATIVE); Ketones TRACE (NEGATIVE); Leukocyte Esterase LARGE (NEGATIVE); Nitrite NEGATIVE (NEGATIVE); Protein,Urine Dip 100 (Negative); Specific Gravity 1.014 (1.005-1.025); Urobilinogen NEGATIVE mg/dL (0-1); WBC >100 /HPF (0-5)
[2021-07-29] MEDS ORDERED: ECOTRIN 81 MG PO ONE (07:10)
--- NOTE | 2021-07-29 07:15 | PCM.SSS ---
History of Present Illness - Chief Complaint Chief Complaint: UTI Medications & Allergies Home Medications: Home Medication List Oxybutynin Chloride 10 mg Xl [Ditropan Xl 10 MG] 10 mg PO DAILY 06/02/16 [History Confirmed 07/28/21] Valsartan [Diovan] 40 mg PO DAILY 07/30/16 [History Confirmed 07/28/21] Carbidopa/Levodopa [Carbidopa-Levodopa 25-250 Tab] 1 tablet PO BID 11/08/19 [History Confirmed 07/28/21] Ergocalciferol (Vitamin D2) [Vitamin D] 1.25 mg PO UD 05/14/20 [History Confirmed 07/28/21] Acarbose [Precose] 25 mg PO TID 11/11/20 [History Confirmed 07/28/21] Metoprolol Tartrate [Lopressor] 25 mg PO BID 11/11/20 [History Confirmed 07/28/21] Potassium Chloride 10 Meq Tab* [Klor Con 10 MEQ] 20 meq PO DAILY 11/11/20 [History Confirmed 07/28/21] Pravastatin Sodium [Pravachol] 40 mg PO DAILY 11/11/20 [History Confirmed 07/28/21] Dapagliflozin Propanediol [Farxiga] 5 mg PO BID 03/12/21 [History Confirmed 07/28/21] Glipizide 10 mg PO DAILY 03/12/21 [History Confirmed 07/28/21] Acetaminophen 325 mg [Tylenol 325 mg] 325 mg PO Q6HPRN PRN 07/28/21 [History Confirmed 07/28/21] Albuterol 8 gm Mdi Hfa [Ventolin Hfa MDI] 18 gm IH BID PRN 07/28/21 [History Confirmed 07/28/21] Allopurinol 100 mg [Zyloprim 100 mg] 100 mg PO BID 07/28/21 [History Confi rmed 07/28/21] Baclofen 10 mg [Lioresal 10 mg] 10 mg PO HS 07/28/21 [History Confirmed 07/28/21] Clopidogrel Bisulfate 75 mg [PLAVIX 75 MG Tablet] 75 mg PO DAILY 07/28/21 [History Confirmed 07/28/21] Furosemide 20 mg [Lasix 20 mg] 40 mg PO DAILY 07/28/21 [History Confirmed 07/28/21] Insulin Aspart 100 unit SQ ACHS 07/28/21 [History Confirmed 07/28/21] Insulin Glargine,Hum.rec.anlog [Lantus] 10 units SQ DAILY 07/28/21 [History Confirmed 07/28/21] Meclizine HCl 12.5 mg PO QIDPRN PRN 07/28/21 [History Confirmed 07/28/21] Multivitamin [Daily Multivitamin] 1 each PO DAILY 07/28/21 [History Confirmed 07/28/21] Nitroglycerin 0.4 mg Tablet [Nitrostat 0.4 MG Tablet] 0.4 mg SL Q5MIN PRN MR X 3 PRN 07/28/21 [History Confirmed 07/28/21] Allergies/Adverse Reactions: Allergies Allergy/AdvReac Type Severity Reaction Status Date / Time Penicillins Allergy Severe Vomiting Verified 03/11/21 21:45 iodine AdvReac Rash Verified 03/11/21 21:45 - Past Medical History Past Medical History: Yes Neurological History: Migraines, Stroke, TIA, Other ENT History: No Pertinent History Cardiac History: Coronary Artery Disease, High Cholesterol, Hypertension, Myocardial Infarction ([place]) Respiratory History: CHF, COPD, Sleep Apnea Endocrine Medical History: Diabetes Type II Musculoskelatal History: No Pertinent History, Osteoarthritis GI Medical History: Gallbladder Disease, Polyps, Ulcer History: Renal Disease, Other Pyscho-Social History: No Pertinent History Reproductive Disorders: Other Comment: Parkinson's Disease - Female History Are you now?: No - Past Surgical History Past Surgical History: Yes Neuro Surgical History: No Pertinent History Cardiac History: Cardiac Catheterization, Cardiac Stent Respiratory Surgery: No Pertinent History GI Surgical History: Cholecystectomy Genitourinary Surgical Hx: No Pertinent History Musculskeletal Surgical Hx: No Pertinent History Female Surgical History: Hysterectomy Other Surgical History: 7 HEART STENTS TOTAL ,colonoscopy and egd in past - Social History Smoking Status: Never smoker Exposure to second hand smoke: Yes Alcohol: Rarely Drug Use: none Significant Family History: no pertinent family hx - Physical Exam Vital Signs: Vital Signs - 24 hr Temp Pulse Resp BP Pulse Ox 07/29/21 04:00 99.7 F 69 20 96/40 90 L 07/29/21 00:00 99.6 F 97 H 24 130/60 88 L 07/28/21 21:18 99.1 F 95 H 20 137/62 92 L 07/28/21 20:00 98 H 12 136/90 98 07/28/21 19:10 93 L 07/28/21 19:00 98 H 20 141/68 93 L 07/28/21 18:00 98 H 25 H 141/72 95 07/28/21 17:34 90 25 H 139/58 100 07/28/21 16:33 72 23 123/70 95 07/28/21 15:29 97.0 F 72 18 153/59 97 Wound Assessment: Skin/Wound Assessment Wound/Incision Assessment Start: 07/28/21 21:42 Text: Status: Active Freq: Q6H Protocol: Document 07/29/21 02:00 AW (Rec: 07/29/21 02:58 AW [id number]) Wound/Incision Assessment Posterior Buttock Wound Assessment Shift Assessment Wound Type Pressure Ulcer Wound Stage Stage I Drainage Amount None General Appearance Clean/Dry Length (cm) (cm) 1 Width (cm) (cm) 2 Depth (cm) (cm) 0 Wound Bed Greatest Portion Shiny Wound Bed Lesser Portion Shiny Surrounding Tissue Gentry Wound Photo Photo Taken No Results - Labs Lab/Micro Results: Lab Results-Last 24 Hours 07/28/21 07/28/21 07/28/21 Range/Units 16:16 16:16 16:16 WBC 12.6 H (4.0-10.5) K/mm3 RBC 4.22 (4.1-5.4) M/mm3 Hgb 12.3 (12.0-16.0) gm/dl Hct 39.9 (35-47) % MCV 94.5 (78-100) fl MCH 29.1 (26-32) pg MCHC 30.8 L (32-36) g/dl RDW 15.5 H (11.5-14.0) % Plt Count 201 (150-450) K/mm3 MPV 10.6 (7.5-11.0) fl Gran % (36.0-66.0) % Eos # (Auto) (0-0.5) Absolute Lymphs (auto) (1.0-4.6) Absolute Monos (auto) (0.0-1.3) Lymphocytes % (24.0-44.0) % Monocytes % (0.0-12.0) % Eosinophils % (0.00-5.0) % Basophils % (0.0-0.4) % Absolute Granulocytes (1.4-6.9) Segmented Neutrophils 77 H (36.0-66.0) % Lymphocytes (Manual) 19 L (24-44) % Monocytes (Manual) 2 (0.0-12.0) % Eosinophils (Manual) 1 (0.00-3.0) % Basophils (Manual) 1 (0.0-1.0) % Basophils # (0-0.4) Platelet Estimate NORMAL (NORMAL) RBC Morphology NORMAL PT 12.8 H (9.4-12.5) SECONDS INR 1.08 (0.8-3.0) D-Dimer 1029 H* (215-500) ng/mL Sodium 139 (137-145) mmol/L Potassium 3.5 (3.5-5.1) mmol/L Chloride 96 L (98-107) mmol/L Carbon Dioxide 28 (22-30) mmol/L Anion Gap 17.1 H (5-15) MEQ/L BUN 46 H (7-17) mg/dL Creatinine 1.77 H (0.52-1.04) mg/dL Estimated GFR 30.1 ML/MIN Glucose 150 H (74-106) mg/dL Hemoglobin A1c (4.5-6.0) % Lactic Acid (0.4-2.0) Calcium 9.5 (8.4-10.2) mg/dL Magnesium 2.1 (1.6-2.3) mg/dL Total Bilirubin 0.90 (0.2-1.3) mg/dL AST 34 (14-36) U/L ALT 7 (0-35) U/L Alkaline Phosphatase 118 (38-126) U/L Troponin I (0.000-0.034) ng/mL NT-Pro-B Natriuret Pep (0-900) pg/mL Serum Total Protein 8.1 (6.3-8.2) g/dL Albumin 4.3 (3.5-5.0) g/dL Prealbumin (17.6-36.0) mg/dL Urine Color (YELLOW) Urine Appearance (CLEAR) Urine pH (5-6) Ur Specific [place] (1.005-1.025) Urine Protein (Negative) Urine Ketones (NEGATIVE) Urine Blood (0-5) [place]/ul Urine Nitrite (NEGATIVE) Urine Bilirubin (NEGATIVE) Urine Urobilinogen (0-1) mg/dL Ur Leukocyte Esterase (NEGATIVE) Urine WBC (Auto) (0-5) /HPF Urine RBC (Auto) (0-2) /HPF U Epithel Cells (Auto) (FEW) /HPF Urine Bacteria (Auto) (NEGATIVE) /HPF Urine Culture Reflexed (NO) Urine Glucose (NEGATIVE) mg/dL Influenza Type A Ag (NEGATIVE) Influenza Type B Ag (NEGATIVE) RSV (PCR) (Negative) SARS-CoV-2 (PCR) (NEGATIVE) 07/28/21 07/28/21 07/28/21 Range/Units 16:16 17:10 17:34 WBC (4.0-10.5) K/mm3 RBC (4.1-5.4) M/mm3 Hgb (12.0-16.0) gm/dl Hct (35-47) % MCV (78-100) fl MCH (26-32) pg MCHC (32-36) g/dl RDW (11.5-14.0) % Plt Count (150-450) K/mm3 MPV (7.5-11.0) fl Gran % (36.0-66.0) % Eos # (Auto) (0-0.5) Absolute Lymphs (auto) (1.0-4.6) Absolute Monos (auto) (0.0-1.3) Lymphocytes % (24.0-44.0) % Monocytes % (0.0-12.0) % Eosinophils % (0.00-5.0) % Basophils % (0.0-0.4) % Absolute Granulocytes (1.4-6.9) Segmented Neutrophils (36.0-66.0) % Lymphocytes (Manual) (24-44) % Monocytes (Manual) (0.0-12.0) % Eosinophils (Manual) (0.00-3.0) % Basophils (Manual) (0.0-1.0) % Basophils # (0-0.4) Platelet Estimate (NORMAL) RBC Morphology PT (9.4-12.5) SECONDS INR (0.8-3.0) D-Dimer (215-500) ng/mL Sodium (137-145) mmol/L Potassium (3.5-5.1) mmol/L Chloride (98-107) mmol/L Carbon Dioxide (22-30) mmol/L Anion Gap (5-15) MEQ/L BUN (7-17) mg/dL Creatinine (0.52-1.04) mg/dL Estimated GFR ML/MIN Glucose (74-106) mg/dL Hemoglobin A1c (4.5-6.0) % Lactic Acid 1.6 (0.4-2.0) Calcium (8.4-10.2) mg/dL Magnesium (1.6-2.3) mg/dL Total Bilirubin (0.2-1.3) mg/dL AST (14-36) U/L ALT (0-35) U/L Alkaline Phosphatase (38-126) U/L Troponin I 0.029 (0.000-0.034) ng/mL NT-Pro-B Natriuret Pep 1140 H (0-900) pg/mL Serum Total Protein (6.3-8.2) g/dL Albumin (3.5-5.0) g/dL Prealbumin (17.6-36.0) mg/dL Urine Color YELLOW (YELLOW) Urine Appearance CLOUDY (CLEAR) Urine pH 5.0 (5-6) Ur Specific [place] 1.018 (1.005-1.025) Urine Protein 100 (Negative) Urine Ketones NEGATIVE (NEGATIVE) Urine Blood SMALL (0-5) [place]/ul Urine Nitrite NEGATIVE (NEGATIVE) Urine Bilirubin NEGATIVE (NEGATIVE) Urine Urobilinogen NEGATIVE (0-1) mg/dL Ur Leukocyte Esterase LARGE (NEGATIVE) Urine WBC (Auto) >100 (0-5) /HPF Urine RBC (Auto) 3-5 (0-2) /HPF U Epithel Cells (Auto) RARE (FEW) /HPF Urine Bacteria (Auto) NONE SEEN (NEGATIVE) /HPF Urine Culture Reflexed YES (NO) Urine Glucose >=500 (NEGATIVE) mg/dL Influenza Type A Ag (NEGATIVE) Influenza Type B Ag (NEGATIVE) RSV (PCR) (Negative) SARS-CoV-2 (PCR) (NEGATIVE) 07/28/21 07/28/21 07/28/21 Range/Units 19:02 19:03 22:02 WBC (4.0-10.5) K/mm3 RBC (4.1-5.4) M/mm3 Hgb (12.0-16.0) gm/dl Hct (35-47) % MCV (78-100) fl MCH (26-32) pg MCHC (32-36) g/dl RDW (11.5-14.0) % Plt Count (150-450) K/mm3 MPV (7.5-11.0) fl Gran % (36.0-66.0) % Eos # (Auto) (0-0.5) Absolute Lymphs (auto) (1.0-4.6) Absolute Monos (auto) (0.0-1.3) Lymphocytes % (24.0-44.0) % Monocytes % (0.0-12.0) % Eosinophils % (0.00-5.0) % Basophils % (0.0-0.4) % Absolute Granulocytes (1.4-6.9) Segmented Neutrophils (36.0-66.0) % Lymphocytes (Manual) (24-44) % Monocytes (Manual) (0.0-12.0) % Eosinophils (Manual) (0.00-3.0) % Basophils (Manual) (0.0-1.0) % Basophils # (0-0.4) Platelet Estimate (NORMAL) RBC Morphology PT (9.4-12.5) SECONDS INR (0.8-3.0) D-Dimer (215-500) ng/mL Sodium (137-145) mmol/L Potassium (3.5-5.1) mmol/L Chloride (98-107) mmol/L Carbon Dioxide (22-30) mmol/L Anion Gap (5-15) MEQ/L BUN (7-17) mg/dL Creatinine (0.52-1.04) mg/dL Estimated GFR ML/MIN Glucose (74-106) mg/dL Hemoglobin A1c (4.5-6.0) % Lactic Acid (0.4-2.0) Calcium (8.4-10.2) mg/dL Magnesium (1.6-2.3) mg/dL Total Bilirubin (0.2-1.3) mg/dL AST (14-36) U/L ALT (0-35) U/L Alkaline Phosphatase (38-126) U/L Troponin I 0.032 0.039 H* (0.000-0.034) ng/mL NT-Pro-B Natriuret Pep (0-900) pg/mL Serum Total Protein (6.3-8.2) g/dL Albumin (3.5-5.0) g/dL Prealbumin (17.6-36.0) mg/dL Urine Color (YELLOW) Urine Appearance (CLEAR) Urine pH (5-6) Ur Specific [place] (1.005-1.025) Urine Protein (Negative) Urine Ketones (NEGATIVE) Urine Blood (0-5) [place]/ul Urine Nitrite (NEGATIVE) Urine Bilirubin (NEGATIVE) Urine Urobilinogen (0-1) mg/dL Ur Leukocyte Esterase (NEGATIVE) Urine WBC (Auto) (0-5) /HPF Urine RBC (Auto) (0-2) /HPF U Epithel Cells (Auto) (FEW) /HPF Urine Bacteria (Auto) (NEGATIVE) /HPF Urine Culture Reflexed (NO) Urine Glucose (NEGATIVE) mg/dL Influenza Type A Ag NEGATIVE (NEGATIVE) Influenza Type B Ag NEGATIVE (NEGATIVE) RSV (PCR) NEGATIVE (Negative) SARS-CoV-2 (PCR) NEGATIVE (NEGATIVE) 07/29/21 07/29/21 07/29/21 Range/Units 01:11 04:30 04:30 WBC 9.0 (4.0-10.5) K/mm3 RBC 3.61 L (4.1-5.4) M/mm3 Hgb 10.5 L (12.0-16.0) gm/dl Hct 34.3 L (35-47) % MCV 95.0 (78-100) fl MCH 29.1 (26-32) pg MCHC 30.6 L (32-36) g/dl RDW 15.2 H (11.5-14.0) % Plt Count 172 (150-450) K/mm3 MPV 11.4 H (7.5-11.0) fl Gran % 61.9 (36.0-66.0) % Eos # (Auto) 0.10 (0-0.5) Absolute Lymphs (auto) 2.58 (1.0-4.6) Absolute Monos (auto) 0.75 (0.0-1.3) Lymphocytes % 28.6 (24.0-44.0) % Monocytes % 8.3 (0.0-12.0) % Eosinophils % 1.1 (0.00-5.0) % Basophils % 0.1 (0.0-0.4) % Absolute Granulocytes 5.59 (1.4-6.9) Segmented Neutrophils (36.0-66.0) % Lymphocytes (Manual) (24-44) % Monocytes (Manual) (0.0-12.0) % Eosinophils (Manual) (0.00-3.0) % Basophils (Manual) (0.0-1.0) % Basophils # 0.01 (0-0.4) Platelet Estimate (NORMAL) RBC Morphology PT (9.4-12.5) SECONDS INR (0.8-3.0) D-Dimer (215-500) ng/mL Sodium (137-145) mmol/L Potassium (3.5-5.1) mmol/L Chloride (98-107) mmol/L Carbon Dioxide (22-30) mmol/L Anion Gap (5-15) MEQ/L BUN (7-17) mg/dL Creatinine (0.52-1.04) mg/dL Estimated GFR ML/MIN Glucose (74-106) mg/dL Hemoglobin A1c (4.5-6.0) % Lactic Acid (0.4-2.0) Calcium (8.4-10.2) mg/dL Magnesium (1.6-2.3) mg/dL Total Bilirubin (0.2-1.3) mg/dL AST (14-36) U/L ALT (0-35) U/L Alkaline Phosphatase (38-126) U/L Troponin I 0.048 H* 0.059 H* (0.000-0.034) ng/mL NT-Pro-B Natriuret Pep (0-900) pg/mL Serum Total Protein (6.3-8.2) g/dL Albumin (3.5-5.0) g/dL Prealbumin (17.6-36.0) mg/dL Urine Color (YELLOW) Urine Appearance (CLEAR) Urine pH (5-6) Ur Specific [place] (1.005-1.025) Urine Protein (Negative) Urine Ketones (NEGATIVE) Urine Blood (0-5) [place]/ul Urine Nitrite (NEGATIVE) Urine Bilirubin (NEGATIVE) Urine Urobilinogen (0-1) mg/dL Ur Leukocyte Esterase (NEGATIVE) Urine WBC (Auto) (0-5) /HPF Urine RBC (Auto) (0-2) /HPF U Epithel Cells (Auto) (FEW) /HPF Urine Bacteria (Auto) (NEGATIVE) /HPF Urine Culture Reflexed (NO) Urine Glucose (NEGATIVE) mg/dL Influenza Type A Ag (NEGATIVE) Influenza Type B Ag (NEGATIVE) RSV (PCR) (Negative) SARS-CoV-2 (PCR) (NEGATIVE) 07/29/21 07/29/21 07/29/21 Range/Units 04:30 04:30 06:00 WBC (4.0-10.5) K/mm3 RBC (4.1-5.4) M/mm3 Hgb (12.0-16.0) gm/dl Hct (35-47) % MCV (78-100) fl MCH (26-32) pg MCHC (32-36) g/dl RDW (11.5-14.0) % Plt Count (150-450) K/mm3 MPV (7.5-11.0) fl Gran % (36.0-66.0) % Eos # (Auto) (0-0.5) Absolute Lymphs (auto) (1.0-4.6) Absolute Monos (auto) (0.0-1.3) Lymphocytes % (24.0-44.0) % Monocytes % (0.0-12.0) % Eosinophils % (0.00-5.0) % Basophils % (0.0-0.4) % Absolute Granulocytes (1.4-6.9) Segmented Neutrophils (36.0-66.0) % Lymphocytes (Manual) (24-44) % Monocytes (Manual) (0.0-12.0) % Eosinophils (Manual) (0.00-3.0) % Basophils (Manual) (0.0-1.0) % Basophils # (0-0.4) Platelet Estimate (NORMAL) RBC Morphology PT (9.4-12.5) SECONDS INR (0.8-3.0) D-Dimer (215-500) ng/mL Sodium 138 (137-145) mmol/L Potassium 3.0 L* (3.5-5.1) mmol/L Chloride 104 (98-107) mmol/L Carbon Dioxide 28 (22-30) mmol/L Anion Gap 9.7 (5-15) MEQ/L BUN 37 H (7-17) mg/dL Creatinine 1.59 H (0.52-1.04) mg/dL Estimated GFR 34.1 ML/MIN Glucose 81 (74-106) mg/dL Hemoglobin A1c 7.65 H (4.5-6.0) % Lactic Acid (0.4-2.0) Calcium 8.5 (8.4-10.2) mg/dL Magnesium (1.6-2.3) mg/dL Total Bilirubin 0.50 (0.2-1.3) mg/dL AST 37 H (14-36) U/L ALT 8 (0-35) U/L Alkaline Phosphatase 89 (38-126) U/L Troponin I (0.000-0.034) ng/mL NT-Pro-B Natriuret Pep 1820 H (0-900) pg/mL Serum Total Protein 6.0 L (6.3-8.2) g/dL Albumin 3.0 L (3.5-5.0) g/dL Prealbumin 9.98 L (17.6-36.0) mg/dL Urine Color YELLOW (YELLOW) Urine Appearance CLOUDY (CLEAR) Urine pH 5.0 (5-6) Ur Specific [place] 1.014 (1.005-1.025) Urine Protein 100 (Negative) Urine Ketones TRACE (NEGATIVE) Urine Blood NEGATIVE (0-5) [place]/ul Urine Nitrite NEGATIVE (NEGATIVE) Urine Bilirubin NEGATIVE (NEGATIVE) Urine Urobilinogen NEGATIVE (0-1) mg/dL Ur Leukocyte Esterase LARGE (NEGATIVE) Urine WBC (Auto) >100 (0-5) /HPF Urine RBC (Auto) 6-10 (0-2) /HPF U Epithel Cells (Auto) NONE (FEW) /HPF Urine Bacteria (Auto) RARE (NEGATIVE) /HPF Urine Culture Reflexed YES (NO) Urine Glucose >=500 (NEGATIVE) mg/dL Influenza Type A Ag (NEGATIVE) Influenza Type B Ag (NEGATIVE) RSV (PCR) (Negative) SARS-CoV-2 (PCR) (NEGATIVE) - Radiology Impressions Radiology Exams & Impressions: Radiology Procedures Category Date Time Status CHEST 1 VIEW (PORTABLE) Stat Exams 07/28/21 16:02 Completed - Other Procedures and Tests Respiratory Therapy 07/29/21 01:47 Oxygen Nasal Cannula 2 lpm Hospital Summary - Vitals & Intake/Output Vital Signs: Vital Signs Temperature 99.7 F 07/29/21 04:00 Pulse Rate 69 07/29/21 04:00 Respiratory Rate 20 07/29/21 04:00 Blood Pressure 96/40 07/29/21 04:00 O2 Sat by Pulse Oximetry 90 L 07/29/21 04:00 Intake & Output: Intake & Output 07/26/21 07/27/21 07/28/21 07/29/21 11:59 11:59 11:59 11:59 Intake Total 582 Output Total 1600 Balance -1018 Weight 69 kg - Lab Result Diagrams: 07/29/21 04:30 07/29/21 09:13 Lab Results-Last 24 Hrs: Lab Results-Last 24 Hours 07/28/21 07/28/21 07/28/21 Range/Units 16:16 16:16 16:16 WBC 12.6 H (4.0-10.5) K/mm3 RBC 4.22 (4.1-5.4) M/mm3 Hgb 12.3 (12.0-16.0) gm/dl Hct 39.9 (35-47) % MCV 94.5 (78-100) fl MCH 29.1 (26-32) pg MCHC 30.8 L (32-36) g/dl RDW 15.5 H (11.5-14.0) % Plt Count 201 (150-450) K/mm3 MPV 10.6 (7.5-11.0) fl Gran % (36.0-66.0) % Eos # (Auto) (0-0.5) Absolute Lymphs (auto) (1.0-4.6) Absolute Monos (auto) (0.0-1.3) Lymphocytes % (24.0-44.0) % Monocytes % (0.0-12.0) % Eosinophils % (0.00-5.0) % Basophils % (0.0-0.4) % Absolute Granulocytes (1.4-6.9) Segmented Neutrophils 77 H (36.0-66.0) % Lymphocytes (Manual) 19 L (24-44) % Monocytes (Manual) 2 (0.0-12.0) % Eosinophils (Manual) 1 (0.00-3.0) % Basophils (Manual) 1 (0.0-1.0) % Basophils # (0-0.4) Platelet Estimate NORMAL (NORMAL) RBC Morphology NORMAL PT 12.8 H (9.4-12.5) SECONDS INR 1.08 (0.8-3.0) D-Dimer 1029 H* (215-500) ng/mL Sodium 139 (137-145) mmol/L Potassium 3.5 (3.5-5.1) mmol/L Chloride 96 L (98-107) mmol/L Carbon Dioxide 28 (22-30) mmol/L Anion Gap 17.1 H (5-15) MEQ/L BUN 46 H (7-17) mg/dL Creatinine 1.77 H (0.52-1.04) mg/dL Estimated GFR 30.1 ML/MIN Glucose 150 H (74-106) mg/dL Hemoglobin A1c (4.5-6.0) % Lactic Acid (0.4-2.0) Calcium 9.5 (8.4-10.2) mg/dL Magnesium 2.1 (1.6-2.3) mg/dL Total Bilirubin 0.90 (0.2-1.3) mg/dL AST 34 (14-36) U/L ALT 7 (0-35) U/L Alkaline Phosphatase 118 (38-126) U/L Troponin I (0.000-0.034) ng/mL NT-Pro-B Natriuret Pep (0-900) pg/mL Serum Total Protein 8.1 (6.3-8.2) g/dL Albumin 4.3 (3.5-5.0) g/dL Prealbumin (17.6-36.0) mg/dL Urine Color (YELLOW) Urine Appearance (CLEAR) Urine pH (5-6) Ur Specific [place] (1.005-1.025) Urine Protein (Negative) Urine Ketones (NEGATIVE) Urine Blood (0-5) [place]/ul Urine Nitrite (NEGATIVE) Urine Bilirubin (NEGATIVE) Urine Urobilinogen (0-1) mg/dL Ur Leukocyte Esterase (NEGATIVE) Urine WBC (Auto) (0-5) /HPF Urine RBC (Auto) (0-2) /HPF U Epithel Cells (Auto) (FEW) /HPF Urine Bacteria (Auto) (NEGATIVE) /HPF Urine Culture Reflexed (NO) Urine Glucose (NEGATIVE) mg/dL Influenza Type A Ag (NEGATIVE) Influenza Type B Ag (NEGATIVE) RSV (PCR) (Negative) SARS-CoV-2 (PCR) (NEGATIVE) 07/28/21 07/28/21 07/28/21 Range/Units 16:16 17:10 17:34 WBC (4.0-10.5) K/mm3 RBC (4.1-5.4) M/mm3 Hgb (12.0-16.0) gm/dl Hct (35-47) % MCV (78-100) fl MCH (26-32) pg MCHC (32-36) g/dl RDW (11.5-14.0) % Plt Count (150-450) K/mm3 MPV (7.5-11.0) fl Gran % (36.0-66.0) % Eos # (Auto) (0-0.5) Absolute Lymphs (auto) (1.0-4.6) Absolute Monos (auto) (0.0-1.3) Lymphocytes % (24.0-44.0) % Monocytes % (0.0-12.0) % Eosinophils % (0.00-5.0) % Basophils % (0.0-0.4) % Absolute Granulocytes (1.4-6.9) Segmented Neutrophils (36.0-66.0) % Lymphocytes (Manual) (24-44) % Monocytes (Manual) (0.0-12.0) % Eosinophils (Manual) (0.00-3.0) % Basophils (Manual) (0.0-1.0) % Basophils # (0-0.4) Platelet Estimate (NORMAL) RBC Morphology PT (9.4-12.5) SECONDS INR (0.8-3.0) D-Dimer (215-500) ng/mL Sodium (137-145) mmol/L Potassium (3.5-5.1) mmol/L Chloride (98-107) mmol/L Carbon Dioxide (22-30) mmol/L Anion Gap (5-15) MEQ/L BUN (7-17) mg/dL Creatinine (0.52-1.04) mg/dL Estimated GFR ML/MIN Glucose (74-106) mg/dL Hemoglobin A1c (4.5-6.0) % Lactic Acid 1.6 (0.4-2.0) Calcium (8.4-10.2) mg/dL Magnesium (1.6-2.3) mg/dL Total Bilirubin (0.2-1.3) mg/dL AST (14-36) U/L ALT (0-35) U/L Alkaline Phosphatase (38-126) U/L Troponin I 0.029 (0.000-0.034) ng/mL NT-Pro-B Natriuret Pep 1140 H (0-900) pg/mL Serum Total Protein (6.3-8.2) g/dL Albumin (3.5-5.0) g/dL Prealbumin (17.6-36.0) mg/dL Urine Color YELLOW (YELLOW) Urine Appearance CLOUDY (CLEAR) Urine pH 5.0 (5-6) Ur Specific [place] 1.018 (1.005-1.025) Urine Protein 100 (Negative) Urine Ketones NEGATIVE (NEGATIVE) Urine Blood SMALL (0-5) [place]/ul Urine Nitrite NEGATIVE (NEGATIVE) Urine Bilirubin NEGATIVE (NEGATIVE) Urine Urobilinogen NEGATIVE (0-1) mg/dL Ur Leukocyte Esterase LARGE (NEGATIVE) Urine WBC (Auto) >100 (0-5) /HPF Urine RBC (Auto) 3-5 (0-2) /HPF U Epithel Cells (Auto) RARE (FEW) /HPF Urine Bacteria (Auto) NONE SEEN (NEGATIVE) /HPF Urine Culture Reflexed YES (NO) Urine Glucose >=500 (NEGATIVE) mg/dL Influenza Type A Ag (NEGATIVE) Influenza Type B Ag (NEGATIVE) RSV (PCR) (Negative) SARS-CoV-2 (PCR) (NEGATIVE) 07/28/21 07/28/21 07/28/21 Range/Units 19:02 19:03 22:02 WBC (4.0-10.5) K/mm3 RBC (4.1-5.4) M/mm3 Hgb (12.0-16.0) gm/dl Hct (35-47) % MCV (78-100) fl MCH (26-32) pg MCHC (32-36) g/dl RDW (11.5-14.0) % Plt Count (150-450) K/mm3 MPV (7.5-11.0) fl Gran % (36.0-66.0) % Eos # (Auto) (0-0.5) Absolute Lymphs (auto) (1.0-4.6) Absolute Monos (auto) (0.0-1.3) Lymphocytes % (24.0-44.0) % Monocytes % (0.0-12.0) % Eosinophils % (0.00-5.0) % Basophils % (0.0-0.4) % Absolute Granulocytes (1.4-6.9) Segmented Neutrophils (36.0-66.0) % Lymphocytes (Manual) (24-44) % Monocytes (Manual) (0.0-12.0) % Eosinophils (Manual) (0.00-3.0) % Basophils (Manual) (0.0-1.0) % Basophils # (0-0.4) Platelet Estimate (NORMAL) RBC Morphology PT (9.4-12.5) SECONDS INR (0.8-3.0) D-Dimer (215-500) ng/mL Sodium (137-145) mmol/L Potassium (3.5-5.1) mmol/L Chloride (98-107) mmol/L Carbon Dioxide (22-30) mmol/L Anion Gap (5-15) MEQ/L BUN (7-17) mg/dL Creatinine (0.52-1.04) mg/dL Estimated GFR ML/MIN Glucose (74-106) mg/dL Hemoglobin A1c (4.5-6.0) % Lactic Acid (0.4-2.0) Calcium (8.4-10.2) mg/dL Magnesium (1.6-2.3) mg/dL Total Bilirubin (0.2-1.3) mg/dL AST (14-36) U/L ALT (0-35) U/L Alkaline Phosphatase (38-126) U/L Troponin I 0.032 0.039 H* (0.000-0.034) ng/mL NT-Pro-B Natriuret Pep (0-900) pg/mL Serum Total Protein (6.3-8.2) g/dL Albumin (3.5-5.0) g/dL Prealbumin (17.6-36.0) mg/dL Urine Color (YELLOW) Urine Appearance (CLEAR) Urine pH (5-6) Ur Specific [place] (1.005-1.025) Urine Protein (Negative) Urine Ketones (NEGATIVE) Urine Blood (0-5) [place]/ul Urine Nitrite (NEGATIVE) Urine Bilirubin (NEGATIVE) Urine Urobilinogen (0-1) mg/dL Ur Leukocyte Esterase (NEGATIVE) Urine WBC (Auto) (0-5) /HPF Urine RBC (Auto) (0-2) /HPF U Epithel Cells (Auto) (FEW) /HPF Urine Bacteria (Auto) (NEGATIVE) /HPF Urine Culture Reflexed (NO) Urine Glucose (NEGATIVE) mg/dL Influenza Type A Ag NEGATIVE (NEGATIVE) Influenza Type B Ag NEGATIVE (NEGATIVE) RSV (PCR) NEGATIVE (Negative) SARS-CoV-2 (PCR) NEGATIVE (NEGATIVE) 07/29/21 07/29/21 07/29/21 Range/Units 01:11 04:30 04:30 WBC 9.0 (4.0-10.5) K/mm3 RBC 3.61 L (4.1-5.4) M/mm3 Hgb 10.5 L (12.0-16.0) gm/dl Hct 34.3 L (35-47) % MCV 95.0 (78-100) fl MCH 29.1 (26-32) pg MCHC 30.6 L (32-36) g/dl RDW 15.2 H (11.5-14.0) % Plt Count 172 (150-450) K/mm3 MPV 11.4 H (7.5-11.0) fl Gran % 61.9 (36.0-66.0) % Eos # (Auto) 0.10 (0-0.5) Absolute Lymphs (auto) 2.58 (1.0-4.6) Absolute Monos (auto) 0.75 (0.0-1.3) Lymphocytes % 28.6 (24.0-44.0) % Monocytes % 8.3 (0.0-12.0) % Eosinophils % 1.1 (0.00-5.0) % Basophils % 0.1 (0.0-0.4) % Absolute Granulocytes 5.59 (1.4-6.9) Segmented Neutrophils (36.0-66.0) % Lymphocytes (Manual) (24-44) % Monocytes (Manual) (0.0-12.0) % Eosinophils (Manual) (0.00-3.0) % Basophils (Manual) (0.0-1.0) % Basophils # 0.01 (0-0.4) Platelet Estimate (NORMAL) RBC Morphology PT (9.4-12.5) SECONDS INR (0.8-3.0) D-Dimer (215-500) ng/mL Sodium (137-145) mmol/L Potassium (3.5-5.1) mmol/L Chloride (98-107) mmol/L Carbon Dioxide (22-30) mmol/L Anion Gap (5-15) MEQ/L BUN (7-17) mg/dL Creatinine (0.52-1.04) mg/dL Estimated GFR ML/MIN Glucose (74-106) mg/dL Hemoglobin A1c (4.5-6.0) % Lactic Acid (0.4-2.0) Calcium (8.4-10.2) mg/dL Magnesium (1.6-2.3) mg/dL Total Bilirubin (0.2-1.3) mg/dL AST (14-36) U/L ALT (0-35) U/L Alkaline Phosphatase (38-126) U/L Troponin I 0.048 H* 0.059 H* (0.000-0.034) ng/mL NT-Pro-B Natriuret Pep (0-900) pg/mL Serum Total Protein (6.3-8.2) g/dL Albumin (3.5-5.0) g/dL Prealbumin (17.6-36.0) mg/dL Urine Color (YELLOW) Urine Appearance (CLEAR) Urine pH (5-6) Ur Specific [place] (1.005-1.025) Urine Protein (Negative) Urine Ketones (NEGATIVE) Urine Blood (0-5) [place]/ul Urine Nitrite (NEGATIVE) Urine Bilirubin (NEGATIVE) Urine Urobilinogen (0-1) mg/dL Ur Leukocyte Esterase (NEGATIVE) Urine WBC (Auto) (0-5) /HPF Urine RBC (Auto) (0-2) /HPF U Epithel Cells (Auto) (FEW) /HPF Urine Bacteria (Auto) (NEGATIVE) /HPF Urine Culture Reflexed (NO) Urine Glucose (NEGATIVE) mg/dL Influenza Type A Ag (NEGATIVE) Influenza Type B Ag (NEGATIVE) RSV (PCR) (Negative) SARS-CoV-2 (PCR) (NEGATIVE) 07/29/21 07/29/21 07/29/21 Range/Units 04:30 04:30 06:00 WBC (4.0-10.5) K/mm3 RBC (4.1-5.4) M/mm3 Hgb (12.0-16.0) gm/dl Hct (35-47) % MCV (78-100) fl MCH (26-32) pg MCHC (32-36) g/dl RDW (11.5-14.0) % Plt Count (150-450) K/mm3 MPV (7.5-11.0) fl Gran % (36.0-66.0) % Eos # (Auto) (0-0.5) Absolute Lymphs (auto) (1.0-4.6) Absolute Monos (auto) (0.0-1.3) Lymphocytes % (24.0-44.0) % Monocytes % (0.0-12.0) % Eosinophils % (0.00-5.0) % Basophils % (0.0-0.4) % Absolute Granulocytes (1.4-6.9) Segmented Neutrophils (36.0-66.0) % Lymphocytes (Manual) (24-44) % Monocytes (Manual) (0.0-12.0) % Eosinophils (Manual) (0.00-3.0) % Basophils (Manual) (0.0-1.0) % Basophils # (0-0.4) Platelet Estimate (NORMAL) RBC Morphology PT (9.4-12.5) SECONDS INR (0.8-3.0) D-Dimer (215-500) ng/mL Sodium 138 (137-145) mmol/L Potassium 3.0 L* (3.5-5.1) mmol/L Chloride 104 (98-107) mmol/L Carbon Dioxide 28 (22-30) mmol/L Anion Gap 9.7 (5-15) MEQ/L BUN 37 H (7-17) mg/dL Creatinine 1.59 H (0.52-1.04) mg/dL Estimated GFR 34.1 ML/MIN Glucose 81 (74-106) mg/dL Hemoglobin A1c 7.65 H (4.5-6.0) % Lactic Acid (0.4-2.0) Calcium 8.5 (8.4-10.2) mg/dL Magnesium (1.6-2.3) mg/dL Total Bilirubin 0.50 (0.2-1.3) mg/dL AST 37 H (14-36) U/L ALT 8 (0-35) U/L Alkaline Phosphatase 89 (38-126) U/L Troponin I (0.000-0.034) ng/mL NT-Pro-B Natriuret Pep 1820 H (0-900) pg/mL Serum Total Protein 6.0 L (6.3-8.2) g/dL Albumin 3.0 L (3.5-5.0) g/dL Prealbumin 9.98 L (17.6-36.0) mg/dL Urine Color YELLOW (YELLOW) Urine Appearance CLOUDY (CLEAR) Urine pH 5.0 (5-6) Ur Specific [place] 1.014 (1.005-1.025) Urine Protein 100 (Negative) Urine Ketones TRACE (NEGATIVE) Urine Blood NEGATIVE (0-5) [place]/ul Urine Nitrite NEGATIVE (NEGATIVE) Urine Bilirubin NEGATIVE (NEGATIVE) Urine Urobilinogen NEGATIVE (0-1) mg/dL Ur Leukocyte Esterase LARGE (NEGATIVE) Urine WBC (Auto) >100 (0-5) /HPF Urine RBC (Auto) 6-10 (0-2) /HPF U Epithel Cells (Auto) NONE (FEW) /HPF Urine Bacteria (Auto) RARE (NEGATIVE) /HPF Urine Culture Reflexed YES (NO) Urine Glucose >=500 (NEGATIVE) mg/dL Influenza Type A Ag (NEGATIVE) Influenza Type B Ag (NEGATIVE) RSV (PCR) (Negative) SARS-CoV-2 (PCR) (NEGATIVE) - Radiology Exams Ordered Rad Exams-Entire Visit: Radiology Procedures Category Date Time Status CHEST 1 VIEW (PORTABLE) Stat Exams 07/28/21 16:02 Completed - Procedures and Test Procedures and Tests throughout Hospitalization: Therapy Orders & Screens 07/29/21 01:47 Oxygen Nasal Cannula 2 lpm Comment: Diagnosis: UTI 07/29/21 02:40 EKG STAT Comment: Diagnosis: UTI - Discharge Disposition: Home, Self-Care Condition: Fair Prescriptions: No Action Oxybutynin Chloride 10 mg Xl [Ditropan Xl 10 MG] 10 mg PO DAILY Valsartan [Diovan] 40 mg PO DAILY Carbidopa/Levodopa [Carbidopa-Levodopa 25-250 Tab] 1 tablet PO BID Ergocalciferol (Vitamin D2) [Vitamin D] 1.25 mg PO UD Pravastatin Sodium [Pravachol] 40 mg PO DAILY Metoprolol Tartrate [Lopressor] 25 mg PO BID Potassium Chloride 10 Meq Tab* [Klor Con 10 MEQ] 20 meq PO DAILY Acarbose [Precose] 25 mg PO TID Glipizide 10 mg PO DAILY Dapagliflozin Propanediol [Farxiga] 5 mg PO BID Multivitamin [Daily Multivitamin] 1 each PO DAILY Clopidogrel Bisulfate 75 mg [PLAVIX 75 MG Tablet] 75 mg PO DAILY Nitroglycerin 0.4 mg Tablet [Nitrostat 0.4 MG Tablet] 0.4 mg SL Q5MIN PRN MR X 3 PRN PRN Reason: Chest Pain Meclizine HCl 12.5 mg PO QIDPRN PRN PRN Reason: Dizziness Furosemide 20 mg [Lasix 20 mg] 40 mg PO DAILY Insulin Glargine,Hum.rec.anlog [Lantus] 10 units SQ DAILY Insulin Aspart 100 unit SQ ACHS Baclofen 10 mg [Lioresal 10 mg] 10 mg PO HS Allopurinol 100 mg [Zyloprim 100 mg] 100 mg PO BID Albuterol 8 gm Mdi Hfa [Ventolin Hfa MDI] 18 gm IH BID PRN PRN Reason: Shortness Of Breath Acetaminophen 325 mg [Tylenol 325 mg] 325 mg PO Q6HPRN PRN PRN Reason: Fever Follow up with: FRANCESCO PINEDO MD [Primary Care Provider] -
[2021-07-29 09:45] LABS: ANION GAP 10.8 MEQ/L (5-15); Calcium 8.3 mg/dL (8.4-10.2); Creatinine 1 1.48 mg/dL (0.52-1.04); EST GLOMERULAR FILTRATION RATE 37.1 ML/MIN; Potassium 3.5 mmol/L (3.5-5.1)
[2021-07-29] MEDS ORDERED: LEVOFLOXACIN 750MG/150ML D5W 750 MG/150 ML BAG IV SCH (10:00)
[2021-07-29] MEDS ORDERED: Sinemet 25/100 MG PO SCH (10:00)
[2021-07-29] MEDS ORDERED: LASIX 20 MG PO SCH (11:00)
[2021-07-29] MEDS ORDERED: TYLENOL 325 MG PO PRN (11:13)
[2021-07-29] MEDS ORDERED: Ventolin Hfa MDI IH PRN (11:13)
[2021-07-29] MEDS ORDERED: Nitrostat 0.4 MG Tablet SL PRN (11:13)
[2021-07-29] MEDS ORDERED: NON-FORMULARY ITEM (Meclizine Hcl [Meclizine Hcl] 12.5 MG Tablet) PO PRN (11:13)
[2021-07-29] MEDS ORDERED: VITAMIN D2 PO SCH (11:15)
[2021-07-29] MEDS ORDERED: ANTIVERT 25 MG PO PRN (11:24)
[2021-07-29] MEDS ORDERED: VENTOLIN COMMON CANISTER IH PRN (11:26)
[2021-07-29] MEDS ORDERED: MEDICATION INTERVENTION MC SCH ×2 (11:30→11:45)
[2021-07-29] MEDS: ZOCOR 20MG PO SCH (12:32)
[2021-07-29] MEDS: Lasix 40 MG PO SCH (12:32)
[2021-07-29] MEDS: THERAGRAN MULTIVITAMIN PO SCH (12:32)
[2021-07-29] MEDS: Klor Con 10 MEQ PO SCH (12:32)
[2021-07-29] MEDS: Ditropan XL 5 MG PO SCH (12:33)
[2021-07-29] MEDS: Glucotrol 5 MG PO SCH (12:33)
[2021-07-29] MEDS: PLAVIX 75 MG Tablet PO SCH (12:33)
[2021-07-29] MEDS: Lantus Insulin SQ SCH (12:33)
[2021-07-29] MEDS: DIOVAN 80 MG PO SCH (12:37)
[2021-07-29] MEDS ORDERED: ACARBOSE 25 MG PO SCH (15:00)
[2021-07-29] MEDS: Sinemet 25/250 MG PO SCH (17:25)
[2021-07-29] MEDS: NYSTOP POWDER 15 GM TP SCH ×2 (17:27→22:18)
--- NOTE | 2021-07-29 19:38 | PCM.HP ---
History of Present Illness - Chief Complaint Chief Complaint: UTI History of Present Illness: is a 70 year old female with Hx CVA /residual left sided weakness who presented to ER with progressive fatigue,generalized weakness and found to have UTI with >100 WBCs on UA. Troponin was mildly elevated 0.03 but increased to 0.059 overnight. She denies chest pain or dyspnea,no diaphoresis or nausea. PMHx CAD,SD,7stents,HTN,DM2,CKD,COPD from sidestream stroke. 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 Arrangements were made to transfer patient [facility] to be followed by Cardiology but no beds available at this time. Patient is on a wait list to transfer. 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.) Neurological: Paralysis (LUE,LLE-chronic) Hematologic/Lymphatic: Other (long term anticoagulants) Medications & Allergies Home Medications: Home Medication List Oxybutynin Chloride 10 mg Xl [Ditropan Xl 10 MG] 10 mg PO DAILY 06/02/16 [History Confirmed 07/28/21] Valsartan [Diovan] 40 mg PO DAILY 07/30/16 [History Confirmed 07/28/21] Carbidopa/Levodopa [Carbidopa-Levodopa 25-250 Tab] 1 tablet PO BID 11/08/19 [History Confirmed 07/28/21] Ergocalciferol (Vitamin D2) [Vitamin D] 1.25 mg PO UD 05/14/20 [History Confirmed 07/28/21] Acarbose [Precose] 25 mg PO TID 11/11/20 [History Confirmed 07/28/21] Metoprolol Tartrate [Lopressor] 25 mg PO BID 11/11/20 [History Confirmed 07/28/21] Potassium Chloride 10 Meq Tab* [Klor Con 10 MEQ] 20 meq PO DAILY 11/11/20 [History Confirmed 07/28/21] Pravastatin Sodium [Pravachol] 40 mg PO DAILY 11/11/20 [History Confirmed 07/28/21] Dapagliflozin Propanediol [Farxiga] 5 mg PO BID 03/12/21 [History Confirmed 07/28/21] Glipizide 10 mg PO DAILY 03/12/21 [History Confirmed 07/28/21] Acetaminophen 325 mg [Tylenol 325 mg] 325 mg PO Q6HPRN PRN 07/28/21 [History Confirmed 07/28/21] Albuterol 8 gm Mdi Hfa [Ventolin Hfa MDI] 18 gm IH BID PRN 07/28/21 [History Confirmed 07/28/21] Allopurinol 100 mg [Zyloprim 100 mg] 100 mg PO BID 07/28/21 [History Confirmed 07/28/21] Baclofen 10 mg [Lioresal 10 mg] 10 mg PO HS 07/28/21 [History Confirmed 07/28/21] Clopidogrel Bisulfate 75 mg [PLAVIX 75 MG Tablet] 75 mg PO DAILY 07/28/21 [History Confirmed 07/28/21] Furosemide 20 mg [Lasix 20 mg] 40 mg PO DAILY 07/28/21 [History Confirmed 07/28/21] Insulin Aspart 100 unit SQ ACHS 07/28/21 [History Confirmed 07/28/21] Insulin Glargine,Hum.rec.anlog [Lantus] 10 units SQ DAILY 07/28/21 [History Confirmed 07/28/21] Meclizine HCl 12.5 mg PO QIDPRN PRN 07/28/21 [History Confirmed 07/28/21] Multivitamin [Daily Multivitamin] 1 each PO DAILY 07/28/21 [History Confirmed 07/28/21] Nitroglycerin 0.4 mg Tablet [Nitrostat 0.4 MG Tablet] 0.4 mg SL Q5MIN PRN MR X 3 PRN 07/28/21 [History Confirmed 07/28/21] Allergies/Adverse Reactions: Allergies Allergy/AdvReac Type Severity Reaction Status Date / Time Penicillins Allergy Severe Vomiting Verified 03/11/21 21:45 iodine AdvReac Rash Verified 03/11/21 21:45 - Past Medical History Past Medical History: Yes Neurological History: Migraines, Stroke, TIA, Other ENT History: No Pertinent History Cardiac History: Coronary Artery Disease, High Cholesterol, Hypertension, Myocardial Infarction (SD) Respiratory History: CHF, COPD, Sleep Apnea Endocrine Medical History: Diabetes Type II Musculoskelatal History: No Pertinent History, Osteoarthritis GI Medical History: Gallbladder Disease, Polyps, Ulcer History: Renal Disease, Other Pyscho-Social History: No Pertinent History Reproductive Disorders: Other Comment: Parkinson's Disease - Female History Are you now?: No - Past Surgical History Past Surgical History: Yes Neuro Surgical History: No Pertinent History Cardiac History: Cardiac Catheterization, Cardiac Stent Respiratory Surgery: No Pertinent History GI Surgical History: Cholecystectomy Genitourinary Surgical Hx: No Pertinent History Musculskeletal Surgical Hx: No Pertinent History Female Surgical History: Hysterectomy Other Surgical History: 7 HEART STENTS TOTAL ,colonoscopy and egd in past - Social History Smoking Status: Never smoker Exposure to second hand smoke: Yes Alcohol: Rarely Drug Use: none Significant Family History: no pertinent family hx - Physical Exam Vital Signs: Vital Signs - 24 hr Temp Pulse Resp BP Pulse Ox 07/29/21 19:03 66 25 H 94 L 07/29/21 16:00 97.4 F 72 20 111/53 96 07/29/21 12:03 95 07/29/21 12:00 98.2 F 77 114/53 96 07/29/21 11:09 95 07/29/21 08:00 98.2 F 78 18 129/58 95 07/29/21 04:00 99.7 F 69 20 96/40 90 L 07/29/21 00:00 99.6 F 97 H 24 130/60 88 L 07/28/21 21:18 99.1 F 95 H 20 137/62 92 L 07/28/21 20:00 98 H 12 136/90 98 General Appearance: no apparent distress Neurologic Exam: alert, oriented x 3, cooperative, other (teary eyed when asked about family who passed in the last few yr=ears.) Eye Exam: eyes nml inspection Ears, Nose, Throat Exam: normal ENT inspection, moist mucous membranes Neck Exam: normal inspection Respiratory Exam: diminished breath sounds (bases,), other (on 4L O2) Cardiovascular Exam: regular rate/rhythm Gastrointestinal/Abdomen Exam: soft (nontender) Back Exam: other (no CVA tenderness) Extremity Exam: paralysis (LUE,LLE, left handclinched), other (no edema) Skin Exam: warm, dry, pale Wound Assessment: Skin/Wound Assessment Wound/Incision Assessment Start: 07/28/21 21:42 Text: Status: Active Freq: Q6H Protocol: Document 07/29/21 14:00 AR (Rec: 07/29/21 16:07 AR [id number]) Wound/Incision Assessment Posterior Buttock Wound Assessment Shift Assessment Wound Type Pressure Ulcer Wound Stage Stage I General Appearance Clean/Dry Length (cm) (cm) 1 Width (cm) (cm) 2 Depth (cm) (cm) 0 Wound Bed Greatest Portion Shiny Wound Bed Lesser Portion Shiny Surrounding Tissue Cambalache Wound Photo Photo Taken No Results - Labs Lab/Micro Results: Lab Results-Last 24 Hours 07/28/21 07/28/21 07/28/21 Range/Units 19:02 19:03 22:02 WBC (4.0-10.5) K/mm3 RBC (4.1-5.4) M/mm3 Hgb (12.0-16.0) gm/dl Hct (35-47) % MCV (78-100) fl MCH (26-32) pg MCHC (32-36) g/dl RDW (11.5-14.0) % Plt Count (150-450) K/mm3 MPV (7.5-11.0) fl Gran % (36.0-66.0) % Eos # (Auto) (0-0.5) Absolute Lymphs (auto) (1.0-4.6) Absolute Monos (auto) (0.0-1.3) Lymphocytes % (24.0-44.0) % Monocytes % (0.0-12.0) % Eosinophils % (0.00-5.0) % Basophils % (0.0-0.4) % Absolute Granulocytes (1.4-6.9) Basophils # (0-0.4) Sodium (137-145) mmol/L Potassium (3.5-5.1) mmol/L Chloride (98-107) mmol/L Carbon Dioxide (22-30) mmol/L Anion Gap (5-15) MEQ/L BUN (7-17) mg/dL Creatinine (0.52-1.04) mg/dL Estimated GFR ML/MIN Glucose (74-106) mg/dL POC Glucometer (74 to 106) mg/dL Hemoglobin A1c (4.5-6.0) % Calcium (8.4-10.2) mg/dL Total Bilirubin (0.2-1.3) mg/dL AST (14-36) U/L ALT (0-35) U/L Alkaline Phosphatase (38-126) U/L Troponin I 0.032 0.039 H* (0.000-0.034) ng/mL NT-Pro-B Natriuret Pep (0-900) pg/mL Serum Total Protein (6.3-8.2) g/dL Albumin (3.5-5.0) g/dL Prealbumin (17.6-36.0) mg/dL Urine Color (YELLOW) Urine Appearance (CLEAR) Urine pH (5-6) Ur Specific [place] (1.005-1.025) Urine Protein (Negative) Urine Ketones (NEGATIVE) Urine Blood (0-5) [place]/ul Urine Nitrite (NEGATIVE) Urine Bilirubin (NEGATIVE) Urine Urobilinogen (0-1) mg/dL Ur Leukocyte Esterase (NEGATIVE) Urine WBC (Auto) (0-5) /HPF Urine RBC (Auto) (0-2) /HPF U Epithel Cells (Auto) (FEW) /HPF Urine Bacteria (Auto) (NEGATIVE) /HPF Urine Culture Reflexed (NO) Urine Glucose (NEGATIVE) mg/dL Influenza Type A Ag NEGATIVE (NEGATIVE) Influenza Type B Ag NEGATIVE (NEGATIVE) RSV (PCR) NEGATIVE (Negative) SARS-CoV-2 (PCR) NEGATIVE (NEGATIVE) 07/29/21 07/29/21 07/29/21 Range/Units 01:11 04:30 04:30 WBC 9.0 (4.0-10.5) K/mm3 RBC 3.61 L (4.1-5.4) M/mm3 Hgb 10.5 L (12.0-16.0) gm/dl Hct 34.3 L (35-47) % MCV 95.0 (78-100) fl MCH 29.1 (26-32) pg MCHC 30.6 L (32-36) g/dl RDW 15.2 H (11.5-14.0) % Plt Count 172 (150-450) K/mm3 MPV 11.4 H (7.5-11.0) fl Gran % 61.9 (36.0-66.0) % Eos # (Auto) 0.10 (0-0.5) Absolute Lymphs (auto) 2.58 (1.0-4.6) Absolute Monos (auto) 0.75 (0.0-1.3) Lymphocytes % 28.6 (24.0-44.0) % Monocytes % 8.3 (0.0-12.0) % Eosinophils % 1.1 (0.00-5.0) % Basophils % 0.1 (0.0-0.4) % Absolute Granulocytes 5.59 (1.4-6.9) Basophils # 0.01 (0-0.4) Sodium (137-145) mmol/L Potassium (3.5-5.1) mmol/L Chloride (98-107) mmol/L Carbon Dioxide (22-30) mmol/L Anion Gap (5-15) MEQ/L BUN (7-17) mg/dL Creatinine (0.52-1.04) mg/dL Estimated GFR ML/MIN Glucose (74-106) mg/dL POC Glucometer (74 to 106) mg/dL Hemoglobin A1c (4.5-6.0) % Calcium (8.4-10.2) mg/dL Total Bilirubin (0.2-1.3) mg/dL AST (14-36) U/L ALT (0-35) U/L Alkaline Phosphatase (38-126) U/L Troponin I 0.048 H* 0.059 H* (0.000-0.034) ng/mL NT-Pro-B Natriuret Pep (0-900) pg/mL Serum Total Protein (6.3-8.2) g/dL Albumin (3.5-5.0) g/dL Prealbumin (17.6-36.0) mg/dL Urine Color (YELLOW) Urine Appearance (CLEAR) Urine pH (5-6) Ur Specific [place] (1.005-1.025) Urine Protein (Negative) Urine Ketones (NEGATIVE) Urine Blood (0-5) [place]/ul Urine Nitrite (NEGATIVE) Urine Bilirubin (NEGATIVE) Urine Urobilinogen (0-1) mg/dL Ur Leukocyte Esterase (NEGATIVE) Urine WBC (Auto) (0-5) /HPF Urine RBC (Auto) (0-2) /HPF U Epithel Cells (Auto) (FEW) /HPF Urine Bacteria (Auto) (NEGATIVE) /HPF Urine Culture Reflexed (NO) Urine Glucose (NEGATIVE) mg/dL Influenza Type A Ag (NEGATIVE) Influenza Type B Ag (NEGATIVE) RSV (PCR) (Negative) SARS-CoV-2 (PCR) (NEGATIVE) 07/29/21 07/29/21 07/29/21 Range/Units 04:30 04:30 06:00 WBC (4.0-10.5) K/mm3 RBC (4.1-5.4) M/mm3 Hgb (12.0-16.0) gm/dl Hct (35-47) % MCV (78-100) fl MCH (26-32) pg MCHC (32-36) g/dl RDW (11.5-14.0) % Plt Count (150-450) K/mm3 MPV (7.5-11.0) fl Gran % (36.0-66.0) % Eos # (Auto) (0-0.5) Absolute Lymphs (auto) (1.0-4.6) Absolute Monos (auto) (0.0-1.3) Lymphocytes % (24.0-44.0) % Monocytes % (0.0-12.0) % Eosinophils % (0.00-5.0) % Basophils % (0.0-0.4) % Absolute Granulocytes (1.4-6.9) Basophils # (0-0.4) Sodium 138 (137-145) mmol/L Potassium 3.0 L* (3.5-5.1) mmol/L Chloride 104 (98-107) mmol/L Carbon Dioxide 28 (22-30) mmol/L Anion Gap 9.7 (5-15) MEQ/L BUN 37 H (7-17) mg/dL Creatinine 1.59 H (0.52-1.04) mg/dL Estimated GFR 34.1 ML/MIN Glucose 81 (74-106) mg/dL POC Glucometer (74 to 106) mg/dL Hemoglobin A1c 7.65 H (4.5-6.0) % Calcium 8.5 (8.4-10.2) mg/dL Total Bilirubin 0.50 (0.2-1.3) mg/dL AST 37 H (14-36) U/L ALT 8 (0-35) U/L Alkaline Phosphatase 89 (38-126) U/L Troponin I (0.000-0.034) ng/mL NT-Pro-B Natriuret Pep 1820 H (0-900) pg/mL Serum Total Protein 6.0 L (6.3-8.2) g/dL Albumin 3.0 L (3.5-5.0) g/dL Prealbumin 9.98 L (17.6-36.0) mg/dL Urine Color YELLOW (YELLOW) Urine Appearance CLOUDY (CLEAR) Urine pH 5.0 (5-6) Ur Specific [place] 1.014 (1.005-1.025) Urine Protein 100 (Negative) Urine Ketones TRACE (NEGATIVE) Urine Blood NEGATIVE (0-5) [place]/ul Urine Nitrite NEGATIVE (NEGATIVE) Urine Bilirubin NEGATIVE (NEGATIVE) Urine Urobilinogen NEGATIVE (0-1) mg/dL Ur Leukocyte Esterase LARGE (NEGATIVE) Urine WBC (Auto) >100 (0-5) /HPF Urine RBC (Auto) 6-10 (0-2) /HPF U Epithel Cells (Auto) NONE (FEW) /HPF Urine Bacteria (Auto) RARE (NEGATIVE) /HPF Urine Culture Reflexed YES (NO) Urine Glucose >=500 (NEGATIVE) mg/dL Influenza Type A Ag (NEGATIVE) Influenza Type B Ag (NEGATIVE) RSV (PCR) (Negative) SARS-CoV-2 (PCR) (NEGATIVE) 07/29/21 07/29/21 Range/Units 09:13 12:35 WBC (4.0-10.5) K/mm3 RBC (4.1-5.4) M/mm3 Hgb (12.0-16.0) gm/dl Hct (35-47) % MCV (78-100) fl MCH (26-32) pg MCHC (32-36) g/dl RDW (11.5-14.0) % Plt Count (150-450) K/mm3 MPV (7.5-11.0) fl Gran % (36.0-66.0) % Eos # (Auto) (0-0.5) Absolute Lymphs (auto) (1.0-4.6) Absolute Monos (auto) (0.0-1.3) Lymphocytes % (24.0-44.0) % Monocytes % (0.0-12.0) % Eosinophils % (0.00-5.0) % Basophils % (0.0-0.4) % Absolute Granulocytes (1.4-6.9) Basophils # (0-0.4) Sodium 139 (137-145) mmol/L Potassium 3.5 (3.5-5.1) mmol/L Chloride 104 (98-107) mmol/L Carbon Dioxide 28 (22-30) mmol/L Anion Gap 10.8 (5-15) MEQ/L BUN 37 H (7-17) mg/dL Creatinine 1.48 H (0.52-1.04) mg/dL Estimated GFR 37.1 ML/MIN Glucose 101 (74-106) mg/dL POC Glucometer 226 H (74 to 106) mg/dL Hemoglobin A1c (4.5-6.0) % Calcium 8.3 L (8.4-10.2) mg/dL Total Bilirubin (0.2-1.3) mg/dL AST (14-36) U/L ALT (0-35) U/L Alkaline Phosphatase (38-126) U/L Troponin I (0.000-0.034) ng/mL NT-Pro-B Natriuret Pep (0-900) pg/mL Serum Total Protein (6.3-8.2) g/dL Albumin (3.5-5.0) g/dL Prealbumin (17.6-36.0) mg/dL Urine Color (YELLOW) Urine Appearance (CLEAR) Urine pH (5-6) Ur Specific [place] (1.005-1.025) Urine Protein (Negative) Urine Ketones (NEGATIVE) Urine Blood (0-5) [place]/ul Urine Nitrite (NEGATIVE) Urine Bilirubin (NEGATIVE) Urine Urobilinogen (0-1) mg/dL Ur Leukocyte Esterase (NEGATIVE) Urine WBC (Auto) (0-5) /HPF Urine RBC (Auto) (0-2) /HPF U Epithel Cells (Auto) (FEW) /HPF Urine Bacteria (Auto) (NEGATIVE) /HPF Urine Culture Reflexed (NO) Urine Glucose (NEGATIVE) mg/dL Influenza Type A Ag (NEGATIVE) Influenza Type B Ag (NEGATIVE) RSV (PCR) (Negative) SARS-CoV-2 (PCR) (NEGATIVE) Microbiology 07/28/21 17:34 Urine Culture - Preliminary Urine, Void NO GROWTH TO DATE Accuchecks Date 07/29/21 Time 13:09 - Radiology Impressions Radiology Exams & Impressions: Radiology Procedures Category Date Time Status CHEST 1 VIEW (PORTABLE) Stat Exams 07/28/21 16:02 Completed - Other Procedures and Tests Respiratory Therapy 07/29/21 01:47 Oxygen Nasal Cannula 2 lpm 07/30/21 07:00 Respiratory Therapy Assessment DAILY Assessment/Plan (1) Urinary tract infection Current Visit: Yes Status: Acute Assessment & Plan: culture pending,started Levaquin Code(s): N39.0 - URINARY TRACT INFECTION, SITE NOT SPECIFIED (2) Elevated troponin Current Visit: Yes Status: Acute Assessment & Plan: trending up but assymptomatic,[facility] patient for [facility] but no beds available at this time. 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
[2021-07-29] MEDS ORDERED: NON-FORMULARY ITEM (Dapagliflozin Propanediol [Farxiga] 5 MG Tablet) PO SCH (22:00)
[2021-07-30] MEDS: Sodium Chloride 0.9% 1000 ML 1,000 ML IV SCH ×2 (06:10→22:22)
[2021-07-30] MEDS: Glucotrol 5 MG PO SCH (08:03)
[2021-07-30] MEDS: NITRO-DUR 0.2 MG/HR TD SCH (08:03)
[2021-07-30] MEDS: Sinemet 25/250 MG PO SCH ×2 (08:04→14:41)
--- NOTE | 2021-07-30 09:42 | XRAY ---
Indication: Short of breath. Comparison: July 28, 2021. Portable apical lordotic chest demonstrates new left lower lobe discoid atelectasis/scarring. Remaining heart and lungs unremarkable. Bony thorax intact again with mild osteopenia and degenerative changes.
[2021-07-30] MEDS ORDERED: NON-FORMULARY ITEM (Pravastatin Sodium [Pravachol] 40 MG Tablet) PO SCH (10:00)
[2021-07-30] MEDS ORDERED: NON-FORMULARY ITEM (Multivitamin [Daily Multivitamin] 1 EACH Tablet) PO SCH (10:00)
[2021-07-30] MEDS ORDERED: NON-FORMULARY ITEM (Oxybutynin Chloride 10 Mg Xl [Ditropan Xl 10 Mg] 10 MG Tab) PO SCH (10:00)
[2021-07-30] MEDS ORDERED: NON-FORMULARY ITEM (Glipizide [Glipizide] 10 MG Tablet) PO SCH (10:00)
[2021-07-30] MEDS ORDERED: VALSARTAN 160 MG PO SCH (10:00)
[2021-07-30] MEDS: ZOCOR 20MG PO SCH (10:02)
[2021-07-30] MEDS: DIOVAN 80 MG PO SCH (10:02)
[2021-07-30] MEDS: Lantus Insulin SQ SCH (10:02)
[2021-07-30] MEDS: Lopressor 25MG Tab PO SCH ×2 (10:03→22:01)
[2021-07-30] MEDS: THERAGRAN MULTIVITAMIN PO SCH (10:03)
[2021-07-30] MEDS: Ditropan XL 5 MG PO SCH (10:03)
[2021-07-30] MEDS: LIORESAL 10 MG PO SCH ×3 (10:03→22:11)
[2021-07-30] MEDS: Lasix 40 MG PO SCH (10:03)
[2021-07-30] MEDS: ZYLOPRIM 100 MG PO SCH ×2 (10:03→22:01)
[2021-07-30] MEDS: NYSTOP POWDER 15 GM TP SCH ×2 (10:03→22:02)
[2021-07-30] MEDS: Klor Con 10 MEQ PO SCH (10:03)
[2021-07-30] MEDS: PLAVIX 75 MG Tablet PO SCH (10:03)
[2021-07-30] MEDS ORDERED: Klor Con 10 MEQ PO ONE (10:50)
[2021-07-30] MEDS ORDERED: Lasix 40 MG/4 ML IV ONE (10:50)
[2021-07-30] MEDS: ENOXAPARIN SODIUM SQ SCH ×2 (11:22→22:00)
[2021-07-30] MEDS: HUMALOG SQ PRN ×2 (17:27→22:11)
[2021-07-30] MEDS ORDERED: Levofloxacin 500MG/100ML D5W 500 MG/100 ML BAG IV SCH (22:00)
[2021-07-30] MEDS: TYLENOL 325 MG PO PRN (22:00)
[2021-07-31 06:30] LABS: Creatinine 1 1.66 mg/dL (0.52-1.04); EST GLOMERULAR FILTRATION RATE 32.5 ML/MIN
[2021-07-31] MEDS: ZOCOR 20MG PO SCH (09:16)
[2021-07-31] MEDS: PLAVIX 75 MG Tablet PO SCH (09:16)
[2021-07-31] MEDS: Klor Con 10 MEQ PO SCH (09:16)
[2021-07-31] MEDS: Lopressor 25MG Tab PO SCH ×2 (09:16→21:30)
[2021-07-31] MEDS: Glucotrol 5 MG PO SCH (09:16)
[2021-07-31] MEDS: THERAGRAN MULTIVITAMIN PO SCH (09:16)
[2021-07-31] MEDS: Ditropan XL 5 MG PO SCH (09:16)
[2021-07-31] MEDS: Sinemet 25/250 MG PO SCH ×2 (09:17→17:53)
[2021-07-31] MEDS: ZYLOPRIM 100 MG PO SCH ×2 (09:17→21:31)
[2021-07-31] MEDS: PATIENT OWN MEDICATION PO SCH ×4 (09:20→17:53)
[2021-07-31] MEDS: DIOVAN 80 MG PO SCH (09:22)
[2021-07-31] MEDS: ENOXAPARIN SODIUM SQ SCH ×2 (09:23→21:30)
[2021-07-31] MEDS: Lantus Insulin SQ SCH (09:24)
[2021-07-31] MEDS: Lasix 40 MG PO SCH (09:24)
[2021-07-31] MEDS: NITRO-DUR 0.2 MG/HR TD SCH (09:25)
[2021-07-31 09:57] LABS: Hematocrit 35.2 % (35-47); Hemoglobin 10.5 gm/dl (12.0-16.0); Mean Cell Volume 95.7 fl (78-100); Mean Corpuscular Hemoglobin 28.5 pg (26-32); Mean Corpuscular Hgb Concent. 29.8 g/dl (32-36); Mean Platelet Volume 10.5 fl (7.5-11.0); Platelet Count 225 K/mm3 (150-450); Red Blood Count 3.68 M/mm3 (4.1-5.4); White Blood Count 7.9 K/mm3 (4.0-10.5)
[2021-07-31 10:35] LABS: ANION GAP 12.5 MEQ/L (5-15); Calcium 8.8 mg/dL (8.4-10.2); Creatinine 1 1.55 mg/dL (0.52-1.04); EST GLOMERULAR FILTRATION RATE 35.1 ML/MIN; Potassium 3.6 mmol/L (3.5-5.1)
[2021-07-31] MEDS ORDERED: Lasix 40 MG/4 ML IV ONE (10:50)
[2021-07-31] MEDS ORDERED: Klor Con 10 MEQ PO ONE (10:50)
--- NOTE | 2021-07-31 11:00 | XRAY ---
Indication: Weakness and fatigue. Comparison: One day earlier. Portable chest better inflated with new mild left infrahilar infiltrate versus atelectasis. Remaining heart and lungs unremarkable.
[2021-07-31] MEDS: TYLENOL 325 MG PO PRN ×2 (11:31→21:34)
[2021-07-31] MEDS: NYSTOP POWDER 15 GM TP SCH ×2 (11:39→21:30)
[2021-07-31] MEDS: LIORESAL 10 MG PO SCH ×3 (12:54→21:30)
[2021-07-31] MEDS ORDERED: Levaquin 250MG/50ML D5W 250 MG/50 ML BAG IV SCH (22:00)
[2021-08-01] MEDS: TYLENOL 325 MG PO PRN (03:57)
[2021-08-01 06:17] LABS: Creatinine 1 1.46 mg/dL (0.52-1.04); EST GLOMERULAR FILTRATION RATE 37.6 ML/MIN
[2021-08-01] MEDS: NITRO-DUR 0.2 MG/HR TD SCH (08:42)
[2021-08-01] MEDS: Sodium Chloride 0.9% 1000 ML 1,000 ML IV SCH (08:42)
[2021-08-01] MEDS: Glucotrol 5 MG PO SCH (08:43)
[2021-08-01] MEDS: ZYLOPRIM 100 MG PO SCH ×2 (08:43→21:06)
[2021-08-01] MEDS: DIOVAN 80 MG PO SCH (08:43)
[2021-08-01] MEDS: ZOCOR 20MG PO SCH (08:43)
[2021-08-01] MEDS: Ditropan XL 5 MG PO SCH (08:43)
[2021-08-01] MEDS: Sinemet 25/250 MG PO SCH ×2 (08:44→13:29)
[2021-08-01] MEDS: PATIENT OWN MEDICATION PO SCH ×4 (08:44→17:37)
[2021-08-01] MEDS: Lantus Insulin SQ SCH (08:45)
[2021-08-01] MEDS: Lasix 40 MG PO SCH (08:45)
[2021-08-01] MEDS: Klor Con 10 MEQ PO SCH (08:45)
[2021-08-01] MEDS: ENOXAPARIN SODIUM SQ SCH ×2 (08:45→21:06)
[2021-08-01] MEDS: LIORESAL 10 MG PO SCH ×3 (08:46→21:06)
[2021-08-01] MEDS: PLAVIX 75 MG Tablet PO SCH (08:46)
[2021-08-01] MEDS: Lopressor 25MG Tab PO SCH ×2 (08:46→21:06)
[2021-08-01] MEDS: NYSTOP POWDER 15 GM TP SCH ×2 (08:47→21:17)
[2021-08-01] MEDS: THERAGRAN MULTIVITAMIN PO SCH (08:47)
[2021-08-01] MEDS: Levaquin 250MG/50ML D5W 250 MG/50 ML BAG IV SCH (10:03)
[2021-08-01] MEDS: HUMALOG SQ PRN ×2 (12:08→21:07)
[2021-08-02 05:09] LABS: Hematocrit 34.5 % (35-47); Hemoglobin 10.3 gm/dl (12.0-16.0); Mean Cell Volume 96.9 fl (78-100); Mean Corpuscular Hemoglobin 28.9 pg (26-32); Mean Corpuscular Hgb Concent. 29.9 g/dl (32-36); Mean Platelet Volume 10.6 fl (7.5-11.0); Platelet Count 276 K/mm3 (150-450); Red Blood Count 3.56 M/mm3 (4.1-5.4); White Blood Count 9.1 K/mm3 (4.0-10.5)
[2021-08-02 05:44] LABS: ANION GAP 12.4 MEQ/L (5-15); Creatinine 1 1.53 mg/dL (0.52-1.04); EST GLOMERULAR FILTRATION RATE 35.7 ML/MIN; Potassium 3.8 mmol/L (3.5-5.1)
[2021-08-02] MEDS: NITRO-DUR 0.2 MG/HR TD SCH (07:50)
[2021-08-02] MEDS: PATIENT OWN MEDICATION PO SCH ×4 (07:51→16:38)
[2021-08-02] MEDS: Glucotrol 5 MG PO SCH (07:51)
[2021-08-02] MEDS: Sinemet 25/250 MG PO SCH ×2 (07:52→15:12)
[2021-08-02] MEDS: ENOXAPARIN SODIUM SQ SCH (08:58)
[2021-08-02] MEDS: THERAGRAN MULTIVITAMIN PO SCH (08:59)
[2021-08-02] MEDS: ZYLOPRIM 100 MG PO SCH (08:59)
[2021-08-02] MEDS: Lasix 40 MG PO SCH (08:59)
[2021-08-02] MEDS: Ditropan XL 5 MG PO SCH (08:59)
[2021-08-02] MEDS: Lopressor 25MG Tab PO SCH (08:59)
[2021-08-02] MEDS: DIOVAN 80 MG PO SCH (08:59)
[2021-08-02] MEDS: LIORESAL 10 MG PO SCH ×2 (09:00→15:12)
[2021-08-02] MEDS: Klor Con 10 MEQ PO SCH (09:00)
[2021-08-02] MEDS: ZOCOR 20MG PO SCH (09:00)
[2021-08-02] MEDS: NYSTOP POWDER 15 GM TP SCH (09:01)
[2021-08-02] MEDS: Lantus Insulin SQ SCH (09:01)
[2021-08-02] MEDS: Levaquin 250MG/50ML D5W 250 MG/50 ML BAG IV SCH (09:53)
[2021-08-02] MEDS: PLAVIX 75 MG Tablet PO SCH (09:53)
[2021-08-02] MEDS: HUMALOG SQ PRN (16:29)
[2021-08-02 17:58] VITALS: BP 129/61; PULSE 71; O2SAT 96
[2021-08-05] MEDS ORDERED: VITAMIN D2 PO SCH (10:00)
== END 2021-08-02 17:25 | DRG 690 ==
LOC: ED 15:17 → MED SURG 20:40 → OBSVTOIN 07-29 19:24
PROVIDERS: ADMIT Family Medicine; ATTEND Family Medicine
DX: N39.0 Urinary tract infection, site not specified (principal); N18.9 Chronic kidney disease, unspecified; E11.22 Type 2 diabetes mellitus with diabetic chronic kidney disease; I12.9 Hypertensive chronic kidney disease with stage 1 through stage 4 chronic kidney disease, or unspecified chronic kidney disease; G20 Parkinson's disease; J44.9 Chronic obstructive pulmonary disease, unspecified; I25.10 Atherosclerotic heart disease of native coronary artery without angina pectoris; E78.00 Pure hypercholesterolemia, unspecified; I25.2 Old myocardial infarction; R33.9 Retention of urine, unspecified; R79.89 Other specified abnormal findings of blood chemistry; R77.8 Other specified abnormalities of plasma proteins; L89.311 Pressure ulcer of right buttock, stage 1; Z79.899 Other long term (current) drug therapy; Z86.73 Personal history of transient ischemic attack (TIA), and cerebral infarction without residual deficits; Z20.828 Contact with and (suspected) exposure to other viral communicable diseases
CPT/HCPCS: 0241U; 36415; 71045; 80048; 80053; 81001; 82565; 82947; 83036; 83605; 83735; 83880; 84134; 84484; 85025; 85027; 85379; 85610; 87040; 87086; 92610; 93005; 93041; 93268; 94760; 96360; 97161; 97530; 99285; G0328; G0378; 82274; J1650; J1817; J1940; J1956; A9270-GY

== ENCOUNTER 2021-12-12 17:09 | Observation (INO) | payer MEDICARE, OTHER ==
--- NOTE | 2021-12-12 17:57 | ERPHSYRPT ---
- History of Present Illness Time Seen by Provider: 12/12/21 17:30 Historian: patient Exam Limitations: no limitations Patient Subjective Stated Complaint: chest pain prior to arrival in center of chest, lasted few seconds, went away Triage Nursing Assessment: Presents to ED by EMS from home with CC of chest pain earlier this afternoon. Pt states sharp, nonradiating midsternal chest pain that started at 1500 and resolved within a few seconds. Pt denies SOB, nausea, or diaphoresis associated with it. EKG shows NSR. Rates pain 0/10 at this time. EMS initiated IV and reports POC glucose in the 300's. Skin pale,warm, dry, answers questions appropriately. Son at bedside. 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 States was taken off her BP meds after having a stroke in July. Physician History: Patient is a 71-year-old female presents to emergency department via EMS for evaluation of chest pain. Patient states patient experienced a brief bout of chest pain this afternoon. Pain lasted several seconds then resolved. Pain described as a sharp sensation that was primarily in the center of her chest. No radiation. No associated nausea vomiting or diaphoresis. No dizziness. Symptoms were mild to moderate in intensity. No specific worsening improving factors. Patient advises she had a stroke in July. Patient otherwise feels well at this time. She voices no other complaints or concerns at this time. Timing/Duration: today Activities at Onset: none Quality: sharpness Location: substernal Chest Pain Radiation: no radiation Severity of Pain-Max: moderate Severity of Pain-Current: none Modifying Factors: Improves With: nothing Associated Symptoms: denies symptoms Prior Chest Pain/Cardiac Workup: no prior chest pain Nitro Today/Relief: no nitro taken today Aspirin Treatment Today: no aspirin today Allergies/Adverse Reactions: Penicillins Allergy (Severe, Verified 12/12/21 17:35) Vomiting iodine Adverse Reaction (Verified 12/12/21 17:35) Rash Home Medications: Oxybutynin Chloride 10 mg Xl [Ditropan Xl 10 MG] 10 mg PO DAILY 06/02/16 [History] Valsartan [Diovan] 40 mg PO DAILY 07/30/16 [History] Carbidopa/Levodopa [Carbidopa-Levodopa 25-250 Tab] 1 tablet PO BID 11/08/19 [History] Ergocalciferol (Vitamin D2) [Vitamin D] 1.25 mg PO UD 05/14/20 [History] Acarbose [Precose] 25 mg PO TID 11/11/20 [History] Metoprolol Tartrate [Lopressor] 25 mg PO BID 11/11/20 [History] Potassium Chloride 10 Meq Tab* [Klor Con 10 MEQ] 20 meq PO DAILY 11/11/20 [History] Pravastatin Sodium [Pravachol] 40 mg PO DAILY 11/11/20 [History] Dapagliflozin Propanediol [Farxiga] 5 mg PO BID 03/12/21 [History] glipiZIDE [Glipizide] 10 mg PO DAILY 03/12/21 [History] Acetaminophen 325 mg [Tylenol 325 mg] 325 mg PO Q6HPRN PRN 07/28/21 [History] Albuterol 8 gm Mdi Hfa [Ventolin Hfa MDI] 18 gm IH BID PRN 07/28/21 [History] Allopurinol 100 mg [Zyloprim 100 mg] 100 mg PO BID 07/28/21 [History] Baclofen 10 mg [Lioresal 10 mg] 10 mg PO HS 07/28/21 [History] Clopidogrel Bisulfate 75 mg [PLAVIX 75 MG Tablet] 75 mg PO DAILY 07/28/21 [History] Furosemide 20 mg [Lasix 20 mg] 40 mg PO DAILY 07/28/21 [History] Insulin Aspart 100 unit SQ ACHS 07/28/21 [History] Insulin Glargine,Hum.rec.anlog [Lantus] 10 units SQ DAILY 07/28/21 [History] Meclizine HCl 12.5 mg PO QIDPRN PRN 07/28/21 [History] Multivitamin [Daily Multivitamin] 1 each PO DAILY 07/28/21 [History] Nitroglycerin 0.4 mg Tablet [Nitrostat 0.4 MG Tablet] 0.4 mg SL Q5MIN PRN MR X 3 PRN 07/28/21 [History] Hx Tetanus, Diphtheria Vaccination/Date Given: Yes Hx Influenza Vaccination/Date Given: Yes Hx Pneumococcal Vaccination/Date Given: Yes Travel Risk - International Travel Have you traveled outside of the country in past 3 weeks: No - Coronavirus Screening Are you exhibiting any of the following symptoms?: No - Vaccine Status Have you recieved a Covid-19 vaccination: Yes Corrections Identification Technician: Pfizer - Vaccination Dates Date of 2cond Vaccination (if applicable): October 2020 - Review of Systems Constitutional: No Symptoms, No Fever, No Chills Eyes: No Symptoms Ears, Nose, & Throat: No Symptoms Respiratory: No Symptoms, No Cough, No Dyspnea Cardiac: No Symptoms, No Chest Pain, No Edema, No Syncope Abdominal/Gastrointestinal: No Symptoms, No Abdominal Pain, No Nausea, No Vomiting, No Diarrhea Genitourinary Symptoms: No Symptoms, No Dysuria Musculoskeletal: No Symptoms, No Back Pain, No Neck Pain Skin: No Symptoms, No Rash Neurological: No Symptoms, No Dizziness, No Focal Weakness, No Sensory Changes Psychological: No Symptoms Endocrine: No Symptoms Hematologic/Lymphatic: No Symptoms Immunological/Allergic: No Symptoms All Other Systems: Reviewed and Negative - Past Medical History Pertinent Past Medical History: Yes Neurological History: Migraines, Stroke, TIA, Other ENT History: No Pertinent History Cardiac History: Coronary Artery Disease, High Cholesterol, Hypertension, Myocardial Infarction ([place]) Respiratory History: CHF, COPD, Sleep Apnea Endocrine Medical History: Diabetes Type II Musculoskeletal History: No Pertinent History, Osteoarthritis GI Medical History: Gallbladder Disease, Polyps, Ulcer History: Renal Disease, Other Psycho-Social History: No Pertinent History Female Reproductive Disorders: Other Other Medical History: Parkinson's Disease - Past Surgical History Past Surgical History: Yes Neuro Surgical History: No Pertinent History Cardiac: Cardiac Catheterization, Cardiac Stent Respiratory: No Pertinent History Gastrointestinal: Cholecystectomy Genitourinary: No Pertinent History Musculoskeletal: No Pertinent History Female Surgical History: Hysterectomy Other Surgical History: 7 HEART STENTS TOTAL ,colonoscopy and egd in past - Social History Smoking Status: Never smoker Exposure to second hand smoke: Yes Drug Use: none Patient Lives Alone: No Significant Family History: no pertinent family hx - Nursing Vital Signs Nursing Vital Signs: Initial Vital Signs Temperature 97.5 F 12/12/21 17:16 Pulse Rate 74 12/12/21 17:16 Respiratory Rate 18 12/12/21 17:16 Blood Pressure 194/63 12/12/21 17:16 O2 Sat by Pulse Oximetry 100 12/12/21 17:16 Pain Scale Pain Intensity 0 - Physical Exam General Appearance: no apparent distress, alert Eye Exam: PERRL/EOMI, eyes nml inspection Ears, Nose, Throat Exam: normal ENT inspection, TMs normal, pharynx normal, moist mucous membranes Neck Exam: normal inspection, non-tender, supple, full range of motion Respiratory Exam: normal breath sounds, lungs clear, airway intact, No chest tenderness, No respiratory distress Cardiovascular Exam: regular rate/rhythm, normal heart sounds, normal peripheral pulses Gastrointestinal/Abdomen Exam: soft, normal bowel sounds, No tenderness, No distention, No mass, No guarding Back Exam: normal inspection, normal range of motion, No CVA tenderness, No vertebral tenderness Extremity Exam: normal inspection, normal range of motion, pelvis stable Neurologic Exam: alert, oriented x 3, cooperative, normal mood/affect, sensation nml, other (Residual left-sided 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 Bony thorax intact. Osteopenia) Ordered Tests: Active Orders 24 hr Category Date Time Status Crew Supervisor STAT Care 12/12/21 17:25 Active EKG-ER Only STAT Care 12/12/21 17:24 Active IV Insertion STAT Care 12/12/21 17:24 Active Pulse Oximetry (ED) STAT Care 12/12/21 17:24 Active CHEST 1 VIEW (PORTABLE) Stat Exams 12/12/21 17:25 Taken CBC W DIFF Stat Lab 12/12/21 17:55 Completed CMP Stat Lab 12/12/21 17:55 Completed TROPONIN Q3H Lab 12/12/21 17:55 Completed TROPONIN Q3H Lab 12/12/21 20:30 Ordered TROPONIN Q3H Lab 12/12/21 23:30 Ordered TROPONIN Q3H Lab 12/13/21 02:30 Ordered TROPONIN Q3H Lab 12/13/21 05:30 Ordered Medication Summary Discontinued Medications Generic Name Dose Route Start Last Admin Trade Name Freq PRN Reason Stop Dose Admin Aspirin 324 mg 12/12/21 18:37 12/12/21 18:43 Aspirin 81 Mg Tab.Chew PO 12/12/21 18:38 324 mg STAT ONE Administration Aspirin Confirm 12/12/21 18:39 Aspirin 81 Mg Tab.Chew Administered 12/12/21 18:40 Dose 324 mg .ROUTE .STK-MED ONE Nitroglycerin 1 gm 12/12/21 18:37 12/12/21 18:44 Nitroglycerin 1 Gm Packet TOP 12/12/21 18:38 1 gm STAT ONE Administration Nitroglycerin Confirm 12/12/21 18:40 Nitroglycerin 1 Gm Packet Administered 12/12/21 18:41 Dose 1 gm .ROUTE .STK-MED ONE Lab/Rad Data: Laboratory Result Diagrams 12/12/21 17:55 12/12/21 17:55 Laboratory Results 12/12/21 12/12/21 12/12/21 Range/Units 18:40 17:55 17:55 WBC (4.0-10.5) K/mm3 RBC (4.1-5.4) M/mm3 Hgb (12.0-16.0) gm/dl Hct (35-47) % MCV (78-100) fl MCH (26-32) pg MCHC (32-36) g/dl RDW (11.5-14.0) % Plt Count (150-450) K/mm3 MPV (7.5-11.0) fl Gran % (36.0-66.0) % Eos # (Auto) (0-0.5) Absolute Lymphs (auto) (1.0-4.6) Absolute Monos (auto) (0.0-1.3) Lymphocytes % (24.0-44.0) % Monocytes % (0.0-12.0) % Eosinophils % (0.00-5.0) % Basophils % (0.0-0.4) % Absolute Granulocytes (1.4-6.9) Basophils # (0-0.4) Sodium 140 (137-145) mmol/L Potassium 4.1 (3.5-5.1) mmol/L Chloride 97 L (98-107) mmol/L Carbon Dioxide 31 H (22-30) mmol/L Anion Gap 16.2 H (5-15) MEQ/L BUN 39 H (7-17) mg/dL Creatinine 1.25 H (0.52-1.04) mg/dL Estimated GFR 44.9 ML/MIN Glucose 302 H (74-106) mg/dL Calcium 9.8 (8.4-10.2) mg/dL Total Bilirubin 0.60 (0.2-1.3) mg/dL AST 22 (14-36) U/L ALT 14 (0-35) U/L Alkaline Phosphatase 116 (38-126) U/L Troponin I 0.013 (0.000-0.034) ng/mL Serum Total Protein 7.6 (6.3-8.2) g/dL Albumin 4.3 (3.5-5.0) g/dL Influenza Type A Ag NEGATIVE (NEGATIVE) Influenza Type B Ag NEGATIVE (NEGATIVE) RSV (PCR) NEGATIVE (Negative) SARS-CoV-2 (PCR) NEGATIVE (NEGATIVE) 12/12/21 Range/Units 17:55 WBC 7.0 (4.0-10.5) K/mm3 RBC 3.88 L (4.1-5.4) M/mm3 Hgb 12.5 (12.0-16.0) gm/dl Hct 39.4 (35-47) % MCV 101.5 H (78-100) fl MCH 32.2 H (26-32) pg MCHC 31.7 L (32-36) g/dl RDW 14.2 H (11.5-14.0) % Plt Count 221 (150-450) K/mm3 MPV 10.2 (7.5-11.0) fl Gran % 46.3 (36.0-66.0) % Eos # (Auto) 0.21 (0-0.5) Absolute Lymphs (auto) 2.98 (1.0-4.6) Absolute Monos (auto) 0.52 (0.0-1.3) Lymphocytes % 42.8 (24.0-44.0) % Monocytes % 7.5 (0.0-12.0) % Eosinophils % 3.0 (0.00-5.0) % Basophils % 0.4 (0.0-0.4) % Absolute Granulocytes 3.23 (1.4-6.9) Basophils # 0.03 (0-0.4) Sodium (137-145) mmol/L Potassium (3.5-5.1) mmol/L Chloride (98-107) mmol/L Carbon Dioxide (22-30) mmol/L Anion Gap (5-15) MEQ/L BUN (7-17) mg/dL Creatinine (0.52-1.04) mg/dL Estimated GFR ML/MIN Glucose (74-106) mg/dL Calcium (8.4-10.2) mg/dL Total Bilirubin (0.2-1.3) mg/dL AST (14-36) U/L ALT (0-35) U/L Alkaline Phosphatase (38-126) U/L Troponin I (0.000-0.034) ng/mL Serum Total Protein (6.3-8.2) g/dL Albumin (3.5-5.0) g/dL Influenza Type A Ag (NEGATIVE) Influenza Type B Ag (NEGATIVE) RSV (PCR) (Negative) SARS-CoV-2 (PCR) (NEGATIVE) - Progress Progress: improved Air Movement: good Progress Note: Patient reassessed. Patient denies chest pain. Initial troponin negative. Patient has significant cardiac risk factors including heart stents. Case discussed with Dr. Rashid who accepts admission to observation. Plan of care discussed with patient. She agrees to admission at [facility] for further evaluation and treatment. Chest x-ray is negative. EKG normal sinus rhythm. No ischemic changes observed. Son at bedside. They voiced no other complaints or concerns at this time. Covid test negative. Portions of this note were created with voice recognition technology. There may be grammatical, spelling, punctuation or sound alike errors 12/12/21 19:51 Blood Culture(s) Obtained: No Antibiotics given: No Discussed with : Jaiden Will see patient in: hospital (observation) Counseled pt/family regarding: lab results, diagnosis, rad results - Departure Departure Disposition: Observation Clinical Impression: ACS (acute coronary syndrome), Chest pain Condition: Stable Critical Care Time: No Referrals: FRANCESCO PINEDO MD [ACTIVE STAFF] - Follow up/PCP as directed
[2021-12-12 18:01] LABS: Absolute Neutrophil Ct (ANC) 3.23 (1.4-6.9); Basophil (Absolute #) 0.03 (0-0.4); Eosinophil (Absolute #) 0.21 (0-0.5); Hematocrit 39.4 % (35-47); Hemoglobin 12.5 gm/dl (12.0-16.0); Lymphocyte (Absolute #) 2.98 (1.0-4.6); Lymphocytes % 42.8 % (24.0-44.0); Mean Cell Volume 101.5 fl (78-100); Mean Corpuscular Hemoglobin 32.2 pg (26-32); Mean Corpuscular Hgb Concent. 31.7 g/dl (32-36); Mean Platelet Volume 10.2 fl (7.5-11.0); Monocyte (Absolute #) 0.52 (0.0-1.3); Monocytes % 7.5 % (0.0-12.0); Neutrophil % 46.3 % (36.0-66.0); Platelet Count 221 K/mm3 (150-450); Red Blood Count 3.88 M/mm3 (4.1-5.4); Red Cell Distribution Width 14.2 % (11.5-14.0)
[2021-12-12 18:22] LABS: ALBUMIN 4.3 g/dL (3.5-5.0); ANION GAP 16.2 MEQ/L (5-15); BILIRUBIN,TOTAL 0.6 mg/dL (0.2-1.3); Calcium 9.8 mg/dL (8.4-10.2); Creatinine 1 1.25 mg/dL (0.52-1.04); EST GLOMERULAR FILTRATION RATE 44.9 ML/MIN; Potassium 4.1 mmol/L (3.5-5.1); Total Protein 7.6 g/dL (6.3-8.2)
[2021-12-12] MEDS ORDERED: BABY ASPIRIN 81 MG CHEW PO ONE (18:37)
[2021-12-12] MEDS ORDERED: NITRO-BID 2% UD PACKETS TOP ONE (18:37)
[2021-12-12] MEDS ORDERED: BABY ASPIRIN 81 MG CHEW ONE (18:39)
[2021-12-12] MEDS ORDERED: NITRO-BID 2% UD PACKETS ONE (18:40)
[2021-12-12 19:23] LABS: INFLUENZA A NEGATIVE (NEGATIVE); INFLUENZA B NEGATIVE (NEGATIVE); RESPIRATORY SYNCTIAL VIRUS NEGATIVE (Negative); SARS-CoV-2 Xpert Express NEGATIVE (NEGATIVE)
[2021-12-12] MEDS ORDERED: Senokot-S Tablet PO PRN ×2 (20:16→20:28)
[2021-12-12] MEDS ORDERED: MAALOX ES 30 ML UNIT DOSE PO PRN ×2 (20:16→20:28)
[2021-12-12] MEDS ORDERED: Zofran 4 MG/2 ML VIAL IV PRN ×2 (20:16→20:28)
[2021-12-12] MEDS ORDERED: TYLENOL 325 MG PO PRN (20:16)
[2021-12-12] MEDS ORDERED: MILK OF MAGNESIA 30 ML PO PRN ×2 (20:16→20:28)
[2021-12-12 21:40] VITALS: O2SAT 95
[2021-12-12] MEDS ORDERED: HUMALOG SQ PRN (22:16)
[2021-12-12] MEDS ORDERED: Lopressor 25MG Tab PO ONE (22:21)
[2021-12-12] MEDS ORDERED: Sinemet 25/250 MG PO ONE (22:42)
[2021-12-12] MEDS ORDERED: KEFLEX 500 MG PO ONE (22:43)
[2021-12-12] MEDS ORDERED: Lasix 40 MG PO ONE (22:44)
[2021-12-12] MEDS ORDERED: Nitrostat 0.4 MG Tablet SL PRN (22:45)
[2021-12-12] MEDS ORDERED: Sinemet 10/100 MG ONE (22:52)
[2021-12-12] MEDS: TYLENOL 325 MG PO PRN (22:57)
[2021-12-12] MEDS: ZYLOPRIM 100 MG PO SCH (22:57)
[2021-12-12] MEDS: LIORESAL 10 MG PO SCH (22:59)
[2021-12-13 04:38] LABS: Absolute Neutrophil Ct (ANC) 3.24 (1.4-6.9); Basophil (Absolute #) 0.02 (0-0.4); Eosinophil % 2.9 % (0.00-5.0); Hematocrit 32.7 % (35-47); Hemoglobin 10.5 gm/dl (12.0-16.0); Lymphocyte (Absolute #) 2.93 (1.0-4.6); Lymphocytes % 41.9 % (24.0-44.0); Mean Cell Volume 99.7 fl (78-100); Mean Corpuscular Hgb Concent. 32.1 g/dl (32-36); Mean Platelet Volume 10.3 fl (7.5-11.0); Monocytes % 8.6 % (0.0-12.0); Neutrophil % 46.3 % (36.0-66.0); Platelet Count 215 K/mm3 (150-450); Red Blood Count 3.28 M/mm3 (4.1-5.4); Red Cell Distribution Width 14.1 % (11.5-14.0)
[2021-12-13 05:10] LABS: ANION GAP 11.9 MEQ/L (5-15); Calcium 9.3 mg/dL (8.4-10.2); Creatinine 1 1.21 mg/dL (0.52-1.04); EST GLOMERULAR FILTRATION RATE 46.6 ML/MIN; Potassium 3.7 mmol/L (3.5-5.1)
[2021-12-13] MEDS: TYLENOL 325 MG PO PRN (06:23)
[2021-12-13 08:05] VITALS: PULSE 67
[2021-12-13 08:07] VITALS: BP 140/66
--- NOTE | 2021-12-13 08:37 | PCM.SSS ---
History of Present Illness - Chief Complaint Chief Complaint: ACS, Chest pain History of Present Illness: is a 71 year old female who presented to the ER last night with chest pain, she was at rest watching tv when her pain began. it has resolved since admission, she denies associated dyspnea, no nausea or diaphoresis. hx of CAD with stents, follows with Dr Garza, did not take any nitro at home, uncertain if she has any. she is eating breakfast today and denies any complaints. - Review of Systems Constitutional: No Fever, No Chills Respiratory: No Cough, No Short Of Breath Cardiac: Chest Pain (resolved since admission), No Edema, No Syncope Abdominal/Gastrointestinal: No Abdominal Pain, No Nausea, No Vomiting, No Diarrhea Genitourinary Symptoms: No Dysuria Skin: No Rash Neurological: No Dizziness, No Focal Weakness, No Sensory Changes All Other Systems: Reviewed and Negative Medications & Allergies Home Medications: Home Medication List Carbidopa/Levodopa [Carbidopa-Levodopa 25-250 Tab] 1 tablet PO BID 11/08/19 [History Confirmed 12/12/21] Potassium Chloride 10 Meq Tab* [Klor Con 10 MEQ] 20 meq PO DAILY 11/11/20 [History Confirmed 12/12/21] Acetaminophen 325 mg [Tylenol 325 mg] 325 mg PO Q6HPRN PRN 07/28/21 [History Confirmed 12/12/21] Allopurinol 100 mg [Zyloprim 100 mg] 100 mg PO BID 07/28/21 [History Confirmed 12/12/21] Baclofen 10 mg [Lioresal 10 mg] 10 mg PO BID 07/28/21 [History Confirmed 12/12/21] Clopidogrel Bisulfate 75 mg [PLAVIX 75 MG Tablet] 75 mg PO DAILY 07/28/21 [History Confirmed 12/12/21] Furosemide 20 mg [Lasix 20 mg] 40 mg PO BID 07/28/21 [History Confirmed 12/12/21] Insulin Glargine,Hum.rec.anlog [Lantus] 45 units SQ DAILY 07/28/21 [History Co nfirmed 12/12/21] cephALEXin [Cephalexin] 500 mg PO BID 12/12/21 [History Confirmed 12/12/21] Nitroglycerin 0.4 mg Tablet [Nitrostat 0.4 MG Tablet] 0.4 mg SL Q5MIN PRN MR X 3 PRN #25 tab 12/13/21 [Rx] Allergies/Adverse Reactions: Allergies Allergy/AdvReac Type Severity Reaction Status Date / Time Penicillins Allergy Severe Vomiting Verified 12/12/21 17:35 iodine AdvReac Rash Verified 12/12/21 17:35 - Past Medical History Past Medical History: Yes Neurological History: Migraines, Stroke, TIA, Other ENT History: No Pertinent History Cardiac History: Coronary Artery Disease, High Cholesterol, Hypertension, Myocardial Infarction (PA) Respiratory History: CHF, COPD, Sleep Apnea Endocrine Medical History: Diabetes Type II Musculoskelatal History: No Pertinent History, Osteoarthritis GI Medical History: Gallbladder Disease, Polyps, Ulcer History: Renal Disease, Other Pyscho-Social History: No Pertinent History Reproductive Disorders: Other Comment: Parkinson's Disease - Female History Are you now?: No - Past Surgical History Past Surgical History: Yes Neuro Surgical History: No Pertinent History Cardiac History: Cardiac Catheterization, Cardiac Stent Respiratory Surgery: No Pertinent History GI Surgical History: Cholecystectomy Genitourinary Surgical Hx: No Pertinent History Musculskeletal Surgical Hx: No Pertinent History Female Surgical History: Hysterectomy Other Surgical History: 7 HEART STENTS TOTAL ,colonoscopy and egd in past - Social History Smoking Status: Never smoker Exposure to second hand smoke: No Alcohol: None Drug Use: none Significant Family History: no pertinent family hx - Physical Exam Vital Signs: Vital Signs - 24 hr Temp Pulse Pulse Resp BP Pulse Ox 12/13/21 08:00 97.9 F 67 14 140/66 95 12/13/21 04:00 97.5 F 57 L 12 153/68 95 12/12/21 23:12 97.9 F 80 16 145/66 95 12/12/21 21:39 95 12/12/21 20:20 97.6 F 78 18 143/84 97 12/12/21 19:52 98 12/12/21 19:23 73 180/71 100 12/12/21 18:08 70 18 176/60 98 12/12/21 17:27 98 12/12/21 17:16 97.5 F 74 71 18 194/63 100 General Appearance: no apparent distress Neurologic Exam: alert, cooperative, other (answers questions with 1 or 2 words, concrete) Neck Exam: normal inspection, supple, full range of motion Respiratory Exam: normal breath sounds, lungs clear, No respiratory distress Cardiovascular Exam: regular rate/rhythm, normal heart sounds, normal peripheral pulses Gastrointestinal/Abdomen Exam: soft, normal bowel sounds, No tenderness, No mass Extremity Exam: normal inspection, normal range of motion, pelvis stable Skin Exam: normal color, warm, dry, No rash Wound Assessment: Skin/Wound Assessment Wound/Incision Assessment Start: 12/12/21 20:52 Text: Status: Active Freq: Q6H Protocol: Document 12/13/21 02:52 RG (Rec: 12/13/21 04:21 RG [id number]) Wound/Incision Assessment Left Toe Wound Assessment Shift Assessment Wound Type Pressure Ulcer Drainage Amount None Drainage Odor None/Absent General Appearance Well Approximated Primary Dressing Bandaid Comment HEALING WOUND ON SECOND TOE- SCABBED OVER AND NO DRAINAGE OR BLEEDING NOTED Wound Photo Photo Taken No Results - Labs Lab/Micro Results: Lab Results-Last 24 Hours 12/12/21 12/12/21 12/12/21 Range/Units 04:25 17:55 17:55 WBC 7.0 7.0 (4.0-10.5) K/mm3 RBC 3.28 L 3.88 L (4.1-5.4) M/mm3 Hgb 10.5 L 12.5 (12.0-16.0) gm/dl Hct 32.7 L 39.4 (35-47) % MCV 99.7 101.5 H (78-100) fl MCH 32.0 32.2 H (26-32) pg MCHC 32.1 31.7 L (32-36) g/dl RDW 14.1 H 14.2 H (11.5-14.0) % Plt Count 215 221 (150-450) K/mm3 MPV 10.3 10.2 (7.5-11.0) fl Gran % 46.3 46.3 (36.0-66.0) % Eos # (Auto) 0.20 0.21 (0-0.5) Absolute Lymphs (auto) 2.93 2.98 (1.0-4.6) Absolute Monos (auto) 0.60 0.52 (0.0-1.3) Lymphocytes % 41.9 42.8 (24.0-44.0) % Monocytes % 8.6 7.5 (0.0-12.0) % Eosinophils % 2.9 3.0 (0.00-5.0) % Basophils % 0.3 0.4 (0.0-0.4) % Absolute Granulocytes 3.24 3.23 (1.4-6.9) Basophils # 0.02 0.03 (0-0.4) Sodium 140 (137-145) mmol/L Potassium 4.1 (3.5-5.1) mmol/L Chloride 97 L (98-107) mmol/L Carbon Dioxide 31 H (22-30) mmol/L Anion Gap 16.2 H (5-15) MEQ/L BUN 39 H (7-17) mg/dL Creatinine 1.25 H (0.52-1.04) mg/dL Estimated GFR 44.9 ML/MIN Glucose 302 H (74-106) mg/dL Calcium 9.8 (8.4-10.2) mg/dL Total Bilirubin 0.60 (0.2-1.3) mg/dL AST 22 (14-36) U/L ALT 14 (0-35) U/L Alkaline Phosphatase 116 (38-126) U/L Troponin I (0.000-0.034) ng/mL Serum Total Protein 7.6 (6.3-8.2) g/dL Albumin 4.3 (3.5-5.0) g/dL Influenza Type A Ag (NEGATIVE) Influenza Type B Ag (NEGATIVE) RSV (PCR) (Negative) SARS-CoV-2 (PCR) (NEGATIVE) 12/12/21 12/12/21 12/12/21 Range/Units 17:55 18:40 21:05 WBC (4.0-10.5) K/mm3 RBC (4.1-5.4) M/mm3 Hgb (12.0-16.0) gm/dl Hct (35-47) % MCV (78-100) fl MCH (26-32) pg MCHC (32-36) g/dl RDW (11.5-14.0) % Plt Count (150-450) K/mm3 MPV (7.5-11.0) fl Gran % (36.0-66.0) % Eos # (Auto) (0-0.5) Absolute Lymphs (auto) (1.0-4.6) Absolute Monos (auto) (0.0-1.3) Lymphocytes % (24.0-44.0) % Monocytes % (0.0-12.0) % Eosinophils % (0.00-5.0) % Basophils % (0.0-0.4) % Absolute Granulocytes (1.4-6.9) Basophils # (0-0.4) Sodium (137-145) mmol/L Potassium (3.5-5.1) mmol/L Chloride (98-107) mmol/L Carbon Dioxide (22-30) mmol/L Anion Gap (5-15) MEQ/L BUN (7-17) mg/dL Creatinine (0.52-1.04) mg/dL Estimated GFR ML/MIN Glucose (74-106) mg/dL Calcium (8.4-10.2) mg/dL Total Bilirubin (0.2-1.3) mg/dL AST (14-36) U/L ALT (0-35) U/L Alkaline Phosphatase (38-126) U/L Troponin I 0.013 0.013 (0.000-0.034) ng/mL Serum Total Protein (6.3-8.2) g/dL Albumin (3.5-5.0) g/dL Influenza Type A Ag NEGATIVE (NEGATIVE) Influenza Type B Ag NEGATIVE (NEGATIVE) RSV (PCR) NEGATIVE (Negative) SARS-CoV-2 (PCR) NEGATIVE (NEGATIVE) 12/12/21 12/13/21 Range/Units 22:54 04:25 WBC (4.0-10.5) K/mm3 RBC (4.1-5.4) M/mm3 Hgb (12.0-16.0) gm/dl Hct (35-47) % MCV (78-100) fl MCH (26-32) pg MCHC (32-36) g/dl RDW (11.5-14.0) % Plt Count (150-450) K/mm3 MPV (7.5-11.0) fl Gran % (36.0-66.0) % Eos # (Auto) (0-0.5) Absolute Lymphs (auto) (1.0-4.6) Absolute Monos (auto) (0.0-1.3) Lymphocytes % (24.0-44.0) % Monocytes % (0.0-12.0) % Eosinophils % (0.00-5.0) % Basophils % (0.0-0.4) % Absolute Granulocytes (1.4-6.9) Basophils # (0-0.4) Sodium 139 (137-145) mmol/L Potassium 3.7 (3.5-5.1) mmol/L Chloride 101 (98-107) mmol/L Carbon Dioxide 30 (22-30) mmol/L Anion Gap 11.9 (5-15) MEQ/L BUN 39 H (7-17) mg/dL Creatinine 1.21 H (0.52-1.04) mg/dL Estimated GFR 46.6 ML/MIN Glucose 216 H (74-106) mg/dL Calcium 9.3 (8.4-10.2) mg/dL Total Bilirubin (0.2-1.3) mg/dL AST (14-36) U/L ALT (0-35) U/L Alkaline Phosphatase (38-126) U/L Troponin I 0.014 (0.000-0.034) ng/mL Serum Total Protein (6.3-8.2) g/dL Albumin (3.5-5.0) g/dL Influenza Type A Ag (NEGATIVE) Influenza Type B Ag (NEGATIVE) RSV (PCR) (Negative) SARS-CoV-2 (PCR) (NEGATIVE) - Radiology Impressions Radiology Exams & Impressions: Radiology Procedures Category Date Time Status CHEST 1 VIEW (PORTABLE) Stat Exams 12/12/21 17:25 Taken - Other Procedures and Tests Respiratory Therapy 12/14/21 05:00 EKG ONCE 12/15/21 05:00 EKG ONCE 12/16/21 05:00 EKG ONCE Assessment/Plan (1) Chest pain Current Visit: Yes Status: Acute Assessment & Plan: patient has had 3 negative troponins over about a 6 hour course after arrival, none since then. her symptoms are resolved. check stat troponin, if negative will d/c to home with nitro and have her see Dr Garza in followup Code(s): R07.9 - CHEST PAIN, UNSPECIFIED Hospital Summary - Vitals & Intake/Output Vital Signs: Vital Signs Temperature 97.9 F 12/13/21 08:00 Pulse Rate 67 12/13/21 08:00 Respiratory Rate 14 12/13/21 08:00 Blood Pressure 140/66 12/13/21 08:00 O2 Sat by Pulse Oximetry 95 12/13/21 08:00 Intake & Output: Intake & Output 12/10/21 12/11/21 12/12/21 12/13/21 11:59 11:59 11:59 11:59 Intake Total 100 Output Total 550 Balance -450 Weight 67.6 kg - Lab Result Diagrams: 12/12/21 17:55 12/13/21 04:25 Lab Results-Last 24 Hrs: Lab Results-Last 24 Hours 12/12/21 12/12/21 12/12/21 Range/Units 04:25 17:55 17:55 WBC 7.0 7.0 (4.0-10.5) K/mm3 RBC 3.28 L 3.88 L (4.1-5.4) M/mm3 Hgb 10.5 L 12.5 (12.0-16.0) gm/dl Hct 32.7 L 39.4 (35-47) % MCV 99.7 101.5 H (78-100) fl MCH 32.0 32.2 H (26-32) pg MCHC 32.1 31.7 L (32-36) g/dl RDW 14.1 H 14.2 H (11.5-14.0) % Plt Count 215 221 (150-450) K/mm3 MPV 10.3 10.2 (7.5-11.0) fl Gran % 46.3 46.3 (36.0-66.0) % Eos # (Auto) 0.20 0.21 (0-0.5) Absolute Lymphs (auto) 2.93 2.98 (1.0-4.6) Absolute Monos (auto) 0.60 0.52 (0.0-1.3) Lymphocytes % 41.9 42.8 (24.0-44.0) % Monocytes % 8.6 7.5 (0.0-12.0) % Eosinophils % 2.9 3.0 (0.00-5.0) % Basophils % 0.3 0.4 (0.0-0.4) % Absolute Granulocytes 3.24 3.23 (1.4-6.9) Basophils # 0.02 0.03 (0-0.4) Sodium 140 (137-145) mmol/L Potassium 4.1 (3.5-5.1) mmol/L Chloride 97 L (98-107) mmol/L Carbon Dioxide 31 H (22-30) mmol/L Anion Gap 16.2 H (5-15) MEQ/L BUN 39 H (7-17) mg/dL Creatinine 1.25 H (0.52-1.04) mg/dL Estimated GFR 44.9 ML/MIN Glucose 302 H (74-106) mg/dL Calcium 9.8 (8.4-10.2) mg/dL Total Bilirubin 0.60 (0.2-1.3) mg/dL AST 22 (14-36) U/L ALT 14 (0-35) U/L Alkaline Phosphatase 116 (38-126) U/L Troponin I (0.000-0.034) ng/mL Serum Total Protein 7.6 (6.3-8.2) g/dL Albumin 4.3 (3.5-5.0) g/dL Influenza Type A Ag (NEGATIVE) Influenza Type B Ag (NEGATIVE) RSV (PCR) (Negative) SARS-CoV-2 (PCR) (NEGATIVE) 12/12/21 12/12/21 12/12/21 Range/Units 17:55 18:40 21:05 WBC (4.0-10.5) K/mm3 RBC (4.1-5.4) M/mm3 Hgb (12.0-16.0) gm/dl Hct (35-47) % MCV (78-100) fl MCH (26-32) pg MCHC (32-36) g/dl RDW (11.5-14.0) % Plt Count (150-450) K/mm3 MPV (7.5-11.0) fl Gran % (36.0-66.0) % Eos # (Auto) (0-0.5) Absolute Lymphs (auto) (1.0-4.6) Absolute Monos (auto) (0.0-1.3) Lymphocytes % (24.0-44.0) % Monocytes % (0.0-12.0) % Eosinophils % (0.00-5.0) % Basophils % (0.0-0.4) % Absolute Granulocytes (1.4-6.9) Basophils # (0-0.4) Sodium (137-145) mmol/L Potassium (3.5-5.1) mmol/L Chloride (98-107) mmol/L Carbon Dioxide (22-30) mmol/L Anion Gap (5-15) MEQ/L BUN (7-17) mg/dL Creatinine (0.52-1.04) mg/dL Estimated GFR ML/MIN Glucose (74-106) mg/dL Calcium (8.4-10.2) mg/dL Total Bilirubin (0.2-1.3) mg/dL AST (14-36) U/L ALT (0-35) U/L Alkaline Phosphatase (38-126) U/L Troponin I 0.013 0.013 (0.000-0.034) ng/mL Serum Total Protein (6.3-8.2) g/dL Albumin (3.5-5.0) g/dL Influenza Type A Ag NEGATIVE (NEGATIVE) Influenza Type B Ag NEGATIVE (NEGATIVE) RSV (PCR) NEGATIVE (Negative) SARS-CoV-2 (PCR) NEGATIVE (NEGATIVE) 12/12/21 12/13/21 Range/Units 22:54 04:25 WBC (4.0-10.5) K/mm3 RBC (4.1-5.4) M/mm3 Hgb (12.0-16.0) gm/dl Hct (35-47) % MCV (78-100) fl MCH (26-32) pg MCHC (32-36) g/dl RDW (11.5-14.0) % Plt Count (150-450) K/mm3 MPV (7.5-11.0) fl Gran % (36.0-66.0) % Eos # (Auto) (0-0.5) Absolute Lymphs (auto) (1.0-4.6) Absolute Monos (auto) (0.0-1.3) Lymphocytes % (24.0-44.0) % Monocytes % (0.0-12.0) % Eosinophils % (0.00-5.0) % Basophils % (0.0-0.4) % Absolute Granulocytes (1.4-6.9) Basophils # (0-0.4) Sodium 139 (137-145) mmol/L Potassium 3.7 (3.5-5.1) mmol/L Chloride 101 (98-107) mmol/L Carbon Dioxide 30 (22-30) mmol/L Anion Gap 11.9 (5-15) MEQ/L BUN 39 H (7-17) mg/dL Creatinine 1.21 H (0.52-1.04) mg/dL Estimated GFR 46.6 ML/MIN Glucose 216 H (74-106) mg/dL Calcium 9.3 (8.4-10.2) mg/dL Total Bilirubin (0.2-1.3) mg/dL AST (14-36) U/L ALT (0-35) U/L Alkaline Phosphatase (38-126) U/L Troponin I 0.014 (0.000-0.034) ng/mL Serum Total Protein (6.3-8.2) g/dL Albumin (3.5-5.0) g/dL Influenza Type A Ag (NEGATIVE) Influenza Type B Ag (NEGATIVE) RSV (PCR) (Negative) SARS-CoV-2 (PCR) (NEGATIVE) - Radiology Exams Ordered Rad Exams-Entire Visit: Radiology Procedures Category Date Time Status CHEST 1 VIEW (PORTABLE) Stat Exams 12/12/21 17:25 Taken - Procedures and Test Procedures and Tests throughout Hospitalization: Therapy Orders & Screens 12/12/21 20:16 EKG [id number],QAMX3,PRN Comment: 12/13/21 01:13 EKG ONCE Comment: Diagnosis: ACS, Chest pain 12/14/21 05:00 EKG ONCE Comment: Diagnosis: ACS, Chest pain 12/15/21 05:00 EKG ONCE Comment: Diagnosis: ACS, Chest pain 12/16/21 05:00 EKG ONCE Comment: Diagnosis: ACS, Chest pain - Discharge Disposition: Home, Self-Care Condition: Stable Prescriptions: Continue Carbidopa/Levodopa [Carbidopa-Levodopa 25-250 Tab] 1 tablet PO BID Potassium Chloride 10 Meq Tab* [Klor Con 10 MEQ] 20 meq PO DAILY Clopidogrel Bisulfate 75 mg [PLAVIX 75 MG Tablet] 75 mg PO DAILY Furosemide 20 mg [Lasix 20 mg] 40 mg PO BID Insulin Glargine,Hum.rec.anlog [Lantus] 45 units SQ DAILY Baclofen 10 mg [Lioresal 10 mg] 10 mg PO BID Allopurinol 100 mg [Zyloprim 100 mg] 100 mg PO BID Acetaminophen 325 mg [Tylenol 325 mg] 325 mg PO Q6HPRN PRN PRN Reason: Fever cephALEXin [Cephalexin] 500 mg PO BID Nitroglycerin 0.4 mg Tablet [Nitrostat 0.4 MG Tablet] 0.4 mg SL Q5MIN PRN MR X 3 PRN #25 tab PRN Reason: Chest Pain Follow up with: BRANDON GREGG [Primary Care Provider] - 1 Week ZEINA GARZA [CONSULTING PHYSICIAN] - Call for Appointment
--- NOTE | 2021-12-13 08:41 | XRAY ---
Indication: Chest pain. Comparison: July 31, 2021. Portable chest is clear with again incidental right base calcified granuloma.. Heart not enlarged. Bony thorax intact again with mild osteopenia and degenerative changes. No new/acute findings.
[2021-12-13] MEDS: LIORESAL 10 MG PO SCH (09:02)
[2021-12-13] MEDS: ZYLOPRIM 100 MG PO SCH (09:02)
[2021-12-13] MEDS ORDERED: TYLENOL 325 MG PO PRN (09:40)
[2021-12-13] MEDS ORDERED: CEPHALEXIN 500 MG PO SCH (10:00)
[2021-12-13] MEDS ORDERED: Lasix 40 MG PO SCH (10:00)
[2021-12-13] MEDS ORDERED: LASIX 20 MG PO SCH (10:00)
[2021-12-13] MEDS ORDERED: Sinemet 25/250 MG PO SCH (15:00)
[2021-12-14] MEDS ORDERED: KEFLEX 250 MG PO SCH (10:00)
== END 2021-12-13 11:35 | disposition home or self-care (01) ==
LOC: ED 17:09 → MED SURG 19:55 → UNDOADMOB 19:59 → MED SURG 19:59 → ED 20:00
PROVIDERS: ADMIT Family Medicine; ATTEND Family Medicine
DX: R07.9 Chest pain, unspecified (principal); I25.10 Atherosclerotic heart disease of native coronary artery without angina pectoris; I11.0 Hypertensive heart disease with heart failure; I50.9 Heart failure, unspecified; E11.9 Type 2 diabetes mellitus without complications; E78.00 Pure hypercholesterolemia, unspecified; I25.2 Old myocardial infarction; G20 Parkinson's disease; L89.899 Pressure ulcer of other site, unspecified stage; Z79.899 Other long term (current) drug therapy; Z79.01 Long term (current) use of anticoagulants; Z20.828 Contact with and (suspected) exposure to other viral communicable diseases
CPT/HCPCS: 0241U; 36415; 71045; 80048; 80053; 82947; 84484; 85025; 93005; 93041; 93268; 94760; 99285; G0378; J1817; A9270-GY

== ENCOUNTER 2022-05-03 00:29 | Emergency (ER) | payer MEDICARE, OTHER ==
[2022-05-03 00:35] VITALS: BP 138/77; O2SAT 97
--- NOTE | 2022-05-03 01:02 | ERPHSYRPT ---
- History of Present Illness Time Seen by Provider: 05/03/22 00:32 Source: patient, EMS Exam Limitations: no limitations Patient Subjective Stated Complaint: Just not feeling like myself and my home health nurse thought I might have a UTI Triage Nursing Assessment: pt arrived via ambulance. Pt states, "I just didn't quite feel right today since about 3pm. I called my home health nurse and he did a visit and thought I needed checked for a UTI". Pt alert and oriented x4, pleasant and cooperative. Pt denies any pain, has a brace on for fx back. Lungs clear, heart tones reg, abd soft with active bs x4 quad, nontender. Pt incontinent of urine upon arrival from EMS. Physician History: 71-year-old female with history of hypertension, hyperlipidemia, GERD, diabetes mellitus, Parkinson's disease, recent stroke with left-sided weakness who [facility], [facility] is brought in the ER with chief complaint of not feeling well by EMS. Patient reports she has not been feeling herself since yesterday afternoon, home health nurse evaluated and thought patient probably have UTI and needs to be evaluated. Patient is incontinent on the way to the ER. Denies any abdominal pain, chest pain palpitations or shortness of breath. No new weakness. No fever or chills reported. Complaining of mild generalized weakness fatigue and tiredness. Denies any diarrhea, nausea or vomiting. Patient is not confused or altered and answer question appropriately. Timing/Duration: yesterday, gradual onset Severity: mild Associated Symptoms: denies symptoms Allergies/Adverse Reactions: Penicillins Allergy (Severe, Verified 05/03/22 00:45) Vomiting iodine Adverse Reaction (Verified 05/03/22 00:45) Rash Home Medications: Carbidopa/Levodopa [Carbidopa-Levodopa 25-250 Tab] 1 tablet PO BID 11/08/19 [History] Potassium Chloride Tab* [Klor Con] 20 meq PO DAILY 11/11/20 [History] Acetaminophen 325 mg [Tylenol 325 mg] 325 mg PO Q6HPRN PRN 07/28/21 [History] Allopurinol 100 mg [Zyloprim 100 mg] 100 mg PO BID 07/28/21 [History] Baclofen 10 mg [Lioresal 10 mg] 10 mg PO BID 07/28/21 [History] Clopidogrel Bisulfate [PLAVIX Tablet] 75 mg PO DAILY 07/28/21 [History] Furosemide 20 mg [Lasix 20 mg] 40 mg PO BID 07/28/21 [History] Insulin Glargine,Hum.rec.anlog [Lantus] 45 units SQ DAILY 07/28/21 [History] Cephalexin Mh 250 mg [Keflex 250 mg] 250 mg PO DAILY 12/13/21 [History] Hx Tetanus, Diphtheria Vaccination/Date Given: Yes Hx Influenza Vaccination/Date Given: No Hx Pneumococcal Vaccination/Date Given: Yes Immunizations Up to Date: Yes Travel Risk - International Travel Have you traveled outside of the country in past 3 weeks: No - Coronavirus Screening Are you exhibiting any of the following symptoms?: No Close contact with a COVID-19 positive Pt in past 14-21 Days: No - Vaccine Status Have you recieved a Covid-19 vaccination: Yes 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 Comment: had 2 boosters - Review of Systems Constitutional: Fatigue, Weakness Eyes: No Symptoms Ears, Nose, & Throat: No Symptoms Respiratory: No Symptoms Cardiac: No Symptoms Abdominal/Gastrointestinal: No Symptoms Genitourinary Symptoms: Dysuria, Urgency Musculoskeletal: Arthralgias Skin: No Symptoms Neurological: Tremors Psychological: No Symptoms Endocrine: No Symptoms Hematologic/Lymphatic: No Symptoms Immunological/Allergic: No Symptoms - Past Medical History Pertinent Past Medical History: Yes Neurological History: Migraines, Stroke, TIA, Other ENT History: No Pertinent History Cardiac History: Coronary Artery Disease, High Cholesterol, Hypertension, Myocardial Infarction (SC) Respiratory History: CHF, COPD, Sleep Apnea Endocrine Medical History: Diabetes Type II Musculoskeletal History: No Pertinent History, Fractures, Osteoarthritis GI Medical History: Gallbladder Disease, Polyps, Ulcer History: Renal Disease, Other Psycho-Social History: No Pertinent History Female Reproductive Disorders: Other Other Medical History: Parkinson's Disease. fx back - Past Surgical History Past Surgical History: Yes Neuro Surgical History: No Pertinent History Cardiac: Cardiac Catheterization, Cardiac Stent Respiratory: No Pertinent History Gastrointestinal: Cholecystectomy Genitourinary: No Pertinent History Musculoskeletal: No Pertinent History Female Surgical History: Hysterectomy Other Surgical History: 7 HEART STENTS TOTAL ,colonoscopy and egd in past - Social History Smoking Status: Never smoker Exposure to second hand smoke: No Drug Use: none Patient Lives Alone: No Significant Family History: no pertinent family hx - Nursing Vital Signs Nursing Vital Signs: Initial Vital Signs Temperature 96.9 F 05/03/22 00:31 Pulse Rate 76 05/03/22 00:31 Respiratory Rate 18 05/03/22 00:31 Blood Pressure 138/77 05/03/22 00:31 O2 Sat by Pulse Oximetry 97 05/03/22 00:31 Pain Scale Pain Intensity 0 - Physical Exam General Appearance: no apparent distress, alert Eye Exam: PERRL/EOMI Ears, Nose, Throat Exam: normal ENT inspection, pharynx normal Neck Exam: normal inspection, supple, full range of motion Respiratory Exam: normal breath sounds, lungs clear Cardiovascular Exam: regular rate/rhythm, normal heart sounds Gastrointestinal/Abdomen Exam: soft, normal bowel sounds, No tenderness Back Exam: normal inspection Extremity Exam: normal inspection, No normal range of motion Neurologic Exam: alert, oriented x 3, cooperative, 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, normal mood/affect, motor deficits (Left), No nml station & gait Skin Exam: normal color SpO2 Interpretation: normal SpO2: 97 O2 Delivery: Room Air Ordered Tests: Active Orders 24 hr Category Date Time Status IV Insertion STAT Care 05/03/22 00:38 Active CHEST 1 VIEW (PORTABLE) Stat Exams 05/03/22 00:38 Taken BLOOD CULTURE Stat Lab 05/03/22 00:38 Received CBC W DIFF Stat Lab 05/03/22 01:25 Completed CMP Stat Lab 05/03/22 01:25 Completed CULTURE,URINE Stat Lab 05/03/22 01:21 Received Lactic Acid Stat Lab 05/03/22 00:57 Completed MAGNESIUM Routine Lab 05/03/22 01:25 Completed NT PRO BNP Routine Lab 05/03/22 01:25 Completed PROCALCITONIN Stat Lab 05/03/22 01:25 Completed TROPONIN Q4H Lab 05/03/22 01:25 Completed TROPONIN Q4H Lab 05/03/22 04:45 Ordered TROPONIN Q4H Lab 05/03/22 08:45 Ordered UA W/RFX CULTURE Stat Lab 05/03/22 01:21 Completed Medication Summary Generic Name Dose Route Start Last Admin Trade Name Freq PRN Reason Stop Dose Admin Sodium Chloride 500 mls @ 500 mls/hr 05/03/22 02:39 Sodium Chloride 0.9% 500 Ml IV 05/03/22 03:38 .Q1H ONE Discontinued Medications Generic Name Dose Route Start Last Admin Trade Name Mitchel PRN Reason Stop Dose Admin Ceftriaxone Sodium/Dextrose 1 g in 50 mls @ 100 mls/hr 05/03/22 01:45 05/03/22 01:49 Rocephin 1 Gm-D5w 50 Ml Bag IV 05/03/22 02:14 100 ml/hr STAT STA 100 mls/hr Administration Ceftriaxone Sodium/Dextrose Confirm 05/03/22 01:48 Rocephin 1 Gm-D5w 50 Ml Bag Administered 05/03/22 01:49 Dose 1 g in 50 mls @ ud IV .STK-MED ONE Lab/Rad Data: Laboratory Result Diagrams 05/03/22 01:25 05/03/22 01:25 Laboratory Results 05/03/22 05/03/22 05/03/22 Range/Units 01:25 01:25 01:25 WBC (4.0-10.5) x10^3/uL RBC (4.1-5.4) x10^6/uL Hgb (12.0-16.0) g/dL Hct (35-47) % MCV (78-100) fL MCH (26-32) pg MCHC (32-36) g/dL RDW (11.5-14.0) % Plt Count (150-450) x10^3/uL MPV (7.5-11.0) fL Gran % (36.0-66.0) % Immature Gran % (Auto) (0.00-0.4) % Nucleat RBC Rel Count (0.00-0.1) % Eos # (Auto) (0-0.5) x10^3/uL Immature Gran # (Auto) (0.00-0.03) x10^3u/L Absolute Lymphs (auto) (1.0-4.6) x10^3/uL Absolute Monos (auto) (0.0-1.3) x10^3/uL Absolute Nucleated RBC (0.00-0.01) x10^3u/L Lymphocytes % (24.0-44.0) % Monocytes % (0.0-12.0) % Eosinophils % (0.00-5.0) % Basophils % (0.0-0.4) % Absolute Granulocytes (1.4-6.9) x10^3/uL Basophils # (0-0.4) x10^3/uL Sodium 142 (137-145) mmol/L Potassium 4.3 (3.5-5.1) mmol/L Chloride 102 (98-107) mmol/L Carbon Dioxide 34 H (22-30) mmol/L Anion Gap 10.1 (5-15) MEQ/L BUN 58 H (7-17) mg/dL Creatinine 1.46 H (0.52-1.04) mg/dL Estimated GFR 37.5 ML/MIN Glucose 207 H (74-106) mg/dL Lactic Acid (0.4-2.0) Calcium 10.0 (8.4-10.2) mg/dL Magnesium 2.0 (1.6-2.3) mg/dL Total Bilirubin 0.50 (0.2-1.3) mg/dL AST 19 (14-36) U/L ALT 6 (0-35) U/L Alkaline Phosphatase 159 H (38-126) U/L Troponin I < 0.012 (0.000-0.034) ng/mL NT-Pro-B Natriuret Pep 121 (0-900) pg/mL Serum Total Protein 7.1 (6.3-8.2) g/dL Albumin 4.0 (3.5-5.0) g/dL Procalcitonin 0.343 H (0.030-0.080) ng/mL Urinalys Dipstick Clnc Urine Color (YELLOW) Urine Appearance (CLEAR) Urine pH (5-6) Ur Specific [place] (1.005-1.025) POC Urine Protein Conf (Negative) Urine Ketones (NEGATIVE) Urine Nitrite (NEGATIVE) Urine Bilirubin (NEGATIVE) Urine Urobilinogen (0-1) mg/dL Urine Leukocytes (NEGATIVE) Urine WBC (Auto) (0-5) /HPF Urine RBC (Auto) (0-2) /HPF U Epithel Cells (Auto) (FEW) /HPF Urine Bacteria (Auto) (NEGATIVE) /HPF Urine RBC (0-5) Austen/ul Ur Culture Indicated? Urine Glucose (NEGATIVE) mg/dL 05/03/22 05/03/22 05/03/22 Range/Units 01:25 01:21 00:57 WBC 7.6 (4.0-10.5) x10^3/uL RBC 4.31 (4.1-5.4) x10^6/uL Hgb 12.8 (12.0-16.0) g/dL Hct 41.3 (35-47) % MCV 95.8 (78-100) fL MCH 29.7 (26-32) pg MCHC 31.0 L (32-36) g/dL RDW 15.1 H (11.5-14.0) % Plt Count 205 (150-450) x10^3/uL MPV 10.5 (7.5-11.0) fL Gran % 54.0 (36.0-66.0) % Immature Gran % (Auto) 0.3 (0.00-0.4) % Nucleat RBC Rel Count 0.0 (0.00-0.1) % Eos # (Auto) 0.43 (0-0.5) x10^3/uL Immature Gran # (Auto) 0.02 (0.00-0.03) x10^3u/L Absolute Lymphs (auto) 2.29 (1.0-4.6) x10^3/uL Absolute Monos (auto) 0.68 (0.0-1.3) x10^3/uL Absolute Nucleated RBC 0.00 (0.00-0.01) x10^3u/L Lymphocytes % 30.3 (24.0-44.0) % Monocytes % 9.0 (0.0-12.0) % Eosinophils % 5.7 H (0.00-5.0) % Basophils % 0.7 (0.0-0.4) % Absolute Granulocytes 4.09 (1.4-6.9) x10^3/uL Basophils # 0.05 (0-0.4) x10^3/uL Sodium (137-145) mmol/L Potassium (3.5-5.1) mmol/L Chloride (98-107) mmol/L Carbon Dioxide (22-30) mmol/L Anion Gap (5-15) MEQ/L BUN (7-17) mg/dL Creatinine (0.52-1.04) mg/dL Estimated GFR ML/MIN Glucose (74-106) mg/dL Lactic Acid 1.3 (0.4-2.0) Calcium (8.4-10.2) mg/dL Magnesium (1.6-2.3) mg/dL Total Bilirubin (0.2-1.3) mg/dL AST (14-36) U/L ALT (0-35) U/L Alkaline Phosphatase (38-126) U/L Troponin I (0.000-0.034) ng/mL NT-Pro-B Natriuret Pep (0-900) pg/mL Serum Total Protein (6.3-8.2) g/dL Albumin (3.5-5.0) g/dL Procalcitonin (0.030-0.080) ng/mL Urinalys Dipstick Clnc MAIN LAB Urine Color YELLOW (YELLOW) Urine Appearance CLEAR (CLEAR) Urine pH 7.0 (5-6) Ur Specific [place] 1.015 (1.005-1.025) POC Urine Protein Conf NEGATIVE (Negative) Urine Ketones NEGATIVE (NEGATIVE) Urine Nitrite POSITIVE (NEGATIVE) Urine Bilirubin NEGATIVE (NEGATIVE) Urine Urobilinogen 0.2 (0-1) mg/dL Urine Leukocytes SMALL (NEGATIVE) Urine WBC (Auto) 16-25 (0-5) /HPF Urine RBC (Auto) 0-2 (0-2) /HPF U Epithel Cells (Auto) RARE (FEW) /HPF Urine Bacteria (Auto) NONE SEEN (NEGATIVE) /HPF Urine RBC NEGATIVE (0-5) [place]/ul Ur Culture Indicated? YES Urine Glucose NEGATIVE (NEGATIVE) mg/dL - Progress Progress: improved Progress Note: 05/03/22 02:57 71-year-old is evaluated for generalized weakness, not feeling well. She is given gentle hydration. Work-up showed normal white count, chemistry profile showed BLANCA with elevated procalcitonin and positive UTI. Given a dose of Rocephin. Chest x-ray questionable infiltrative process. Patient is not in any distress and maintaining oxygen saturation at room air around 97%. Patient is being discharged on oral antibiotics Omnicef with outpatient follow-up. Discussed signs symptoms of worsening needing return to ER which patient/son seem understanding. Stable for discharge. Counseled pt/family regarding: lab results, diagnosis, need for follow-up, rad results - Departure Departure Disposition: Home Clinical Impression: BLANCA (acute kidney injury), Acute UTI, General weakness Condition: Stable Critical Care Time: No Referrals: BRANDON GREGG [Primary Care Provider] - Follow Up with PCP/3 days Instructions: Urinary Tract Infection, Adult (DC), Kidney Failure (DC) Additional Instructions: Plenty of fluids. Tylenol as needed for fever. Continue with antibiotic we will follow-up with primary care for reevaluation. Return to ER for any worsening. Prescriptions: Cefdinir 300 mg PO BID 7 Days #14 cap
[2022-05-03 01:31] LABS: Absolute Neutrophil Ct (ANC) 4.09 x10^3/uL (1.4-6.9); Basophil (Absolute #) 0.05 x10^3/uL (0-0.4); Eosinophil % 5.7 % (0.00-5.0); Eosinophil (Absolute #) 0.43 x10^3/uL (0-0.5); Hematocrit 41.3 % (35-47); Hemoglobin 12.8 g/dL (12.0-16.0); Lymphocyte (Absolute #) 2.29 x10^3/uL (1.0-4.6); Lymphocytes % 30.3 % (24.0-44.0); Mean Cell Volume 95.8 fL (78-100); Mean Corpuscular Hemoglobin 29.7 pg (26-32); Mean Platelet Volume 10.5 fL (7.5-11.0); Monocyte (Absolute #) 0.68 x10^3/uL (0.0-1.3); Platelet Count 205 x10^3/uL (150-450); Red Blood Count 4.31 x10^6/uL (4.1-5.4); Red Cell Distribution Width 15.1 % (11.5-14.0); White Blood Count 7.6 x10^3/uL (4.0-10.5)
[2022-05-03 01:38] LABS: Appearance CLEAR (CLEAR); Bilirubin NEGATIVE (NEGATIVE); Dipstick done @ ? MAIN LAB; Glucose NEGATIVE (NEGATIVE); Ketones NEGATIVE (NEGATIVE); Nitrite POSITIVE (NEGATIVE); Protein,Urine Dip NEGATIVE (Negative); RBC NEGATIVE Ery/ul (0-5); Specific Gravity 1.015 (1.005-1.025); Urobilinogen 0.2 mg/dL (0-1)
[2022-05-03 01:39] LABS: Bacteria NONE SEEN /HPF (NEGATIVE); Epithelial Cells RARE /HPF (FEW); RBC 0-2 /HPF (0-2)
[2022-05-03 01:40] LABS: Urine Cultured Indicated? YES
[2022-05-03 01:44] LABS: ANION GAP 10.1 MEQ/L (5-15); BILIRUBIN,TOTAL 0.5 mg/dL (0.2-1.3); Creatinine 1 1.46 mg/dL (0.52-1.04); EST GLOMERULAR FILTRATION RATE 37.5 ML/MIN; Potassium 4.3 mmol/L (3.5-5.1); Total Protein 7.1 g/dL (6.3-8.2)
[2022-05-03] MEDS ORDERED: ROCEPHIN 1 Gm-D5w 50 ml Bag** 1 G/50 ML IVPB IV STA (01:45)
[2022-05-03] MEDS ORDERED: ROCEPHIN 1 Gm-D5w 50 ml Bag** 1 G/50 ML IVPB IV ONE (01:48)
[2022-05-03 01:56] LABS: NT PRO BNP 121 pg/mL (0-900); TROPONIN < 0.012 ng/mL (0.000-0.034)
[2022-05-03] MEDS ORDERED: Sodium Chloride 0.9% 500 ML 500 ML IV ONE ×2 (02:39→02:53)
[2022-05-03 02:56] VITALS: PULSE 72
--- NOTE | 2022-05-03 06:30 | XRAY ---
Indication: Weakness. Comparison: December 12, 2021 Portable chest less inflated with new mild left base and right mid-to lower lung infiltrate versus atelectasis. Remaining heart and lungs unremarkable again with incidental left apical calcified granuloma. Bony thorax intact again with osteopenia and mild degenerative changes.
== END 2022-05-03 03:25 | disposition home or self-care (01) ==
LOC: ED 00:29
DX: N39.0 Urinary tract infection, site not specified (principal); N17.9 Acute kidney failure, unspecified; R53.1 Weakness; I10 Essential (primary) hypertension; E78.5 Hyperlipidemia, unspecified; E11.9 Type 2 diabetes mellitus without complications; J44.9 Chronic obstructive pulmonary disease, unspecified; Z79.4 Long term (current) use of insulin; Z79.02 Long term (current) use of antithrombotics/antiplatelets; Z79.899 Other long term (current) drug therapy
CPT/HCPCS: 36000; 36415; 51702; 71045; 80053; 81015; 83605; 83735; 83880; 84145; 84484; 85025; 87040; 87086; 96374; 96375; 99284; J0696